=== PATIENT | female | born 1995 | race Caucasian/White ===

== ENCOUNTER → 2017-09-17 11:38 | Outpatient (CLI) | payer OTHER, SELFPAY ==
[2017-09-17 16:23] LABS: hCG Titer Quant., Serum < 1 mIU/mL (<9 non-preg)
[2017-09-17 17:06] LABS: Follicle Stimulating Hormone 3.5 mIU/mL; Free T3 3.4 pg/mL (2.18-3.98); Luteinizing Hormone 2.5 mIU/mL; T4 Free Direct 1.11 ng/dL (0.76-1.46); Thyroid Stim Hormone (TSH) 1.12 uIU/mL (0.358-3.74)
[2017-09-21 06:20] LABS: HPV Reflexed? NOT INDICATED
== END ==
PROVIDERS: Visit Provider Obstetrics & Gynecology
DX: Z12.4 Encounter for screening for malignant neoplasm of cervix (principal); N92.6 Irregular menstruation, unspecified
CPT/HCPCS: 36415; 83001; 83002; 84439; 84443; 84481; 84702; 88175; G0145

== ENCOUNTER → 2018-12-02 13:56 | Outpatient (CLI) | payer OTHER, SELFPAY ==
[2018-12-02 17:30] LABS: Chlamydia Trachomatis by PCR Negative (Negative); Neisserai gonorrhoeae by PCR Negative (Negative); Probe Check PASS; Sample Adequacy Control PASS; Specimen Processing Control PASS
[2018-12-04 16:04] LABS: HPV Reflexed? NOT INDICATED
== END ==
PROVIDERS: Visit Provider Obstetrics & Gynecology
DX: Z12.4 Encounter for screening for malignant neoplasm of cervix (principal); Z11.3 Encounter for screening for infections with a predominantly sexual mode of transmission
CPT/HCPCS: 87491; 87591; 88175; G0145

== ENCOUNTER → 2022-12-17 | Outpatient (CLI) | payer OTHER, SELFPAY ==
[2022-12-17 17:35] LABS: Hemoglobin 15.5 g/dL (12.0-15.0); Mean Corp Hgb Conc 33.7 g/dL (32-36); Mean Corpuscular Hgb 29.6 pg (27.0-32.0); Platelet Count 280 K/mm3 (150-450); RBC Distribution Width SD 41.7 fl (35.1-43.9); Red Blood Count 5.23 M/mm3 (4.2-5.4); White Blood Count 14.1 K/mm3 (4.4-11.0)
[2022-12-17 18:14] LABS: CRP < 2.90 mg/L (0.0-3.0); T4 Total, Thyroxin 7.9 ug/dL (4.8-13.9); Thyroid Stim Hormone (TSH) 0.65 uIU/mL (0.358-3.74)
[2022-12-19 16:09] LABS: Endomysial Antibody IgA Positive (Negative); Immunoglobulin A 88 mg/dL (87-352); t-Transglutaminase IgA 9 U/mL (0-3)
== END | disposition home or self-care (01) ==
LOC: MTLAB 15:58
PROVIDERS: Referring Provider Internal Medicine Gastroenterology; Visit Provider Internal Medicine Gastroenterology
DX: R19.7 Diarrhea, unspecified (principal)
CPT/HCPCS: 36415; 82784; 83516; 84436; 84443; 85027; 86140; 86255

== ENCOUNTER 2024-08-10 08:18 | Emergency (ER) | payer OTHER, SELFPAY ==
[2024-08-10 08:21] VITALS: BP 122/92; PULSE 94; RESP 18; TEMP 36.9; O2SAT 100; BMI 25.0
--- NOTE | 2024-08-10 08:36 | US_ITS ---
PROCEDURE: TRANSVAGINAL W/PREG US REASON FOR EXAM: Bleeding during . COMPARISON: None. FINDINGS: Comments: Transvaginal imaging was performed Number of Gestational Sacs: 1 Gestational Sac Shape: Normal it measures 2.2 cm. 7 weeks and 1 day. Number of Fetuses: 1 Heart Rate: 123 (average) Survey of Visible Anatomic Structures: Grossly unremarkable for gestational age. [place]-rump measurement is 4 mm corresponding to 6 weeks and 2 days. Yolk Sac: Present and unremarkable. Placenta: Presently not well-visualized Amniotic Fluid Volume: Subjectively normal for gestational age. Uterine Abnormalities: Maternal uterus is unremarkable. Uterus measures 8.7 cm 6 cm 5.3 cm. Ovaries / Adnexa: Both maternal ovaries are visualized and unremarkable. There is a 1.9 cm x 1.5 cm x 1.5 cm dominant follicle in the right ovary. ESTIMATED GESTATIONAL AGE: By Ultrasound: 6 weeks and 5 days By LMP: 6 weeks and 1 day ESTIMATED DATE OF DELIVERY: By Ultrasound: March 31, 2025 By LMP: April 04, 2025 US/Transvaginal w/Preg US IMPRESSION: UNREMARKABLE FIRST TRIMESTER ULTRASOUND. Reading Location: [place] [address]
--- NOTE | 2024-08-10 08:37 | ED.VIS.FEGU ---
HPI HPI - Female History of Present Illness Chief Complaint: Vag Bld, Preg Detail of Chief Complaint: and bleeding Informant: patient Narrative Narrative: Patient presents to the emergency department with complaint of vaginal bleeding that started last evening. Initially had some spotting last night. Patient think she is about 6 and half weeks as her last menstrual period was June 28. She has had some mild abdominal cramping. She denies urinary symptoms. This is her first and she is G1, P0. She has not had any care yet. This morning she had blood on the toilet paper when she wiped again. Denies passing clots. PFSH PFSH Allergy/AdvReac Type Severity Reaction Status Date / Time gluten AdvReac Intermediate Other Verified 08/10/24 08:21 Social History Smoking Status: Never smoker ROS ROS ED Review of Systems ROS Unobtainable: other Constitutional Constitutional ED: Reports lethargy; Denies chills, fever(s), sweats or weight loss Eyes Eyes: Denies blurry vision, change in vision or diplopia ENT ENT ED: Denies rhinorrhea or sore throat Cardiovascular Cardiovascular: Denies chest pain, orthopnea or racing heartbeat Respiratory/Chest Respiratory/Chest: Denies cough, dyspnea, dyspnea on exertion, orthopnea or sputum Gastrointestinal Gastrointestinal: Denies abdominal pain, diarrhea, nausea or vomiting Genitourinary Genitourinary ED: Reports other Details: Vaginal bleeding ; Denies dysuria, hematuria or urinary frequency Musculoskeletal Musculoskeletal: Denies arthralgias, back pain, myalgias or neck pain Integumentary Denies abscess, Abrasions or rash Neurologic Neurologic: Denies headache(s) or weakness Psychiatric Psychiatric: Denies anxiety, depression or suicidal thoughts Endocrine Endocrinology: Denies polydipsia, polyphagia or polyuria Hematologic/Lymphatic Hematologic/Lymphatic: Denies easy bleeding, easy bruising or lymphadenopathy Allergic/Immunologic Allergic/Immunologic ED: Denies mouth swelling, tongue swelling or urticaria EXAM Physical Exam Const Vital Signs: 08/10/24 08:21 08/10/24 10:19 Temperature 98.4 F Temperature Source Oral Pulse Rate 94 82 Respiratory Rate 18 14 Blood Pressure 122/92 H Blood Pressure Mean 102 Pulse Ox 100 99 Oxygen Delivery Method Room Air Positive well nourished and well developed General Appearance ED: well developed and NAD HEENT Reports TM's clear and moist mucous membranes normocephalic and atraumatic; Negative for trauma or tenderness Tympanic Membrane ED: Yes TM's clear Eyes PERRL and EOMs intact bilaterally General Eye ED: Negative for pale conjunctiva or scleral icterus Neck no lymphadenopathy, supple and no JVD General: Negative for tenderness Chest Wall inspection of chest normal and palpation of chest normal Chest: Negative for tenderness Resp normal respiratory effort and clear to auscultation bilaterally Effort and Inspection: Negative for respiratory distress or pain with movement Auscultation: Negative for rhonchi, wheezes or diminished lung sounds Cardio regular rate, regular rhythm, S1 normal heart sound, S2 normal heart sound and no murmurs Peripheral Pulses: pulses 2+ throughout GI normal to inspection, nondistended, normoactive bowel sounds, soft to palpation, non-tender, non-distended and no masses Back/Spine no CVA tenderness and no thoracic nor lumbar tenderness Extremity normal to inspection General Extremety ED: Negative for edema General Extremity: Negative for edema Neuro oriented x3, CN's II-XII intact bilaterally, no sensory deficits noted and gait normal Sensorium / Orientation: awake, alert, oriented to person, oriented to place and oriented to time Motor Exam: strength 5/5 throughout and strength abnormal Psych mental status grossly normal Skin no rashes or lesions noted and no wounds MDM MDM MDM Narrative Medical decision making narrative: Patient presents with first trimester bleeding. Clinically looks well. CBC with differential obtained was unremarkable. Quantitative hCG was 40,900. Pelvic ultrasound obtained showed single live intrauterine measuring 7 weeks 1 day with heart rate of 123. Blood type was a positive. Urinalysis obtained did show +2 bacteria and 5-10 WBCs and 100 leukocyte esterase. She is asymptomatic as far as UTI. I did send off a culture but I do not think she needs treatment at this time. Will discuss case with TRANSMITTER ENGINEER IN CHARGE on-call for Dr. Arriaza to arrange follow-up. Patient advised on pelvic rest. Lab Data Attestation: I reviewed the patient's lab results. Labs: Laboratory Results - last 24 hr 08/10/24 08/10/24 09:27 10:10 WBC 12.9 H RBC 5.14 Hgb 15.5 H Hct 43.3 MCV 84.2 MCH 30.2 MCHC 35.8 RDW Std Deviation 37.6 RDW Coeff of Georgie 12.3 Plt Count 208 MPV 11.3 Immature Gran % (Auto) 0.300 Neut % (Auto) 78.9 H Lymph % (Auto) 14.6 L [place] % (Auto) 5.1 Eos % (Auto) 0.7 Baso % (Auto) 0.4 Absolute Neuts (auto) 10.2 H Absolute Lymphs (auto) 1.89 Nucleated RBC % 0 HCG, Quant 45891 H Urine Color Yellow Urine Clarity Clear Urine pH 6.5 Ur Specific [place] 1.010 Urine Protein 15 H Urine Glucose (UA) Normal Urine Ketones 50 H Urine Occult Blood 250 H Urine Nitrite Negative Urine Bilirubin Negative Urine Urobilinogen Normal Ur Leukocyte Esterase 100 H Urine RBC 0-5 SEEN Urine WBC 5-10 SEEN Ur Squamous Epith Cells 5-10 SEEN Ur Renal Epithelial Cell 0-5 SEEN Urine Bacteria 2+ Urine Mucus 0 SEEN Blood Type A POSITIVE Radiography Diagnostic Testing: Clinical Impression(s) from Imaging Studies Obstetrics Ultrasound 08/10/24 08:36 IMPRESSION: UNREMARKABLE FIRST TRIMESTER ULTRASOUND. Reading Location: [place] [address] Discharge Plan Triage Chief Complaint: Vag Bld, Preg ED Provider: Cee Purcell Dx/Rx/DC Orders Clinical Impression: Threatened in first trimester Instructions: Miscarriage Threatened Primary Care Provider: Care Physician,Laney Primary Referrals: Angella Arriaza MD [Med Staff - Active Staff] - Keep [place] appointment NOT,DEFINED [Non-Staff] - Print Language: [place] Islander Disposition Disposition: Home, Self Care
[2024-08-10 09:49] LABS: Absolute Lymphocyte Count 1.89 X10^3/uL (0.83-4.51); Absolute Neutrophil Count 10.2 X10^3/uL (2.0-7.7); Basophil# 0.05 X10^3/uL; Basophil% 0.4 % (0-1); Eosinophil# 0.09 X10^3/uL; Eosinophils% 0.7 % (0-5); Hematocrit 43.3 % (37-47); Hemoglobin 15.5 g/dL (12.0-15.0); Lymphocyte # 1.89 X10^3/ul (0.83-4.51); Lymphocyte % 14.6 % (19-41); Mean Corp Hgb Conc 35.8 g/dL (32-36); Mean Corpuscular Hgb 30.2 pg (27.0-32.0); Mean Corpuscular Volume 84.2 fL (81-99); Mean Platelet Vol. 11.3 fl (6.2-12.0); Monocyte# 0.66 X10^3/uL; Monocyte% 5.1 % (0-10); NRBC Flagged by Analyzer 0 % (0-5); Neutrophil # 10.19 X10^3/uL (2.7-7.7); Neutrophil % 78.9 % (47-70); Platelet Count 208 K/mm3 (150-450); RBC Distribution Width CV 12.3 % (11.6-14.6); RBC Distribution Width SD 37.6 fl (35.1-43.9); Red Blood Count 5.14 M/mm3 (4.2-5.4); White Blood Count 12.9 K/mm3 (4.4-11.0)
[2024-08-10 10:19] VITALS: PULSE 82; RESP 14; O2SAT 99
[2024-08-10 10:30] LABS: Mucous, Urine 0 SEEN /hpf (<or=2+)
[2024-08-10 10:40] LABS: Color, Urine Yellow (Yellow); Glucose, Dipstick Normal (Normal); Ketone-Dipstick 50 mg/dl (Negative); Leukocyte Esterase-Dipstick 100 /ul (Negative); Nitrite-Dipstick Negative (Negative); Occult Blood-Urine 250 /ul (Negative); Protein-Dipstick 15 mg/dl (Negative); Urine Bilirubin Dipstick Negative (Negative); Urine Clarity Clear (Clear); Urine Urobilinogen Normal (Normal); Urine pH 6.5 (5.0 - 8.0)
[2024-08-10 10:50] LABS: Red Blood Cells-Urine 0-5 SEEN /hpf (0-5); White Blood Cells 5-10 SEEN /hpf (0-5)
[2024-08-10 10:51] LABS: Bacteria 2+ /hpf (None Seen); Renal Epithelial Cells 0-5 SEEN /hpf (0-5); Squamous Epithelial Cells - UA 5-10 SEEN /hpf (5-10)
[2024-08-10 10:53] LABS: hCG Titer Quant., Serum 40949 mIU/mL (1-3)
[2024-08-10 12:24] VITALS: BP 130/68; PULSE 71; RESP 14; TEMP 36.6; O2SAT 100
== END 2024-08-10 12:25 | disposition home or self-care (01) ==
PROVIDERS: Emergency Provider Emergency Medicine; Visit Provider Emergency Medicine
DX: O20.0 Threatened abortion (principal); Z3A.01 Less than 8 weeks gestation of pregnancy
CPT/HCPCS: 76817; 81001; 84702; 85025; 86900; 86901; 87086; 87088; 99282; A4216

== ENCOUNTER 2024-08-11 09:13 | Emergency (ER) | payer OTHER, SELFPAY ==
[2024-08-11 09:14] VITALS: BP 115/76; PULSE 120; RESP 18; TEMP 37.2; O2SAT 98; BMI 25.1
--- NOTE | 2024-08-11 09:36 | EDS_ITS ---
HPI HPI - GI History of Present Illness Chief Complaint: Nausea/Vomiting Informant: patient Narrative Narrative: Patient is a 28-year-old female with history of stomach issues and approximately 7 weeks presenting with nausea vomiting continued vaginal bleeding. Patient was seen in our ER yesterday for vaginal bleeding. She was found to be A positive, Had a hemoglobin of 15.5 and a quant of 40,949. She had an ultrasound which showed gestation consistent with 6 weeks and 5 days and a heart rate of 123. She states she woke around 230 this morning and started having vomiting. She has had multiple episodes of vomiting cannot keep any fluids down. She has been having some nausea but is not been throwing up until this morning. She states he can keep anything down. 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 She is having some mild upper abdominal pain associate with vomiting. No fevers reported. Did have slightly more bleeding when she got up to throw up initially with passage of very small clots but states there is no blood on her underwear. Has not had any recent intercourse. Denies any dysuria or hematuria. Denies any black or blood in her vomit or her stool. Denies any diarrhea. Has tried half a Unisom and B6 vitamin at home with no significant relief. PFSH PFSH Home Medications ?Medication ?Instructions ?Recorded ?Last Taken ?Type ondansetron 4 mg disintegrating 4 mg PO Q8H PRN PRN Na usea #15 tabs 08/11/24 Unknown Rx tablet Allergy/AdvReac Type Severity Reaction Status Date / Time gluten AdvReac Intermediate Other Verified 08/10/24 08:21 Social History Smoking Status: Never smoker ROS ROS ED Constitutional Constitutional ED: Reports chills; Denies fever(s) ENT ENT ED: Reports other Details: congestion Cardiovascular Cardiovascular: Denies chest pain Respiratory/Chest Respiratory/Chest: Denies cough or dyspnea Gastrointestinal Gastrointestinal: Reports abdominal pain, nausea and vomiting; Denies constipation, diarrhea or melena Genitourinary Genitourinary ED: Reports LMP (females 10-50) Details: Comment: (June 28, 2024) and other Details: vaginal bleeding ; Denies dysuria or hematuria Integumentary Denies rash Neurologic Neurologic: Reports weakness Psychiatric Psychiatric: Reports anxiety Hematologic/Lymphatic Hematologic/Lymphatic: Denies easy bleeding or easy bruising EXAM Physical Exam Const Vital Signs: 08/11/24 09:14 08/11/24 12:25 08/11/24 14:00 Temperature 98.9 F Temperature Source Oral Pulse Rate 120 H 94 Respiratory Rate 18 18 Blood Pressure 115/76 112/69 106/71 Blood Pressure Mean 89 83 83 Pulse Ox 98 99 97 Oxygen Delivery Method Room Air Room Air 08/11/24 14:47 Temperature Temperature Source Pulse Rate 93 Respiratory Rate 18 Blood Pressure 101/63 Blood Pressure Mean 75 Pulse Ox 98 Oxygen Delivery Method Positive well nourished and well developed General Appearance ED: well developed and NAD; Negative for pallor HEENT Reports moist mucous membranes normocephalic and atraumatic Eyes PERRL Neck supple Resp normal respiratory effort and clear to auscultation bilaterally Cardio regular rhythm and no murmurs Rate: tachycardic GI Inspection: Negative for abdominal distention Auscultation: normoactive bowel sounds Palpation: soft and tender epigastric; Negative for guarding or rigid Back/Spine no CVA tenderness Extremity full ROM General Extremety ED: Negative for edema General Extremity: Negative for edema Neuro moves all extremities Sensorium / Orientation: alert, oriented to person, oriented to place and oriented to time Motor Exam: Negative for general weakness Psych thought process normal Mood & Affect: tearful Skin General Skin Exam: Negative for jaundice or pallor Rashes: no rashes MDM MDM MDM Narrative Medical decision making narrative: Patient evaluated for continued vaginal bleeding in early which she had evaluated yesterday as well as new nausea and vomiting. Differential includes related vomiting, dehydration, ANDRADE, pancreatitis, influenza, threatened miscarriage as well as incomplete miscarriage. Will give IV fluids and Zofran. Did discuss risk and benefits of Zofran and early and we decided that that this time was best for her mother as well as her baby and benefits outweigh the risk. In addition perform bedside ultrasound. Given that she had confirmed intrauterine gestation is not having lower pelvic pain I do not think she requires repeat formal ultrasound. Bedside ultrasound performed by myself shows single intrauterine gestation. I believe I see cardiac activity at approximately 130 bpm per M-mode. Patient reevaluated IV fluids and Zofran. States she temporarily felt better but then her symptoms worsened and she is having more pain in her upper abdomen. She now has diffuse upper abdominal pain but more localized to the right upper quadrant. She does have a leukocytosis of 17.2 concern for infectious versus reactive process. Hemoglobin is increased consistent with some dehydration hemoconcentration. hCG is uptrending. Electrolytes otherwise largely normal except for sodium of 134. Urinalysis most consistent with dehydration with 150 ketones and no significant leukorrhea. Patient will begin a second liter fluid, further Zofran Pepcid and will obtain right upper quadrant ultrasound. COVID flu RSV negative. Right upper quadrant ultrasound unremarkable. No signs of acute cholecystitis. Patient reevaluated and has further improvement of symptoms and swelling much better. Is tolerating ice chips. Will be discharged home with instructions follow-up with her GAG WRITER. Is given return precautions. Will be given a prescription for Zofran. Counseled that we can still not rule out threatened miscarriage/ with her continued bleeding. Given return precautions including severe pain, bleeding more than a pad an hour for 2 hours in a row or feeling lightheaded/dizzy. Discussed eating small frequent meals and pushing fluids at home. Lab Data Attestation: I reviewed the patient's lab results. Labs: Laboratory Results - last 24 hr 08/11/24 08/11/24 09:35 11:14 WBC 17.2 H RBC 5.48 H Hgb 16.4 H Hct 46.2 MCV 84.3 MCH 29.9 MCHC 35.5 RDW Std Deviation 37.2 RDW Coeff of Georgie 12.3 Plt Count 216 MPV 11.1 Immature Gran % (Auto) 0.300 Neut % (Auto) 93.5 H Lymph % (Auto) 2.4 L [place] % (Auto) 3.4 Eos % (Auto) 0.2 Baso % (Auto) 0.2 Absolute Neuts (auto) 16.1 H Absolute Lymphs (auto) 0.42 L Nucleated RBC % 0 Sodium 134 L Potassium 3.9 Chloride 104 Carbon Dioxide 21.0 Anion Gap 9 BUN 12 Creatinine 0.74 Estim Creat Clear Calc 111.05 Est GFR (MDRD) Af Amer 120 Est GFR (MDRD) Non-Af 99 BUN/Creatinine Ratio 16.2 Glucose 133 H Calcium 9.0 Total Bilirubin 0.80 AST 12 L ALT 29 Alkaline Phosphatase 72 Total Protein 7.7 Albumin 3.8 Globulin 3.9 Albumin/Globulin Ratio 1.0 Lipase 31 HCG, Quant 77210 H Urine Color Yellow Urine Clarity Sl. Cloudy Urine pH 6.5 Ur Specific [place] 1.015 Urine Protein 30 H Urine Glucose (UA) Normal Urine Ketones 150 A* Urine Occult Blood 150 H Urine Nitrite Negative Urine Bilirubin Negative Urine Urobilinogen Normal Ur Leukocyte Esterase 25 H Urine RBC 0-5 SEEN Urine WBC 0-5 SEEN Ur Squamous Epith Cells 0-5 SEEN Urine Bacteria 1+ Urine Mucus 0 SEEN Radiography Diagnostic Testing: Clinical Impression(s) from Imaging Studies Gallbladder Ultrasound 08/11/24 12:16 IMPRESSION: NORMAL RIGHT UPPER QUADRANT ULTRASOUND. Right renal pelvic cyst. Reading Location: [place] [address] Discharge Plan Triage Chief Complaint: Nausea/Vomiting ED Provider: Fatoumata Diaz Dx/Rx/DC Orders Clinical Impression: Threatened in first trimester, Nausea & vomiting Instructions: Miscarriage Threatened , ED Vomiting (Adult) Prescriptions: New ondansetron 4 mg tablet,disintegrating 4 mg PO Q8H PRN PRN (Reason: Nausea) Qty: 15 0RF Primary Care Provider: Care Physician,No Primary Referrals: Angella Arriaza MD [Med Staff - Active Staff] - Care Physician,No Primary [Primary Care Provider] - Print Language: [place]ian Disposition Disposition: Home, Self Care Discharge Date/Time: 08/11/24 14:48
[2024-08-11 09:45] LABS: Absolute Lymphocyte Count 0.42 X10^3/uL (0.83-4.51); Absolute Neutrophil Count 16.1 X10^3/uL (2.0-7.7); Basophil# 0.04 X10^3/uL; Basophil% 0.2 % (0-1); Eosinophil# 0.03 X10^3/uL; Eosinophils% 0.2 % (0-5); Hematocrit 46.2 % (37-47); Hemoglobin 16.4 g/dL (12.0-15.0); Lymphocyte # 0.42 X10^3/ul (0.83-4.51); Lymphocyte % 2.4 % (19-41); Mean Corp Hgb Conc 35.5 g/dL (32-36); Mean Corpuscular Hgb 29.9 pg (27.0-32.0); Mean Corpuscular Volume 84.3 fL (81-99); Mean Platelet Vol. 11.1 fl (6.2-12.0); Monocyte# 0.58 X10^3/uL; Monocyte% 3.4 % (0-10); NRBC Flagged by Analyzer 0 % (0-5); Neutrophil # 16.11 X10^3/uL (2.7-7.7); Neutrophil % 93.5 % (47-70); POSITIVE DIFFERENTIAL YES; Platelet Count 216 K/mm3 (150-450); RBC Distribution Width CV 12.3 % (11.6-14.6); RBC Distribution Width SD 37.2 fl (35.1-43.9); Red Blood Count 5.48 M/mm3 (4.2-5.4); White Blood Count 17.2 K/mm3 (4.4-11.0)
[2024-08-11] MEDS: Ondansetron 4 MG/2 ML Vial IV ×2 (09:47→12:22)
[2024-08-11] MEDS: 0.9% Normal Saline (1000mL) 1,000 ML 1000 ML IV (09:47)
[2024-08-11 10:00] LABS: AST(SGOT) 12 U/L (15-37); Alanine Aminotransfer ALT/SGPT 29 U/L (13-56); Albumin, Serum 3.8 g/dL (3.2-5.0); Alkaline Phosphatase 72 U/L (45-117); Anion Gap 9 (5-15); BUN 12 mg/dL (7-18); BUN/Creat Ratio 16.2 RATIO (10-20); Chloride 104 mmol/L (98-107); Creatinine, Serum 0.74 mg/dL (0.55-1.02); EST Glomerular Filtration Rate 99 mL/min (>60); Est Glom Filt Rate - Afr Amer 120 mL/min (>60); Estimated Creatinine Clearance 111.05 ml/min; Globulin 3.9 g/dL (2.2-4.2); Glucose 133 mg/dL (74-106); Lipase 31 U/L (13-75); Potassium 3.9 mmol/L (3.5-5.1); Protein, Total 7.7 g/dL (6.4-8.2); Sodium Level 134 mmol/L (136-145)
[2024-08-11 10:25] LABS: hCG Titer Quant., Serum 42259 mIU/mL (1-3)
[2024-08-11 11:22] LABS: Mucous, Urine 0 SEEN /hpf (<or=2+)
[2024-08-11 11:30] LABS: Color, Urine Yellow (Yellow); Glucose, Dipstick Normal (Normal); Leukocyte Esterase-Dipstick 25 /ul (Negative); Nitrite-Dipstick Negative (Negative); Occult Blood-Urine 150 /ul (Negative); Protein-Dipstick 30 mg/dl (Negative); Specific Gravity, Urine 1.015 (1.002-1.030); Urine Bilirubin Dipstick Negative (Negative); Urine Clarity Sl. Cloudy (Clear); Urine Urobilinogen Normal (Normal); Urine pH 6.5 (5.0 - 8.0)
[2024-08-11 11:33] LABS: Ketone-Dipstick 150 mg/dl (Negative)
[2024-08-11 11:35] LABS: Bacteria 1+ /hpf (None Seen); Squamous Epithelial Cells - UA 0-5 SEEN /hpf (5-10)
[2024-08-11 11:36] LABS: Red Blood Cells-Urine 0-5 SEEN /hpf (0-5); White Blood Cells 0-5 SEEN /hpf (0-5)
--- NOTE | 2024-08-11 12:16 | US_ITS ---
PROCEDURE: Right upper quadrant ultrasound. REASON FOR EXAM: Vomiting and upper quadrant pain. COMPARISON: None FINDINGS: Liver: Grossly normal size and echotexture. It measures 14.8 cm. Gallbladder: No stones, sludge, wall thickening or tenderness. Gallbladder wall measures 2 mm. Common bile duct: Normal measuring 3 mm. Pancreas: Visualized portions are sonographically unremarkable. Visualized portions of the right kidney are unremarkable. The kidney measures 12 cm x 4.6 cm x 4.1 cm. The cortex measures 1.5 cm. There is evidence of a 2.3 cm x 2.3 cm x 2.3 cm right renal pelvic cyst. No right upper quadrant ascites. US/Gallbladder IMPRESSION: NORMAL RIGHT UPPER QUADRANT ULTRASOUND. Right renal pelvic cyst. Reading Location: [place] [address]
[2024-08-11] MEDS: 0.9% Normal Saline (1000mL) 1,000 ML 999 ML IV (12:21)
[2024-08-11 12:25] VITALS: BP 112/69; PULSE 94; RESP 18; O2SAT 99
[2024-08-11] MEDS: Famotidine 200 MG/20 ML MDV 20 MG in 0.9% Normal Saline (Pres. free 8 ML 300 MG IV (12:46)
[2024-08-11 14:00] VITALS: BP 106/71; O2SAT 97
--- NOTE | 2024-08-11 14:37 | CM.ED ---
Social Work Reason for visit: No PCP Patient verified that she does not currently have a PCP. [facility] provider list given to patient. No further needs identified at this time. Tasia Carlson, FLOORING MACHINE FEEDER, CHILDREN'S COUNSELOR
[2024-08-11 14:47] VITALS: BP 101/63; PULSE 93; RESP 18; O2SAT 98
== END 2024-08-11 14:48 | disposition home or self-care (01) ==
PROVIDERS: Emergency Provider Emergency Medicine; Visit Provider Emergency Medicine
DX: O20.0 Threatened abortion (principal); Z3A.00 Weeks of gestation of pregnancy not specified
CPT/HCPCS: 76705; 80053; 81001; 83690; 84702; 85025; 87631; 96361; 96374; 96376; 99283; A4216; J2405

== ENCOUNTER → 2024-08-25 | Outpatient (CLI) | payer OTHER, SELFPAY ==
[2024-08-25 17:05] LABS: Absolute Lymphocyte Count 2.51 X10^3/uL (0.83-4.51); Absolute Neutrophil Count 10.9 X10^3/uL (2.0-7.7); Basophil# 0.03 X10^3/uL; Basophil% 0.2 % (0-1); Eosinophil# 0.11 X10^3/uL; Eosinophils% 0.8 % (0-5); Hematocrit 41.8 % (37-47); Hemoglobin 14.4 g/dL (12.0-15.0); Lymphocyte # 2.51 X10^3/ul (0.83-4.51); Lymphocyte % 17.5 % (19-41); Mean Corp Hgb Conc 34.4 g/dL (32-36); Mean Corpuscular Hgb 29.2 pg (27.0-32.0); Mean Corpuscular Volume 84.8 fL (81-99); Monocyte# 0.76 X10^3/uL; Monocyte% 5.3 % (0-10); NRBC Flagged by Analyzer 0 % (0-5); Neutrophil # 10.87 X10^3/uL (2.7-7.7); Neutrophil % 75.6 % (47-70); Platelet Count 339 K/mm3 (150-450); RBC Distribution Width CV 12.4 % (11.6-14.6); RBC Distribution Width SD 37.3 fl (35.1-43.9); Red Blood Count 4.93 M/mm3 (4.2-5.4); White Blood Count 14.4 K/mm3 (4.4-11.0)
[2024-08-25 18:06] LABS: HIV - WCH Non-Reactive (Nonreactive); Hepatitis B Surface Antigen Non-Reactive (Nonreactive); Hepatitis C Antibody Non-Reactive (Nonreactive); Rubella IgG Reactive (Nonreactive); Syphilis Antibodies Non-reactive
[2024-08-28 07:07] LABS: Chlamydia By Nucleic Acid AMP Negative (Negative); Gonococcus By Nucleic Acid AMP Negative (Negative)
[2024-08-30 11:19] LABS: HPV Reflexed? NOT INDICATED
== END | disposition home or self-care (01) ==
LOC: BWCLAB 16:27
PROVIDERS: Referring Provider Advanced Practice Midwife; Visit Provider Advanced Practice Midwife
DX: O09.90 Supervision of high risk pregnancy, unspecified, unspecified trimester (principal); Z3A.00 Weeks of gestation of pregnancy not specified
CPT/HCPCS: 36415; 85025; 86703; 86762; 86780; 86803; 86850; 86900; 86901; 87086; 87340; 87491; 87591; 88175; G0145

== ENCOUNTER → 2024-10-22 | Outpatient (CLI) | payer OTHER, SELFPAY | END | disposition home or self-care (01) | LOC: LABSPEC 15:12 | PROVIDERS: Referring Provider Advanced Practice Midwife; Visit Provider Advanced Practice Midwife | DX: O99.891 Other specified diseases and conditions complicating pregnancy (principal); R39.15 Urgency of urination; Z3A.00 Weeks of gestation of pregnancy not specified | CPT/HCPCS: 87086 ==

== ENCOUNTER → 2025-01-10 | Outpatient (CLI) | payer OTHER, SELFPAY ==
[2025-01-10 17:07] LABS: Hematocrit 37.0 % (37-47); Hemoglobin 12.8 g/dL (12.0-15.0); Immature Granulocytes Count 0.090 X10^3/uL (0.0-0.0); Mean Corp Hgb Conc 34.6 g/dL (32-36); Mean Corpuscular Volume 87.1 fL (81-99); Mean Platelet Vol. 11.3 fl (6.2-12.0); NRBC Flagged by Analyzer 0 % (0-5); Platelet Count 210 K/mm3 (150-450); RBC Distribution Width CV 13.6 % (11.6-14.6); RBC Distribution Width SD 42.4 fl (35.1-43.9); Red Blood Count 4.25 M/mm3 (4.2-5.4); White Blood Count 14.7 K/mm3 (4.4-11.0)
[2025-01-10 18:10] LABS: Glucose Challenge Gest 1H 50g 98 mg/dL (70-140); HIV Nonreactive (Nonreactive); Syphilis Antibodies Nonreactive (Nonreactive)
== END | disposition home or self-care (01) ==
PROVIDERS: Advanced Practice Midwife; Visit Provider Obstetrics & Gynecology
DX: O09.90 Supervision of high risk pregnancy, unspecified, unspecified trimester (principal); Z13.1 Encounter for screening for diabetes mellitus; Z3A.00 Weeks of gestation of pregnancy not specified
CPT/HCPCS: 36415; 82950; 85025; 86703; 86780

== ENCOUNTER 2025-02-20 10:35 | Outpatient (CLI) | payer OTHER, SELFPAY ==
--- OUTSIDE RECORDS SUMMARY | 2025-02-20 10:53 | XMS RPT_ITS | CCD ---
Author Organization [facility] Care Team Providers Care Office Runner Name Role Phone Fernandez Tavarez Attending Unavailable Pamela Moreno Primary Care Unavailable Fernandez Tavarez Admitting Unavailable NO, PHYSICIAN Primary Care Unavailable ELAINE SHEEHAN Attending Unavailable No, Physician Primary Care Provider Unavailking e Osmel Jin Unavailable Unavailable Unavailable StentOsmel danielle PA-C Primary Care Provider STENTOSMEL Danielle Primary Care Unavailable ALFRED ANDERSON Attending Unavailable OSMEL JIN Primary Care Unavailable ALFRED ANDERSON Attending Unavailable NO PRIMARY CARE, Primary Care Unavailable OSMEL WATERMAN Attending Unavailable ANGELLA VILLARREAL Referring Unavailabl e Dr. Cee Purcell DO Attending Provider Dr. Cee Purcell DO Emergency Provider Care Physician, No Primary Primary Care Provider Unavailable Dr. Fatoumata Diaz DO Attending Provider Dr. Fatoumata Diaz DO Emergency Provider [phone] Tracy Carey RN Attending Provider Unavailabl e Care Physician, No Primary Referring Provider Un available Nicole Crews CNM Attending Provider Nicole Crews CNM Referring Provider Dr. Angella Villarreal MD Attending Provider [phone] Care Physician, No Primary Primary Care Provider Unavailable Care Physician, No Primary Primary Care Provider Unavailable Care Physician, No Primary Referring Provider Un available Nicole Crews CNM Attending Provider [phone] Nicole Crews CNM Referring Provider [phone] Carie Drummond Attending Provider [phone] Care Physician, No Primary Primary Care Provider Unavailable Care Physician, No Primary Referring Provider Un available Arsalan PEDERSEN, Dr. Perales Attending Provider [phone] Care Physician, No Primary Primary Care Unava ilTracy Miller Attending Unavailable Fatoumata Diaz Attending Unavailable Care Physician, No Primary Primary Care Unava ilable Care Physician, No Primary Referring Unava ilNicole Kiser Attending Unavailable Care Physician, No Primary Primary Care Unava ilable Care Physician, No Primary Primary Care Unava ilable Care Physician, No Primary Referring Unava ilable Nicole Crews Attending Unavailable Care Physician, No Primary Primary Care Unava ilable Care Physician, No Primary Referring Unava ilable Angella Villarreal Attending Unavailable Care Physician, No Primary Primary Care Unava ilable Care Physician, No Primary Referring Unava ilNicole Kiser Attending Unavailable Care Physician, No Primary Primary Care Unava ilable Care Physician, No Primary Referring Unava ilNicole Kiser Attending Unavailable Care Physician, No Primary Primary Care Unava ilable Care Physician, No Primary Referring Brinava Nicole Allison Attending Unavailable Care Physician, No Primary Primary Care Unava ilable Care Physician, No Primary Referring Unava ilable Carie Burns Attending Unavailable Care Physician, No Primary Primary Care Unava ilable Care Physician, No Primary Referring Unava ilNicole Kiser Attending Unavailable Care Physician, No Primary Referring Unava ilable Kerry Sosa [facility], No Primary Primary Care Unava ilable Care Physician, No Primary Referring Unava ilable Angella Villarreal Attending Unavailable Care Physician, No Primary Primary Care Unava ilable Care Physician, No Primary Primary Care Unava ilable Tracy Carey Attending Unavailable Care Physician, No Primary Primary Care Unava ilable Tracy Carey Attending Unavailable Care Physician, No Primary Primary Care Unava ilNicole Kiser Referring Unavailable Nicole Crews Attending Unavailable Care Physician, No Primary Primary Care Unava ilAngella Yeager Attending Unavailable Care Physician, No Primary Primary Care Unava ilNicole Kiser Attending Unavailable Nicole Crews Referring Unavailable Care Physician, No Primary Primary Care Unava ilable Cee Purcell Attending Unavailable Allergies Allergy Classification Reported Allergen(s) Allergy Type Date of Onset Reaction(s) Facility (8 sources) Wheat gluten extract; Translations: [GLUTEN] Drug Allergy 08-20-2023 Diarrhea [facility] (1 source) Gluten Drug allergy (disorder) 02-11-2025 [facility] Repository Medications Current Medications Medication Drug Class(es) Dates Sig (Normalized) Sig (Original) [id number] 200 actuat albuterol 0.09 mg/actuat metered dose inhaler (1 source) beta2-Adrenergic Agonist Start: 4 End: 5 take 2 puff(s) by inhalation every six hours for wheezing albuterol 90 mcg/actuation inhaler Indications: Acute bronchitis, unspecified organism Inhale 2 puffs every 6 hours if needed for wheezing. 18 g 05/26/2024 05/26/2025 Active azithromycin 250 mg oral tablet (1 source) Macrolide Antimicrobial Start: End: azithromycin (Zithromax Z-Tucker) 250 mg tablet Indications: COVID Take 2 tablets (500 mg) on Day 1, followed by 1 tablet (250 mg) once daily on Days 2 through 5. 6 tablet 05/26/2024 05/31/2024 Active docosahexaenoic acid 200 mg oral capsule (6 sources) Start: 5 Docosahexaenoic Acid ( Dha) 200 mg capsule Active mg PO August 20, 2024 1:00am fluticasone propionate 0.05 mg/actuat metered dose nasal spray (1 source) Corticosteroid Start: 4 End: 5 take 1 spray(s) nasal route once daily fluticasone (Flonase) 50 mcg/actuation nasal spray Indications: Acute upper respiratory infection Administer 1 spray into each nostril once daily. Shake gently. Before first use, prime pump. After use, clean tip and replace cap. 16 g 08/20/2023 08/19/2024 Active methylPREDNISolone (1 source) Corticosteroid Start: 4 methylPREDNISolone (Medrol Dospak) 4 mg tablets Indications: Acute bronchitis, unspecified organism Take as directed on package. 21 tablet 05/26/2024 Active ondansetron 4 mg disintegrating oral tablet (12 sources) Serotonin-3 Receptor Antagonist Start: 5 End: 5 take 1 tablet by mouth every eight hours as needed for nausea Ondansetron 4 mg tablet,disintegrating Active 4 mg PO EVERY 8 HOURS NEEDED as needed for Nausea 30 August 25, 2024 5:02pm Completed/Discontinued Medications Medication Drug Class(es) Dates Sig (Normalized) Sig (Original) No Reported Medications (1 source) No Reported Medi cations Quantity: 0 Refills: 0 Ordered: 12-Feb-2022 DO Active Problems Active Problems Problem Classification Problem Date Documented Da te Episodic/Chronic Acute bronchitis (4 sources) Acute bronchitis; Translations: [Acute bronchitis, unspecified] Onset: 05-26-2024 05-26-2024 Episodic Hemorrhage during ; abruptio placenta; placenta previa (6 sources) Threatened miscarriage in first trimester; Translations: [Threatened ] 08-18-2024 Episodic Immunizations and screening for infectious disease (1 source) Encounter for immunization; Translations: [Encounter for immunization] Onset: 01-10-2025 Episodic Mycoses (1 source) Dermatophytosis; Translations: [Dermatophytosis of the body] Episodic Other complications of (20 sources) High risk ; Translations: [Supervision of high risk , unspecified, unspecified trimester] 08-28-2024 Episodic Comment on above: PRR, , GLENN 04/05, : Maximilian Other complications of (1 source) Supervision of high risk , unspecified, third trimester; Translations: [Supervision of high risk , unspecified, third trimester] Onset: 02-11-2025 Episodic Other complications of (1 source) Supervision of high risk , unspecified, unspecified trimester; Translations: [Supervision of high risk , unspecified, unspecified trimester] Onset: 01-13-2025 Episodic Other female genital disorders (1 source) Abnormal uterine and vaginal bleeding, unspecified; Translations: [Abnormal uterine and vaginal bleeding, unspecified] Onset: 08-24-2024 Chronic Other gastrointestinal disorders (20 sources) Celiac disease; Translations: [Celiac disease] 08-20-2024 Chronic Other gastrointestinal disorders (1 source) Celiac disease; Translations: [Celiac disease] Onset: 02-11-2025 Chronic Other and delivery including normal (20 sources) ; Translations: [Encounter for supervision of normal , unspecified, unspecified trimester] 11-18-2024 Episodic Comment on above: Discussed genetic/ca rrier testing - declined. Other skin disorders (1 source) Skin lesion; Translations: [Unspecified disorder of skin and subcutaneous tissue] Episodic Residual codes; unclassified (1 source) Other general symptoms and signs; Translations: [Suspected Covid-19 Virus Infection] Episodic Residual codes; unclassified (1 source) 32 weeks gestation of ; Translations: [32 weeks gestation of ] Onset: 02-11-2025 Episodic Unclassified (1 source) Other specified diseases and conditions complicating ; Translations: [Other specified diseases and conditions complicating ] Onset: 10-27-2024 Viral infection (1 source) Disease caused by 2019-nCoV; Translations: [COVID-19] 05-26-2024 Episodic Viral infection (2 sources) COVID-19; Translations: [COVID-19] Onset: 05-26-2024 Past or Other Problems Problem Classification Problem Date Documented Da te Episodic/Chronic Nausea and vomiting (7 sources) Nausea and vomiting; Translations: [Nausea with vomiting, unspecified] Onset: 08-24-2024 08-19-2024 Episodic Other upper respiratory infections (2 sources) Acute upper respiratory infection, unspecified; Translations: [Acute upper respiratory infection, unspecified] Onset: 08-20-2023 Episodic Residual codes; unclassified (1 source) 16 weeks gestation of ; Translations: [16 weeks gestation of ] Onset: 10-22-2024 Episodic Residual codes; unclassified (1 source) 12 weeks gestation of ; Translations: [12 weeks gestation of ] Onset: 09-22-2024 Episodic Residual codes; unclassified (1 source) 8 weeks gestation of ; Translations: [8 weeks gestation of ] Onset: 08-25-2024 Episodic Results Test Name Value Interpretation Reference Range Facility Monorail Charger Operator Office Visit Reporton 02-11-2025 Monorail Charger Operator Office Visit Report [facility] [address], [address] [place] [address] OFFICE VISIT Date of Service: 02/11/25 MR#: [id number] Acct: [id number] Name: GERTRUDE EMERY Rep #: [id number] : 1995 Provider: NATALYA Felix ams Age/Sex: 29/F Location: [facility] [place] Status: Signed Intake Vital Signs 01/28/25 11:28 02/11/25 10:01 Height 5 ft 7 in 5 ft 7 in Weight: 179 lb 2 oz BMI 28.0 BP 137/82 H Intake Visit Reasons: 32 wk ob *reschedule Chief Complaint: 32wk OB Bean Dumper Required: No Is patient in pain?: No Allergies gluten Adverse Reaction (Intermediate, Verified 02/11/25 09:59) Other Medications ???Medication ???Instructions ???Recorded ???Confirmed ???Type docosahexaenoic acid 200 mg mg PO 08/20/24 02/11/25 History capsule ( DHA) ondansetron 4 mg disintegrating 4 mg PO Q8H PRN PRN Nausea #30 tab s 08/25/24 02/11/25 Rx tablet Last Menstrual Period: 06/28/24 : No PFSH PFSH Surgical History History of appendectomy Family History Aunt Thyroid disorder Grandmother Thyroid disorder Grandfather Kidney disease on dialysis Social History adopted: No household members: spouse 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al status: employed 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al exposures/hazards: No pets and animals: Yes pets and animals: dog(s) history of recent travel: Yes ( - September 2024) out of state: No out of country: Yes sexually active: Yes Smoking Status: Never smoker second hand exposure: No alcohol intake: never substance use type: other details: Lima gummies - Beginning of July diet: gluten free well-balanced diet: daily or most days caffeine: Yes eating out: 1-3 times/week during the past year weight has: remained stable what type of physical activity do you participate in: walking and weight training frequency: 3-4 times per week duration: 15-30 minutes/day lc/latter-day: Taoism seatbelt use: always do you feel safe at home: Yes additional social history: : 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 OB Visit GLENN Calculator Estimated Delivery Date Method Current WG Current Estimate 04/04/25 LMP (Certain) 32w 4d Other Estimates 04/01/25 Ultrasound #1 33w 0d Expected Delivery Route/Plan Labor Preferences- CB/BF classes: encouraged labor support person: Maximilian labor intervention preferences: [] pain management options preferred: epidural if requested cut cord/dad catch: no : yes PP control planned: discussed discussed possible routes of delivery and associated risks: [] special requests: [] Specific Issue/Plans Covid status: [] Flu vaccine: [] Tdap vaccine: given Rhogam:NA LARC form signed: yes Problem list reviewed and updated with the most current plan of care details and appropriate orders placed. Relevant counseling for the gestational age provided. Continue routine care and follow up unless otherwise noted in visit notes/problem list details Initial Weight: 162 lb Date -???-???-???-???-???-???- ???-???-???-???-???-???- EGA Weight BP Urine Prot -???-???-???-???-???-???- ???-???-???-???-???-???- Glucose FHR FuHt Pres Dilation -???-???-???-???-???-???- ???-???-???-???-???-???- Effaced St Visit Note 08/25/24 -???-???-???-???-???-???- ???-???-???-???-???-???- 8w 2d 162 lb 8 oz (+8 oz) 119/80 -???-???-???-???-???-???- ???-???-???-???-???-???- 180 -???-???-???-???-???-???- ???-???-???-???-???-???- KW- CRL cons with dates. Declines NIPT. 09/22/24 -???-???-???-???-???-???- ???-???-???-???-???-???- 12w 2d 161 lb 8 oz (-8 oz) 122/80 Negative -???-???-???-???-???-???- ???-???-???-???-???-???- Negative 170 -???-???-???-???-???-???- ???-???-???-???-???-???- SM- no vb cr amping 10/22/24 -???-???-???-???-???-???- ???-???-???-???-???-???- 16w 4d 160 lb (-2 lb) 118/78 Negative -???-???-???-???-???-???- ???-???-???-???-???-???- Negative 150 -???-???-???-???-???-???- ???-???-???-???-???-???- KW- having s ome lower abd pressure and frequency with urination. +fm. US scheduled. declines AFP. KW- having some lower abd pressure and frequency with urination. will obtain clean catch. +fm. US scheduled. declines AFP. 11/18/24 -???-???-???-???-???-???- ???-???-???-???-???-? (more content not included)... Normal [facility] - Chemistry and C hemistry - challengeOrdered By: Nicole Crews on 01-28-2025 Glucose Ql (U) Negative [facility] - UrinalysisOrder ed By: Nicole Crews on 01-28-2025 Protein Ql (U) Negative [facility] Monorail Charger Operator Office Visit Reporton 01-28-2025 Monorail Charger Operator Office Visit Report [facility] [address], [address] [place] [address] OFFICE VISIT Date of Service: 01/28/25 MR#: [id number] Acct: [id number] Name: GERTRUDE EMERY Rep #: [id number] : 1995 Provider: NATALYA Felix ams Age/Sex: 29/F Location: [facility] [place] Status: Signed Intake Vital Signs 11/18/24 08:30 01/10/25 15:23 01/28/25 11:24 01/28/25 11:28 Height 5 ft 7 in 5 ft 7 in 5 ft 7 in 5 ft 7 in Weight: 177 lb 177 lb 2 oz BMI 27.7 27.7 BP 123/76 H 121/82 H Intake Visit Reasons: 30 wk ob Chief Complaint: 30 Week OB Bean Dumper Required: No Is patient in pain?: No Allergies gluten Adverse Reaction (Intermediate, Verified 01/28/25 11:23) Other Medications ???Medication ???Instructions ???Recorded ???Confirmed ???Type docosahexaenoic acid 200 mg mg PO 08/20/24 01/28/25 History capsule ( DHA) ondansetron 4 mg disintegrating 4 mg PO Q8H PRN PRN Nausea #30 tab s 08/25/24 01/28/25 Rx tablet Last Menstrual Period: 06/28/24 Zika: Zika virus screening: Negative : No PFSH PFSH Surgical History History of appendectomy Family History Aunt Thyroid disorder Grandmother Thyroid disorder Grandfather Kidney disease on dialysis Social History adopted: No household members: spouse 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al status: employed 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al exposures/hazards: No pets and animals: Yes pets and animals: dog(s) history of recent travel: Yes ( - September 2024) out of state: No out of country: Yes sexually active: Yes Smoking Status: Never smoker second hand exposure: No alcohol intake: never substance use type: other details: Lima gummies - Beginning of July diet: gluten free well-balanced diet: daily or most days caffeine: Yes eating out: 1-3 times/week during the past year weight has: remained stable what type of physical activity do you participate in: walking and weight training frequency: 3-4 times per week duration: 15-30 minutes/day lc/latter-day: Taoism seatbelt use: always do you feel safe at home: Yes 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 OB Visit GLENN Calculator Estimated Delivery Date Method Current WG Current Estimate 04/04/25 LMP (Certain) 30w 4d Other Estimates 04/01/25 Ultrasound #1 31w 0d Expected Delivery Route/Plan Labor Preferences- CB/BF classes: encouraged labor support person: Maximilian labor intervention preferences: [] pain management options preferred: epidural if requested cut cord/dad catch: no : yes PP control planned: discussed discussed possible routes of delivery and associated risks: [] special requests: [] Specific Issue/Plans Covid status: [] Flu vaccine: [] Tdap vaccine: given Rhogam:NA LARC form signed: yes Problem list reviewed and updated with the most current plan of care details and appropriate orders placed. Relevant counseling for the gestational age provided. Continue routine care and follow up unless otherwise noted in visit notes/problem list details Initial Weight: 162 lb Date -???-???-???-???-???-???- ???-???-???-???-???-???- EGA Weight BP Urine Prot -???-???-???-???-???-???- ???-???-???-???-???-???- Glucose FHR FuHt Pres Dilation -???-???-???-???-???-???- ???-???-???-???-???-???- Effaced St Visit Note 08/25/24 -???-???-???-???-???-???- ???-???-???-???-???-???- 8w 2d 162 lb 8 oz (+8 oz) 119/80 -???-???-???-???-???-???- ???-???-???-???-???-???- 180 -???-???-???-???-???-???- ???-???-???-???-???-???- KW- CRL cons with dates. Declines NIPT. 09/22/24 -???-???-???-???-???-???- ???-???-???-???-???-???- 12w 2d 161 lb 8 oz (-8 oz) 122/80 Negative -???-???-???-???-???-???- ???-???-???-???-???-???- Negative 170 -???-???-???-???-???-???- ???-???-???-???-???-???- SM- no vb cr amping 10/22/24 -???-???-???-???-???-???- ???-???-???-???-???-???- 16w 4d 160 lb (-2 lb) 118/78 Negative -???-???-???-???-???-???- ???-???-???-???-???-???- Negative 150 -???-???-???-???-???-???- ???-???-???-???-???-???- KW- having s ome lower abd pressure and frequency with urination. +fm. US scheduled. declines AFP. KW- having some lower abd pressure and frequency with urination. will obtai (more content not included)... Normal [facility] Absolute lymphocyte countOrd ered By: Nicole Crews on 01-10-2025 Lymphocytes Auto (Unsp spec) [#/Vol] 2.16 10*3/uL 0.83-4.51 [facility] Absolute neutrophil countOrd ered By: Nicole Crews on 01-10-2025 Neutrophils (Bld) [#/Vol] 11.4 10*3/uL High 2.0-7.7 [facility] Automated lymphocyte count a s percentage of total leukocytesOrdered By: Nicole Crews on 01-10-2025 Lymphocytes/100 WBC Auto (Unsp spec) 14.7 % Low 19-41 [facility] Basophil percentageOrdered B y: Nicole Crews on 01-10-2025 Basophils/100 WBC (Bld) 0.2 % 0-1 [facility] CBC W/Diff, Automatedon 07-0 Absolute Lymph 2.16 X10 3/uL Normal 0.83-4.51 [facility] Comment on above: Performed By: #### L 509.8002, L3890.6006, L100.0100, L501.0250 #### [facility] [address] [place], [address] Absolute Neut 11.4 X10 3/uL High 2.0-7.7 [facility] Comment on above: Performed By: #### L 509.8002, L3890.6006, L100.0100, L501.0250 #### [facility] [address] [place], [address] Basophils/100 WBC (Bld) 0.2 % Normal 0-1 [facility] Comment on above: Performed By: #### L 509.8002, L3890.6006, L100.0100, L501.0250 #### [facility] [address] [place], [address] Eosinophils/100 WBC (Bld) 1.4 % Normal 0-5 [facility] Comment on above: Performed By: #### L 509.8002, L3890.6006, L100.0100, L501.0250 #### [facility] [address] [place], [address] Erythrocyte distribution width (RBC) [Ratio] 13.6 % Normal 11.6-14.6 [facility] Comment on above: Performed By: #### L 509.8002, L3890.6006, L100.0100, L501.0250 #### [facility] [address] [place], [address] Hematocrit (Bld) [Volume fraction] 37.0 % Normal 37-47 [facility] Comment on above: Performed By: #### L 509.8002, L3890.6006, L100.0100, L501.0250 #### [facility] [address] [place], [address] Hemoglobin (Bld) [Mass/Vol] 12.8 g/dL Normal 12.0-15.0 [facility] Comment on above: Performed By: #### L 509.8002, L3890.6006, L100.0100, L501.0250 #### [facility] [address] [place], [address] IG% 0.600 Normal 0.0-0.9 [facility] Comment on above: Result Comment: IG% - Immature Granulocytes (promyelocytes, myelocytes and metamyelocytes) > 1% indicates that a LEFT SHIFT is Present. Performed By: #### L 509.8002, L3890.6006, L100.0100, L501.0250 #### [facility] [address] [place], [address] Lymphocytes/100 WBC (Bld) 14.7 % Low 19-41 [facility] Comment on above: Performed By: #### L 509.8002, L3890.6006, L100.0100, L501.0250 #### [facility] [address] [place], [address] MCH (RBC) [Entitic mass] 30.1 pg Normal 27.0-32.0 [facility] Comment on above: Performed By: #### L 509.8002, L3890.6006, L100.0100, L501.0250 #### [facility] [address] [place], [address] MCHC (RBC) [Mass/Vol] 34.6 g/dL Normal 32-36 [facility] Comment on above: Performed By: #### L 509.8002, L3890.6006, L100.0100, L501.0250 #### [facility] [address] [place], [address] MCV (RBC) [Entitic vol] 87.1 fL Normal 81-99 [facility] Comment on above: Performed By: #### L 509.8002, L3890.6006, L100.0100, L501.0250 #### [facility] [address] [place], [address] Monocytes/100 WBC (Bld) 5.1 % Normal 0-10 [facility] Comment on above: Performed By: #### L 509.8002, L3890.6006, L100.0100, L501.0250 #### [facility] [address] [place], [address] Neutrophils/100 WBC (Bld) 78.0 % High 47-70 [facility] Comment on above: Performed By: #### L 509.8002, L3890.6006, L100.0100, L501.0250 #### [facility] [address] [place], [address] Nucleated RBC (Bld) [#/Vol] 0 10*3/uL Normal 0-5 [facility] Comment on above: Performed By: #### L 509.8002, L3890.6006, L100.0100, L501.0250 #### [facility] [address] [place], [address] Platelet mean volume (Bld) [Entitic vol] 11.3 fL Normal 6.2-12.0 [facility] Comment on above: Performed By: #### L 509.8002, L3890.6006, L100.0100, L501.0250 #### [facility] [address] [place], [address] Platelets (Bld) [#/Vol] 210 10*3/uL Normal 150-450 [facility] Comment on above: Performed By: #### L 509.8002, L3890.6006, L100.0100, L501.0250 #### [facility] [address] [place], [address] RBC (Bld) [#/Vol] 4.25 10*6/uL Normal 4.2-5.4 [facility] Comment on above: Performed By: #### L 509.8002, L3890.6006, L100.0100, L501.0250 #### [facility] [address] [place], [address] RDW SD 42.4 fl Normal 35.1-43.9 [facility] Comment on above: Performed By: #### L 509.8002, L3890.6006, L100.0100, L501.0250 #### [facility] [address] [place], [address] WBC (Bld) [#/Vol] 14.7 10*3/uL High 4.4-11.0 [facility] Comment on above: Performed By: #### L 509.8002, L3890.6006, L100.0100, L501.0250 #### [facility] [address] [place], [address] Eosinophil percentageOrdered By: Nicole Crews on 01-10-2025 Eosinophils/100 WBC (Bld) 1.4 % 0-5 [facility] Erythrocyte distribution wid th ratioOrdered By: Nicole Crews on 01-10-2025 Erythrocyte distribution width (RBC) [Ratio] 13.6 % 11.6-14.6 [facility] Erythrocyte distribution wid th standard deviationOrdered By: Nicole Crews on 01-10-2025 Erythrocyte distribution width (RBC) [Ratio] 42.4 fl 35.1-43.9 [facility] Glucose Challenge Gest 1H 50 ragini 01-10-2025 GLU GEST 50g 1H 98 mg/dL Normal 70-140 [facility] Comment on above: Performed By: #### L 509.8002, L3890.6006, L100.0100, L501.0250 #### [facility] [address] [place], [address] Glucose measurement at 2 derrick rs post-dose gestational glucose tolerance testOrdered By: Nicole Crews on 01-10-2025 Glucose [Mass/Vol] 98 mg/dL 70-140 [facility] HIVon 01-10-2025 HIV Non-Reactive Normal Nonreactive [facility] Comment on above: Result Comment: Non- Reactive Reactive Repeatedly reactive samples must be confirmed according to CDC recommended confirmatory algorithms. The subresults for either HIVAG or AHIV can be used as an aid in the selection of the confirmation algorithm for reactive samples. Send out specimens with Reactive results to [facility] for confirmation. Order the HIV antibody detection and differentiation: lc#[id number] Performed By: #### L 509.8002, L3890.6006, L100.0100, L501.0250 ####[facility] [address] [place], [place], [id number] Hematocrit Auto (Bld) [Volum e fraction]Ordered By: Nicole Crews on 01-10-2025 Hematocrit (Bld) [Volume fraction] 37.0 % 37-47 [facility] Hemoglobin measurementOrdere d By: Nicole Crews on 01-10-2025 Hemoglobin (Bld) [Mass/Vol] 12.8 g/dL 12.0-15.0 [facility] Immature granulocytes/100 WB C Auto (Bld)Ordered By: Nicole Crews on 01-10-2025 Immature granulocytes/100 WBC (Bld) 0.600 % 0.0-0.9 [facility] Comment on above: IG% - Immature Granu locytes (promyelocytes, myelocytes and metamyelocytes) > 1% indicates that a LEFT SHIFT is Present. Laboratory - Chemistry and C hemistry - challengeOrdered By: Carie Burns on 01-10-2025 Glucose Ql (U) Negative [facility] - UrinalysisOrder ed By: Carie Burns on 01-10-2025 Protein Ql (U) Negative [facility] MCV (mean corpuscular volume ) determinationOrdered By: Nicole Crews on 01-10-2025 MCV (RBC) [Entitic vol] 87.1 fL 81-99 [facility] Mean corpuscular hemoglobin (MCH) determinationOrdered By: Nicole Crews on 01-10-2025 MCH (RBC) [Entitic mass] 30.1 pg 27.0-32.0 [facility] Mean corpuscular hemoglobin concentration (MCHC) determinationOrdered By: Nicole Crews on 01-10-2025 MCHC (RBC) [Mass/Vol] 34.6 g/dL 32-36 [facility] Mean platelet volume determi nationOrdered By: Nicole Crews on 01-10-2025 Platelet mean volume (Bld) [Entitic vol] 11.3 fL 6.2-12.0 [facility] Monocyte percentageOrdered B y: Nicole Crews on 01-10-2025 Monocytes/100 WBC (Bld) 5.1 % 0-10 [facility] Neutrophil percentageOrdered By: Nicole Crews on 01-10-2025 Neutrophils/100 WBC (Bld) 78.0 % High 47-70 [facility] No Panel InformationOrdered By: Nicole Crews on 01-10-2025 HIV (1&2) Antibody Non-Reactive Nonreactive [facility] Comment on above: Non-ReactiveReactive Repeatedly reactive samples must be confirmed according to CDC recommended confirmatory algorithms. The subresults for either HIVAG or AHIV can be used as an aid in the selection of the confirmation algorithm for reactive samples.Send out specimens with Reactive results to [facility] for confirmation.Order the HIV antibody detection and differentiation: #[id number] Nucleated red blood cell per centageOrdered By: Nicole Crews on 01-10-2025 Nucleated RBC/100 WBC (Bld) [Ratio] 0 % 0-5 [facility] Monorail Charger Operator Office Visit Reporton 01-10-2025 Monorail Charger Operator Office Visit Report [facility]'[address], [address] [place] [address] OFFICE VISIT Date of Service: 01/10/25 MR#: [id number] Acct: [id number] Name: GERTRUDE EMERY Rep #: [id number] : 1995 Provider: KENDALL marcano Age/Sex: 29/F Location: [facility] [place] Status: Signed Intake Vital Signs 11/18/24 08:30 12/14/24 15:32 01/10/25 15:23 Height 5 ft 7 in 5 ft 7 in 5 ft 7 in Weight: 168 lb 6 oz 174 lb 2 oz 177 lb BMI 26.4 27.2 27.7 BP 128/84 H 119/73 123/76 H Intake Visit Reasons: 28 wk ob/glucose Chief Complaint: 28 Week OB/Glucose Bean Dumper Required: No Is patient in pain?: No Allergies gluten Adverse Reaction (Intermediate, Verified 01/10/25 15:23) Other Medications ???Medication ???Instructions ???Recorded ???Confirmed ???Type docosahexaenoic acid 200 mg mg PO 08/20/24 01/10/25 History capsule ( DHA) ondansetron 4 mg disintegrating 4 mg PO Q8H PRN PRN Nausea #30 tab s 08/25/24 01/10/25 Rx tablet Last Menstrual Period: 06/28/24 Zika: Zika virus screening: Negative : No 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al exposures/hazards: No pets and animals: Yes pets and animals: dog(s) history of recent travel: Yes ( - September 2024) out of state: No out of country: Yes sexually active: Yes Smoking Status: Never smoker second hand exposure: No alcohol intake: never substance use type: other details: Lima gummies - Beginning of July diet: gluten free well-balanced diet: daily or most days caffeine: Yes eating out: 1-3 times/week during the past year weight has: remained stable what type of physical activity do you participate in: walking and weight training frequency: 3-4 times per week duration: 15-30 minutes/day lc/latter-day: Taoism seatbelt use: always do you feel safe at home: Yes additional social history: : 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 OB Visit GLENN Calculator Estimated Delivery Date Method Current WG Current Estimate 04/04/25 LMP (Certain) 28w 0d Other Estimates 04/01/25 Ultrasound #1 28w 3d Expected Delivery Route/Plan Labor Preferences- CB/BF classes: encouraged labor support person: Maximilian labor intervention preferences: [] pain management options preferred: epidural if requested cut cord/dad catch: no : yes PP control planned: discussed discussed possible routes of delivery and associated risks: [] special requests: [] Specific Issue/Plans Covid status: [] Flu vaccine: [] Tdap vaccine: given Rhogam:NA LARC form signed: yes Problem list reviewed and updated with the most current plan of care details and appropriate orders placed. Relevant counseling for the gestational age provided. Continue routine care and follow up unless otherwise noted in visit notes/problem list details Initial Weight: 162 lb Date -???-???-???-???-???-???- ???-???-???-???-???-???- EGA Weight BP Urine Prot -???-???-???-???-???-???- ???-???-???-???-???-???- Glucose FHR FuHt Pres Dilation -???-???-???-???-???-???- ???-???-???-???-???-???- Effaced St Visit Note 08/25/24 -???-???-???-???-???-???- ???-???-???-???-???-???- 8w 2d 162 lb 8 oz (+8 oz) 119/80 -???-???-???-???-???-???- ???-???-???-???-???-???- 180 -???-???-???-???-???-???- ???-???-???-???-???-???- KW- CRL cons with dates. Declines NIPT. 09/22/24 -???-???-???-???-???-???- ???-???-???-???-???-???- 12w 2d 161 lb 8 oz (-8 oz) 122/80 Negative -???-???-???-???-???-???- ???-???-???-???-???-???- Negative 170 -???-???-???-???-???-???- ???-???-???-???-???-???- SM- no vb cr amping 10/22/24 -???-???-???-???-???-???- ???-???-???-???-???-???- 16w 4d 160 lb (-2 lb) 118/78 Negative -???-???-???-???-???-???- ???-???-???-???-???-???- Negative 150 -???-???-???-???-???-???- ???-???-???-???-???-???- KW- having s ome lower abd pressure and frequency with urination. +fm. US scheduled. declines AFP. KW- having some lower abd pressure and frequency with (more content not included)... Normal [facility] Platelet countOrdered By: Connor Crews on 01-10-2025 Platelets (d) [#/Vol] 210 10*3/uL 150-450 [facility] RBC Auto (d) [#/Vol]Ordere d By: Nicole Crews on 01-10-2025 RBC (Bld) [#/Vol] 4.25 10*6/uL 4.2-5.4 [facility] Syphilis Antibodieson 2024 Syphilis Abs Non-Reactive Normal Nonreactive [facility] Comment on above: Performed By: #### L 509.8002, L3890.6006, L100.0100, L501.0250 #### [facility] [address] [place], [address] White blood cell (WBC) count Ordered By: Nicole Crews on 01-10-2025 WBC (Bld) [#/Vol] 14.7 10*3/uL High 4.4-11.0 [facility] Laboratory - Chemistry and C hemistry - challengeOrdered By: Nicole Crews on 12-14-2024 Glucose Ql (U) Negative [facility] - UrinalysisOrder ed By: Nicole Crews on 12-14-2024 Protein Ql (U) Negative [facility] Monorail Charger Operator Office Visit Reporton 12-14-2024 Monorail Charger Operator Office Visit Report [facility]'[address], [address] [place] [address] OFFICE VISIT Date of Service: 12/14/24 MR#: [id number] Acct: [id number] Name: GERTRUDE EMERY Rep #: [id number] : 1995 Provider: NATALYA Felix ams Age/Sex: 29/F Location: [facility] [place] Status: Signed Intake Vital Signs 11/18/24 08:30 12/14/24 15:32 Height 5 ft 7 in 5 ft 7 in Weight: 174 lb 2 oz BMI 27.2 BP 119/73 Intake Visit Reasons: 24 wk ob Bean Dumper Required: No Is patient in pain?: No Feel stressed/tense/nervous/an xious/difficulty sleeping: not at all Allergies gluten Adverse Reaction (Intermediate, Verified 12/14/24 15:33) Other Medications ???Medication ???Instructions ???Recorded ???Confirmed ???Type docosahexaenoic acid 200 mg mg PO 08/20/24 12/14/24 History capsule ( DHA) ondansetron 4 mg disintegrating 4 mg PO Q8H PRN PRN Nausea #30 tab s 08/25/24 12/14/24 Rx tablet Last Menstrual Period: 06/28/24 Zika: Zika virus screening: Negative : No PFSH PFSH Surgical History History of appendectomy Family History Aunt Thyroid disorder Grandmother Thyroid disorder Grandfather Kidney disease on dialysis Social History adopted: No household members: spouse 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al status: employed 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al exposures/hazards: No pets and animals: Yes pets and animals: dog(s) history of recent travel: Yes ( - September 2024) out of state: No out of country: Yes sexually active: Yes Smoking Status: Never smoker second hand exposure: No alcohol intake: never substance use type: other details: Lima gummies - Beginning of July diet: gluten free well-balanced diet: daily or most days caffeine: Yes eating out: 1-3 times/week during the past year weight has: remained stable what type of physical activity do you participate in: walking and weight training frequency: 3-4 times per week duration: 15-30 minutes/day lc/latter-day: Taoism seatbelt use: always do you feel safe at home: Yes additional social history: : 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 OB Visit GLENN Calculator Estimated Delivery Date Method Current WG Current Estimate 04/04/25 LMP (Certain) 24w 1d Other Estimates 04/01/25 Ultrasound #1 24w 4d Expected Delivery Route/Plan Labor Preferences- CB/BF classes: [] labor support person: [] labor intervention preferences: [] pain management options preferred: [] cut cord/dad catch: [] : [] PP control planned: [] discussed possible routes of delivery and associated risks: [] special requests: [] Specific Issue/Plans Covid status: [] Flu vaccine: [] Tdap vaccine: [] Rhogam: [] LARC form signed: [] Problem list reviewed and updated with the most current plan of care details and appropriate orders placed. Relevant counseling for the gestational age provided. Continue routine care and follow up unless otherwise noted in visit notes/problem list details Initial Weight: 162 lb Date -???-???-???-???-???-???- ???-???-???-???-???-???- EGA Weight BP Urine Prot -???-???-???-???-???-???- ???-???-???-???-???-???- Glucose FHR FuHt Pres Dilation -???-???-???-???-???-???- ???-???-???-???-???-???- Effaced St Visit Note 08/25/24 -???-???-???-???-???-???- ???-???-???-???-???-???- 8w 2d 162 lb 8 oz (+8 oz) 119/80 -???-???-???-???-???-???- ???-???-???-???-???-???- 180 -???-???-???-???-???-???- ???-???-???-???-???-???- KW- CRL cons with dates. Declines NIPT. 09/22/24 -???-???-???-???-???-???- ???-???-???-???-???-???- 12w 2d 161 lb 8 oz (-8 oz) 122/80 Negative -???-???-???-???-???-???- ???-???-???-???-???-???- Negative 170 -???-???-???-???-???-???- ???-???-???-???-???-???- SM- no vb cr amping 10/22/24 -???-???-???-???-???-???- ???-???-???-???-???-???- 16w 4d 160 lb (-2 lb) 118/78 Negative -???-???-???-???-???-???- ???-???-???-???-???-???- Negative 150 -???-???-???-???-???-???- ???-???-???-???-???-???- KW- having s ome lower abd pressure and frequency with urination. +fm. US scheduled. declines AFP. KW- having some lower abd pressure and frequency with urination. will obtain clean catch. +fm. US scheduled. declines AFP. 11/18/24 -???-???-???-???-???- (more content not included)... Normal [facility] - Chemistry and C hemistry - challengeOrdered By: Nicole Crews on 11-18-2024 Glucose Ql (U) Negative [facility] - UrinalysisOrder ed By: Nicole Crews on 11-18-2024 Protein Ql (U) Negative [facility] Monorail Charger Operator Office Visit Reporton 11-18-2024 Monorail Charger Operator Office Visit Report [facility] [address], [address] [place] [address] OFFICE VISIT Date of Service: 11/18/24 MR#: [id number] Acct: [id number] Name: GERTRUDE EMERY Rep #: [id number] : 1995 Provider: NATALYA Felix ams Age/Sex: 28/F Location: [facility] [place] Status: Signed Intake Vital Signs 09/22/24 15:06 10/22/24 10:19 11/18/24 08:30 Height 5 ft 7 in 5 ft 7 in 5 ft 7 in Weight: 168 lb 6 oz BMI 26.4 BP 128/84 H Intake Visit Reasons: 20 wk ob Chief Complaint: 20wk ob Bean Dumper Required: No Is patient in pain?: No Allergies gluten Adverse Reaction (Intermediate, Verified 11/18/24 08:28) Other Medications ???Medication ???Instructions ???Recorded ???Confirmed ???Type docosahexaenoic acid 200 mg mg PO 08/20/24 11/18/24 History capsule ( DHA) ondansetron 4 mg disintegrating 4 mg PO Q8H PRN PRN Nausea #30 tab s 08/25/24 11/18/24 Rx tablet Last Menstrual Period: 06/28/24 : No PFSH PFSH Surgical History History of appendectomy Family History Aunt Thyroid disorder Grandmother Thyroid disorder Grandfather Kidney disease on dialysis Social History adopted: No household members: spouse 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al status: employed 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al exposures/hazards: No pets and animals: Yes pets and animals: dog(s) history of recent travel: Yes ([place] - September 2024) out of state: No out of country: Yes sexually active: Yes Smoking Status: Never smoker second hand exposure: No alcohol intake: never substance use type: other details: Lima gummies - Beginning of July diet: gluten free well-balanced diet: daily or most days caffeine: Yes eating out: 1-3 times/week during the past year weight has: remained stable what type of physical activity do you participate in: walking and weight training frequency: 3-4 times per week duration: 15-30 minutes/day lc/latter-day: Taoism seatbelt use: always do you feel safe at home: Yes additional social history: : 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 OB Visit GLENN Calculator Estimated Delivery Date Method Current WG Current Estimate 04/04/25 LMP (Certain) 20w 3d Other Estimates 04/01/25 Ultrasound #1 20w 6d Expected Delivery Route/Plan Labor Preferences- CB/BF classes: [] labor support person: [] labor intervention preferences: [] pain management options preferred: [] cut cord/dad catch: [] : [] PP control planned: [] discussed possible routes of delivery and associated risks: [] special requests: [] Specific Issue/Plans Covid status: [] Flu vaccine: [] Tdap vaccine: [] Rhogam: [] LARC form signed: [] Problem list reviewed and updated with the most current plan of care details and appropriate orders placed. Relevant counseling for the gestational age provided. Continue routine care and follow up unless otherwise noted in visit notes/problem list details Initial Weight: 162 lb Date -???-???-???-???-???-???- ???-???-???-???-???-???- EGA Weight BP Urine Prot -???-???-???-???-???-???- ???-???-???-???-???-???- Glucose FHR FuHt Pres Dilation -???-???-???-???-???-???- ???-???-???-???-???-???- Effaced St Visit Note 08/25/24 -???-???-???-???-???-???- ???-???-???-???-???-???- 8w 2d 162 lb 8 oz (+8 oz) 119/80 -???-???-???-???-???-???- ???-???-???-???-???-???- 180 -???-???-???-???-???-???- ???-???-???-???-???-???- KW- CRL cons with dates. Declines NIPT. 09/22/24 -???-???-???-???-???-???- ???-???-???-???-???-???- 12w 2d 161 lb 8 oz (-8 oz) 122/80 Negative -???-???-???-???-???-???- ???-???-???-???-???-???- Negative 170 -???-???-???-???-???-???- ???-???-???-???-???-???- SM- no vb cr amping 10/22/24 -???-???-???-???-???-???- ???-???-???-???-???-???- 16w 4d 160 lb (-2 lb) 118/78 Negative -???-???-???-???-???-???- ???-???-???-???-???-???- Negative 150 -???-???-???-???-???-???- ???-???-???-???-???-???- KW- having s ome lower abd pressure and frequency with urination. +fm. US scheduled. declines AFP. KW- having some lower abd pressure and frequency with urination. will obtain clean catch. +fm. US scheduled. declines AFP. 11/18/24 -???-???-???-???-???-???- ???-???-???-???-???-???- 20w 3d 168 lb 6 oz (+6 lb 6 o (more content not included)... Normal [facility] Urine Cultureon 10-23-2024 URC Culture exhibits no growth. Normal [facility] Comment on above: Performed By: #### M 100.2200 ####[facility] [address] [place], [address] Laboratory - Chemistry and C hemistry - challengeOrdered By: Nicole Crews on 10-22-2024 Glucose Ql (U) Negative [facility] - UrinalysisOrder ed By: Nicole Crews on 10-22-2024 Protein Ql (U) Negative [facility] Monorail Charger Operator Office Visit Reporton 10-22-2024 Monorail Charger Operator Office Visit Report [facility] [address], [address] [place] [address] OFFICE VISIT Date of Service: 10/22/24 MR#: [id number] Acct: [id number] Name: GERTRUDE EMERY Rep #: [id number] : 1995 Provider: NATALYA Felix ams Age/Sex: 28/F Location: [facility] [place] Status: Signed Intake Vital Signs 08/25/24 15:45 09/22/24 15:06 10/22/24 10:19 Height 5 ft 7 in 5 ft 7 in 5 ft 7 in Weight: 160 lb BMI 25.0 BP 118/78 Blood Pressure Location Rt brachial Position Sitting Pulse 105 H Pulse Source Monitor Intake Visit Reasons: 16 wk ob Bean Dumper Required: No Accompanied by: Is patient in pain?: No Feel stressed/tense/nervous/an xious/difficulty sleeping: to some extent (Difficulty staying asleep) Allergies gluten Adverse Reaction (Intermediate, Verified 10/22/24 10:28) Other Medications ???Medication ???Instructions ???Recorded ???Confirmed ???Type docosahexaenoic acid 200 mg mg PO 08/20/24 10/22/24 History capsule ( DHA) ondansetron 4 mg disintegrating 4 mg PO Q8H PRN PRN Nausea #30 tab s 08/25/24 10/22/24 Rx tablet Last Menstrual Period: 06/28/24 Zika: Zika virus screening: Negative : No Nurse's Note: Pressure across lower abdomen after eating. Urinary urgency. Occasional brief dizziness upon standing and seeing stars. 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al exposures/hazards: No pets and animals: Yes pets and animals: dog(s) history of recent travel: Yes ( - September 2024) out of state: No out of country: Yes sexually active: Yes Smoking Status: Never smoker second hand exposure: No alcohol intake: never substance use type: other details: Lima gummies - Beginning of July diet: gluten free well-balanced diet: daily or most days caffeine: Yes eating out: 1-3 times/week during the past year weight has: remained stable what type of physical activity do you participate in: walking and weight training frequency: 3-4 times per week duration: 15-30 minutes/day lc/latter-day: Taoism seatbelt use: always do you feel safe at home: Yes additional social history: : 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 OB Visit GLENN Calculator Estimated Delivery Date Method Current WG Current Estimate 04/04/25 LMP (Certain) 16w 4d Other Estimates 04/01/25 Ultrasound #1 17w 0d Expected Delivery Route/Plan Labor Preferences- CB/BF classes: [] labor support person: [] labor intervention preferences: [] pain management options preferred: [] cut cord/dad catch: [] : [] PP control planned: [] discussed possible routes of delivery and associated risks: [] special requests: [] Specific Issue/Plans Covid status: [] Flu vaccine: [] Tdap vaccine: [] Rhogam: [] LARC form signed: [] Problem list reviewed and updated with the most current plan of care details and appropriate orders placed. Relevant counseling for the gestational age provided. Continue routine care and follow up unless otherwise noted in visit notes/problem list details Initial Weight: 162 lb Date -???-???-???-???-???-???- ???-???-???-???-???-???- EGA Weight BP Urine Prot -???-???-???-???-???-???- ???-???-???-???-???-???- Glucose FHR FuHt Pres Dilation -???-???-???-???-???-???- ???-???-???-???-???-???- Effaced St Visit Note 08/25/24 -???-???-???-???-???-???- ???-???-???-???-???-???- 8w 2d 162 lb 8 oz (+8 oz) 119/80 -???-???-???-???-???-???- ???-???-???-???-???-???- 180 -???-???-???-???-???-???- ???-???-???-???-???-???- KW- CRL cons with dates. Declines NIPT. 09/22/24 -???-???-???-???-???-???- ???-???-???-???-???-???- 12w 2d 161 lb 8 oz (-8 oz) 122/80 Negative -???-???-???-???-???-???- ???-???-???-???-???-???- Negative 170 -???-???-???-???-???-???- ???-???-???-???-???-???- SM- no vb cr amping 10/22/24 -???-???-???-???-???-???- ???-???-???-???-???-???- 16w 4d 160 lb (-2 lb) 118/78 Negative -???-???-???-???-???-???- ???-???-???-???-???-???- Ne (more content not included)... Normal [facility] Urine cultureOrdered By: Chin Crews on 10-22-2024 Bacteria identified Cx Nom (U) Culture exhibits no growth. [facility] Laboratory - Chemistry and C hemistry - challengeOrdered By: Angella Villarreal on 09-22-2024 Glucose Ql (U) Negative [facility] Laboratory - UrinalysisOrder ed By: Angella Villarreal on 09-22-2024 Protein Ql (U) Negative [facility] Monorail Charger Operator Office Visit Reporton 09-22-2024 Monorail Charger Operator Office Visit Report [facility]'[address], [address] [place] [address] OFFICE VISIT Date of Service: 09/22/24 MR#: [id number] Acct: [id number] Name: GERTRUDE EMERY Rep #: [id number] : 1995 Provider: Dr. Angella mosuqera MD Age/Sex: 28/F Location: [facility] [place] Status: Signed Intake Vital Signs 08/11/24 09:14 08/20/24 10:52 08/25/24 15:45 09/22/24 15:06 Height 5 ft 7 in 5 ft 7 in 5 ft 7 in 5 ft 7 in Weight: 161 lb 8 oz BMI 25.2 BP 122/80 H Intake Visit Reasons: 12wk OB Bean Dumper Required: No Is patient in pain?: No Feel stressed/tense/nervous/an xious/difficulty sleeping: not at all Allergies gluten Adverse Reaction (Intermediate, Verified 09/22/24 15:11) Other Medications ???Medication ???Instructions ???Recorded ???Confirmed ???Type docosahexaenoic acid 200 mg mg PO 08/20/24 09/22/24 History capsule ( DHA) ondansetron 4 mg disintegrating 4 mg PO Q8H PRN PRN Nausea #30 tab s 08/25/24 09/22/24 Rx tablet Last Menstrual Period: 06/28/24 Zika: Zika virus screening: Negative : No Have you fallen in the past year?: No PFSH PFSH Surgical History History of appendectomy Family History Aunt Thyroid disorder Grandmother Thyroid disorder Grandfather Kidney disease on dialysis Social History adopted: No household members: spouse 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al status: employed 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al exposures/hazards: No pets and animals: Yes pets and animals: dog(s) history of recent travel: Yes ([place] - September 2024) out of state: No out of country: Yes sexually active: Yes Smoking Status: Never smoker second hand exposure: No alcohol intake: never substance use type: other details: Lima gummies - Beginning of July diet: gluten free well-balanced diet: daily or most days caffeine: Yes eating out: 1-3 times/week during the past year weight has: remained stable what type of physical activity do you participate in: walking and weight training frequency: 3-4 times per week duration: 15-30 minutes/day lc/latter-day: Taoism seatbelt use: always do you feel safe at home: Yes additional social history: : 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 OB Visit GLENN Calculator Estimated Delivery Date Method Current WG Current Estimate 04/04/25 LMP (Certain) 12w 2d Other Estimates 04/01/25 Ultrasound #1 12w 5d Expected Delivery Route/Plan Labor Preferences- CB/BF classes: [] labor support person: [] labor intervention preferences: [] pain management options preferred: [] cut cord/dad catch: [] : [] PP control planned: [] discussed possible routes of delivery and associated risks: [] special requests: [] Specific Issue/Plans Covid status: [] Flu vaccine: [] Tdap vaccine: [] Rhogam: [] LARC form signed: [] Problem list reviewed and updated with the most current plan of care details and appropriate orders placed. Relevant counseling for the gestational age provided. Continue routine care and follow up unless otherwise noted in visit notes/problem list details Initial Weight: 162 lb Date -???-???-???-???-???-???- ???-???-???-???-???-???- EGA Weight BP Urine Prot -???-???-???-???-???-???- ???-???-???-???-???-???- Glucose FHR FuHt Pres Dilation -???-???-???-???-???-???- ???-???-???-???-???-???- Effaced St Visit Note 08/25/24 -???-???-???-???-???-???- ???-???-???-???-???-???- 8w 2d 162 lb 8 oz (+8 oz) 119/80 -???-???-???-???-???-???- ???-???-???-???-???-???- 180 -???-???-???-???-???-???- ???-???-???-???-???-???- KW- CRL cons with dates. Declines NIPT. 09/22/24 -???-???-???-???-???-???- ???-???-???-???-???-???- 12w 2d 161 lb 8 oz (-8 oz) 122/80 -???-???-???-???-???-???- ???-???-???-???-???-???- 170 -???-???-???-???-???-???- ???-???-???-???-???-???- SM- no vb cr amping ACOG First Trimester First Trimester: Discussed Second Trimester Second Trimester: Signs and Symptoms of Labor, Selecting a care provider, Reproductive Life Planning Contreception, Care Planning, Depression/Anxiety and Intimate Partner Violence; Discussed Tobacco Cessation Third Trimester Third Trimester: Pain Management Plans, Labor support (more content not included)... Normal [facility] PAP I-G w/rfx hrHPV-Aptimaon 08-30-2024 ADEQ Comment Normal . [facility] Comment on above: Order Comment: Brenda vela Comment: [id number] Specimen Comment: No. of containers..01 ThinPrep Vial Result Comment: Sati sfactory for evaluation. Endocervical and/or squamous metaplastic cells (endocervical component) are present. Performed By: #### M 100.2200, L7400.0353, L7000.1800 #### [facility] [address] [place], [place], [id number] COMM . Normal . [facility] Comment on above: Order Comment: Brenda vela Comment: [id number] Specimen Comment: No. of containers..01 ThinPrep Vial Performed By: #### M 100.2200, L7400.0353, L7000.1800 #### [facility] [address] [place], [place], [id number] COMMENT Comment Normal . [facility] Comment on above: Order Comment: Speci men Comment: [id number] Specimen Comment: No. of containers..01 ThinPrep Vial Result Comment: This liquid based ThinPrep(R) pap test was screened with the use of an image guided system. Performed By: #### M 100.2200, L7400.0353, L7000.1800 #### [facility] [address] [place], [address] DIAG Comment Normal . [facility] Comment on above: Order Comment: Speci men Comment: [id number] Specimen Comment: No. of containers..01 ThinPrep Vial Result Comment: NEGA TIVE FOR INTRAEPITHELIAL LESION OR MALIGNANCY. Performed By: #### M 100.2200, L7400.0353, L7000.1800 #### [facility] [address] [place], [address] HPV RFLX Comment Normal . [facility] Comment on above: Order Comment: Speci men Comment: [id number] Specimen Comment: No. of containers..01 ThinPrep Vial Result Comment: The HPV DNA reflex criteria were not met with this specimen result therefore, no HPV testing was performed. Performed at: [address] [id number] Sand Bobber: Mari Zimmerman MD, Phone: [phone] Performed By: #### M 100.2200, L7400.0353, L7000.1800 #### [facility] [address] [place], [address] PAPSMR Comment Normal . [facility] Comment on above: Order Comment: Speci men Comment: [id number] Specimen Comment: No. of containers..01 ThinPrep Vial Result Comment: The Pap smear is a screening test designed to aid in the detection of premalignant and malignant conditions of the uterine cervix. It is not a diagnostic procedure and should not be used as the sole means of detecting cervical cancer. Both false-positive and false-negative reports do occur. Performed By: #### M 100.2200, L7400.0353, L7000.1800 #### [facility] [address] [place], [address] PERFORM Comment Normal . [facility] Comment on above: Order Comment: Speci men Comment: [id number] Specimen Comment: No. of containers..01 ThinPrep Vial Result Comment: Romain Conklin, Driver Utility Worker (ASCP) Performed By: #### M 100.2200, L7400.0353, L7000.1800 #### [facility] [address] [place], [address] Chlamydia/GC KEVIN aptimaon CHLAMY,NUC ACID Negative Normal Negative [facility] Comment on above: Performed By: #### M 100.2200, L7400.0353, L7000.1800 #### [facility] [address] [place], [address] GC BY NUC ACID Negative Normal Negative [facility] Comment on above: Result Comment: Perf ormed at: =G - [facility] [address] [id number] Sand Bobber: Mari Zimmerman MD, Phone: [phone] Performed By: #### M 100.2200, L7400.0353, L7000.1800 #### [facility] [address] [place], [address] Urine Cultureon 08-26-2024 URC Culture exhibits no growth. Normal [facility] Comment on above: Performed By: #### M 100.2200, L7400.0353, L7000.1800 #### [facility] [address] [place], [address] Absolute lymphocyte countOrd ered By: Nicole Crews on 08-25-2024 Lymphocytes Auto (Unsp spec) [#/Vol] 2.51 10*3/uL 0.83-4.51 [facility] Absolute neutrophil countOrd ered By: Nicole Crews on 08-25-2024 Neutrophils (Bld) [#/Vol] 10.9 10*3/uL High 2.0-7.7 [facility] Automated lymphocyte count a s percentage of total leukocytesOrdered By: Nicole Crews on 08-25-2024 Lymphocytes/100 WBC Auto (Unsp spec) 17.5 % Low 19-41 [facility] Basophil percentageOrdered B y: Nicole Crews on 08-25-2024 Basophils/100 WBC (Bld) 0.2 % 0-1 [facility] CBC W/Diff, Automatedon 08-07 Absolute Lymph 2.51 X10 3/uL Normal 0.83-4.51 [facility] Comment on above: Performed By: #### L 3890.6100, L509.4005, L509.8000, L3890.6005, L3890.6300, BTS, L100.0100 ####[facility] [address] [place], [address] Absolute Neut 10.9 X10 3/uL High 2.0-7.7 [facility] Comment on above: Performed By: #### L 3890.6100, L509.4005, L509.8000, L3890.6005, L3890.6300, BTS, L100.0100 ####[facility] [address] [place], [address] Basophils/100 WBC (Bld) 0.2 % Normal 0-1 [facility] Comment on above: Performed By: #### L 3890.6100, L509.4005, L509.8000, L3890.6005, L3890.6300, BTS, L100.0100 ####[facility] [address] [place], [address] Eosinophils/100 WBC (Bld) 0.8 % Normal 0-5 [facility] Comment on above: Performed By: #### L 3890.6100, L509.4005, L509.8000, L3890.6005, L3890.6300, BTS, L100.0100 ####[facility] [address] [place], [address] Erythrocyte distribution width (RBC) [Ratio] 12.4 % Normal 11.6-14.6 [facility] Comment on above: Performed By: #### L 3890.6100, L509.4005, L509.8000, L3890.6005, L3890.6300, BTS, L100.0100 ####[facility] [address] [place], [address] Hematocrit (Bld) [Volume fraction] 41.8 % Normal 37-47 [facility] Comment on above: Performed By: #### L 3890.6100, L509.4005, L509.8000, L3890.6005, L3890.6300, BTS, L100.0100 ####[facility] [address] [place], [address] Hemoglobin (Bld) [Mass/Vol] 14.4 g/dL Normal 12.0-15.0 [facility] Comment on above: Performed By: #### L 3890.6100, L509.4005, L509.8000, L3890.6005, L3890.6300, BTS, L100.0100 ####[facility] [address] [place], [address] IG% 0.600 Normal 0.0-0.9 [facility] Comment on above: Result Comment: IG% - Immature Granulocytes (promyelocytes, myelocytes and metamyelocytes) > 1% indicates that a LEFT SHIFT is Present. Performed By: #### L 3890.6100, L509.4005, L509.8000, L3890.6005, L3890.6300, BTS, L100.0100 ####[facility] [address] [place], [address] Lymphocytes/100 WBC (Bld) 17.5 % Low 19-41 [facility] Comment on above: Performed By: #### L 3890.6100, L509.4005, L509.8000, L3890.6005, L3890.6300, BTS, L100.0100 ####[facility] [address] [place], [address] MCH (RBC) [Entitic mass] 29.2 pg Normal 27.0-32.0 [facility] Comment on above: Performed By: #### L 3890.6100, L509.4005, L509.8000, L3890.6005, L3890.6300, BTS, L100.0100 ####[facility] [address] [place], [address] MCHC (RBC) [Mass/Vol] 34.4 g/dL Normal 32-36 [facility] Comment on above: Performed By: #### L 3890.6100, L509.4005, L509.8000, L3890.6005, L3890.6300, BTS, L100.0100 ####[facility] [address] [place], [address] MCV (RBC) [Entitic vol] 84.8 fL Normal 81-99 [facility] Comment on above: Performed By: #### L 3890.6100, L509.4005, L509.8000, L3890.6005, L3890.6300, BTS, L100.0100 ####[facility] [address] [place], [address] Monocytes/100 WBC (Bld) 5.3 % Normal 0-10 [facility] Comment on above: Performed By: #### L 3890.6100, L509.4005, L509.8000, L3890.6005, L3890.6300, BTS, L100.0100 ####[facility] [address] [place], [address] Neutrophils/100 WBC (Bld) 75.6 % High 47-70 [facility] Comment on above: Performed By: #### L 3890.6100, L509.4005, L509.8000, L3890.6005, L3890.6300, BTS, L100.0100 ####[facility] [address] [place], [address] Nucleated RBC (Bld) [#/Vol] 0 10*3/uL Normal 0-5 [facility] Comment on above: Performed By: #### L 3890.6100, L509.4005, L509.8000, L3890.6005, L3890.6300, BTS, L100.0100 ####[facility] [address] [place], [address] Platelet mean volume (Bld) [Entitic vol] 11.0 fL Normal 6.2-12.0 [facility] Comment on above: Performed By: #### L 3890.6100, L509.4005, L509.8000, L3890.6005, L3890.6300, BTS, L100.0100 ####[facility] [address] [place], [address] Platelets (Bld) [#/Vol] 339 10*3/uL Normal 150-450 [facility] Comment on above: Performed By: #### L 3890.6100, L509.4005, L509.8000, L3890.6005, L3890.6300, BTS, L100.0100 ####[facility] [address] [place], [address] RBC (Bld) [#/Vol] 4.93 10*6/uL Normal 4.2-5.4 [facility] Comment on above: Performed By: #### L 3890.6100, L509.4005, L509.8000, L3890.6005, L3890.6300, BTS, L100.0100 ####[facility] [address] [place], [address] RDW SD 37.3 fl Normal 35.1-43.9 [facility] Comment on above: Performed By: #### L 3890.6100, L509.4005, L509.8000, L3890.6005, L3890.6300, BTS, L100.0100 ####[facility] [address] [place], [address] WBC (Bld) [#/Vol] 14.4 10*3/uL High 4.4-11.0 [facility] Comment on above: Performed By: #### L 3890.6100, L509.4005, L509.8000, L3890.6005, L3890.6300, BTS, L100.0100 ####[facility] [address] [place], [address] Cervical or vagninal specime n microscopic examination by cytology stain (reported asOrdered By: Nicole Crews on 08-25-2024 Cytology report Cyto stain Doc (Cvx/Vag) Comment . [facility] Comment on above: The Pap smear is a s creening test designed to aid in thedetection of premalignant and malignant conditions of theuterine cervix. It is not a diagnostic procedure andshould not be used as the sole means of detecting cervicalcancer. Both false-positive and false-negative reports dooccur. Chlamydia trachomatis rRNA d etection by probe and target amplification methodOrdered By: Nicole Crews on 08-25-2024 C. trachomatis rRNA KEVIN+probe Ql (Unsp spec) Negative Negative [facility] Eosinophil percentageOrdered By: Nicole Crews on 08-25-2024 Eosinophils/100 WBC (Bld) 0.8 % 0-5 [facility] Erythrocyte distribution wid th ratioOrdered By: Nicole Crews on 08-25-2024 Erythrocyte distribution width (RBC) [Ratio] 12.4 % 11.6-14.6 [facility] Erythrocyte distribution wid th standard deviationOrdered By: Nicole Crews on 08-25-2024 Erythrocyte distribution width (RBC) [Ratio] 37.3 fl 35.1-43.9 [facility] HIV - WCHon 08-25-2024 HIV Non-Reactive Normal Nonreactive [facility] Comment on above: Order Comment: Reaso n for Exam: Performed By: #### L 3890.6100, L509.4005, L509.8000, L3890.6005, L3890.6300, BTS, L100.0100 ####[facility] [address] [place], [address] HIV 1 and HIV-2 antibody ass ay with HIV-1 p24 antigen detectionOrdered By: Nicole Crews on 08-25-2024 HIV 1+2 Ab+HIV1 p24 Ag IA Ql Non-Reactive Nonreactive [facility] Hematocrit Auto (Bld) [Volum e fraction]Ordered By: Nicole Crews on 08-25-2024 Hematocrit (Bld) [Volume fraction] 41.8 % 37-47 [facility] Hemoglobin measurementOrdere d By: Nicole Crews on 08-25-2024 Hemoglobin (Bld) [Mass/Vol] 14.4 g/dL 12.0-15.0 [facility] Hepatitis B Surface Antigeno n 08-25-2024 HEP B Surf Ag Non-Reactive [facility] Comment on above: Order Comment: Reaso n for Exam: Performed By: #### L 3890.6100, L509.4005, L509.8000, L3890.6005, L3890.6300, BTS, L100.0100 ####[facility] [address] [place], [address] Hepatitis C Antibodyon 08-25 Hepatitis C AB Non-Reactive [facility] Comment on above: Order Comment: Reaso n for Exam: Result Comment: Non Reactive: < 0.8 Equivocal: >/= 0.8 to < 1.0 Reactive: >/= 1.0 The CDC requires that a reactive/equivocal HCV antibody result be sent out for confirmation. HCV Quant by PCR testing. Performed By: #### L 3890.6100, L509.4005, L509.8000, L3890.6005, L3890.6300, BTS, L100.0100 ####[facility] [address] [place], [address] Immature granulocytes/100 WB C Auto (Bld)Ordered By: Nicole Crews on 08-25-2024 Immature granulocytes/100 WBC (Bld) 0.600 % 0.0-0.9 [facility] Comment on above: IG% - Immature Granu locytes (promyelocytes, myelocytes and metamyelocytes) > 1% indicates that a LEFT SHIFT is Present. L509.8000on 08-25-2024 Syphilis Abs Non-Reactive Normal [facility] Comment on above: Order Comment: Reaso n for Exam: Performed By: #### L 3890.6100, L509.4005, L509.8000, L3890.6005, L3890.6300, BTS, L100.0100 ####[facility] [address] [place], [address] Laboratory - CytologyOrdered By: Nicole Crews on 08-25-2024 Transit Planning Manager Cyto stain Nom (Cvx/Vag) [ID] Comment . [facility] Comment on above: James Conklin, Cyt otechnologist (ASCP) Laboratory - Miscellaneous t estsOrdered By: Nicole Crews on 08-25-2024 Service comment (Unsp spec) [Interp] . . [facility] MCV (mean corpuscular volume ) determinationOrdered By: Nicole Crews on 08-25-2024 MCV (RBC) [Entitic vol] 84.8 fL 81-99 [facility] Mean corpuscular hemoglobin (MCH) determinationOrdered By: Nicole Crews on 08-25-2024 MCH (RBC) [Entitic mass] 29.2 pg 27.0-32.0 [facility] Mean corpuscular hemoglobin concentration (MCHC) determinationOrdered By: Nicole Crews on 08-25-2024 MCHC (RBC) [Mass/Vol] 34.4 g/dL 32-36 [facility] Mean platelet volume determi nationOrdered By: Nicole Crews on 08-25-2024 Platelet mean volume (Bld) [Entitic vol] 11.0 fL 6.2-12.0 [facility] Monocyte percentageOrdered B y: Nicole Cerws on 08-25-2024 Monocytes/100 WBC (Bld) 5.3 % 0-10 [facility] Neisseria gonorrhoeae nuclei c acid detection by amplified probe techniqueOrdered By: Nicole rCews on 08-25-2024 N. gonorrhoeae DNA KEVIN+probe Ql (Unsp spec) Negative Negative [facility] Comment on above: Performed at: =[address] [id number] Director: Mari Zimmerman MD, Phone: [phone] Neutrophil percentageOrdered By: Nicole Crews on 08-25-2024 Neutrophils/100 WBC (Bld) 75.6 % High 47-70 [facility] No Panel InformationOrdered By: Nicole Crews on 08-25-2024 Pap Smear Specimen Adequacy Comment . [facility] Comment on above: Satisfactory for angelita luation. Endocervical and/or squamous metaplasticcells (endocervical component) are present. Nucleated red blood cell per centageOrdered By: Nicole Crews on 08-25-2024 Nucleated RBC/100 WBC (Bld) [Ratio] 0 % 0-5 [facility] Monorail Charger Operator Office Visit Reporton 08-25-2024 Monorail Charger Operator Office Visit Report [facility] [address], [address] [place] [address] OFFICE VISIT Date of Service: 08/25/24 MR#: [id number] Acct: [id number] Name: GERTRUDE EMERY Rep #: [id number] : 1995 Provider: NATALYA Felix ams Age/Sex: 28/F Location: [facility] [place] Status: Signed Intake Vital Signs 08/20/24 10:52 08/25/24 15:45 Height 5 ft 7 in 5 ft 7 in Weight: 162 lb 8 oz BMI 25.4 BP 119/80 Intake Visit Reasons: NOB LMP 06/28 Chief Complaint: New OB Is patient in pain?: No Allergies gluten Adverse Reaction (Intermediate, Verified 08/25/24 15:49) Other Medications ???Medication ???Instructions ???Recorded ???Confirmed ???Type docosahexaenoic acid 200 mg mg PO 08/20/24 08/25/24 History capsule ( DHA) ondansetron 4 mg disintegrating 4 mg PO Q8H PRN PRN Nausea #30 tab s 08/25/24 08/25/24 Rx tablet Last Menstrual Period: 06/28/24 : Yes PFSH PFSH Surgical History History of appendectomy Family History Aunt Thyroid disorder Grandmother Thyroid disorder Grandfather Kidney disease on dialysis Social History adopted: No household members: spouse 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al status: employed 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al exposures/hazards: No pets and animals: Yes pets and animals: dog(s) history of recent travel: Yes ([place] - September 2024) out of state: No out of country: Yes sexually active: Yes Smoking Status: Never smoker second hand exposure: No alcohol intake: never substance use type: other details: Lima gummies - Beginning july diet: gluten free well-balanced diet: daily or most days caffeine: Yes eating out: 1-3 times/week during the past year weight has: remained stable what type of physical activity do you participate in: walking and weight training frequency: 3-4 times per week duration: 15-30 minutes/day lc/latter-day: Taoism seatbelt use: always do you feel safe at home: Yes additional social history: : 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 OB Visit GLENN Calculator Estimated Delivery Date Method Current WG Current Estimate 04/04/25 LMP (Certain) 8w 2d Other Estimates 04/01/25 Ultrasound #1 8w 5d Estimated Due Date: 04/04/25 Expected Delivery Route/Plan Labor Preferences- CB/BF classes: [] labor support person: [] labor intervention preferences: [] pain management options preferred: [] cut cord/dad catch: [] : [] PP control planned: [] discussed possible routes of delivery and associated risks: [] special requests: [] Specific Issue/Plans Covid status: [] Flu vaccine: [] Tdap vaccine: [] Rhogam: [] LARC form signed: [] Problem list reviewed and updated with the most current plan of care details and appropriate orders placed. Relevant counseling for the gestational age provided. Continue routine care and follow up unless otherwise noted in visit notes/problem list details Initial Weight: 162 lb Date -???-???-???-???-???-???- ???-???-???-???-???-???- EGA Weight BP Urine Prot -???-???-???-???-???-???- ???-???-???-???-???-???- Glucose FHR FuHt Pres Dilation -???-???-???-???-???-???- ???-???-???-???-???-???- Effaced St Visit Note 08/25/24 -???-???-???-???-???-???- ???-???-???-???-???-???- 8w 2d 162 lb 8 oz (+8 oz) 119/80 -???-???-???-???-???-???- ???-???-???-???-???-???- 180 -???-???-???-???-???-???- ???-???-???-???-???-???- KW- CRL cons with dates. Declines NIPT. Menstrual History Last Menstrual Period: 12/23/24 Reported LMP: definite Normal amount/duration: Yes Frequency in days: 28 On hormonal BC at conception: No hCG+: 07/21/24 Antepartum Record Genetic Screening: Congenital Heart Defect: Other, Neural Tube Defect: Other, Hemoglobinopathy Or Carrier: Other, Cystic Fibrosis: Other, Chromosome Abnormality: Other, Pawel-Sachs: Other, Hemophilia: Other, Intellectual Disability/Autism: Other, Recurrent Loss/Stillbirth: Other, Other Structural Defect: Other, Other Genetic Disease: Patient (Pt sister with scoliosis ) and Maternal Metabolic Disorder: Other Infection History: Live with someone with TB or Exposed to TB: No, Patient or Partner has history of Genital Herpes: No, Rash or Viral illness since last mentru (more content not included)... Normal [facility] Platelet countOrdered By: Connor Crews on 08-25-2024 Platelets (Bld) [#/Vol] 339 10*3/uL 150-450 [facility] RBC Auto (Bld) [#/Vol]Ordere d By: Nicole Crews on 08-25-2024 RBC (Bld) [#/Vol] 4.93 10*6/uL 4.2-5.4 [facility] Rubella IgGon 08-25-2024 Rubella IgG Reactive Normal Nonreactive [facility] Comment on above: Order Comment: Reaso n for Exam: Result Comment: Anti body Results Interpretation of Immune Status Non Reactive Presumed Non-Immune Equivocal Equivocal Reactive Presumed Immune Performed By: #### L 3890.6100, L509.4005, L509.8000, L3890.6005, L3890.6300, BTS, L100.0100 ####[facility] [address] [place], [address] Serum Treponema species anti body detectionOrdered By: Nicole Crews on 08-25-2024 Treponema sp Ab Ql (S) Non-Reactive [facility] Type AND Screenon 08-25-2024 ABO and Rh group Nom (Bld) Blood group A Rh(D) positive Normal [facility] Comment on above: Order Comment: PN Performed By: #### L 3890.6100, L509.4005, L509.8000, L3890.6005, L3890.6300, BTS, L100.0100 ####[facility] [address] [place], [address] Urine cultureOrdered By: Chin Crews on 08-25-2024 Bacteria identified Cx Nom (U) Culture exhibits no growth. [facility] White blood cell (WBC) count Ordered By: Nicole Crews on 08-25-2024 WBC (Bld) [#/Vol] 14.4 10*3/uL High 4.4-11.0 [facility] Urine Cultureon 08-12-2024 URC Below infection leve l. Mixed Gram Positive Organisms Ashley Count <1000 MIXC Mixed contaminants. Submit a new specimen if indicated. Normal [facility] Comment on above: Performed By: #### M 100.2200 #### [facility] [address] [place], [address] Absolute lymphocyte countOrd ered By: Fatoumata Diaz on 08-11-2024 Lymphocytes Auto (Unsp spec) [#/Vol] 0.42 10*3/uL Low 0.83-4.51 [facility] Absolute neutrophil countOrd ered By: Fatoumata Diaz on 08-11-2024 Neutrophils (Bld) [#/Vol] 16.1 10*3/uL High 2.0-7.7 [facility] Albumin to globulin ratioOrd ered By: Fatoumata Diaz on 08-11-2024 Albumin/Globulin [Mass ratio] 1.0 {ratio} Normal 0.9-2.4 [facility] Comment on above: Performed By: #### L 501.2450, L100.0100, L700.8000, L500.4050 ####[facility] [address] [place], [address] Automated lymphocyte count a s percentage of total leukocytesOrdered By: Fatoumata Diaz on 08-11-2024 Lymphocytes/100 WBC Auto (Unsp spec) 2.4 % Low 19-41 [facility] Basophil percentageOrdered B y: Fatoumata Diaz on 08-11-2024 Basophils/100 WBC (Bld) 0.2 % 0-1 [facility] Bilirubin Test strip Ql (U)O rdered By: Fatoumata Diaz on 08-11-2024 Bilirubin Ql (U) Negative Negative [facility] Bilirubin, totalOrdered By: Fatoumata Diaz on 08-11-2024 Bilirubin [Mass/Vol] 0.80 mg/dL Normal 0.20-1.00 [facility] Comment on above: For patients on eltr ombopag therapy, use of [place] TBIL is not recommended. Result Comment: For patients on eltrombopag therapy, use of [place] TBIL is not recommended. Performed By: #### L 501.2450, L100.0100, L700.8000, L500.4050 ####[facility] [address] [place], [address] Blood urea nitrogen (BUN)/cr eatinine ratioOrdered By: Fatoumata Diaz on 08-11-2024 Urea nitrogen/Creatinine [Mass ratio] 16.2 mg/mg 10-20 [facility] CBC W/Diff, Automatedon Absolute Lymph 0.42 X10 3/uL Low 0.83-4.51 [facility] Comment on above: Performed By: #### L 501.2450, L100.0100, L700.8000, L500.4050 ####[facility] [address] [place], [address] Absolute Neut 16.1 X10 3/uL High 2.0-7.7 [facility] Comment on above: Performed By: #### L 501.2450, L100.0100, L700.8000, L500.4050 ####[facility] [address] [place], [address] Basophils/100 WBC (Bld) 0.2 % Normal 0-1 [facility] Comment on above: Performed By: #### L 501.2450, L100.0100, L700.8000, L500.4050 ####[facility] [address] [place], [address] Eosinophils/100 WBC (Bld) 0.2 % Normal 0-5 [facility] Comment on above: Performed By: #### L 501.2450, L100.0100, L700.8000, L500.4050 ####[facility] [address] [place], [address] Erythrocyte distribution width (RBC) [Ratio] 12.3 % Normal 11.6-14.6 [facility] Comment on above: Performed By: #### L 501.2450, L100.0100, L700.8000, L500.4050 ####[facility] [address] [place], [address] Hematocrit (Bld) [Volume fraction] 46.2 % Normal 37-47 [facility] Comment on above: Performed By: #### L 501.2450, L100.0100, L700.8000, L500.4050 ####[facility] [address] [place], [address] Hemoglobin (Bld) [Mass/Vol] 16.4 g/dL High 12.0-15.0 [facility] Comment on above: Performed By: #### L 501.2450, L100.0100, L700.8000, L500.4050 ####[facility] [address] [place], [address] IG% 0.300 Normal 0.0-0.9 [facility] Comment on above: Result Comment: IG% - Immature Granulocytes (promyelocytes, myelocytes and metamyelocytes) > 1% indicates that a LEFT SHIFT is Present. Performed By: #### L 501.2450, L100.0100, L700.8000, L500.4050 ####[facility] [address] [place], [address] Lymphocytes/100 WBC (Bld) 2.4 % Low 19-41 [facility] Comment on above: Performed By: #### L 501.2450, L100.0100, L700.8000, L500.4050 ####[facility] [address] [place], [address] MCH (RBC) [Entitic mass] 29.9 pg Normal 27.0-32.0 [facility] Comment on above: Performed By: #### L 501.2450, L100.0100, L700.8000, L500.4050 ####[facility] [address] [place], [address] MCHC (RBC) [Mass/Vol] 35.5 g/dL Normal 32-36 [facility] Comment on above: Performed By: #### L 501.2450, L100.0100, L700.8000, L500.4050 ####[facility] [address] [place], [address] MCV (RBC) [Entitic vol] 84.3 fL Normal 81-99 [facility] Comment on above: Performed By: #### L 501.2450, L100.0100, L700.8000, L500.4050 ####[facility] [address] [place], [address] Monocytes/100 WBC (Bld) 3.4 % Normal 0-10 [facility] Comment on above: Performed By: #### L 501.2450, L100.0100, L700.8000, L500.4050 ####[facility] [address] [place], [address] Neutrophils/100 WBC (Bld) 93.5 % High 47-70 [facility] Comment on above: Performed By: #### L 501.2450, L100.0100, L700.8000, L500.4050 ####[facility] [address] [place], [address] Nucleated RBC (Bld) [#/Vol] 0 10*3/uL Normal 0-5 [facility] Comment on above: Performed By: #### L 501.2450, L100.0100, L700.8000, L500.4050 ####[facility] [address] [place], [address] Platelet mean volume (Bld) [Entitic vol] 11.1 fL Normal 6.2-12.0 [facility] Comment on above: Performed By: #### L 501.2450, L100.0100, L700.8000, L500.4050 ####[facility] [address] [place], [address] Platelets (Bld) [#/Vol] 216 10*3/uL Normal 150-450 [facility] Comment on above: Performed By: #### L 501.2450, L100.0100, L700.8000, L500.4050 ####[facility] [address] [place], [address] RBC (Bld) [#/Vol] 5.48 10*6/uL High 4.2-5.4 [facility] Comment on above: Performed By: #### L 501.2450, L100.0100, L700.8000, L500.4050 ####[facility] [address] [place], [address] RDW SD 37.2 fl Normal 35.1-43.9 [facility] Comment on above: Performed By: #### L 501.2450, L100.0100, L700.8000, L500.4050 ####[facility] [address] [place], [address] WBC (Bld) [#/Vol] 17.2 10*3/uL High 4.4-11.0 [facility] Comment on above: Performed By: #### L 501.2450, L100.0100, L700.8000, L500.4050 ####[facility] [address] [place], [address] Carbon dioxide measurementOr dered By: Fatoumata Diaz on 08-11-2024 CO2 [Moles/Vol] 21.0 mmol/L Normal 21.0-32.0 [facility] Comment on above: Performed By: #### L 501.2450, L100.0100, L700.8000, L500.4050 ####[facility] [address] [place], [address] Chloride measurementOrdered By: Fatoumata Diaz on 08-11-2024 Chloride [Moles/Vol] 104 mmol/L Normal 98-107 [facility] Comment on above: Performed By: #### L 501.2450, L100.0100, L700.8000, L500.4050 ####[facility] [address] [place], [address] Comprehensive Metabolic Prof ncon 08-11-2024 ALK P 72 U/L Normal 45-117 [facility] Comment on above: Performed By: #### L 501.2450, L100.0100, L700.8000, L500.4050 ####[facility] [address] [place], [address] BUN/CRE 16.2 RATIO Normal 10-20 [facility] Comment on above: Performed By: #### L 501.2450, L100.0100, L700.8000, L500.4050 ####[facility] [address] [place], [address] CA,Total 9.0 mg/dL Normal 8.5-10.1 [facility] Comment on above: Performed By: #### L 501.2450, L100.0100, L700.8000, L500.4050 ####[facility] [address], [address] ECRCL 111.05 ml/min Normal [facility] Comment on above: Performed By: #### L 501.2450, L100.0100, L700.8000, L500.4050 ####[facility] [address] [place], [address] EST GFR - AA 120 mL/min Normal >60 [facility] Comment on above: Result Comment: Afri can Finnish GFR Calc Performed By: #### L 501.2450, L100.0100, L700.8000, L500.4050 ####[facility] [address] [place], [address] GAP 9 Normal 5-15 [facility] Comment on above: Performed By: #### L 501.2450, L100.0100, L700.8000, L500.4050 ####[facility] [address] [place], [address] T PROT 7.7 g/dL Normal 6.4-8.2 [facility] Comment on above: Performed By: #### L 501.2450, L100.0100, L700.8000, L500.4050 ####[facility] [address] [place], [address] Comprehensive Metabolic Prof ilOrdered By: Fatoumata Diaz on 08-11-2024 AST [Catalytic activity/Vol] 12 U/L Low 15-37 [facility] Comment on above: Performed By: #### L 501.2450, L100.0100, L700.8000, L500.4050 ####[facility] [address], [address] Emergency Department Summary on 08-11-2024 Emergency Department Summary [facility] Medical Records Department [address] [place] [address] Emergency Department Summary 08/11/24 MR#: [id number] Acct: [id number] Name: GERTRUDE EMERY Rep #: [id number] : 1995 28 From: Fatoumata Diaz DO PCP: Care Physician,No Primary Status:DEP ER Location: ED HPI HPI - GI History of Present Illness Chief Complaint: Nausea/Vomiting Informant: patient Narrative Narrative: Patient is a 28-year-old female with history of stomach issues and approximately 7 weeks presenting with nausea vomiting continued vaginal bleeding. Patient was seen in our ER yesterday for vaginal bleeding. She was found to be A positive, Had a hemoglobin of 15.5 and a quant of 40,949. She had an ultrasound which showed gestation consistent with 6 weeks and 5 days and a heart rate of 123. She states she woke around 230 this morning and started having vomiting. She has had multiple episodes of vomiting cannot keep any fluids down. She has been having some nausea but is not been throwing up until this morning. She states he can keep anything down. 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 She is having some mild upper abdominal pain associate with vomiting. No fevers reported. Did have slightly more bleeding when she got up to throw up initially with passage of very small clots but states there is no blood on her underwear. Has not had any recent intercourse. Denies any dysuria or hematuria. Denies any black or blood in her vomit or her stool. Denies any diarrhea. Has tried half a Unisom and B6 vitamin at home with no significant relief. PFSH [facility] Home Medications ???Medication ???Instructions ???Recorded ???Last Taken ???Type ondansetron 4 mg disintegrating 4 mg PO Q8H PRN PRN Nausea #15 tab s 08/11/24 Unknown Rx tablet Allergy/AdvReac Type Severity Reaction Status Date / Time gluten AdvReac Intermediate Other Verified 08/10/24 08:21 Social History Smoking Status: Never smoker ROS ROS ED Constitutional Constitutional ED: Reports chills; Denies fever(s) ENT ENT ED: Reports other Details: congestion Cardiovascular Cardiovascular: Denies chest pain Respiratory/Chest Respiratory/Chest: Denies cough or dyspnea Gastrointestinal Gastrointestinal: Reports abdominal pain, nausea and vomiting; Denies constipation, diarrhea or melena Genitourinary Genitourinary ED: Reports LMP (females 10-50) Details: Comment: (June 28, 2024) and other Details: vaginal bleeding ; Denies dysuria or hematuria Integumentary Denies rash Neurologic Neurologic: Reports weakness Psychiatric Psychiatric: Reports anxiety Hematologic/Lymphatic Hematologic/Lymphatic: Denies easy bleeding or easy bruising EXAM Physical Exam Const Vital Signs: 08/11/24 09:14 08/11/24 12:25 08/11/24 14:00 Temperature 98.9 F Temperature Source Oral Pulse Rate 120 H 94 Respiratory Rate 18 18 Blood Pressure 115/76 112/69 106/71 Blood Pressure Mean 89 83 83 Pulse Ox 98 99 97 Oxygen Delivery Method Room Air Room Air 08/11/24 14:47 Temperature Temperature Source Pulse Rate 93 Respiratory Rate 18 Blood Pressure 101/63 Blood Pressure Mean 75 Pulse Ox 98 Oxygen Delivery Method Positive well nourished and well developed General Appearance ED: well developed and NAD; Negative for pallor HEENT Reports moist mucous membranes normocephalic and atraumatic Eyes PERRL Neck supple Resp normal respiratory effort and clear to auscultation bilaterally Cardio regular rhythm and no murmurs Rate: tachycardic GI Inspection: Negative for abdominal distention Auscultation: normoactive bowel sounds Palpation: soft and tender epigastric; Negative for guarding or rigid Back/Spine no CVA tenderness Extremity full ROM General Extremety ED: Negative for edema General Extremity: Negative for edema Neuro moves all extremities Sensorium / Orientation: alert, oriented to person, oriented to place and oriented to time Motor Exam: Negative for general weakness Psych thought process normal Mood Affect: tearful Skin General Skin Exam: Negative for jaundice or pallor Rashes: no rashes MDM MDM MDM Narrative Medical decision making narrative: Patient evaluated for continued vaginal bleeding in early which she had evaluated yesterday as well as new nausea and vomiting. Differential includes related vomiting, dehydration, ANDRADE, pancreatitis, influenza, threatened miscarriage as well as incomplete miscarriage. Will give IV fluids and Zofran. Did discuss risk and benefits of Zofran and early and we decided that that this time was best for her mother as well as her (more content not included)... Normal [facility] Eosinophil percentageOrdered By: Fatoumata Diaz on 08-11-2024 Eosinophils/100 WBC (Bld) 0.2 % 0-5 [facility] Erythrocyte distribution wid th ratioOrdered By: Fatoumata Diaz on 08-11-2024 Erythrocyte distribution width (RBC) [Ratio] 12.3 % 11.6-14.6 [facility] Erythrocyte distribution wid th standard deviationOrdered By: Fatoumata Diaz on 08-11-2024 Erythrocyte distribution width (RBC) [Ratio] 37.2 fl 35.1-43.9 [facility] Gallbladderon 08-11-2024 Gallbladder [facility] Imaging Services [address] [address] Gallbladder MR#: [id number] Acct: [id number] Name: GERTRUDE EMERY Rep #: [id number] : 1995 F 28 From: Rios parker MD PCP: Care Physician,No Primary Status: DEP ER Study: Gallbladder Date of Exam: 08/11/24 Exam# [id number] Ordering Dr: Fatoumata Diaz DO PROCEDURE: Right upper quadrant ultrasound. REASON FOR EXAM: Vomiting and upper quadrant pain. COMPARISON: None FINDINGS: Liver: Grossly normal size and echotexture. It measures 14.8 cm. Gallbladder: No stones, sludge, wall thickening or tenderness. Gallbladder wall measures 2 mm. Common bile duct: Normal measuring 3 mm. Pancreas: Visualized portions are sonographically unremarkable. Visualized portions of the right kidney are unremarkable. The kidney measures 12 cm x 4.6 cm x 4.1 cm. The cortex measures 1.5 cm. There is evidence of a 2.3 cm x 2.3 cm x 2.3 cm right renal pelvic cyst. No right upper quadrant ascites. US/Gallbladder IMPRESSION: NORMAL RIGHT UPPER QUADRANT ULTRASOUND. Right renal pelvic cyst. Reading Location: [place] [address] CC: Dr. Fatoumata Diaz DO; No Primary Care Physician Air Box Tester: Signed Normal [facility] Glomerular filtration rate ( GFR) estimationOrdered By: Fatoumata Diaz on 08-11-2024 GFR/1.73 sq M.predicted among non-blacks MDRD (S/P/Bld) [Vol rate/Area] 99 mL/min/{1.73_m2} Normal >60 [facility] Comment on above: Non- GFR Calc Result Comment: Non- GFR Calc Performed By: #### L 501.2450, L100.0100, L700.8000, L500.4050 ####[facility] [address] [place], [place], [address] Glucose measurementOrdered B y: Fatoumata Diaz on 08-11-2024 Glucose [Mass/Vol] 133 mg/dL High 74-106 [facility] Comment on above: Fasting Glucose resu lt greater than or equal to 126 mg/dL suggests DIABETES MELLITUS per A.D.A. criteria. Result Comment: Fast ing Glucose result greater than or equal to 126 mg/dL suggests DIABETES MELLITUS per A.D.A. criteria. Performed By: #### L 501.2450, L100.0100, L700.8000, L500.4050 ####[facility] [address] [place], [place], [address] Hematocrit Auto (Bld) [Volum e fraction]Ordered By: Fatoumata Diaz on 08-11-2024 Hematocrit (Bld) [Volume fraction] 46.2 % 37-47 [facility] Hemoglobin measurementOrdere d By: Fatoumata Diaz on 08-11-2024 Hemoglobin (Bld) [Mass/Vol] 16.4 g/dL High 12.0-15.0 [facility] Immature granulocytes/100 WB C Auto (Bld)Ordered By: Fatoumata Diaz on 08-11-2024 Immature granulocytes/100 WBC (Bld) 0.300 % 0.0-0.9 [facility] Comment on above: IG% - Immature Granu locytes (promyelocytes, myelocytes and metamyelocytes) > 1% indicates that a LEFT SHIFT is Present. Influenza virus A and B and SARS-CoV-2 (COVID-19) and Respiratory syncytial virus RNAOrdered By: Fatoumata Diaz on 08-11-2024 SARS-CoV-2 (COVID-19) RNA KEVIN+probe Ql (Unsp spec) [facility] Ketones Test strip Ql (U)Ord ered By: Fatoumata Diaz on 08-11-2024 Ketones Ql (U) 150 mg/dl Abnormal Negative [facility] Comment on above: CRITICAL VALUE *HCRI TICAL VALUE CALLED TO SHEILA THOMPSON (ER)08/11/24 1133 Eddy Deleon.RESULTS READ BACK BY SAME. Lipase measurementOrdered By : Fatoumata Diaz on 08-11-2024 Lipase [Catalytic activity/Vol] 31 U/L Normal 13-75 [facility] Comment on above: Please note:LIPASE r evised reference range effective 22. New Lipase methodology. Expected to produce lower values than the previous assay method. NEW Reference Range: 13 - 75 U/L Result Comment: Plechristine delgado note: LIPASE revised reference range effective 22. New Lipase methodology. Expected to produce lower values than the previous assay method. NEW Reference Range: 13 - 75 U/L Performed By: #### L 501.2450, L100.0100, L700.8000, L500.4050 ####[facility] [address] [place], [address] M100.678on 08-11-2024 M100.678 Pending SARS-CoV-2 (COVID 19) Negative INFLUENZA A Negative INFLUENZA B Negative RSV PCR Negative Normal [facility] Comment on above: Performed By: #### L 400.0001, M100.678 ####[facility] [address] [place], [address] MCV (mean corpuscular volume ) determinationOrdered By: Fatoumata Diaz on 08-11-2024 MCV (RBC) [Entitic vol] 84.3 fL 81-99 [facility] Mean corpuscular hemoglobin (MCH) determinationOrdered By: Fatoumata Diaz on 08-11-2024 MCH (RBC) [Entitic mass] 29.9 pg 27.0-32.0 [facility] Mean corpuscular hemoglobin concentration (MCHC) determinationOrdered By: Fatoumata Diaz on 08-11-2024 MCHC (RBC) [Mass/Vol] 35.5 g/dL 32-36 [facility] Mean platelet volume determi nationOrdered By: Fatoumata Diaz on 08-11-2024 Platelet mean volume (Bld) [Entitic vol] 11.1 fL 6.2-12.0 [facility] Microscopic analysis of urin e for red blood cells (RBC)Ordered By: Fatoumata Diaz on 08-11-2024 Microscopic analysis of urine for red blood cells (RBC) 0-5 SEEN /hpf 0-5 [facility] Monocyte percentageOrdered B y: Fatoumata Diaz on 08-11-2024 Monocytes/100 WBC (Bld) 3.4 % 0-10 [facility] Mucus LM Ql (Urine sed)Order ed By: Fatoumata Diaz on 08-11-2024 Mucus Ql (Urine sed) 0 SEEN /hpf [facility] Neutrophil percentageOrdered By: Fatoumata Diaz on 08-11-2024 Neutrophils/100 WBC (Bld) 93.5 % High 47-70 [facility] Nitrite Test strip Ql (U)Ord ered By: Fatoumata Diaz on 08-11-2024 Nitrite Ql (U) Negative Negative [facility] Nucleated red blood cell per centageOrdered By: Fatoumata Diaz on 08-11-2024 Nucleated RBC/100 WBC (Bld) [Ratio] 0 % 0-5 [facility] Platelet countOrdered By: Kolby Diaz on 08-11-2024 Platelets (Bld) [#/Vol] 216 10*3/uL 150-450 [facility] Potassium measurementOrdered By: Fatoumata Diaz on 08-11-2024 Potassium [Moles/Vol] 3.9 mmol/L Normal 3.5-5.1 [facility] Comment on above: Performed By: #### L 501.2450, L100.0100, L700.8000, L500.4050 ####[facility] [id number] [place], [place], [id number] Protein Test strip Ql (U)Ord ered By: Fatoumata Diaz on 08-11-2024 Protein Ql (U) 30 mg/dl High Negative [facility] RBC Auto (Bld) [#/Vol]Ordere d By: Fatoumata Diaz on 08-11-2024 RBC (Bld) [#/Vol] 5.48 10*6/uL High 4.2-5.4 [facility] Serum anion gap measurementO rdered By: Fatoumata Diaz on 08-11-2024 Anion gap [Moles/Vol] 9 mmol/L 5-15 [facility] Serum globulin measurementOr dered By: Fatoumata Diaz on 08-11-2024 Globulin (S) [Mass/Vol] 3.9 g/dL Normal 2.2-4.2 [facility] Comment on above: Performed By: #### L 501.2450, L100.0100, L700.8000, L500.4050 ####[facility] [address] [place], [address] Serum human chorionic gonado tropin detection for pregnancyOrdered By: Fatoumata iDaz on 08-11-2024 HCG ( test) [place]l [address] mIU/mL High <4 [facility] Comment on above: hCG levels with Gest ational AgeGestational Age hCG mIU/mL (IU/L)0.2 - 1 week 5 - 501-2 weeks 50 - 5002-3 weeks 100 - 60102-8 weeks 500 - 637541-0 weeks 1000 - 475844-8 weeks 70392 - 100,0006-8 weeks 99535 - 200,0002-3 months 41976 - 100,000 Serum or plasma alanine lynn otransferase (ALT) measurementOrdered By: Fatoumata Diaz on 08-11-2024 ALT [Catalytic activity/Vol] 29 U/L Normal 13-56 [facility] Comment on above: Performed By: #### L 501.2450, L100.0100, L700.8000, L500.4050 ####[facility] [address] [place], [address] Serum or plasma albumin clive urement (mass/volume)Ordered By: Fatoumata Diaz on 08-11-2024 Albumin [Mass/Vol] 3.8 g/dL Normal 3.2-5.0 [facility] Comment on above: Performed By: #### L 501.2450, L100.0100, L700.8000, L500.4050 ####[facility] [address] [place], [place], [id number] Serum or plasma alkaline yenni sphatase measurementOrdered By: Fatoumata Diaz on 08-11-2024 ALP [Catalytic activity/Vol] 72 U/L 45-117 [facility] Serum or plasma calcium clive urement (mass/volume)Ordered By: Fatoumata Diaz on 08-11-2024 Calcium [Mass/Vol] 9.0 mg/dL 8.5-10.1 [facility] Serum or plasma creatinine m easurement (mass/volume)Ordered By: Fatoumata Diaz on 08-11-2024 Creatinine [Mass/Vol] 0.74 mg/dL Normal 0.55-1.02 [facility] Comment on above: The validity of the calculated GFR & GFRAA in patients over 70 years has not been determined. Clinical correlation is essential. Result Comment: The validity of the calculated GFR GFRAA in patients over 70 years has not been determined. Clinical correlation is essential. Performed By: #### L 501.2450, L100.0100, L700.8000, L500.4050 ####[facility] [address] [place], [address] Serum or plasma urea nitroge n measurement (mass/volume)Ordered By: Fatoumata Diaz on 08-11-2024 Urea nitrogen [Mass/Vol] 12 mg/dL Normal 7-18 [facility] Comment on above: Performed By: #### L 501.2450, L100.0100, L700.8000, L500.4050 ####[facility] [address] [place], [address] Sodium levelOrdered By: Soniya Diaz on 08-11-2024 Sodium [Moles/Vol] 134 mmol/L Low 136-145 [facility] Comment on above: Performed By: #### L 501.2450, L100.0100, L700.8000, L500.4050 ####[facility] [address] [place], [address] Squamous epithelial cells de tection in urine sediment by light microscopyOrdered By: Fatoumata Diaz on 08-11-2024 Epithelial cells.squamous LM Ql (Urine sed) 0-5 SEEN /hpf 5-10 [facility] Total proteinOrdered By: Alexandrea Diaz on 08-11-2024 Protein [Mass/Vol] 7.7 g/dL 6.4-8.2 [facility] Urinalysis, Completeon 08-11 RBC 0-5 SEEN Normal 0-5 [facility] Comment on above: Order Comment: CLEAN CATCH Performed By: #### L 400.0001, M1.8 ####[facility] [address] [place], [address] WBC 0-5 SEEN Normal 0-5 [facility] Comment on above: Order Comment: CLEAN CATCH Performed By: #### L 400.0001, M1.678 ####[facility] [address] [place], [address] BACTERIA 1+ /hpf Normal None Seen [facility] Comment on above: Order Comment: CLEAN CATCH Performed By: #### L 400.0001, M1.678 ####[facility] [address] [place], [address] EPI,SQUAMOUS 0-5 SEEN Normal 5-10 [facility] Comment on above: Order Comment: CLEAN CATCH Performed By: #### L 400.0001, M1.678 ####[facility] [address] [place], [address] Mucus Ql (Urine sed) 0 SEEN Normal [facility] Comment on above: Order Comment: CLEAN CATCH Performed By: #### L 400.0001, M1.678 ####[facility] [address] [place], [address] Urine clarityOrdered By: Alexandrea Diaz on 08-11-2024 Clarity (U) Sl. Cloudy Clear [facility] Urine color determinationOrd ered By: Fatoumata Diaz on 08-11-2024 Color (U) Yellow Yellow [facility] Urine glucose detectionOrder ed By: Fatoumata Diaz on 08-11-2024 Glucose Ql (U) Normal mg/dl Normal [facility] Urine leukocyte esterase det ection by dipstickOrdered By: Fatoumata Diaz on 08-11-2024 Leukocyte esterase Test strip Ql (U) 25 /ul High Negative [facility] Urine pHOrdered By: Fatoumata mathews on 08-11-2024 pH (U) 6.5 [pH] 5.0 - 8.0 [facility] Urine sediment bacteria coun t by microscopy (number/high power field)Ordered By: Fatoumata Diaz on 08-11-2024 Bacteria LM.HPF (Urine sed) [#/Area] 1 /[HPF] None Seen [facility] Urine specific gravity measu rementOrdered By: Fatoumata Diaz on 08-11-2024 Specific gravity (U) [Rel density] 1.015 1.002-1.030 [facility] Urine urobilinogen measureme ntOrdered By: Fatoumata Diaz on 08-11-2024 Urobilinogen Ql (U) Normal mg/dl Normal [facility] White blood cell (WBC) count Ordered By: Fatoumata Diaz on 08-11-2024 WBC (Bld) [#/Vol] 17.2 10*3/uL High 4.4-11.0 [facility] White blood cell countOrdere d By: Fatoumata Diaz on 08-11-2024 White blood cell count 0-5 SEEN /hpf 0-5 [facility] hCG Titer Quant., Serumon HCG QUANT. 66734 mIU/mL High 1-3 [facility] Comment on above: Result Comment: hCG levels with Gestational Age Gestational Age hCG mIU/mL (IU/L) 0.2 - 1 week 5 - 50 1-2 weeks 50 - 500 2-3 weeks 100 - 5000 3-4 weeks 500 - 51540 4-5 weeks 1000 - 34501 5-6 weeks 94487 - 100,000 6-8 weeks 45054 - 200,000 2-3 months 61357 - 100,000 Performed By: #### L 501.2450, L100.0100, L700.8000, L500.4050 ####[facility] [address] [place], [place], [address] Absolute lymphocyte countOrd ered By: Cee Purcell on 08-10-2024 Lymphocytes Auto (Unsp spec) [#/Vol] 1.89 10*3/uL 0.83-4.51 [facility] Absolute neutrophil countOrd ered By: Cee Purcell on 08-10-2024 Neutrophils (Bld) [#/Vol] 10.2 10*3/uL High 2.0-7.7 [facility] Automated lymphocyte count a s percentage of total leukocytesOrdered By: Cee Purcell on 08-10-2024 Lymphocytes/100 WBC Auto (Unsp spec) 14.6 % Low 19-41 [facility] [id number] 08-10-2024 ABO and Rh group Nom (Bld) Blood group A Rh(D) positive Normal [facility] Comment on above: Performed By: #### L 700.8000, L100.0100, B882-1 ####[facility] [address] [place], [place], [address] Basophil percentageOrdered B y: Cee Purcell on 08-10-2024 Basophils/100 WBC (Bld) 0.4 % 0-1 [facility] Bilirubin Test strip Ql (U)O rdered By: Cee Purcell on 08-10-2024 Bilirubin Ql (U) Negative Negative [facility] CBC W/Diff, Automatedon Absolute Lymph 1.89 X10 3/uL Normal 0.83-4.51 [facility] Comment on above: Performed By: #### L 700.8000, L100.0100, B882-1 ####[facility] [address] [place], [address] Absolute Neut 10.2 X10 3/uL High 2.0-7.7 [facility] Comment on above: Performed By: #### L 700.8000, L100.0100, B882-1 ####[facility] [address] [place], [address] Basophils/100 WBC (Bld) 0.4 % Normal 0-1 [facility] Comment on above: Performed By: #### L 700.8000, L100.0100, B882-1 ####[facility] [address] [place], [address] Eosinophils/100 WBC (Bld) 0.7 % Normal 0-5 [facility] Comment on above: Performed By: #### L 700.8000, L100.0100, B882-1 ####[facility] [address] [place], [address] Erythrocyte distribution width (RBC) [Ratio] 12.3 % Normal 11.6-14.6 [facility] Comment on above: Performed By: #### L 700.8000, L100.0100, B882-1 ####[facility] [address] [place], [address] Hematocrit (Bld) [Volume fraction] 43.3 % Normal 37-47 [facility] Comment on above: Performed By: #### L 700.8000, L100.0100, B882-1 ####[facility] [address] [place], [address] Hemoglobin (Bld) [Mass/Vol] 15.5 g/dL High 12.0-15.0 [facility] Comment on above: Performed By: #### L 700.8000, L100.0100, B882-1 ####[facility] [address] [place], [address] IG% 0.300 Normal 0.0-0.9 [facility] Comment on above: Result Comment: IG% - Immature Granulocytes (promyelocytes, myelocytes and metamyelocytes) > 1% indicates that a LEFT SHIFT is Present. Performed By: #### L 700.8000, L100.0100, B882-1 ####[facility] [address] [place], [address] Lymphocytes/100 WBC (Bld) 14.6 % Low 19-41 [facility] Comment on above: Performed By: #### L 700.8000, L100.0100, B882-1 ####[facility] [address] [place], [address] MCH (RBC) [Entitic mass] 30.2 pg Normal 27.0-32.0 [facility] Comment on above: Performed By: #### L 700.8000, L100.0100, B882-1 ####[facility] [address] [place], [address] MCHC (RBC) [Mass/Vol] 35.8 g/dL Normal 32-36 [facility] Comment on above: Performed By: #### L 700.8000, L100.0100, B882-1 ####[facility] [address] [place], [address] MCV (RBC) [Entitic vol] 84.2 fL Normal 81-99 [facility] Comment on above: Performed By: #### L 700.8000, L100.0100, B882-1 ####[facility] [address] [place], [address] Monocytes/100 WBC (Bld) 5.1 % Normal 0-10 [facility] Comment on above: Performed By: #### L 700.8000, L100.0100, B882-1 ####[facility] [address] [place], [address] Neutrophils/100 WBC (Bld) 78.9 % High 47-70 [facility] Comment on above: Performed By: #### L 700.8000, L100.0100, B882-1 ####[facility] [address] [place], [address] Nucleated RBC (Bld) [#/Vol] 0 10*3/uL Normal 0-5 [facility] Comment on above: Performed By: #### L 700.8000, L100.0100, B882-1 ####[facility] [address] [place], [address] Platelet mean volume (Bld) [Entitic vol] 11.3 fL Normal 6.2-12.0 [facility] Comment on above: Performed By: #### L 700.8000, L100.0100, B882-1 ####[facility] [address] [place], [address] Platelets (Bld) [#/Vol] 208 10*3/uL Normal 150-450 [facility] Comment on above: Performed By: #### L 700.8000, L100.0100, B882-1 ####[facility] [address] [place], [address] RBC (Bld) [#/Vol] 5.14 10*6/uL Normal 4.2-5.4 [facility] Comment on above: Performed By: #### L 700.8000, L100.0100, B882-1 ####[facility] [address] [place], [address] RDW SD 37.6 fl Normal 35.1-43.9 [facility] Comment on above: Performed By: #### L 700.8000, L100.0100, B882-1 ####[facility] [address] [place], [address] WBC (Bld) [#/Vol] 12.9 10*3/uL High 4.4-11.0 [facility] Comment on above: Performed By: #### L 700.8000, L100.0100, B882-1 ####[facility] [address] [place], [address] Emergency Department Summary on 08-10-2024 Emergency Department Summary [facility] Medical Records Department [address] [place] [address] Emergency Department Summary 08/10/24 MR#: [id number] Acct: [id number] Name: GERTRUDE EMERY Rep #: [id number] : 1995 28 From: Cee Purcell DO PCP: Care Physician,No Primary Status:DEP ER Location: ED HPI HPI - Female History of Present Illness Chief Complaint: Vag Bld, Preg Detail of Chief Complaint: and bleeding Informant: patient Narrative Narrative: Patient presents to the emergency department with complaint of vaginal bleeding that started last evening. Initially had some spotting last night. Patient think she is about 6 and half weeks as her last menstrual period was June 28. She has had some mild abdominal cramping. She denies urinary symptoms. This is her first and she is G1, P0. She has not had any care yet. This morning she had blood on the toilet paper when she wiped again. Denies passing clots. PFSH PFSH Allergy/AdvReac Type Severity Reaction Status Date / Time gluten AdvReac Intermediate Other Verified 08/10/24 08:21 Social History Smoking Status: Never smoker ROS ROS ED Review of Systems ROS Unobtainable: other Constitutional Constitutional ED: Reports lethargy; Denies chills, fever(s), sweats or weight loss Eyes Eyes: Denies blurry vision, change in vision or diplopia ENT ENT ED: Denies rhinorrhea or sore throat Cardiovascular Cardiovascular: Denies chest pain, orthopnea or racing heartbeat Respiratory/Chest Respiratory/Chest: Denies cough, dyspnea, dyspnea on exertion, orthopnea or sputum Gastrointestinal Gastrointestinal: Denies abdominal pain, diarrhea, nausea or vomiting Genitourinary Genitourinary ED: Reports other Details: Vaginal bleeding ; Denies dysuria, hematuria or urinary frequency Musculoskeletal Musculoskeletal: Denies arthralgias, back pain, myalgias or neck pain Integumentary Denies abscess, Abrasions or rash Neurologic Neurologic: Denies headache(s) or weakness Psychiatric Psychiatric: Denies anxiety, depression or suicidal thoughts Endocrine Endocrinology: Denies polydipsia, polyphagia or polyuria Hematologic/Lymphatic Hematologic/Lymphatic: Denies easy bleeding, easy bruising or lymphadenopathy Allergic/Immunologic Allergic/Immunologic ED: Denies mouth swelling, tongue swelling or urticaria EXAM Physical Exam Const Vital Signs: 08/10/24 08:21 08/10/24 10:19 Temperature 98.4 F Temperature Source Oral Pulse Rate 94 82 Respiratory Rate 18 14 Blood Pressure 122/92 H Blood Pressure Mean 102 Pulse Ox 100 99 Oxygen Delivery Method Room Air Positive well nourished and well developed General Appearance ED: well developed and NAD HEENT Reports TM's clear and moist mucous membranes normocephalic and atraumatic; Negative for trauma or tenderness Tympanic Membrane ED: Yes TM's clear Eyes PERRL and EOMs intact bilaterally General Eye ED: Negative for pale conjunctiva or scleral icterus Neck no lymphadenopathy, supple and no JVD General: Negative for tenderness Chest Wall inspection of chest normal and palpation of chest normal Chest: Negative for tenderness Resp normal respiratory effort and clear to auscultation bilaterally Effort and Inspection: Negative for respiratory distress or pain with movement Auscultation: Negative for rhonchi, wheezes or diminished lung sounds Cardio regular rate, regular rhythm, S1 normal heart sound, S2 normal heart sound and no murmurs Peripheral Pulses: pulses 2+ throughout GI normal to inspection, nondistended, normoactive bowel sounds, soft to palpation, non-tender, non- distended and no masses Back/Spine no CVA tenderness and no thoracic nor lumbar tenderness Extremity normal to inspection General Extremety ED: Negative for edema General Extremity: Negative for edema Neuro oriented x3, CN's II-XII intact bilaterally, no sensory deficits noted and gait normal Sensorium / Orientation: awake, alert, oriented to person, oriented to place and oriented to time Motor Exam: strength 5/5 throughout and strength abnormal Psych mental status grossly normal Skin no rashes or lesions noted and no wounds MDM MDM MDM Narrative Medical decision making narrative: Patient presents with first trimester bleeding. Clinically looks well. CBC with differential obtained was unremarkable. Quantitative hCG was 40,900. Pelvic ultrasound obtained showed single live intrauterine measuring 7 weeks 1 day with heart rate of 123. Blood type was a positive. Urinalysis obtained did show +2 bacteria and 5-10 WBCs and 100 leukocyte esterase. She is asymptomatic as far as UTI. I did send off a culture but I do not think she needs treatment at this time. Will discuss case with [employer] DISPATCHER on-call for Dr. Quezada (more content not included)... Normal [facility] Eosinophil percentageOrdered By: Cee Purcell on 08-10-2024 Eosinophils/100 WBC (Bld) 0.7 % 0-5 [facility] Erythrocyte distribution wid th ratioOrdered By: [facility] 08-10-2024 Erythrocyte distribution width (RBC) [Ratio] 12.3 % 11.6-14.6 [facility] Erythrocyte distribution wid th standard deviationOrdered By: Cee Purcell on 08-10-2024 Erythrocyte distribution width (RBC) [Ratio] 37.6 fl 35.1-43.9 [facility] Hematocrit Auto (Bld) [Volum e fraction]Ordered By: [facility] on 08-10-2024 Hematocrit (Bld) [Volume fraction] 43.3 % 37-47 [facility] Hemoglobin measurementOrdere d By: Cee Purcell on 08-10-2024 Hemoglobin (Bld) [Mass/Vol] 15.5 g/dL High 12.0-15.0 [facility] Immature granulocytes/100 WB C Auto (Bld)Ordered By: Cee Purcell on 08-10-2024 Immature granulocytes/100 WBC (Bld) 0.300 % 0.0-0.9 [facility] Comment on above: IG% - Immature Granu locytes (promyelocytes, myelocytes and metamyelocytes) > 1% indicates that a LEFT SHIFT is Present. Ketones Test strip Ql (U)Ord ered By: Cee Purcell on 08-10-2024 Ketones Ql (U) 50 mg/dl High Negative [facility] MCV (mean corpuscular volume ) determinationOrdered By: Cee Purcell on 08-10-2024 MCV (RBC) [Entitic vol] 84.2 fL 81-99 [facility] Mean corpuscular hemoglobin (MCH) determinationOrdered By: Cee Purcell on 08-10-2024 MCH (RBC) [Entitic mass] 30.2 pg 27.0-32.0 [facility] Mean corpuscular hemoglobin concentration (MCHC) determinationOrdered By: Cee Purcell on 08-10-2024 MCHC (RBC) [Mass/Vol] 35.8 g/dL 32-36 [facility] Mean platelet volume determi nationOrdered By: Cee Purcell on 08-10-2024 Platelet mean volume (Bld) [Entitic vol] 11.3 fL 6.2-12.0 [facility] Microscopic analysis of urin e for red blood cells (RBC)Ordered By: Cee Purcell on 08-10-2024 Microscopic analysis of urine for red blood cells (RBC) 0-5 SEEN /hpf 0-5 [facility] Monocyte percentageOrdered B y: Cee Purcell on 08-10-2024 Monocytes/100 WBC (Bld) 5.1 % 0-10 [facility] Mucus LM Ql (Urine sed)Order ed By: Cee Purcell on 08-10-2024 Mucus Ql (Urine sed) 0 SEEN /hpf [facility] Neutrophil percentageOrdered By: Cee Purcell on 08-10-2024 Neutrophils/100 WBC (Bld) 78.9 % High 47-70 [facility] Nitrite Test strip Ql (U)Ord ered By: Cee Purcell on 08-10-2024 Nitrite Ql (U) Negative Negative [facility] Nucleated red blood cell per centageOrdered By: Cee Purcell on 08-10-2024 Nucleated RBC/100 WBC (Bld) [Ratio] 0 % 0-5 [facility] Platelet countOrdered By: Joanne Purcell on 08-10-2024 Platelets (Bld) [#/Vol] 208 10*3/uL 150-450 [facility] Protein Test strip Ql (U)Ord ered By: Cee Purcell on 08-10-2024 Protein Ql (U) 15 mg/dl High Negative [facility] RBC Auto (Bld) [#/Vol]Ordere d By: Cee Purcell on 08-10-2024 RBC (Bld) [#/Vol] 5.14 10*6/uL 4.2-5.4 [facility] Serum human chorionic gonado tropin detection for pregnancyOrdered By: Cee Purcell on 08-10-2024 HCG ( test) Ql [address] mIU/mL High <4 [facility] Comment on above: hCG levels with Gest ational AgeGestational Age hCG mIU/mL (IU/L)0.2 - 1 week 5 - 501-2 weeks 50 - 5002-3 weeks 100 - 88849-1 weeks 500 - 499109-5 weeks 1000 - 834758-2 weeks 07842 - 100,0006-8 weeks 21555 - 200,0002-3 months 03997 - 100,000 Squamous epithelial cells de tection in urine sediment by light microscopyOrdered By: Cee Purcell on 08-10-2024 Epithelial cells.squamous LM Ql (Urine sed) 5-10 SEEN /hpf 5-10 [facility] Transvaginal w/Preg USon Transvaginal w/Preg US [facility] Services [address] [place] [address] Transvaginal w/Preg US MR#: [id number] Acct: [id number] Name: GERTRUDE EMERY Rep #: [id number] : 1995 F 28 From: Rios parker MD PCP: Care Physician,No Primary Status: [facility] ER Study: Transvaginal w/Preg US Date of Exam: 08/10/24 Exam# [id number] Ordering Dr: Cee Purcell DO PROCEDURE: TRANSVAGINAL W/PREG US REASON FOR EXAM: Bleeding during . COMPARISON: None. FINDINGS: Comments: Transvaginal imaging was performed Number of Gestational Sacs: 1 Gestational Sac Shape: Normal it measures 2.2 cm. 7 weeks and 1 day. Number of Fetuses: 1 Heart Rate: 123 (average) Survey of Visible Anatomic Structures: Grossly unremarkable for gestational age. [place]-rump measurement is 4 mm corresponding to 6 weeks and 2 days. Yolk Sac: Present and unremarkable. Placenta: Presently not well-visualized Amniotic Fluid Volume: Subjectively normal for gestational age. Uterine Abnormalities: Maternal uterus is unremarkable. Uterus measures 8.7 cm 6 cm 5.3 cm. Ovaries / Adnexa: Both maternal ovaries are visualized and unremarkable. There is a 1.9 cm x 1.5 cm x 1.5 cm dominant follicle in the right ovary. ESTIMATED GESTATIONAL AGE: By Ultrasound: 6 weeks and 5 days By LMP: 6 weeks and 1 day ESTIMATED DATE OF DELIVERY: By Ultrasound: March 31, 2025 By LMP: April 04, 2025 US/Transvaginal w/Preg US IMPRESSION: UNREMARKABLE FIRST TRIMESTER ULTRASOUND. Reading Location: [place] [address] CC: Dr. Cee Purcell, DO; No Primary Care Physician Air Box Tester: Signed Normal [facility] Urinalysis, Completeon 08-10 BACTERIA 2+ /hpf Normal None Seen [facility] Comment on above: Order Comment: CLEAN CATCH Performed By: #### M 100.2200, L7400.0353, L7000.1800 #### [facility] [address] [place], [address] EPI,RENAL 0-5 SEEN Normal 0-5 [facility] Comment on above: Order Comment: CLEAN CATCH Performed By: #### M 100.2200, L7400.0353, L7000.1800 #### [facility] [address] [place], [address] EPI,SQUAMOUS 5-10 SEEN Normal 5-10 [facility] Comment on above: Order Comment: CLEAN CATCH Performed By: #### M 100.2200, L7400.0353, L7000.1800 #### [facility] [address] [place], [address] RBC 0-5 SEEN Normal 0-5 [facility] Comment on above: Order Comment: CLEAN CATCH Performed By: #### M 100.2200, L7400.0353, L7000.1800 #### [facility] [address] [place], [address] WBC 5-10 SEEN Normal 0-5 [facility] Comment on above: Order Comment: CLEAN CATCH Performed By: #### M 100.2200, L7400.0353, L7000.1800 #### [facility] [address] [place], [address] Mucus Ql (Urine sed) 0 SEEN Normal [facility] - [place] Comment on above: Order Comment: CLEAN CATCH Performed By: #### M 100.2200, L7400.0353, L7000.1800 #### [facility] [address] [place], [address] Urine clarityOrdered By: Soco Purcell on 08-10-2024 Clarity (U) Clear Clear [facility] Urine color determinationOrd ered By: Cee Purcell on 08-10-2024 Color (U) Yellow Yellow [facility] Urine cultureOrdered By: Soco Purcell on 08-10-2024 Bacteria identified Cx Nom (U) Positive Abnormal [facility] Urine glucose detectionOrder ed By: Cee Purcell on 08-10-2024 Glucose Ql (U) Normal mg/dl Normal [facility] Urine leukocyte esterase det ection by dipstickOrdered By: Cee Purcell on 08-10-2024 Leukocyte esterase Test strip Ql (U) 100 /ul High Negative [facility] Urine pHOrdered By: Cee Un gur on 08-10-2024 pH (U) 6.5 [pH] 5.0 - 8.0 [facility] Urine sediment bacteria coun t by microscopy (number/high power field)Ordered By: Cee Purcell on 08-10-2024 Bacteria LM.HPF (Urine sed) [#/Area] 2 /[HPF] None Seen [facility] Urine sediment renal epithel ial cell count by microscopy (number/high power field)Ordered By: Cee Purcell on 08-10-2024 Epithelial cells.renal LM.HPF (Urine sed) [#/Area] 0 /[HPF] 0-5 [facility] Urine specific gravity measu rementOrdered By: Cee Purcell on 08-10-2024 Specific gravity (U) [Rel density] 1.010 1.002-1.030 [facility] Urine urobilinogen measureme ntOrdered By: Cee Purcell on 08-10-2024 Urobilinogen Ql (U) Normal mg/dl Normal [facility] White blood cell (WBC) count Ordered By: Cee Purcell on 08-10-2024 WBC (Bld) [#/Vol] 12.9 10*3/uL High 4.4-11.0 [facility] White blood cell countOrdere d By: Cee Purcell on 08-10-2024 White blood cell count 5-10 SEEN /hpf 0-5 [facility] hCG Titer Quant., Serumon HCG QUANT. 86543 mIU/mL High 1-3 [facility] Comment on above: Result Comment: hCG levels with Gestational Age Gestational Age hCG mIU/mL (IU/L) 0.2 - 1 week 5 - 50 1-2 weeks 50 - 500 2-3 weeks 100 - 5000 3-4 weeks 500 - 40247 4-5 weeks 1000 - 10918 5-6 weeks 68662 - 100,000 6-8 weeks 12475 - 200,000 2-3 months 68707 - 100,000 Performed By: #### L 700.8000, L100.0100, B882-1 ####[facility] [id number] [place] [place], [address] POCT SARS-COV-2/FLU/RSV PCR SYMPTOMATIC manually resultedon 05-26-2024 FLUAV RNA KEVIN+probe Ql (Resp) Not detected Not Detected [facility] Work Phone: FLUBV RNA KEVIN+probe Ql (Resp) Not detected Not Detected [facility] Work Phone: Interpretation and review of laboratory results Abnormal [facility] Work Phone: RSV RNA KEVIN+probe Ql (Resp) Not detected Not Detected [facility] Work Phone: SARS-CoV-2 (COVID-19) RNA KEVIN+probe Ql (Resp) Detected Abnormal Not Detected [facility] Work Phone: [facility] Work Phone: Basophil percentageOrdered B y: Dr. Angulo on 12-17-2022 WBC (Bld) [#/Vol] 14.1 10*3/uL 4.4-11.0 [facility] Blood erythrocytes count (nu mber/volume)Ordered By: Dr. Angulo on 12-17-2022 RBC (Bld) [#/Vol] 5.23 10*6/uL 4.2-5.4 [facility] Blood hemoglobin measurement (mass/volume)Ordered By: Dr. Angulo on 12-17-2022 Hemoglobin (Bld) [Mass/Vol] 15.5 g/dL 12.0-15.0 [facility] Blood platelet mean volumeOr dered By: Dr. Angulo on 12-17-2022 Platelet mean volume (Bld) [Entitic vol] 11.0 fL 6.2-12.0 [facility] Determination of erythrocyte mean corpuscular volume (MCV)Ordered By: Dr. Angulo on 12-17-2022 MCV (RBC) [Entitic vol] 88.0 fL 81-99 [facility] Hematocrit Auto (Bld) [Volum e fraction]Ordered By: Dr. Angulo on 12-17-2022 Hematocrit (Bld) [Volume fraction] 46.0 % 37-47 [facility] - Chemistry and C hemistry - challengeOrdered By: Dr. Angulo on 12-17-2022 T4 [Mass/Vol] 7.9 ug/dL 4.8-13.9 [facility] - Hematology and Cell countsOrdered By: Dr. Angulo on 12-17-2022 Erythrocyte distribution width (RBC) [Entitic vol] 41.7 fL 35.1-43.9 [facility] Erythrocyte distribution width (RBC) [Ratio] 13.0 % 11.6-14.6 [facility] MCH (RBC) [Entitic mass] 29.6 pg 27.0-32.0 [facility] MCHC Auto (RBC) [Mass/Vol]Or dered By: Dr. Angulo on 12-17-2022 MCHC (RBC) [Mass/Vol] 33.7 g/dL 32-36 [facility] No Panel InformationOrdered By: Dr. Angulo on 12-17-2022 Endomysial IgA Antibody Positive Negative [facility] Thyroid Stimulating Hormone (TSH) 0.65 uIU/mL 0.358-3.74 [facility] Platelets bldOrdered By: Dr. Angulo on 12-17-2022 Platelets (Bld) [#/Vol] 280 10*3/uL 150-450 [facility] Serum IgA measurement (units /volume)Ordered By: Dr. Angulo on 12-17-2022 IgA Qn (S) 88 mg/dL 87-352 [facility] Comment on above: Performed at: [employer] [facility] Valentin Uzhun [address] Director: Lico Lennon PhD, Phone: [phone] Serum or plasma C reactive p rotein measurement (mass/volume)Ordered By: Dr. Angulo on 12-17-2022 CRP [Mass/Vol] mg/L 0.0-3.0 [facility] Comment on above: C-Reactive Protein ( CRP) provides useful information for thediagnosis, therapy and monitoring of inflammatory processesand associated diseases. For the evaluation of Relative Riskfor Cardiovascular Disease, a High Sensitivity CRP (HSCRP)should be ordered. Serum tissue transglutaminas e IgA antibody assay (units/volume)Ordered By: Dr. Angulo on 12-17-2022 tTG IgA Qn (S) 9 U/mL 0-3 [facility] Comment on above: Negative 0 - 3 Weak Positive 4 - 10 Positive >10 Tissue Transglutaminase (tTG) has been identified as the endomysial antigen. Studies have demonstr- ated that endomysial IgA antibodies have over 99% specificity for gluten sensitive enteropathy. [facility] Screeningon 2021 [facility] 20/20 [facility] Work Phone: Office Visit (Family Medicizabela avina)on 02-12-2022 Follow-up visit Diagnoses/Problems Encounter for preventive health examination (V70.0) (Z00.00) Orders Health Maintenance [facility] Screening; Status:Complete - Retrospective Authorization; Done: 12Feb2022 03:57PM Provider Impressions Form signed. She was given copies of her immunizations which are up to date. 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 Chief Complaint CPX with form. History of Present Illness 26 YOF presents for school physical. 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 Review of Systems Review of Systems: Constitutional: no fever, no unintentional weight change Eye: no recent visual problem Respiratory: no shortness of breath Cardiac: no chest pain GI: no reflux, no nausea, no vomiting, no diarrhea, no constipation, no heartburn, no abdominal pain Neurological: no headache Active Problems Skin lesion of back (709.9) (L98.9) Tinea of the body (110.5) (B35.4) Surgical History History of Appendectomy laparoscopic History of [place] tooth extraction Family History Family history of gastroesophageal reflux disease (V18.59) (Z83.79) Family history of hypothyroidism (V18.19) (Z83.49) Family history of malignant neoplasm of kidney (V16.51) (Z80.51) Family history of malignant neoplasm of prostate (V16.42) (Z80.42) Family history of kidney disease (V18.69) (Z84.1) Family history of hypothyroidism (V18.19) (Z83.49) Family history of malignant neoplasm of colon (V16.0) (Z80.0) Social History Never a smoker No advance directives (V49.89) (Z78.9) No recent foreign travel Allergies No Known Drug Allergies Recorded By: Karla Montaño; 10/02/2020 2:39:30 PM Current Meds Medication NameInstructionReason No Reported Medications Vitals Vital Signs Recorded: [id number] 03:55PM Heart Rate72 Jrtbckfc628 Cvdadvenp52 Height5 ft 7.5 in Llncol297 lb 15.73 oz BMI Ryoggfsrxr24.62 kg/m2 BSA Calculated1.88 Tobacco Useb) No PHQ-2 #1. Over the last 2 weeks have you felt down, depressed or hopeless? (If yes, answer PHQ-9 below)No PHQ-2 #2. Over the last 2 weeks have you felt little interest or pleasure in doing things? (If yes, answer PHQ-9 below)No Falls Screening (Age 18+)a) No falls within the last year Physical Exam General: Alert and oriented. No acute distress Eye: Normal conjunctiva HENT: Normocephalic, oral mucosa is moist, no pharyngeal erythema, neck supple, no LAD, no thyromegaly Respiratory: Lungs clear to auscultation, respirations not labored Cardiovascular: Normal rate, regular rhythm, no murmur, no gallop, no edema Gastrointestinal: Soft, nontender, normal bowel sounds, nondistended Genitourinary: No costovertebral angle tenderness Integumentary: Warm, dry, pink Psychiatric: Cooperative, good affect, eye contact, judgment, insight, voice Results/Data [facility] [id number] 03:57PMOsmel Jin Test NameResultFlagReference Right Eye Xqkkiboosef53/20 Left Eye Wgvijzeifgm71/20 'Scores and Scales' Signatures Electronically signed by : Osmel Jin PA-C; Feb 12 2022 4:07PM EST (Author) Normal [facility] Tobacco Screening.on Adult depression screening assessment No [facility] Work Phone: Fall risk assessment a) No falls within the last year [facility] Work Phone: Tobacco use status CPHS b) No [facility] Work Phone: COVID-19, MOLECULARon 2019 INTERNAL CONTROL (ABBOT ID) Pass Normal [facility] SARS-COV-2 (ALBERT ID) Detected Abnormal Not Detected [facility] COVID-19, Molecularon 2019 Internal Control Pass [facility] Interpretation and review of laboratory results Abnormal [facility] SARS-CoV-2 Detected Abnormal Not Detected [facility] Vital Signs Date Time Vital Sign Value Performing Clinician Facility 02-11-2025 10:01-0400 Body height 170.18 cm No Primary Care Physician [facility] 02-11-2025 10:01-0400 Body mass index (BMI) [Ratio] 28 kg/m2 No Primary Care Physician [facility] 02-11-2025 10:01-0400 Body weight 81.24 kg No Primary Care Physician [facility] 02-11-2025 10:01-0400 Diastolic blood pressure 82 mm[Hg] No Primary Care Physician [facility] 02-11-2025 10:01-0400 Systolic blood pressure 137 mm[Hg] No Primary Care Physician [facility] 01-28-2025 11:28-0400 Body height 170.18 cm No Primary Care Physician [facility] 01-28-2025 11:24-0400 Body mass index (BMI) [Ratio] 27.7 kg/m2 No Primary Care Physician [facility] 01-28-2025 11:24-0400 Body weight 80.34 kg No Primary Care Physician [facility] 01-28-2025 11:24-0400 Diastolic blood pressure 82 mm[Hg] No Primary Care Physician [facility] 01-28-2025 11:24-0400 Systolic blood pressure 121 mm[Hg] No Primary Care Physician [facility] 01-10-2025 15:23-0400 Body height 170.18 cm No Primary Care Physician [facility] 01-10-2025 15:23-0400 Body mass index (BMI) [Ratio] 27.7 kg/m2 No Primary Care Physician [facility] 01-10-2025 15:23-0400 Body weight 80.28 kg No Primary Care Physician [facility] 01-10-2025 15:23-0400 Diastolic blood pressure 76 mm[Hg] No Primary Care Physician [facility] 01-10-2025 15:23-0400 Systolic blood pressure 123 mm[Hg] No Primary Care Physician [facility] 12-14-2024 15:32-0400 Body height 170.18 cm No Primary Care Physician [facility] 12-14-2024 15:32-0400 Body mass index (BMI) [Ratio] 27.2 kg/m2 No Primary Care Physician [facility] 12-14-2024 15:32-0400 Body weight 78.98 kg No Primary Care Physician [facility] 12-14-2024 15:32-0400 Diastolic blood pressure 73 mm[Hg] No Primary Care Physician [facility] 12-14-2024 15:32-0400 Systolic blood pressure 119 mm[Hg] No Primary Care Physician [facility] 11-18-2024 08:30-0400 Body height 170.[address] Cee Purcell DO Work Phone: [facility] 11-18-2024 08:30-0400 Body mass index (BMI) [Ratio] 26.4 kg/m2 Dr. Cee Purcell DO Work Phone: 7(860)678-73[address] [place] [address] 11-18-2024 08:30-0400 Body weight 76.[address] Cee Purcell DO Work Phone: 1(479)305-062611 [place] [address] 11-18-2024 08:30-0400 Diastolic blood pressure 84 mm[Hg] Dr. Cee Purcell DO Work Phone: 9(407)648-253311 [place] [address] 11-18-2024 08:30-0400 Systolic blood pressure 128 mm[Hg] Dr. Cee Purcell DO Work Phone: 1(708)424-880411 [place] [address] 10-22-2024 10:19-0400 Body mass index (BMI) [Ratio] 25 kg/m2 Dr. Cee Purcell DO Work Phone: 4(654)960-639657 [place] [address] 10-22-2024 10:19-0400 Body weight 72.[address] Cee Purcell DO Work Phone: 6(409)584-750057 [place] [address] 10-22-2024 10:19-0400 Diastolic blood pressure 78 mm[Hg] Dr. Cee Purcell DO Work Phone: 8(564)781-752099 [address] 10-22-2024 10:19-0400 Heart rate 105 /min Dr. Cee Purcell DO Work Phone: 1(653)849-554711 [place] [address] 10-22-2024 10:19-0400 Systolic blood pressure 118 mm[Hg] Dr. Cee Purcell DO Work Phone: 7(938)835-798811 [place] [address] 09-22-2024 15:06-0400 Body mass index (BMI) [Ratio] 25.2 kg/m2 Dr. Cee Purcell DO Work Phone: 4(951)449-193011 [place] [address] 09-22-2024 15:06-0400 Body weight 73.[address] Cee Purcell DO Work Phone: 3(081)532-016811 [place] [address] 09-22-2024 15:06-0400 Diastolic blood pressure 80 mm[Hg] Dr. Cee Purcell DO Work Phone: 8(488)499-420411 [place] [address] 09-22-2024 15:06-0400 Systolic blood pressure 122 mm[Hg] Dr. Cee Purcell DO Work Phone: [facility] 08-25-2024 15:45-0500 Body mass index (BMI) [Ratio] 25.4 kg/m2 Dr. Cee Purcell DO Work Phone: 6(531)212-708211 [place] [address] 08-25-2024 15:45-0500 Body weight 73.[address] Cee Purcell DO Work Phone: 3(160)861-449399 [address] 08-25-2024 15:45-0500 Diastolic blood pressure 80 mm[Hg] Dr. Cee Purcell DO Work Phone: 8(121)238-312357 [place] [address] 08-25-2024 15:45-0500 Systolic blood pressure 119 mm[Hg] Dr. Cee Purcell DO Work Phone: 4(935)906-335757 [place] [address] 08-11-2024 14:47-0500 Diastolic blood pressure 63 mm[Hg] Dr. Cee Purcell DO Work Phone: 2(388)531-529657 [place] [address] 08-11-2024 14:47-0500 Heart rate 93 /min Dr. Cee Purcell DO Work Phone: 6(532)334-244957 [place] [address] 08-11-2024 14:47-0500 Respiratory rate 18 /min Dr. Cee Purcell DO Work Phone: 8(118)124-116511 [place] [address] 08-11-2024 14:47-0500 SaO2% (BldA) [Mass fraction] 98 % Dr. Cee Purcell DO Work Phone: 4(559)543-190911 [place] [address] 08-11-2024 14:47-0500 Systolic blood pressure 101 mm[Hg] Dr. Cee Purcell DO Work Phone: 5(359)694-183557 [place] [address] 08-11-2024 09:14-0500 Body mass index (BMI) [Ratio] 25.1 kg/m2 Dr. Cee Purcell DO Work Phone: 0(762)204-813811 [place] [address] 08-11-2024 09:14-0500 Body temperature 98.9 [degF] Dr. Cee Purcell DO Work Phone: 7(640)724-295011 [place] [address] 08-11-2024 09:14-0500 Body weight 72.[address] Cee Purcell DO Work Phone: [facility] 08-10-2024 12:24-0500 Body temperature 97.9 [degF] Dr. Cee Purcell DO Work Phone: [facility] 08-10-2024 12:24-0500 Diastolic blood pressure 68 mm[Hg] Dr. Cee Purcell DO Work Phone: [facility] 08-10-2024 12:24-0500 Heart rate 71 /min Dr. Cee Purcell DO Work Phone: 8(429)638-945111 [place] [address] 08-10-2024 12:24-0500 Respiratory rate 14 /min Dr. Cee Purcell DO Work Phone: [facility] 08-10-2024 12:24-0500 SaO2% (BldA) [Mass fraction] 100 % Dr. Cee Pucrell DO Work Phone: [facility] 08-10-2024 12:24-0500 Systolic blood pressure 130 mm[Hg] Dr. Cee Purcell DO Work Phone: [facility] 08-10-2024 08:21-0500 Body mass index (BMI) [Ratio] 25 kg/m2 Dr. Cee Purcell DO Work Phone: [facility] 08-10-2024 08:21-0500 Body weight 72.[address] Cee Purcell DO Work Phone: [facility] 05-26-2024 10:53-0500 Body height 170.2 cm Alfred Anderson APRN-BRIDGE TEACHER Work Phone: [facility] 05-26-2024 10:53-0500 Body mass index (BMI) [Ratio] 25.84 kg/m2 Alfred Anderson APRN-BRIDGE TEACHER Work Phone: [facility] 05-26-2024 10:53-0500 Body temperature 98.01 [degF] Alfred Kamenik CERTIFIED TRAVEL COUNSELOR-BRIDGE TEACHER Work Phone: [facility] 05-26-2024 10:53-0500 Body weight 74.84 kg Alfred Anderson CERTIFIED TRAVEL COUNSELOR-BRIDGE TEACHER Work Phone: [facility] 05-26-2024 10:53-0500 Diastolic blood pressure 89 mm[Hg] Alfred Anderson CERTIFIED TRAVEL COUNSELOR-BRIDGE TEACHER Work Phone: [facility] 05-26-2024 10:53-0500 Heart rate 63 /min Alfred Anderson CERTIFIED TRAVEL COUNSELOR-BRIDGE TEACHER Work Phone: [facility] 05-26-2024 10:53-0500 Respiratory rate 20 /min Alfred Anderson CERTIFIED TRAVEL COUNSELOR-BRIDGE TEACHER Work Phone: [facility] 05-26-2024 10:53-0500 SaO2% (BldA) [Mass fraction] 97 % Alfred Anderson CERTIFIED TRAVEL COUNSELOR-BRIDGE TEACHER Work Phone: [facility] 05-26-2024 10:53-0500 Systolic blood pressure 128 mm[Hg] Alfred Anderson CERTIFIED TRAVEL COUNSELOR-BRIDGE TEACHER Work Phone: [facility] 02-12-2022 15:55-0400 Body height 171.45 cm Osmel Stentz Work Phone: [facility] Work Phone: 02-12-2022 15:55-0400 Body mass index (BMI) [Ratio] 25.62 kg/m2 Osmel Stentz Work Phone: [facility] Work Phone: 02-12-2022 15:55-0400 Body surface area Derived from formula 1.88 m2 Osmel Stentz Work Phone: [facility] Work Phone: 02-12-2022 15:55-0400 Body weight 75.29 kg Osmel Stentz Work Phone: [facility] Work Phone: 08-09-2022 15:55-0400 Diastolic blood pressure 70 mm[Hg] Osmel Stentz Work Phone: [facility] Work Phone: 02-12-2022 15:55-0400 Heart rate 72 /min Osmel Stentz Work Phone: [facility] Work Phone: 02-12-2022 15:55-0400 Systolic blood pressure 116 mm[Hg] Osmel Stentz Work Phone: [facility] Work Phone: 05-21-2020 19:20-0500 Body Temperature 97.39 [degF] [facility] 05-21-2020 19:20-0500 Body weight 77.56 kg [facility] 05-21-2020 19:20-0500 BP Diastolic 78 mm[Hg] [facility] 05-21-2020 19:20-0500 BP Systolic 128 mm[Hg] [facility] 05-21-2020 19:20-0500 Pulse (Heart Rate) 70 /min [facility] 05-21-2020 19:20-0500 Pulse Oximetry 97 % [facility] 05-21-2020 19:20-0500 Respiratory Rate 16 /min [facility] Encounters Encounter Date Encounter Type Care Provider Facility Start: 02-24-2025 ambulatory No Primary Car e Physician Facility:[facility] Start: 02-11-2025 End: 02-11-2025 Patient encounter procedure Nicole BLACK -[facility] Work Phone: Start: 02-11-2025 End: 02-11-2025 ambulatory No Primary Care Physician -[facility] Start: 02-08-2025 ambulatory No Primary Car e Physician Facility:[facility] Start: 01-28-2025 End: 01-28-2025 Patient encounter procedure Nicole BLACK -[facility] Work Phone: Start: 01-28-2025 End: 01-28-2025 ambulatory No Primary Care Physician -[facility] Start: 01-10-2025 End: 01-10-2025 Patient encounter procedure Carie ARGUETA -[facility] Work Phone: Start: 01-10-2025 End: 01-10-2025 ambulatory No Primary Care Physician -[facility] Start: 01-10-2025 End: 01-10-2025 ambulatory No Primary Care Physician Facility:[facility] Start: 12-14-2024 End: 12-14-2024 Patient encounter procedure Nicole Crews CNM -[facility] Work Phone: Start: 12-14-2024 End: 12-14-2024 ambulatory No Primary Care Physician [facility] Work Phone: Start: 11-18-2024 End: 11-18-2024 Patient encounter procedure Nicole Crews CNM -[facility] Work Phone: Start: 11-18-2024 End: 11-18-[address] Cee Purcell DO Work Phone: [facility] Work Phone: Start: 11-11-2024 End: 11-11-2024 ambulatory MD NO PRIMARY CARE [facility] Start: 10-22-2024 End: 10-22-2024 Patient encounter procedure Nicole BLACK -[facility] Work Phone: Start: 10-22-2024 End: 10-22-2024 Patient encounter procedure Nicole Crews CNM -[facility] Work Phone: Start: 10-22-2024 End: 10-22-2024 ambulatory No Primary Care Physician Facility:[facility] Start: 10-22-2024 End: 10-22-2024 ambulatory No Primary Care Physician Facility:[facility] Start: 09-22-2024 End: 09-22-[address] Angella Villarreal MD -[facility] Work Phone: Start: 09-22-2024 End: 09-22-2024 ambulatory No Primary Care Physician Facility:[facility] Start: 08-25-2024 End: 08-25-2024 Patient encounter procedure Nicole Crews CNM -[facility] Work Phone: Start: 08-25-2024 End: 08-25-2024 ambulatory No Primary Care Physician Facility:[facility] Start: 08-24-2024 Non-patient / Non-visit Tracy carpenter RN -[facility] Work Phone: Start: 08-24-2024 End: 08-25-2024 ambulatory No Primary Care Physician Facility:[facility] Start: 08-20-2024 Non-patient / Non-visit Tracy carpenter RN -[facility] Work Phone: Start: 08-20-2024 ambulatory No Primary Car e Physician Facility:[facility] Start: 08-11-2024 End: 08-11-2024 Emergency department patient visit Dr. Fatoumata Diaz DO -Emergency Department Work Phone: Start: 08-10-2024 End: 08-10-2024 Emergency department patient visit Dr. Cee Purcell DO -Emergency Department Work Phone: Start: 05-26-2024 End: 05-26-2024 Patient encounter procedure Alfred Anderson APRN-BRIDGE TEACHER Work Phone: [facility] Comment on above: COVID (Primary Dx); Acute bronchitis, unspecified organism Start: 05-26-2024 End: 05-26-2024 ambulatory [facility] Start: 08-20-2023 End: 08-20-2023 ambulatory [facility] Start: 12-17-2022 End: 12-17-2022 ambulatory [facility] Work Phone: Start: 12-17-2022 End: 12-17-2022 Patient encounter procedure [facility] [place] Start: 02-12-2022 Periodic preventive med est patient 18-39 yrs [facility] Work Phone: [facility] Work Phone: Start: 05-21-2020 End: 05-21-2020 Patient encounter procedure PHYSICIAN NO [facility] Start: 05-21-2020 End: 05-21-2020 Office outpatient new 20 minutes Elaine Sheehan Work Phone: [facility] Magno Mckee Comment on above: Suspected Covid-19 V irus Infection (Primary Dx) Start: 07-23-2018 End: 07-24-2018 Patient encounter procedure Fernandez Tavarez Facility:[facility] Procedures Date Procedure Procedure Detail Performing Clinician Start: 01-10-2025 Serologic test for syphilis No Primary Care Physician Start: 10-22-[address] Cee Purcell DO Work Phone: Start: 08-25-2024 Liquid based cervica l cytology screening Dr. Cee Purcell DO Work Phone: Comment on above: NEGATIVE FOR INTRAEP ITHELIAL LESION OR MALIGNANCY. This liquid based Th inPrep(R) pap test was screened withthe use of an image guided system. The HPV DNA reflex c riteria were not met with this specimenresult therefore, no HPV testing was performed.Performed at: [address] [id number] Director: Mari Zimmerman MD, Phone: [phone] Start: 08-25-2024 Hepatitis B surface antigen measurement Dr. Cee Purcell DO Work Phone: Start: 08-25-2024 Hepatitis C antibody measurement Dr. Cee Purcell DO Work Phone: Comment on above: Non Reactive: < 0.8 Equivocal: >/= 0.8 to < 1.0 Reactive: >/= 1.0The CDC requires that a reactive/equivocal HCV antibody result be sent out for confirmation. HCV Quant by PCR testing. Start: 08-25-[address] Cee Purcell DO Work Phone: Comment on above: Antibody Results Int erpretation of Immune Status Non Reactive Presumed Non-Immune Equivocal Equivocal Reactive Presumed Immune Start: 08-25-[address] Cee Purcell DO Work Phone: Start: 08-11-2024 SARS-CoV-2, Influenz a & RSV (PCR) Dr. Cee Purcell DO Work Phone: Start: 08-11-2024 US scan of gallbladder Dr. Cee Purcell DO Work Phone: Start: 08-11-2024 Urnls dip stick/tabl et reagent auto microscopy Dr. Cee Purcell DO Work Phone: Start: 08-11-[address] Cee Purcell DO Work Phone: Start: 08-11-2024 Measurement of renal function Dr. Cee Purcell DO Work Phone: Comment on above: GFR Calc Start: 08-10-[address] Cee Purcell DO Work Phone: Start: 08-10-2024 Urnls dip stick/tabl et reagent auto microscopy Dr. Cee Purcell DO Work Phone: Start: 08-10-2024 Transvaginal obstetr ic ultrasonography Dr. Cee Purcell DO Work Phone: Start: 05-26-2024 POCT SARS-COV-2/FLU/ RSV PCR SYMPTOMATIC Alfred Anderson CERTIFIED TRAVEL COUNSELOR-BRIDGE TEACHER Work Phone: Start: 05-21-2020 COVID-19, MOLECULAR Elaine Sheehan Work Phone: Extraction of wisdom tooth Osmelizabela Jin Work Phone: History of appendectomy History of appendectomy Dr. Cee Purcell DO Work Phone: Laparoscopic appendectomy Keiko Jin Work Phone: Plan of Treatment Date Care Activity Detail Author Start: 2046 Zoster Vaccines (1 of 2) Zoste r Vaccines (1 of 2) [facility] Start: 01-10-2025 CBC W Auto Different ial panel - Blood [facility] Start: 01-10-2025 Measurement of gluco se 2 hours after glucose challenge for glucose tolerance test [facility] Start: 01-10-2025 Serologic test for syphilis [facility] Start: 01-10-2025 [facility] Start: 08-11-2024 End: 08-11-2024 [facility] Start: 08-10-2024 [facility] Start: 03-07-2024 COVID-19 Vaccine ( season) COVID-19 Vaccine ( season) [facility] Start: 03-07-2024 Influenza vaccination Influenza Vacc ine (#1) [facility] Start: 05-22-2020 Influenza vaccinatio n given Sequential Influenza Vaccine (#1) [facility] Comment on above: Postponed from 03/07 (Patient Ill Today) Start: 03-07-2020 DTaP/Tdap/Td Vaccine s (7 - Td or Tdap) DTaP/Tdap/Td Vaccines (7 - Td or Tdap) [facility] Start: 2017 Screening for malign ant neoplasm of cervix [facility] Start: 2014 Hepatitis C antibody , confirmatory test Hepatitis C Screening [facility] Start: 2014 Hepatitis C screening Hepatitis C [facility] Start: 11-25-2011 HIV screening HIV Screening [facility] Start: 2009 Varicella vaccination Varicell a Vaccines (1 of 2 - 13+ 2-dose series) [facility] Start: 11-25-2007 Vaccination for leora n papillomavirus HPV Vaccines (1 - 2-dose series) [facility] Start: 11-25-1999 History and physical examination, annual for health maintenance Wellness Visit [facility] Start: 1996 HIV screening HIV Screening [facility] Start: 1996 Lipid panel Lipid Panel [facility] Start: 1996 Screening for Chlamy eden trachomatis Chlamydia Screening [facility] Start: 1996 Screening for malign ant neoplasm of cervix Pap Smear [facility] Start: 1996 Tetanus vaccination Tetanus: Every 1 0yrs [facility] Start: 1996 Yearly Adult Physical Yearly Adult P hycal [facility] CBC W Auto Different ial panel - Blood [facility] Covid-19/Influenza O rder Algorithm Covid-19/Influenza Order Algorithm Microbiology Routine Suspected Covid-19 Virus Infection Ordered: 05/21/2020 [facility] Comment on above: Ordered: 05/21/2020 Erythrocyte mean corpuscular volume determination [facility] Hematocrit [Volume Fraction] of Blood [facility] Hemoglobin [Mass/vol ume] in Blood [facility] Leukocytes [#/volume ] in Blood [facility] Mean corpuscular hemoglobin concentration determination [facility] Mean corpuscular hemoglobin determination [facility] Measurement of gluco se 2 hours after glucose challenge for glucose tolerance test [facility] Neutrophil count [facility] Neutrophil percent differential count [facility] Patient Education [facility] Work Phone: Patient referral [facility] Work Phone: Platelets [#/volume] in Blood [facility] Red blood cell count [facility] Red cell distributio n width determination [facility] Serologic test for syphilis [facility] Immunizations Immunization Date Immunization Notes Care Provider Sylvia gagnon 01-10-2025 tetanus toxoid, redu félix diphtheria toxoid, and acellular pertussis vaccine, adsorbed No Primary Care Physician [facility] 09-01-2020 Pfizer-BioNTech COVI D-19 Vacc 30 MCG/0.3ML Intramuscular Suspension Osmel Stentz Work Phone: [facility] Work Phone: Comment on above: Series: 08-12-2020 Pfizer-BioNTech COVI D-19 Vacc 30 MCG/0.3ML Intramuscular Suspension Osmel Stentz Work Phone: [facility] Work Phone: Comment on above: Series: 03-07-2010 meningococcal polysaccharide (groups A, C, Y and W-135) diphtheria toxoid conjugate vaccine (MCV4P) Osmel Stentz Work Phone: [facility] Work Phone: 03-07-2010 tetanus toxoid, redu félix diphtheria toxoid, and acellular pertussis vaccine, adsorbed Osmel Stentz Work Phone: [facility] Work Phone: 09-28-2001 diphtheria, tetanus toxoids and acellular pertussis vaccine, unspecified formulation Osmel Stentz Work Phone: [facility] Work Phone: 09-28-2001 measles, mumps and rubella virus vaccine Osmel Stentz Work Phone: [facility] Work Phone: 09-28-2001 trivalent poliovirus vaccine, live, oral Osmel Stentz Work Phone: [facility] Work Phone: 11-29-1997 diphtheria, tetanus toxoids and acellular pertussis vaccine, unspecified formulation Osmel Stentz Work Phone: [facility] Work Phone: 11-29-1997 haemophilus influenz ae type b vaccine, conjugate unspecified formulation Osmel Stentz Work Phone: [facility] Work Phone: 11-29-1997 measles, mumps and rubella virus vaccine Osmel Stentz Work Phone: [facility] Work Phone: 05-31-1997 diphtheria, tetanus toxoids and acellular pertussis vaccine, unspecified formulation Osmel Stentz Work Phone: [facility] Work Phone: 05-31-1997 haemophilus influenz ae type b vaccine, conjugate unspecified formulation Osmel Stentz Work Phone: [facility] Work Phone: 05-31-1997 hepatitis B vaccine, pediatric or pediatric/adolescent dosage Osmel Stentz Work Phone: [facility] Work Phone: 05-31-1997 trivalent poliovirus vaccine, live, oral Osmel Stentz Work Phone: [facility] Work Phone: 04-07-1997 diphtheria, tetanus toxoids and acellular pertussis vaccine, unspecified formulation Osmel Stentz Work Phone: [facility] Work Phone: 04-07-1997 haemophilus influenz ae type b vaccine, conjugate unspecified formulation Osmel Stentz Work Phone: [facility] Work Phone: 04-07-1997 trivalent poliovirus vaccine, live, oral Osmel Stentz Work Phone: [facility] Work Phone: 02-24-1997 haemophilus influenz ae type b vaccine, conjugate unspecified formulation Osmel Stentz Work Phone: [facility] Work Phone: 02-24-1997 hepatitis B vaccine, pediatric or pediatric/adolescent dosage Osmel Stentz Work Phone: [facility] Work Phone: 01-25-1997 diphtheria, tetanus toxoids and acellular pertussis vaccine, unspecified formulation Osmel Stentz Work Phone: [facility] Work Phone: 01-25-1997 poliovirus vaccine, inactivated Osmel Stentz Work Phone: [facility] Work Phone: 1996 hepatitis B vaccine, pediatric or pediatric/adolescent dosage Osmel Stentz Work Phone: [facility] Work Phone: Payers Date Payer Category Payer Self-pay [id number] 2022 [facility] Care (Private) [facility] [id number] 2020 Unknown [id number] 2020 Unknown MMO [employer] PPO [id number] 2020-Present [id number] 2018 Private Health Insurance 1996 Unknown [id number] [id number]. 717 1996 Unknown [id number] 2.16.840.1.117434.3.579.2. 903 1996 Unknown [id number] 2.840.1.911185.3.579.2. 1243 1996 Unknown [id number] 2.840.1.714688.3.579.2. 1243 1996 Unknown [id number] 2.16.840.1.396715.3.579.2. 479 Unknown [facility] Private Health Insurance [id number] Unknown [id number] 2.16840.1.778813.3.579.2. 462 Unknown [id number] 2.16840.1.488767.3.579.2. 462 Unknown [id number] 2.16.840.1.098331.3.579.2. 462 Unknown [id number] 2.16.840.1.995890.3.579.2. 462 Unknown [id number] 2.16.840.1.071802.3.579.2. 462 Unknown [id number] 2.16840.1.577671.3.579.2. 462 Unknown [id number] 2.16840.1.122228.3.579.2. 462 Unknown [id number] 2.16.840.1.328586.3.579.2. 462 Unknown [id number] 2.16.840.1.316645.3.579.2. 462 Unknown [id number] 2.16.840.1.533151.3.579.2. 462 Unknown [id number] 2.16.840.1.804520.3.579.2. 462 Unknown [id number] 2.16.840.1.792021.3.579.2. 462 Unknown [id number] 2.16.840.1.816022.3.579.2. 462 Unknown [id number] 2.16.840.1.775222.3.579.2. 462 Unknown [id number] 2.16.840.1.750098.3.579.2. 462 Unknown [id number] 2.16.840.1.886868.3.579.2. 462 Unknown [id number] 2.16.840.1.689178.3.579.2. 462 Unknown [id number] 2.16.840.1.842140.3.579.2. 462 Social History Date Type Detail Facility Start: 05-21-2020 End: 08-20-2024 Tobacco smoking status [facility] Never smoker [facility] Start: 05-21-2020 Tobacco use and exposure Never used [facility] Start: 1996 Sex Assigned At Not on file O [facility] Exposure to SARS-CoV-2 (event) Yes [facility] Never a smoker Never a smoker [facility] Work Phone: Start: 1995 Sex Assigned At Female [facility] Start: 08-20-2023 Tobacco smoking status MOIS Tobacco smoking consumption unknown [facility] Work Phone: Gender identity Not on file [facility] Start: 05-16-2024 End: 05-26-2024 Exposure to SARS-CoV-2 (event) Not sure [facility] Clinical Notes 05-26-2024 to 02-11-2025 Note Date & Type Note Facility 02-11-2025 Progress note [facility] 11-18-2024 Progress note [facility] 10-22-2024 Evaluation note Diagnosis Onset Date Resolution Celiac disease acute October 10:18am acute October 22 10:18am Supervision of high-risk acute October 22, 2024 10:18am Celiac disease acute November 18, 2024 8:26am acute November 18, 2024 8:26am Supervision of high-risk acute November 18 8:26am Celiac disease acute December 14, 2024 3:30pm acute December 14 3:30pm Supervision of high-risk acute December 14, 025 3:30pm Celiac disease acute January 10, 2025 3:14pm acute January 10, 2025 3:14pm Supervision of high-risk acute January 10 3:14pm Celiac disease acute January 28, 2025 11:20am acute January 28 11:20am Supervision of high-risk acute January 28, 025 11:20am [facility] Work Phone: 1(432) 528-739004-18-2025 Evaluation note* Diagnosis Onset Date Resolution Status Admit Date Celiac disease acute October 10:18am acute October 22 10:18am Supervision of high-risk acute October 22, 2024 10:18am Celiac disease acute November 18, 2024 8:26am acute November 18, 2024 8:26am Supervision of high-risk acute November 18, 2024 8 :26am Celiac disease acute December 14, 2024 3:30pm acute December 14 3:30pm Supervision of high-risk acute December 14, 2024 3:30pm Celiac disease acute January 10, 2025 3:14pm acute January 10, 2025 3:14pm Supervision of high-risk acute January 10, 2025 3 :14pm Celiac disease acute January 28, 2025 11:20am acute January 28 11:20am Supervision of high-risk acute January 28, 2025 11:20am Celiac disease acute February 9:58am acute February 11 9:58am Supervision of high-risk acute February 11, 2025 9:58am [facility] Work Phone: 1(215) 635-319303-19-2025 Evaluation note* Diagnosis Onset Date Resolution Status Admit Date Celiac disease acute September 3:01pm acute September 22 3:01pm Supervision of high-risk acute September 22, 2024 3:01pm Celiac disease acute October 10:18am acute October 22 10:18am Supervision of high-risk acute October 22, 2024 10:18am Celiac disease acute November 18, 2024 8:26am acute November 18, 2024 8:26am Supervision of high-risk acute November 18, 2024 8 :26am Celiac disease acute December 14, 2024 3:30pm acute December 14 3:30pm Supervision of high-risk acute December 14, 2024 3:30pm Celiac disease acute January 10, 2025 3:14pm acute January 10, 2025 3:14pm Supervision of high-risk acute January 10, 2025 3 :14pm [facility] [employer] [facility] Work Phone: 1(899) 915-199002-19-2025 Evaluation note* Diagnosis Onset Date Resolution Status Admit Date Celiac disease acute August 072024 3:32pm acute August 25, 2024 3:32pm Supervision of high-risk acute August 25, 3:32pm Celiac disease acute September 3:01pm acute September 22 3:01pm Supervision of high-risk acute September 22, 2024 3:01pm Celiac disease acute October 10:18am acute October 22 10:18am Supervision of high-risk acute October 22, 2024 10:18am Celiac disease acute November 18, 2024 8:26am acute November 18, 2024 8:26am Supervision of high-risk acute November 18, 2024 8 :26am [facility] [employer] [facility] Work Phone: 1(390) 619-472902-19-2025 Evaluation note* Diagnosis Onset Date Resolution Status Admit Date Celiac disease acute August 072024 3:32pm acute August 25, 2024 3:32pm Supervision of high-risk acute August 25 3:32pm Celiac disease acute September 3:01pm acute September 22 3:01pm Supervision of high-risk acute September 22, 2024 3:01pm Celiac disease acute October 10:18am acute October 22 10:18am Supervision of high-risk acute October 22, 2024 10:18am Celiac disease acute November 18, 2024 8:26am acute November 18, 2024 8:26am Supervision of high-risk acute November 18, 2024 8 :26am Celiac disease acute December 14, 2024 3:30pm acute December 14 3:30pm Supervision of high-risk acute December 14, 2024 3:30pm [facility] Work Phone: 1(483) 163-653811-20-2024 History of Present illness Narrative* VITALIY Jay - 05/26/2024 10:50 AM EST 28 y.o. female presents for evaluation of URI. Symptoms including cough, congestion, body aches, malaise, and headache have been present for 3-4 days and refractory to OTC meds. No fever, chills, nausea, vomiting, abdominal pain, CP, or SOB. No exacerbating factors. 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 Vitals: 05/26/24 1053 BP: 128/89 Pulse: 63 Resp: 20 Temp: 36.7 C (98 F) SpO2: 97% Allergies Allergen Reactions Gluten Diarrhea Medication Documentation Review Audit Reviewed by Ewa Carr MA (Hat Checker) on 05/26/24 at 1052 Medication Order Taking? Sig Documenting Provider Last Dose Status fluticasone (Flonase) 50 mcg/actuation nasal spray [id number] Administer 1 spray into each nostril once daily. Shake gently. Before first use, prime pump. After use, clean tip and replace cap. 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 Constitutional: Appearance: She is ill-appearing (mildly). HENT: Head: Normocephalic and atraumatic. Right Ear: Tympanic membrane and ear canal normal. Left Ear: Tympanic membrane and ear canal normal. Nose: Congestion present. Mouth/Throat: Mouth: Mucous membranes are moist. Pharynx: Posterior oropharyngeal erythema (mild) present. Comments: No tonsillar edema Eyes: Extraocular Movements: Extraocular movements intact. Conjunctiva/sclera: Conjunctivae normal. Pupils: Pupils are equal, round, and reactive to light. Cardiovascular: Rate and Rhythm: Normal rate. Pulmonary: Effort: Pulmonary effort is normal. Breath sounds: Normal breath sounds. Lymphadenopathy: Cervical: Cervical adenopathy present. Skin: General: Skin is warm and dry. Neurological: General: No focal deficit present. Mental Status: She is alert and oriented to person, place, and time. Psychiatric: Mood and Affect: Mood normal. Behavior: Behavior normal. Recent Results (from the past hour) POCT SARS-COV-2/FLU/RSV PCR SYMPTOMATIC manually resulted Collection Time: 05/26/24 11:51 AM Result Value Ref Range POC Coronavirus 2019, PCR Detected (A) Not Detected POC Flu A Result Not Detected Not Detected POC Flu B Result Not Detected Not Detected POC RSV PCR Not Detected Not Detected Assessment/Plan/MDM Gertrude was seen today for uri. Diagnoses and all orders for this visit: COVID (Primary) - azithromycin (Zithromax Z-Tucker) 250 mg tablet; Take 2 tablets (500 mg) on Day 1, followed by 1 tablet (250 mg) once daily on Days 2 through 5. Acute bronchitis, unspecified organism - methylPREDNISolone (Medrol Dospak) 4 mg tablets; Take as directed on package. - albuterol 90 mcg/actuation inhaler; Inhale 2 puffs every 6 hours if needed for wheezing. - POCT SARS-COV-2/FLU/RSV PCR SYMPTOMATIC manually resulted Encouraged pt to use otc cold remedies PRN, push PO fluids and rest. Patient's clinical presentation is otherwise unremarkable at this time. Patient is discharged with instructions to follow-up with primary care or seek emergency medical attention for worsening symptoms or any new concerns. I did personally review Gertrude's past medical history, surgical history, social history, as well as family history (when relevant). In this case, I also oversaw the her drug management by reviewing hermedication list, allergy list, as well as the medications that I prescribed during the UC course and/or recommended as an out-patient (including possible OTC medications such as acetaminophen, NSAIDs , etc). After reviewing the items above, I did look at previous medical documentation, such as recent hospitalizations, office visits, and/or recent consultations with PCP/specialist. SDOH: Another factor that I considered in Gertrude's care was her Social Determinants of Health (SDOH).During this UC encounter, she did not have social determinants of health. Those SDOH influencing Gertrude's care are: none Alfred Anderson CNP [facility] [phone] [facility]: Evaluation noteNo assessment information available [facility] Work Phone: Evaluation note* Diagnosis COVID- Primary Acute bronchitis, unspecified organism documented in this encounter [facility] Work Phone: History of Present illness Narrative* 26 YOF presents for school physical. 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 -[facility] Work Phone: progress note Author Nicole Crews [facility] Note Date/Time November 18, 2024 8:47a m [facility] [address] [place] [address], [address] [place] [address] OFFICE VISIT Date of Service: 11/18/24 MR#: [id number] Acct: [id number] Name: GERTRUDE EMERY Rep #: [id number] : 1995 Provider: NATALYA Crews Age/Sex: 28/F Location: [facility] Status: Signed Intake Vital Signs 09/22/24 15:06 10/22/24 10:19 11/18/24 08:30 Height 5 ft 7 in 5 ft 7 in 5 ft 7 in Weight: 168 lb 6 oz BMI 26.4 BP 128/84 H Intake Visit Reasons: 20 wk ob Chief Complaint: 20wk ob Bean Dumper Required: No Is patient in pain?: No Allergies gluten Adverse Reaction (Intermediate, Verified 11/18/24 08:28) Other Medications ?Medication ?Instructions ?Recorded ?Confirmed ?Type docosahexaenoic acid 200 mg mg PO 08/20/24 11/18/24 Hi story capsule ( DHA) ondansetron 4 mg disintegrating 4 mg PO Q8H PRN PRN Na usea #30 tabs 08/25/24 11/18/24 Rx tablet Last Menstrual Period: 06/28/24 : No PFSH PFSH Surgical History History of appendectomy Family History Aunt Thyroid disorder Grandmother Thyroid disorder Grandfather Kidney disease on dialysis Social History adopted: No household members: spouse 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al status: employed 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al exposures/hazards: No pets and animals: Yes pets and animals: dog(s) history of recent travel: Yes ([place] - September 2024) out of state: No out of country: Yes sexually active: Yes Smoking Status: Never smoker second hand exposure: No alcohol intake: never substance use type: other details: [place] gummies - Beginning of July diet: gluten free well-balanced diet: daily or most days caffeine: Yes eating out: 1-3 times/week during the past year weight has: remained stable what type of physical activity do you participate in: walking and weight training frequency: 3-4 times per week duration: 15-30 minutes/day lc/latter-day: Taoism seatbelt use: always do you feel safe at home: Yes additional social history: : 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 OB Visit [facility] Calculator Estimated Delivery Date Method Current WG Current Estimate 04/04/25 LMP (Certain) 20w 3d Other Estimates 04/01/25 Ultrasound #1 20w 6d Expected Delivery Route/Plan Labor Preferences- CB/BF classes: [] labor support person: [] labor intervention preferences: [] pain management options preferred: [] cut cord/dad catch: [] : [] PP control planned: [] discussed possible routes of delivery and associated risks: [] special requests: [] Specific Issue/Plans Covid status: [] Flu vaccine: [] Tdap vaccine: [] Rhogam: [] LARC form signed: [] Problem list reviewed and updated with the most current plan of care details and appropriate orders placed. Relevant counseling for the gestational age provided. Continue routine care and follow up unless otherwise noted in visit notes/problem list details Initial Weight: 162 lb Date -?-?-?-?-?-?-?-?-?-?-?-?- EGA Weight BP Urine Prot -?-?-?-?-?-?-?-?-?-?-?-?- Glucose FHR FuHt Pres Dilation -?-?-?-?-?-?-?-?-?-?-?-?- Effaced St Visit Note 08/25/24 -?-?-?-?-?-?-?-?-?-?-?-?- 8w 2d 162 lb 8 oz (+8 oz) 119/80 -?-?-?-?-?-?-?-?-?-?-?-?- 180 -?-?-?-?-?-?-?-?-?-?-?-?- KW- CRL cons wit h dates. Declines NIPT. 09/22/24 -?-?-?-?-?-?-?-?-?-?-?-?- 12w 2d 161 lb 8 oz (-8 oz) 122/80 Negative -?-?-?-?-?-?-?-?-?-?-?-?- Negative 170 -?-?-?-?-?-?-?-?-?-?-?-?- SM- no vb crampi ng 10/22/24 -?-?-?-?-?-?-?-?-?-?-?-?- 16w 4d 160 lb (-2 lb) 118/78 Negative -?-?-?-?-?-?-?-?-?-?-?-?- Negative 150 -?-?-?-?-?-?-?-?-?-?-?-?- KW- having some lower abd pressure and frequency with urination. +fm. US scheduled. declines AFP. KW- having some lower abd pr essure and frequency with urination. will obtain clean catch. +fm. US scheduled. declines AFP. 11/18/24 -?-?-?-?-?-?-?-?-?-?-?-?- 20w 3d 168 lb 6 oz (+6 lb 6 oz) 128/84 Negative -?-?-?-?-?-?-?-?-?-?-?-?- Negative 160 20 -?-?-?-?-?-?-?-?-?-?-?-?- KW- no vb/lof/ct x. good fm. US normal. BFC discussed. ACOG First Trimester First Trimester: Discussed Second Trimester Second Trimester: Signs and Symptoms of Labor, Selecting a care provider, Reproductive Life Planning & Contreception, Care Planning, Depression/Anxiety and Intimate Partner Violence; Discussed Tobacco Cessation Third Trimester Third Trimester: Pain Management Plans, Labor support person(s), Immediate Larc, Signs and Symptoms of Preeclampsia, Infant Feeding No , [place] Education and Family Medical Leave or Disability Forms ROS Const Reports system reviewed and no additional complaints, except as documented Eyes Reports system reviewed and no additional complaints, except as documented ENT Reports system reviewed and no additional complaints, except as documented Card Reports system reviewed and no additional complaints, except as documented Resp Reports system reviewed and no additional complaints, except as documented GI Reports system reviewed and no additional complaints, except as documented, Denies nausea and Denies vomiting Reports system reviewed and no additional complaints, except as documented Musc Reports system reviewed and no additional complaints, except as documented Skin/Breast Reports system reviewed and no additional complaints, except as documented Neuro Yes system reviewed and no additional complaints, except as documented Psych Reports system reviewed and no additional complaints, except as documented Endo Reports system reviewed and no additional complaints, except as documented Scott/Lymph Reports system reviewed and no additional complaints, except as documented Aller/Immun Reports system reviewed and no additional complaints, except as documented Exam Const General: cooperative, healthy appearing and no acute distress Orientation: alert, awake and oriented x3 Neck Neck: normal visual inspection and full ROM Resp Effort & Inspection: normal respiratory effort, able to speak in complete sentences and symmetric chest movement GI Inspection: normal to inspection Palpation: soft and other Other: gravid Skin General: no rashes or lesions noted Neuro General: patient alert, patient awake and patient oriented x3 Cognition: normal cognition Speech: speech normal Gait: normal gait Motor: muscle tone normal throughout Extrem General: normal to inspection and full ROM Psych Appearance: grossly normal Mental Status: mental status grossly normal Mood: congruent mood Affect: normal affect Speech and Movement: speech and movement normal Attitude: cooperative Thought Process: normal Thought Content: normal Judgment: judgment good Results POC Urinalysis 2 Dip (Clinic) Office Urine Glucose Negative Last Edit by Clarissa Youngblood on 11/18/24 08:36 Office Urine Protein Negative Last Edit by Clarissa Youngblood on 11/18/24 08:36 Coding Level of Care Code OB Routine Diagnoses Supervision of high-risk O09.90 20 weeks gestation of Z3A.20 Weeks of gestation: 20 weeks Celiac disease K90.0 Assessment and Plan Assessment and Plan (1) Supervision of high-risk : Status: Acute Comment: PRR, , GLENN 04/05/25, : Maximilian (2) : Status: Acute Qualifiers: Weeks of gestation: 20 weeks Qualified Code(s): Z3A.20 - 20 weeks gestation of Comment: Discussed genetic/carrier testing - declined. (3) Celiac disease: Status: Acute Orders: Orders POC Urinalysis 2 Dip (Clinic) Today Plan Details Additional Comments: ACOG trimester education reviewed and updated. see problem list details for updated plan management information and see below for orders placed at this visit. GA appropriate handout given. 11/18/24 9629 <Electronically signed by Nicole souza CNM> Date _ Nicole Crews CNM Cosigner Signature: Date (if applicable) CC: ~ [facility] Work Phone: Progress note Author Nicole Crews [facility] Note Date/Time February 11, 2025 10: 25am [facility] [address] [place] [address], [address] [place] [address] OFFICE VISIT Date of Service: 02/11/25 MR#: [id number] Acct: [id number] Name: GERTRUDE EMERY Rep #: [id number] : 1995 Provider: NATAYLA Crews Age/Sex: 29/F Location: [facility] Status: Signed Intake Vital Signs 01/28/25 11:28 02/11/25 10:01 Height 5 ft 7 in 5 ft 7 in Weight: 179 lb 2 oz BMI 28.0 BP 137/82 H Intake Visit Reasons: 32 wk ob *reschedule Chief Complaint: 32wk OB Bean Dumper Required: No Is patient in pain?: No Allergies gluten Adverse Reaction (Intermediate, Verified 02/11/25 09:59) Other Medications ?Medication ?Instructions ?Recorded ?Confirmed ?Type docosahexaenoic acid 200 mg mg PO 08/20/24 02/11/25 Hi story capsule ( DHA) ondansetron 4 mg disintegrating 4 mg PO Q8H PRN PRN Na usea #30 tabs 08/25/24 02/11/25 Rx tablet Last Menstrual Period: 06/28/24 : No PFSH PFSH Surgical History History of appendectomy Family History Aunt Thyroid disorder Grandmother Thyroid disorder Grandfather Kidney disease on dialysis Social History adopted: No household members: spouse 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al status: employed 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al exposures/hazards: No pets and animals: Yes pets and animals: dog(s) history of recent travel: Yes ([place] - September 2024) out of state: No out of country: Yes sexually active: Yes Smoking Status: Never smoker second hand exposure: No alcohol intake: never substance use type: other details: [place] gummies - Beginning july diet: gluten free well-balanced diet: daily or most days caffeine: Yes eating out: 1-3 times/week during the past year weight has: remained stable what type of physical activity do you participate in: walking and weight training frequency: 3-4 times per week duration: 15-30 minutes/day lc/latter-day: Taoism seatbelt use: always do you feel safe at home: Yes additional social history: : Maximilian - [employer] History 1 Elective abortions Hx Para 0 Spontaneous abortions Hx # Term Pregnancies Ectopic pregnancies Hx # Pregnancies Multiple births # of living children HPI 32 wk ob *reschedule Details: GERTRUDE EMERY is a 29 year old who presents for routine OB visit. OB Visit GLENN Calculator Estimated Delivery Date Method Current WG Current Estimate 04/04/25 LMP (Certain) 32w 4d Other Estimates 04/01/25 Ultrasound #1 33w 0d Expected Delivery Route/Plan Labor Preferences- CB/BF classes: encouraged labor support person: Maximilian labor intervention preferences: [] pain management options preferred: epidural if requested cut cord/dad catch: no : yes PP control planned: discussed discussed possible routes of delivery and associated risks: [] special requests: [] Specific Issue/Plans Covid status: [] Flu vaccine: [] Tdap vaccine: given Rhogam:NA LARC form signed: yes Problem list reviewed and updated with the most current plan of care details andappropriate orders placed. Relevant counseling for the gestational age provided. Continue routine care and follow up unless otherwise noted in visit notes/problem list details Initial Weight: 162 lb Date -?-?-?-?-?-?-?-?-?-?-?-?- EGA Weight BP Urine Prot -?-?-?-?-?-?-?-?-?-?-?-?- Glucose FHR FuHt Pres Dilation -?--?-?-?-?-?-?-?-?-?-?-?- Effaced St Visit Note 08/25/24 -?-?-?-?-?-?-?-?-?-?-?-?- 8w 2d 162 lb 8 oz (+8 oz) 119/80 -?-?-?-?-?-?-?-?-?-?-?-?- 180 -?-?-?-?-?-?-?-?-?-?-?-?- KW- CRL cons wit h dates. Declines NIPT. 09/22/24 -?-?-?-?-?-?-?-?-?-?-?-?- 12w 2d 161 lb 8 oz (-8 oz) 122/80 Negative -?-?-?-?-?-?-?-?-?-?-?-?- Negative 170 -?-?-?-?-?-?-?-?-?-?-?-?- SM- no vb crampi ng 10/22/24 -?-?-?-?-?-?-?-?-?-?-?-?- 16w 4d 160 lb (-2 lb) 118/78 Negative -?-?-?-?-?-?-?-?-?--?-?-?- Negative 150 -?-?-?-?-?-?-?-?-?-?-?-?- KW- having some lower abd pressure and frequency with urination. +fm. US scheduled. declines AFP. KW- having some lower abd pr essure and frequency with urination. will obtain clean catch. +fm. US scheduled. declines AFP. 11/18/24 -?-?-?-?-?-?-?-?-?-?-?-?- 20w 3d 168 lb 6 oz (+6 lb 6 oz) 128/84 Negative -?-?-?-?-?-?-?-?-?-?-?-?- Negative 160 20 -?-?-?-?-?-?-?-?-?-?-?-?- KW- no vb/lof/ct x. good fm. US normal. BFC discussed. 12/14/24 -?-?-?-?-?-?-?-?-?-?-?-?- 24w 1d 174 lb 2 oz (+12 lb 2 oz) 119/73 Negative -?-?-?-?-?-?-?-?-?-?-?-?- Negative 150 25 -?-?-?-?-?-?-?-?-?-?-?-?- KW- no vb/lof/ct x. good fm. glucose information given. will start iron for vague sx of anemia. 01/10/25 -?-?-?--?-?-?-?-?-?-?-?-?- 28w 0d 177 lb (+15 lb) 123/76 Negative -?-?-?-?-?-?-?-?-?-?-?-?- Negative 169 29 -?-?-?-?-?-?-?-?-?-?-?-?- MH-No VB, LOF. G ood FM. 28 wk labs pending. Tdap, larc. 01/28/25 -?-?-?-?-?-?-?-?-?-?-?-?- 30w 4d 177 lb 2 oz (+15 lb 2 oz) 121/82 Negative -?-?-?-?-?-?-?-?-?-?-?-?- Negative 160 31 -?-?-?-?-?-?-?-?-?-?-?-?- KW- no vb/lof/ct x. good fm. pepcid for heart burn 02/11/25 -?-?--?-?-?-?-?-?-?-?-?-?- 32w 4d 179 lb 2 oz (+17 lb 2 oz) 137/82 Negative -?-?-?-?-?-?-?-?-?-?-?-?- Negative 150 33 -?-?-?-?-?-?-?-?-?-?-?--?- KW- vb/lof/ctx. good fm. pepcid is working well. ACOG First Trimester First Trimester: Discussed Second Trimester Second Trimester: Signs and Symptoms of Labor, Selecting a care provider, Reproductive Life Planning & Contreception, Care Planning, Depression/Anxiety and Intimate Partner Violence; Discussed Tobacco Cessation Third Trimester Third Trimester: Pain Management Plans, Labor support person(s), Immediate Larc, Circumcision preference, Movement Monitoring, Signs and Symptoms of Preeclampsia, Infant Feeding No , [place] Education andFamily Medical Leave or Disability Forms ROS Const Reports system reviewed and no additional complaints, except as documented Eyes Reports system reviewed and no additional complaints, except as documented ENT Reports system reviewed and no additional complaints, except as documented Card Reports system reviewed and no additional complaints, except as documented Resp Reports system reviewed and no additional complaints, except as documented GI Reports system reviewed and no additional complaints, except as documented, Denies nausea and Denies vomiting Reports system reviewed and no additional complaints, except as documented Musc Reports system reviewed and no additional complaints, except as documented Skin/Breast Reports system reviewed and no additional complaints, except as documented Neuro Yes system reviewed and no additional complaints, except as documented Psych Reports system reviewed and no additional complaints, except as documented Endo Reports system reviewed and no additional complaints, except as documented Scott/Lymph Reports system reviewed and no additional complaints, except as documented Aller/Immun Reports system reviewed and no additional complaints, except as documented Exam Const General: cooperative, healthy appearing and no acute distress Orientation: alert, awake and oriented x3 Neck Neck: normal visual inspection and full ROM Resp Effort & Inspection: normal respiratory effort, able to speak in complete sentences and symmetric chest movement GI Inspection: normal to inspection Palpation: soft and other Other: gravid Skin General: no rashes or lesions noted Neuro General: patient alert, patient awake and patient oriented x3 Cognition: normal cognition Speech: speech normal Gait: normal gait Motor: muscle tone normal throughout Extrem General: normal to inspection and full ROM Psych Appearance: grossly normal Mental Status: mental status grossly normal Mood: congruent mood Affect: normal affect Speech and Movement: speech and movement normal Attitude: cooperative Thought Process: normal Thought Content: normal Judgment: judgment good Results POC Urinalysis 2 Dip (Clinic) Office Urine Glucose Negative Last Edit by Clarissa Youngblood on 02/11/25 10:06 Office Urine Protein Negative Last Edit by Clarissa Youngblood on 02/11/25 10:06 Coding Level of Care Code OB Routine Diagnoses Supervision of high risk in third trimester O09.93 Trimester: third trimester 32 weeks gestation of Z3A.32 Weeks of gestation: 32 weeks Celiac disease K90.0 Assessment and Plan Assessment and Plan (1) Supervision of high-risk : Status: Acute Qualifiers: Trimester: third trimester Qualified Code(s): O09.93 - Supervision of high risk , unspecified, third trimester Comment: PRR, , GLENN 04/05/25, : Maximilian (2) : Status: Acute Qualifiers: Weeks of gestation: 32 weeks Qualified Code(s): Z3A.32 - 32 weeks gestation of Comment: Discussed genetic/carrier testing - declined. (3) Celiac disease: Status: Acute Orders: Orders POC Urinalysis 2 Dip (Clinic) Today Plan Details Additional Comments: ACOG trimester education reviewed and updated. see problem list details for updated plan management information and see below for orders placed at this visit. GA appropriate handout given. 02/11/25 1025 <Electronically signed by Nicole souza CNM> Date _ Nicole Crews CNM Cosigner Signature: Date (if applicable) CC: ~ [facility] Work Phone: Reason for referral (narrative)No reason for referral information availableWest [facility] Work Phone: Summary Purpose Family History No Family History Records FoundUnknown Family Member Name Dates Details Family history of gastroesop hageal reflux disease: Mother(V18.59, Z83.79) Status:Active Family history of malignant neoplasm of colon: Aunt(V16.0, Z80.0) Status:Active Family history of hypothyroi dism: Aunt, Grandmother(V18.19, Z83.49) Status:Active Family history of malignant neoplasm of kidney: Grandfather(V16.51, Z80.51) Status:Active Family history of malignant neoplasm of prostate: Grandfather(V16.42, Z80.42) Status:Active Family history of kidney dis ease: Maternal Grandfather(V18.69, Z84.1) Status:Active Relationship Condition Age at Onset Recorded Date/T moustapha aunt Disorder of thyroid Unknown grandmother Disorder of thyroid Unknown grandfather Kidney disorder Unknown Advance Directives No Advanced Directives Records FoundDocuments on File Type Date Recorded 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 No August 10, 2024 10:19am Living Will No August 11 1:14pm Do you have a Healthcare Power of Lapidarist? No August 11, 2024 1:14pm Instructions * Patient Instructions* Elaine Sheehan, JONATHON - 05/21/2020 7:40 PM [facility] COVID-19 Post-swabbing Instructions We will do our best to update you as soon as we receive your test results, but if we had to send your test to be run at the lab, you may see the results on [employer] or receive a call from [facility] before we are able to contact you. You should receive a call from our COVID-19 results provider as soon as possible. If you test POSITIVE for COVID-19: Isolate until: - it has been 10 days since you developed symptoms AND - you have been without a fever (100.4 F) for at least 24 hours without the use of fever reducing medication AND - your symptoms are improving Isolation is when you test positive for COVID-19 and is meant to keep the infected person away fromall others, even in their own home. If you live with others, stay in a specific sick room or area and away from other people or animals, including pets. Use a separate bathroom, if available. Seek emergency medical care immediately if you develop worsening warning signs including: - trouble breathing - persistent pain or pressure in the chest - new confusion - inability to wake or stay awake - bluish lips or face It is not recommended by the CDC to have another COVID-19 test done in order to discontinue isolation or return to work/school. We can provide return to work and school documentation as needed. If you test NEGATIVE for COVID-19: If you are under a 14 day quarantine because of significant exposure defined as close contact with someone that has a laboratory confirmed infection from COVID- 19 or that person was diagnosed by a medical professional, then a negative COVID-19 test does not clear you from the 14 day quarantine. Youwere likely not clinically infectious at the time of the test. This does not mean that you will notget sick and develop symptoms. It is possible that you were in the early phase of the infection at the time of your test and you could be positive later. For these reasons: 1) If the test was due to having symptoms WITH significant exposure, you should remain in quarantine: - for the full 14 days AND - you have been without a fever (100.4 F) for at least 24 hours without the use of fever reducing medication AND - your symptoms are improving If you are unable to separate yourself completely from the COVID-19 positive person (i.e. parent caring for a child), CDC guidelines recommend you quarantine for 24 days (10 days from symptom onset of the COVID positive person PLUS 14 additional days). 2) If the test was due to symptoms WITHOUT significant exposure, you may return to work/school if: - you have been without a fever (100.4 F) for at least 24 hours without the use of fever reducing medication AND - your symptoms are improving When Do I Self-Quarantine? You should quarantine if you have had a significant exposure which is defined as having been in close contact (as defined below) with someone that has a laboratory confirmed infection from COVID-19 or that person was diagnosed by a medical professional. This includes contact within 48 hours prior to when the COVID-19 positive person developed symptoms. - Quarantine is used to keep someone who might have been exposed to COVID-19 away from others. - Quarantine helps prevent spread of disease that can occur before a person knows they are sick or if they are infected with the virus without feeling symptoms. - People in quarantine should stay home, separate themselves from others, monitor their health, andfollow directions from their state or local health department. What counts as close contact? - You were within 6 feet of someone who has COVID-19 for at least 15 minutes - You provided care at home to someone who is sick with COVID-19 - You had direct physical contact with the person (touched, hugged, or kissed them) - You shared eating or drinking utensils - They sneezed, coughed, or somehow got respiratory droplets on you When and How Will I Get Results? Tests performed in the clinic will be available within 15-20 minutes from initiation of test. If your test was sent out to the lab for testing, it could take anywhere from 1-5 days after your specimen is collected. The provider/practice who placed the order for your test will notify you of your results. - If you have an active [employer] account, and your COVID-19 test is negative (not detected), then you will be notified through your [employer] account. You should call the urgent care if you have any further questions. - If your COVID-19 test is positive (detected), you will receive a phone call to discuss your results and answer any questions you might have at that time. Please make sure [facility] has your updated phone number so we can contact you. [facility] will notify the [facility] of any positive results to comply with state regulations. What Happens After I Get Tested if I Develop Worsening COVID-19 Symptoms? All patients should self-quarantine at home until they receive their test results. While self-quarantining, contact your PCP or return to the urgent care if you develop any of the following: - A fever of 103 degrees F (39.4 C) or higher - A fever that lasts more than 3 days without medication - A fever that returns after being gone for more than 24 hours - Chest pain or difficulty breathing - A worsening of current symptoms For work concerns, please contact your employer's HR department. How Do I Self-Quarantine? - Stay home until 14 days after last exposure and maintain social distance (at least 6 feet) from others at all times - Avoid contact with people at higher risk for severe illness from COVID-19 - Self-monitor for symptoms: - Check temperature twice a day - Watch for fever (100.4F or higher), cough, shortness of breath, or other CDC recognized symptoms of COVID-19 If I test positive, what about those with which I have had close contact (household members, partners, close friends, etc)? Anyone with close contact (as defined above) within 48 hours prior to when the COVID-19 positive person developed symptoms should self-quarantine for 14 days as above. What Do I Do If I am Sick? Stay Home: If you are sick, stay home from work, school, public places, and social gatherings Social Distance: maintain 6 feet of distance from other people. Monitor Your Symptoms: If you develop fever, shortness of breath, confusion, or any respiratory symptoms, please notify your doctor immediately Cover Your Cough: Cough and sneeze into your shirt sleeve or inner elbow. Do not cough into your hands or into the air. If available, cough into a tissue and throw it into a trash can. Wash Your Hands: Wash hands often with soap and warm water and/or alcohol based hand bookmaker's clerk, scrubbing your hands for at least 20 seconds. Wash your hands after sneezing or coughing, after going to the bathroom, and before eating or drinking. Wear a Mask: Wear a face mask when around others. Always wear a face mask (if able) if you have to leave your home Don't Touch: avoid touching your eyes, nose, and mouth Don't Share: avoid sharing items with others as they can spread infection Call First: If you do need to seek urgent medical care, call the facility first to let them know you are on your way Other COVID Questions? CDC - https://www.cdc.gov/coronavirus/2019-ncov/index.html - https://www.cdc.gov/coronavirus/2019-ncov/zo-pzh-ybr-sick/quarantine.html [place] Department of Health - Website: https://coronavirus.[place].gov/wps/portal/gov/covid-19/home - Hotline: 771-8-XSI-OD (981-457-8676) [facility]: https://blog.Fuelzee.Red Mapache/series/pysjj-25-evfhdatqgqu-toolkit/ documented in this encounter History of Present Illness * Elaien Sheehan CNP - 05/21/2020 7:37 PM EST Patient Name: [facility] Location: [address] [place] [address] Date Of : Date Of Visit: 1995 05/21/2020 MRN# Provider: [id number] Elaine Sheehan CNP Chief Complaint Patient presents with URI Patient's parents tested (+) COVID last . PM developed sore throat, runny nose, cough, and headaches. Had shortness of breath this AM - denies h/o asthma. Reduced smell/taste, chills,fatigue. Assessment & Plan 1. Suspected Covid-19 Virus Infection Covid-19/Influenza Order Algorithm No follow-ups on file. Medical Decision Making Pt here for COVID testing. VSS, afebrile, no respiratory distress. COVID swab collected in full PPE. POC COVID test was positive. Reviewed supportive care recommendations, ED precautions, and quarantine instructions with pt. Referral sent to Care Management team for follow up to connect with primary care. Pt understood and agreed with this plan. Additional Clinical Comments Discussed over the counter medications for symptomatic management and side effects of medications. Recommended taking all medications with food and to stop medications if they develop any signs of anallergic reaction. Educated patient and/or guardian about signs and symptoms that would warrant further immediate evaluation. Recommended that they should return to urgent care, make an appointment with their family physician, or go to the emergency room if symptoms persist or get acutely worse. Recommended follow upwithin the next week with their PCP or to get established with a PCP soon in order to follow up appropriately. Influenza Immunization Postponed. [facility] COVID-19 Mask Status: Does the patient have classic COVID-19 symptoms? Yes, the patient has COVID-19 symptoms, the patient WAS wearing a mask during the visit, I (the provider) WAS wearing full PPE (N95 mask, gown, gloves, and face shield) during the visit. and Automobile Visit was utilized for this patient visit. Patient read general consent to treat, and was then asked if he/she had any questions, which were all answered satisfactorily, and patient consented verbally. Subjective 24 y.o. female presents with URI (Patient's parents tested (+) COVID last . PM developed sore throat, runny nose, cough, and headaches. Had shortness of breath this AM - denies h/o asthma. Reduced smell/taste, chills, fatigue.) Pt is here for COVID testing. 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 She c/o sore, rhinorrhea, cough, sore throat, headache, diarrhea, decreased sense of taste and smell, slight SOB and CP,and slight body aches. Review Of Systems Review of Systems Constitutional: Positive for chills and fatigue. Negative for diaphoresis and fever. HENT: Positive for postnasal drip, rhinorrhea and sore throat. Negative for congestion, ear pain, sinus pressure, sinus pain, sneezing and trouble swallowing. Respiratory: Positive for cough and shortness of breath (slight). Negative for chest tightness and wheezing. Cardiovascular: Positive for chest pain (slight). Gastrointestinal: Positive for diarrhea. Negative for abdominal pain, nausea and vomiting. Musculoskeletal: Positive for myalgias. Neurological: Positive for headaches. Negative for dizziness, syncope, weakness and light-headedness. Medical History Past Medical History: Diagnosis Date Patient denies allergies Past Surgical History: Procedure Laterality Date APPENDECTOMY WISDOM TOOTH EXTRACTION There is no problem list on file for this patient. Social History Social History Tobacco Use Smoking status: Never Smoker Smokeless tobacco: Never Used Substance Use Topics Alcohol use: Not on file Drug use: Not on file Family History Family History Family history unknown: Yes Objective Physical Exam BP 128/78 Pulse 70 Temp 97.4 F (36.3 C) Resp 16 Wt 77.6 kg (171 lb) SpO2 97% Vision/Hearing Exam:No exam data present Physical Exam Vitals signs reviewed. Constitutional: General: She is awake. She is not in acute distress. Appearance: Normal appearance. She is well-developed and well-groomed. She is not ill-appearing, toxic-appearing or diaphoretic. HENT: Head: Normocephalic and atraumatic. Nose: Nose normal. Mouth/Throat: Lips: Egan. Mouth: Mucous membranes are moist. Pharynx: Oropharynx is clear. Neck: Musculoskeletal: Normal range of motion and neck supple. No neck rigidity. Cardiovascular: Rate and Rhythm: Normal rate and regular rhythm. Pulmonary: Effort: Pulmonary effort is normal. No respiratory distress. Breath sounds: Normal breath sounds. Skin: General: Skin is warm and dry. Neurological: Mental Status: She is alert and oriented to person, place, and time. Gait: Gait is intact. Psychiatric: Behavior: Behavior is cooperative. Procedure Notes Procedures Results Recent Results (from the past 168 hour(s)) COVID-19, Molecular Collection Time: 05/21/20 7:49 PM Specimen: Nasopharyngeal; Swab Result Value Ref Range SARS-CoV-2 Detected (A) Not Detected Internal Control Pass No orders to display Orders Placed This Visit Orders Placed This Encounter Procedures Covid-19/Influenza Order Algorithm COVID-19, Molecular Medication List At End Of Visit No current outpatient medications on file. No current facility-administered medications for this visit. Patient Instructions [facility] COVID-19 Post-swabbing Instructions We will do our best to update you as soon as we receive your test results, but if we had to send your test to be run at the lab, you may see the results on [employer] or receive a call from [facility] before we are able to contact you. You should receive a call from our COVID-19 results provider as soon as possible. If you test POSITIVE for COVID-19: Isolate until: - it has been 10 days since you developed symptoms AND - you have been without a fever (100.4 F) for at least 24 hours without the use of fever reducing medication AND - your symptoms are improving Isolation is when you test positive for COVID-19 and is meant to keep the infected person away fromall others, even in their own home. If you live with others, stay in a specific sick room or area and away from other people or animals, including pets. Use a separate bathroom, if available. Seek emergency medical care immediately if you develop worsening warning signs including: - trouble breathing - persistent pain or pressure in the chest - new confusion - inability to wake or stay awake - bluish lips or face It is not recommended by the CDC to have another COVID-19 test done in order to discontinue isolation or return to work/school. We can provide return to work and school documentation as needed. If you test NEGATIVE for COVID-19: If you are under a 14 day quarantine because of significant exposure defined as close contact with someone that has a laboratory confirmed infection from COVID- 19 or that person was diagnosed by a medical professional, then a negative COVID-19 test does not clear you from the 14 day quarantine. Youwere likely not clinically infectious at the time of the test. This does not mean that you will notget sick and develop symptoms. It is possible that you were in the early phase of the infection at the time of your test and you could be positive later. For these reasons: 1) If the test was due to having symptoms WITH significant exposure, you should remain in quarantine: - for the full 14 days AND - you have been without a fever (100.4 F) for at least 24 hours without the use of fever reducing medication AND - your symptoms are improving If you are unable to separate yourself completely from the COVID-19 positive person (i.e. parent caring for a child), CDC guidelines recommend you quarantine for 24 days (10 days from symptom onset of the COVID positive person PLUS 14 additional days). 2) If the test was due to symptoms WITHOUT significant exposure, you may return to work/school if: - you have been without a fever (100.4 F) for at least 24 hours without the use of fever reducing medication AND - your symptoms are improving When Do I Self-Quarantine? You should quarantine if you have had a significant exposure which is defined as having been in close contact (as defined below) with someone that has a laboratory confirmed infection from COVID-19 or that person was diagnosed by a medical professional. This includes contact within 48 hours prior to when the COVID-19 positive person developed symptoms. - Quarantine is used to keep someone who might have been exposed to COVID-19 away from others. - Quarantine helps prevent spread of disease that can occur before a person knows they are sick or if they are infected with the virus without feeling symptoms. - People in quarantine should stay home, separate themselves from others, monitor their health, andfollow directions from their state or local health department. What counts as close contact? - You were within 6 feet of someone who has COVID-19 for at least 15 minutes - You provided care at home to someone who is sick with COVID-19 - You had direct physical contact with the person (touched, hugged, or kissed them) - You shared eating or drinking utensils - They sneezed, coughed, or somehow got respiratory droplets on you When and How Will I Get Results? Tests performed in the clinic will be available within 15-20 minutes from initiation of test. If your test was sent out to the lab for testing, it could take anywhere from 1-5 days after your specimen is collected. The provider/practice who placed the order for your test will notify you of your results. - If you have an active [employer] account, and your COVID-19 test is negative (not detected), then you will be notified through your [employer] account. You should call the urgent care if you have any further questions. - If your COVID-19 test is positive (detected), you will receive a phone call to discuss your results and answer any questions you might have at that time. Please make sure [facility] has your updated phone number so we can contact you. [facility] will notify the [facility] of any positive results to comply with state regulations. What Happens After I Get Tested if I Develop Worsening COVID-19 Symptoms? All patients should self-quarantine at home until they receive their test results. While self-quarantining, contact your PCP or return to the urgent care if you develop any of the following: - A fever of 103 degrees F (39.4 C) or higher - A fever that lasts more than 3 days without medication - A fever that returns after being gone for more than 24 hours - Chest pain or difficulty breathing - A worsening of current symptoms For work concerns, please contact your employer's HR department. How Do I Self-Quarantine? - Stay home until 14 days after last exposure and maintain social distance (at least 6 feet) from others at all times - Avoid contact with people at higher risk for severe illness from COVID-19 - Self-monitor for symptoms: - Check temperature twice a day - Watch for fever (100.4F or higher), cough, shortness of breath, or other CDC recognized symptoms of COVID-19 If I test positive, what about those with which I have had close contact (household members, partners, close friends, etc)? Anyone with close contact (as defined above) within 48 hours prior to when the COVID-19 positive person developed symptoms should self-quarantine for 14 days as above. What Do I Do If I am Sick? Stay Home: If you are sick, stay home from work, school, public places, and social gatherings Social Distance: maintain 6 feet of distance from other people. Monitor Your Symptoms: If you develop fever, shortness of breath, confusion, or any respiratory symptoms, please notify your doctor immediately Cover Your Cough: Cough and sneeze into your shirt sleeve or inner elbow. Do not cough into your hands or into the air. If available, cough into a tissue and throw it into a trash can. Wash Your Hands: Wash hands often with soap and warm water and/or alcohol based hand bookmaker's clerk, scrubbing your hands for at least 20 seconds. Wash your hands after sneezing or coughing, after going to the bathroom, and before eating or drinking. Wear a Mask: Wear a face mask when around others. Always wear a face mask (if able) if you have to leave your home Don't Touch: avoid touching your eyes, nose, and mouth Don't Share: avoid sharing items with others as they can spread infection Call First: If you do need to seek urgent medical care, call the facility first to let them know you are on your way Other COVID Questions? CDC - https://www.cdc.gov/coronavirus/2019-ncov/index.html - https://www.cdc.gov/coronavirus/2019-ncov/xs-hso-qwk-sick/quarantine.html [place] Department of Health - Website: https://coronavirus.[place].gov/wps/portal/gov/covid-19/home - Hotline: 266-3-RFW-ODH (961-286-7359) [facility]: [email or web address] documented in this encounter Assessments Diagnosis Suspected Covid-19 Virus Infection- Primary Chief Complaint CPX with form. Chief Complaint and Reason for Visit Chief Complaint SEE ORDER Chief Complaint Admit Date VAG BLEEDING August 10, 2024 8 :18am vomiting August 11, 2024 9 :13am Amb Documentation August 20, 2024 10:24am Amb Documentation August 24, 2024 8:44am Amb Documentation August 24, 2024 8:47am NOB LMP 06/28August 25, 2024 3:32pm 12wk OB September 22, 2024 3:0 1pm 16 wk ob October 22, 2024 10: 18am 20 wk ob November 18, 2024 8:26a m Reason for Visit Admit Date Celiac disease August 25, 2024 3:32pm August 25, 2024 3:32pm Supervision of high-risk Febru [email or web address] 3:32pm Celiac disease September 22, 2024 3:0 1pm September 22, 2024 3:0 1pm Supervision of high-risk September 22, 2024 3:01pm Celiac disease October 22, 2024 10: 18am October 22, 2024 10: 18am Supervision of high-risk October 22, 2024 10:18am Celiac disease November 18, 2024 8:26a m November 18, 2024 8:26a m Supervision of high-risk November [id number] 8:26am Chief Complaint Admit Date Amb Documentation August 20, 2024 10:24am Amb Documentation August 24, 2024 8:44am Amb Documentation August 24, 2024 8:47am NOB LMP 06/28August 25, 2024 3:32pm 12wk OB September 22, 2024 3:0 1pm 16 wk ob October 22, 2024 10: 18am 20 wk ob November 18, 2024 8:26a m 24 wk ob December 14, 2024 3:30 pm Reason for Visit Admit Date Celiac disease August 25, 2024 3:32pm August 25, 2024 3:32pm Supervision of high-risk u 2024 3:32pm Celiac disease September 22, 2024 3:0 1pm September 22, 2024 3:0 1pm Supervision of high-risk September 22, 2024 3:01pm Celiac disease October 22, 2024 10: 18am October 22, 2024 10: 18am Supervision of high-risk October 22, 2024 10:18am Celiac disease November 18, 2024 8:26a m November 18, 2024 8:26a m Supervision of high-risk November [id number] 8:26am Celiac disease December 14, 2024 3:30 pm December 14, 2024 3:30 pm Supervision of high-risk December 14, 2024 3:30pm Chief Complaint Admit Date 12wk OB September 22, 2024 3:0 1pm 16 wk ob October 22, 2024 10: 18am 20 wk ob November 18, 2024 8:26a m 24 wk ob December 14, 2024 3:30 pm 28 wk ob/glucose January 10, 2025 3:14p m Reason for Visit Admit Date Celiac disease September 22, 2024 3:0 1pm September 22, 2024 3:0 1pm Supervision of high-risk September 22, 2024 3:01pm Celiac disease October 22, 2024 10: 18am October 22, 2024 10: 18am Supervision of high-risk October 22, 2024 10:18am Celiac disease November 18, 2024 8:26a m November 18, 2024 8:26a m Supervision of high-risk November 042024 8:26am Celiac disease December 14, 2024 3:30 pm December 14, 2024 3:30 pm Supervision of high-risk December 14, 2024 3:30pm Celiac disease January 10, 2025 3:14p m January 10, 2025 3:14p m Supervision of high-risk January 10, 2025 3:14pm Chief Complaint Admit Date 16 wk ob October 22, 2024 10: 18am 20 wk ob November 18, 2024 8:26a m 24 wk ob December 14, 2024 3:30 pm 28 wk ob/glucose January 10, 2025 3:14p m 30 wk ob January 28, 2025 11:2 0am Reason for Visit Admit Date Celiac disease October 22, 2024 10: 18am October 22, 2024 10: 18am Supervision of high-risk October 22, 2024 10:18am Celiac disease November 18, 2024 8:26a m November 18, 2024 8:26a m Supervision of high-risk November [id number] 8:26am Celiac disease December 14, 2024 3:30 pm December 14, 2024 3:30 pm Supervision of high-risk December 14, 2024 3:30pm Celiac disease January 10, 2025 3:14p m January 10, 2025 3:14p m Supervision of high-risk January 10, 2025 3:14pm Celiac disease January 28, 2025 11:2 0am January 28, 2025 11:2 0am Supervision of high-risk January 28, 2025 11:20am Chief Complaint Admit Date 16 wk ob October 22, 2024 10: 18am 20 wk ob November 18, 2024 8:26a m 24 wk ob December 14, 2024 3:30 pm 28 wk ob/glucose January 10, 2025 3:14p m 30 wk ob January 28, 2025 11:2 0am 32 wk ob *reschedule February 11, 2025 9: 58am Reason for Visit Admit Date Celiac disease October 22, 2024 10: 18am October 22, 2024 10: 18am Supervision of high-risk October 22, 2024 10:18am Celiac disease November 18, 2024 8:26a m November 18, 2024 8:26a m Supervision of high-risk November 042024 8:26am Celiac disease December 14, 2024 3:30 pm December 14, 2024 3:30 pm Supervision of high-risk December 14, 2024 3:30pm Celiac disease January 10, 2025 3:14p m January 10, 2025 3:14p m Supervision of high-risk January 10, 2025 3:14pm Celiac disease January 28, 2025 11:2 0am January 28, 2025 11:2 0am Supervision of high-risk January 28, 2025 11:20am Celiac disease February 11, 2025 9:5 8am February 11, 2025 9:5 8am Supervision of high-risk Augus t 2024 9:58am Additional Source Comments INFORMATION SOURCE (unrecogn ized section and content) DATE CREATED AUTHOR 07/31/2018 [facility] DATE CREATED AUTHOR AUTHOR'S ORGANIZ ATION 05/21/2020 [facility] DATE CREATED AUTHOR AUTHOR'S ORGANIZ ATION 02/13/2022 [facility] DATE CREATED AUTHOR AUTHOR'S ORGANIZ ATION 05/29/2024 [facility] DATE CREATED AUTHOR AUTHOR'S ORGANIZ ATION 11/13/2024 [facility] DATE CREATED AUTHOR AUTHOR'S ORGANIZ ATION 02/18/2025 [facility] Reason for Visit (unrecogniz ed section and content) Reason Comments URI Patient's parents te sted (+) COVID last weekend. PM developed sore throat, runny nose, cough, and headaches. Had shortness of breath this AM - denies h/o asthma. Reduced smell/taste, chills, fatigue. Reason Comments URI Cough, sinus drainag e, headache X 3 days , chest tightness and sob Care Teams (unrecognized sec tion and content) Team Status: Active Member Role Status Dates No Primary Care Physician Primary Care Provider Active Team Status: Active Member Role Status Dates No Primary Care Physician Primary Care Provider Active Start: August 20, 2024 Tracy Carey RN Attending Provider Active St art: August 20, 2024 Team Status: Active Member Role Status Dates No Primary Care Physician Primary Care Provider Active Start: August 24, 2024 Tracy Carey RN Attending Provider Active St art: August 24, 2024 Team Status: Inactive Member Role Status Dates No Primary Care Physician Primary Care Provider Active Start: August 25, 2024 End: August 25, 2024 No Primary Care Physician Referring Provider Active Start: August 25, 2024 End: August 25, 2024 Nicole Crews CNM Attending Provider Active S tart: August 25, 2024 End: August 25, 2024 Team Status: Inactive Member Role Status Dates No Primary Care Physician Primary Care Provider Active Start: August 25, 2024 End: August 25, 2024 Nicole Crews CNM Attending Provider Active S tart: August 25, 2024 End: August 25, 2024 iNcole Crews CNM Referring Provider Active S tart: August 25, 2024 End: August 25, 2024 Team Status: Inactive Member Role Status Dates No Primary Care Physician Primary Care Provider Active Start: September 22, 2024 End: September 22, 2024 No Primary Care Physician Referring Provider Active Start: September 22, 2024 End: September 22, 2024 Dr. Angella Villarreal MD Attending Provider Active Start: September 22, 2024 End: September 22, 2024 Team Status: Inactive Member Role Status Dates No Primary Care Physician Primary Care Provider Active Start: October 22, 2024 End: October 22, 2024 No Primary Care Physician Referring Provider Active Start: October 22, 2024 End: October 22, 2024 Nicole Crews CNM Attending Provider Active S tart: October 22, 2024 End: October 22, 2024 Team Status: Inactive Member Role Status Dates No Primary Care Physician Primary Care Provider Active Start: October 22, 2024 End: October 22, 2024 Nicole Crews CNM Attending Provider Active S tart: October 22, 2024 End: October 22, 2024 Nicole Crews CNM Referring Provider Active S tart: October 22, 2024 End: October 22, 2024 Team Status: Inactive Member Role Status Dates No Primary Care Physician Primary Care Provider Active Start: November 18, 2024 End: November 18, 2024 No Primary Care Physician Referring Provider Active Start: November 18, 2024 End: November 18, 2024 Nicole Crews CNM Attending Provider Active S tart: November 18, 2024 End: November 18, 2024 Team Status: Inactive Member Role Status Dates No Primary Care Physician Primary Care Provider Active Start: December 14, 2024 End: December 14, 2024 No Primary Care Physician Referring Provider Active Start: December 14, 2024 End: December 14, 2024 Nicole Crews CNM Attending Provider Active S tart: December 14, 2024 End: December 14, 2024 Team Status: Inactive Member Role Status Dates No Primary Care Physician Primary Care Provider Active Dr. 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 Cee Purcell DO Attending Provider Active S tart: August 10, 2024 End: August 10, 2024 Dr. Cee Purcell DO Emergency Provider Active S tart: August 10, 2024 End: August 10, 2024 No Primary Care Physician Primary Care Provider Active Start: August 10, 2024 End: August 10, 2024 Team Status: Inactive Member Role Status Dates No Primary Care Physician Primary Care Provider Active Start: August 11, 2024 End: August 11, 2024 Dr. Fatoumata Diaz DO Attending Provider Active Start: August 11, 2024 End: August 11, 2024 Dr. Fatoumata Diaz DO Emergency Provider Active Start: August 11, 2024 End: August 11, 2024 Team Status: Active Member Role/Relationship Status Dates No Primary Care Physician Primary Care Provider Active Team Status: Inactive Member Role/Relationship Status Dates No Primary Care Physician Primary Care Provider Active Start: September 22, 2024 End: September 22, 2024 No Primary Care Physician Referring Provider Active Start: September 22, 2024 End: September 22, 2024 Dr. Angella Villarreal MD Attending Provider Active Start: September 22, 2024 End: September 22, 2024 Team Status: Inactive Member Role/Relationship Status Dates No Primary Care Physician Primary Care Provider Active Start: October 22, 2024 End: October 22, 2024 No Primary Care Physician Referring Provider Active Start: October 22, 2024 End: October 22, 2024 Nicole Crews CNM Attending Provider Active S tart: October 22, 2024 End: October 22, 2024 Team Status: Inactive Member Role/Relationship Status Dates No Primary Care Physician Primary Care Provider Active Start: October 22, 2024 End: October 22, 2024 Nicole Crews CNM Attending Provider Active S tart: October 22, 2024 End: October 22, 2024 Nicole Crews CNM Referring Provider Active S tart: October 22, 2024 End: October 22, 2024 Team Status: Inactive Member Role/Relationship Status Dates No Primary Care Physician Primary Care Provider Active Start: November 18, 2024 End: November 18, 2024 No Primary Care Physician Referring Provider Active Start: November 18, 2024 End: November 18, 2024 Nicole Crews CNM Attending Provider Active S tart: November 18, 2024 End: November 18, 2024 Team Status: Inactive Member Role/Relationship Status Dates No Primary Care Physician Primary Care Provider Active Start: December 14, 2024 End: December 14, 2024 No Primary Care Physician Referring Provider Active Start: December 14, 2024 End: December 14, 2024 Nicole Crews CNM Attending Provider Active S tart: December 14, 2024 End: December 14, 2024 Team Status: Inactive Member Role/Relationship Status Dates No Primary Care Physician Primary Care Provider Active Start: January 10, 2025 End: January 10, 2025 No Primary Care Physician Referring Provider Active Start: January 10, 2025 End: January 10, 2025 Carie Burns NP, CLINICAL RESEARCH ANALYST-C Attending Provider Active Start: January 10, 2025 End: January 10, 2025 Team Status: Active Member Role/Relationship Status Dates No Primary Care Physician Primary Care Provider Active Start: January 10, 2025 Dr. Angella Villarreal MD Attending Provider Active Start: January 10, 2025 Team Status: Inactive Member Role/Relationship Status Dates No Primary Care Physician Primary Care Provider Active Start: January 10, 2025 End: January 10, 2025 Dr. Angella Villarreal MD Attending Provider Active Start: January 10, 2025 End: January 10, 2025 Team Status: Inactive Member Role/Relationship Status Dates No Primary Care Physician Primary Care Provider Active Start: October 22, 2024 End: October 22, 2024 No Primary Care Physician Referring Provider Active Start: October 22, 2024 End: October 22, 2024 Nicole Crews CNM Attending Provider Active S tart: October 22, 2024 End: October 22, 2024 Team Status: Inactive Member Role/Relationship Status Dates No Primary Care Physician Primary Care Provider Active Start: October 22, 2024 End: October 22, 2024 Nicole Crews CNM Attending Provider Active S tart: October 22, 2024 End: October 22, 2024 Nicole Crews CNM Referring Provider Active S tart: October 22, 2024 End: October 22, 2024 Team Status: Inactive Member Role/Relationship Status Dates No Primary Care Physician Primary Care Provider Active Start: November 18, 2024 End: November 18, 2024 No Primary Care Physician Referring Provider Active Start: November 18, 2024 End: November 18, 2024 Nicole Crews CNM Attending Provider Active S tart: November 18, 2024 End: November 18, 2024 Team Status: Inactive Member Role/Relationship Status Dates No Primary Care Physician Primary Care Provider Active Start: December 14, 2024 End: December 14, 2024 No Primary Care Physician Referring Provider Active Start: December 14, 2024 End: December 14, 2024 Nicole Crews CNM Attending Provider Active S tart: December 14, 2024 End: December 14, 2024 Team Status: Inactive Member Role/Relationship Status Dates No Primary Care Physician Primary Care Provider Active Start: January 10, 2025 End: January 10, 2025 No Primary Care Physician Referring Provider Active Start: January 10, 2025 End: January 10, 2025 Carie Burns NP, CLINICAL RESEARCH ANALYST-C Attending Provider Active Start: January 10, 2025 End: January 10, 2025 Team Status: Inactive Member Role/Relationship Status Dates No Primary Care Physician Primary Care Provider Active Start: January 10, 2025 End: January 10, 2025 Dr. Angella Villarreal MD Attending Provider Active Start: January 10, 2025 End: January 10, 2025 Team Status: Inactive Member Role/Relationship Status Dates No Primary Care Physician Primary Care Provider Active Start: January 28, 2025 End: January 28, 2025 No Primary Care Physician Referring Provider Active Start: January 28, 2025 End: January 28, 2025 Nicole Crews CNM Attending Provider Active S tart: January 28, 2025 End: January 28, 2025 Team Status: Inactive Member Role/Relationship Status Dates No Primary Care Physician Primary Care Provider Active Start: February 11, 2025 End: February 11, 2025 No Primary Care Physician Referring Provider Active Start: February 11, 2025 End: February 11, 2025 Nicole Crews CNM Attending Provider Active S tart: February 11, 2025 End: February 11, 2025 Goals (unrecognized section and content) Goals may be documented in a n alternate sectionGoals may be documented in an alternate sectionGoals may be documented in an alternate sectionGoals may be documented in an alternate sectionGoals may be documented in an alternate sectionGoals may be documented in an alternate sectionGoals may be documented in an alternate section FOR RECORDS PERTAINING TO PATIENTS WHO ARE OR HAVE BEEN ENROLLED IN A CHEMICAL DEPENDENCY/SUBSTANCEABUSE PROGRAM, SOME INFORMATION MAY BE OMITTED. This clinical summary was aggregated from multiple sources. Caution should be exercised in using it in the provision of clinical care. This summary normalizes information from multiple sources, and as a consequence, information in this document may materially change the coding, format and clinical context of patient data. In addition, data may be omitted in some cases. CLINICAL DECISIONS SHOULD BE BASED ON THE PRIMARY CLINICAL RECORDS. [facility] [employer] [facility]. provides no warranty or guarantee of the accuracy or completeness of information in this document.
[2025-02-20 10:54] VITALS: BP 120/75; PULSE 84; RESP 16; TEMP 36.4; O2SAT 95; O2SAT 96
[2025-02-20 11:19] VITALS: BMI 27.8
[2025-02-20 11:47] VITALS: RESP 16; TEMP 36.9
[2025-02-20 11:51] VITALS: PULSE 73; O2SAT 96
[2025-02-20 12:02] LABS: Mucous, Urine 0 SEEN /hpf (<or=2+); Red Blood Cells-Urine 0 SEEN /hpf (0-5)
[2025-02-20 12:04] LABS: Color, Urine Yellow (Yellow); Glucose, Dipstick Normal (Normal); Ketone-Dipstick Negative (Negative); Leukocyte Esterase-Dipstick 25 /ul (Negative); Nitrite-Dipstick Negative (Negative); Occult Blood-Urine Negative /ul (Negative); Protein-Dipstick 15 mg/dl (Negative); Specific Gravity, Urine 1.010 (1.002-1.030); Urine Bilirubin Dipstick Negative (Negative)
[2025-02-20 12:14] LABS: Squamous Epithelial Cells - UA 0-5 SEEN /hpf (5-10)
[2025-02-20] MEDS: FOSFOMYCIN TROMETHAMINE 3 GM PACKET PO (13:28)
--- NOTE | 2025-02-24 10:48 | OB.TRI.PN_ITS ---
Progress Notes Date of Service: 02/20/25 Progress Note: Patient presents for triage evaluation secondary to contractions FHT: 140 Moderate variability reactive no decelerations category I tracing [place]: irregular Contractions Assessment and plan: 33 weeks threatened labor no cervical change Reactive NST, reassuring maternal and status patient discharged to home to follow-up as scheduled. See problem list details for additional plan information. Laboratory Studies: Laboratory Tests 02/20/25 Range/Units 11:40 Urine Color Yellow (Yellow) Urine Clarity Sl. Cloudy (Clear) Urine pH 7.0 (5.0 - 8.0) Ur Specific [place] 1.010 (1.002-1.030) Urine Protein 15 H (Negative) mg/dl Urine Glucose (UA) Normal (Normal) mg/dl Urine Ketones Negative (Negative) mg/dl Urine Occult Blood Negative (Negative) /ul Urine Nitrite Negative (Negative) Urine Bilirubin Negative (Negative) mg/dL Urine Urobilinogen Normal (Normal) mg/dl Ur Leukocyte Esterase 25 H (Negative) /ul Urine RBC 0 SEEN (0-5) /hpf Urine WBC 0-5 SEEN (0-5) /hpf Ur Squamous Epith Cells 0-5 SEEN (5-10) /hpf Urine Bacteria 0 SEEN (None Seen) /hpf Urine Mucus 0 SEEN (<or=2+) /hpf Charges/Coding Procedures Urinary/Genital [id number]: [id number] non-stress test Interp
== END 2025-02-20 13:35 | disposition home or self-care (01) ==
LOC: WPOUT 10:49 → WP 10:50
PROVIDERS: Visit Provider Obstetrics & Gynecology
DX: O47.03 False labor before 37 completed weeks of gestation, third trimester (principal); Z3A.33 33 weeks gestation of pregnancy
CPT/HCPCS: 59025; 59050; 81001; 87086; 87088; 99221; G0378

== ENCOUNTER → 2025-03-09 | Outpatient (CLI) | payer OTHER, SELFPAY | END | disposition home or self-care (01) | PROVIDERS: Referring Provider Obstetrics & Gynecology; Visit Provider Obstetrics & Gynecology | DX: O09.93 Supervision of high risk pregnancy, unspecified, third trimester (principal); Z3A.00 Weeks of gestation of pregnancy not specified | CPT/HCPCS: 87081 ==

== ENCOUNTER → 2025-03-25 | Outpatient (CLI) | payer OTHER, SELFPAY | END | disposition home or self-care (01) | LOC: LABSPEC 12:02 | PROVIDERS: Referring Provider Advanced Practice Midwife; Visit Provider Advanced Practice Midwife | DX: N94.89 Other specified conditions associated with female genital organs and menstrual cycle (principal) | CPT/HCPCS: 87086 ==

== ENCOUNTER 2025-03-27 17:36 | Inpatient (IN) | payer OTHER, SELFPAY ==
[2025-03-27 16:36] VITALS: BMI 29.2
--- OUTSIDE RECORDS SUMMARY | 2025-03-27 17:05 | XMS RPT_ITS | CCD ---
Author Organization [facility] Care Team Providers Care Box Stapler Name Role Phone Fernandez Tavarez Attending Unavailable Pamela Moreno Primary Care Unavailable Fernandez Tavarez Admitting Unavailable NO, PHYSICIAN Primary Care Unavailable ELAINE DEXTER Attending Unavailable No, Physician Primary Care Provider Unavailabl e Osmel Jin Unavailable Unavailable Unavailable StentOsmel danielle PA-C Primary Care Provider STENTNIKI DanielleIN Primary Care Unavailable ALFRED ANDERSON Attending Unavailable OSMEL JIN Primary Care Unavailable ALFRED ANDERSON Attending Unavailable ABDIFATAH PRIMARY CAREMD Primary Care Unavailable OSMEL WATERMAN Attending Unavailable ANGELLA VILLARREAL Referring Unavailabl e Dr. Cee Purcell DO Attending Provider [phone] Dr. Cee Purcell DO Emergency Provider [phone] Care Physician, No Primary Primary Care Provider Unavailable Dr. Fatoumata Diaz DO Attending Provider Dr. Fatoumata Diaz DO Emergency Provider [phone] Tracy Carey RN Attending Provider Unavailabl e Care Physician, No Primary Referring Provider Un available Nicole Crews CNM Attending Provider Nicole Crews CNM Referring Provider Dr. Angella Villarreal MD Attending Provider [phone] Care Physician, No Primary Primary Care Provider Unavailable Care Physician, No Primary Primary Care Provider Unavailable Care Physician, No Primary Referring Provider Un available Nicole Crews CNM Attending Provider Nicole Crews CNM Referring Provider [phone] Carie Drummond Attending Provider [phone] Care Physician, No Primary Primary Care Provider Unavailable Care Physician, No Primary Referring Provider Un available Arsalna PEDERSEN, Dr. Perales Attending Provider [phone] Care Physician, No Primary Primary Care Provider Unavailable Care Physician, No Primary Referring Provider Un available Nicole Crews CNM Attending Provider [phone] Arsalan PEDERSEN, Dr. Perales Other Provider [phone] Sujata Vora DO, Dr. Payne Attending Provider Sujata Vora DO, Dr. Payne Referring Provider Care Physician, No Primary Primary Care Unava ilable Nicole Crews Attending Unavailable Care Physician, No Primary Referring Unava ilable Care Physician, No Primary Primary Care Unava ilable Kerry Sosa Attending Unavailabl e Care Physician, No Primary Referring Unava ilable Care Physician, No Primary Primary Care Unava ilable Tracy Carey Attending Unavailable CherryTracy Attending Unavailable Care Physician, No Primary Primary Care Unava ilable Care Physician, No Primary Primary Care Unava ilable Nicole Crews Referring Unavailable Nicole Crews Attending Unavailable Angella Villarreal Attending Unavailable Care Physician, No Primary Primary Care Unava ilable Care Physician, No Primary Primary Care Unava ilable Nicole Crews Referring Unavailable Nicole Crews Attending Unavailable Care Physician, No Primary Primary Care Unava ilable Kerry Sosa Referring Unavailabl e Kerry Sosa Attending Unavailabl e Care Physician, No Primary Primary Care Unava ilable Angella Villarreal Consulting Unavailable Angella Villarreal Attending Unavailable Vande VelKerry weber Attending Unavailabl e Care Physician, No Primary Primary Care Unava ilable Care Physician, No Primary Referring Unava ilable Care Physician, No Primary Primary Care Unava ilable Kerry Sosa Attending Unavailabl e Care Physician, No Primary Referring Unava ilable Tracy Carey Attending Unavailable Care Physician, No Primary Primary Care Unava ilable Care Physician, No Primary Referring Unava ilable Angella Villarreal Attending Unavailable Care Physician, No Primary Primary Care Unava ilable Care Physician, No Primary Referring Unava ilable Care Physician, No Primary Primary Care Unava ilable Nicole Crews Attending Unavailable Care Physician, No Primary Primary Care Unava ilable Care Physician, No Primary Referring Nicole Moya Attending Unavailable Care Physician, No Primary Primary Care Unava ilable Care Physician, No Primary Referring Unava ilable Angella Villarreal Attending Unavailable Care Physician, No Primary Referring Unava ilable Grant DOUGLAS, Carie Attending Unavailable Care Physician, No Primary Primary Care Unava ilable Care Physician, No Primary Referring Unava ilable Care Physician, No Primary Primary Care Unava Nicole Allison Attending Unavailable Care Physician, No Primary Primary Care Unava ilable Cee Purcell Attending Unavailable Care Physician, No Primary Primary Care Unava ilable Fatoumata Diaz Attending Unavailable Care Physician, No Primary Primary Care Unava ilable Nicole Crews Referring Unavailable Nicole Crews Attending Unavailable Angella Villarreal Attending Unavailable Care Physician, No Primary Primary Care Unava ilable Care Physician, No Primary Referring Unava ilable Care Physician, No Primary Primary Care Unava ilNicole Kiser Attending Unavailable Care Physician, No Primary Referring Unava ilable Care Physician, No Primary Primary Care Unava ilable Nicole Crews Attending Unavailable Care Physician, No Primary Referring Unava ilable Care Physician, No Primary Primary Care Unava ilNicole Kiser Attending Unavailable Care Physician, No Primary Primary Care Unava ilable Care Physician, No Primary Referring Unava ilable Angella Villarreal Attending Unavailable Allergies Allergy Classification Reported Allergen(s) Allergy Type Date of Onset Reaction(s) Facility (12 sources) Wheat gluten extract; Translations: [GLUTEN] Drug Allergy 08-20-2023 Diarrhea [facility] (1 source) Gluten Drug allergy (disorder) 03-25-2025 [facility] Repository Medications Current Medications Medication Drug Class(es) Dates Sig (Normalized) Sig (Original) [id number] 200 actuat albuterol 0.09 mg/actuat metered dose inhaler (1 source) beta2-Adrenergic Agonist Start: 4 End: 5 take 2 puff(s) by inhalation every six hours for wheezing albuterol 90 mcg/actuation inhaler Indications: Acute bronchitis, unspecified organism Inhale 2 puffs every 6 hours if needed for wheezing. 18 g 05/26/2024 05/26/2025 Active azithromycin 250 mg oral tablet (1 source) Macrolide Antimicrobial Start: 4 End: 4 azithromycin (Zithromax Z-Tucker) 250 mg tablet Indications: COVID Take 2 tablets (500 mg) on Day 1, followed by 1 tablet (250 mg) once daily on Days 2 through 5. 6 tablet 05/26/2024 05/31/2024 Active docosahexaenoic acid 200 mg oral capsule (10 sources) Start: 5 take 1 mg by mouth once daily Docosahexaenoic Acid ( Dha) 200 mg capsule Active 1 mg PO DAILY August 20, 2024 1:00am fluticasone propionate 0.05 [...] Active ondansetron 4 mg disintegrating oral tablet (20 sources) Serotonin-3 Receptor Antagonist Start: 5 End: 5 take 1 tablet by mouth every eight hours as needed for nausea Ondansetron 4 mg tablet,disintegrating Active 4 mg PO EVERY 8 HOURS NEEDED as needed for Nausea 30 4 August 25, 2024 5:02pm Completed/Discontinued Medications Medication Drug Class(es) Dates Sig (Normalized) Sig (Original) No Reported Medications (1 source) No Reported Medi cations Quantity: 0 Refills: 0 Ordered: 12-Feb-2022 DO Active Problems Active Problems Problem Classification Problem Date Documented Da te Episodic/Chronic Acute bronchitis (4 sources) Acute bronchitis; Translations: [Acute bronchitis, unspecified] Onset: 05-26-2024 05-26-2024 Episodic Early or threatened labor (1 source) False labor before 37 completed weeks of gestation, third trimester; Translations: [False labor before 37 completed weeks of gestation, third trimester] Onset: 03-04-2025 Episodic Hemorrhage during ; abruptio placenta; placenta previa (10 sources) Threatened miscarriage in first trimester; Translations: [...] : Maximilian Other complications of (1 source) Unspecified infection of urinary tract in , unspecified trimester; Translations: [Unspecified infection of urinary tract in , unspecified trimester] Onset: 03-25-2025 Episodic Other complications of (1 source) Supervision of high risk , unspecified, third trimester; Translations: [Supervision of high risk , unspecified, third trimester] Onset: 03-25-2025 Episodic Other complications of (1 source) Supervision of high risk , unspecified, unspecified trimester; Translations: [Supervision of high risk , unspecified, unspecified trimester] Onset: 01-13-2025 Episodic Other female genital disorders (1 source) Abnormal uterine and vaginal bleeding, unspecified; Translations: [Abnormal uterine and vaginal bleeding, unspecified] Onset: 08-24-2024 Chronic Other female genital disorders (1 source) Other specified conditions associated with female genital organs and menstrual cycle; Translations: [Other specified conditions associated with female genital organs and menstrual cycle] Onset: 03-25-2025 Episodic Other gastrointestinal disorders (20 sources) Celiac disease; Translations: [Celiac disease] 08-20-2024 Chronic Other gastrointestinal disorders (1 source) Celiac disease; Translations: [Celiac disease] Onset: 03-25-2025 Chronic Other and delivery including normal (20 sources) ; Translations: [Encounter for supervision of normal , unspecified, unspecified trimester] 11-18-2024 Episodic Comment on above: Discussed genetic/ca rrier testing - declined. Neg GBS. Discussed g enetic/carrier testing - declined. Other skin disorders (1 source) Skin lesion; Translations: [Unspecified disorder of skin and subcutaneous tissue] Episodic Residual codes; unclassified (1 source) Other general symptoms and signs; Translations: [Suspected Covid-19 Virus Infection] Episodic Residual codes; unclassified (1 source) 38 weeks gestation of ; Translations: [38 weeks gestation of ] Onset: 03-25-2025 Episodic Residual codes; unclassified (1 source) 37 weeks gestation of ; Translations: [37 weeks gestation of ] Onset: 03-18-2025 Episodic Residual codes; unclassified (1 source) 36 weeks gestation of ; Translations: [36 weeks gestation of ] Onset: 03-09-2025 Episodic Residual codes; unclassified (1 source) 34 weeks gestation of ; Translations: [34 weeks gestation of ] Onset: 02-24-2025 Episodic Residual codes; unclassified (1 source) 32 [...] Documented Da te Episodic/Chronic Nausea and vomiting (11 sources) Nausea and vomiting; Translations: [Nausea with [...] Test Name Value Interpretation Reference Range Facility Pediatric Nephrologist Office Visit Reporton 03-25-2025 Pediatric Nephrologist Office Visit Report [facility] [address] [place] [address], [address] [place] [address] OFFICE VISIT Date of Service: 03/25/25 MR#: [id number] Acct: [id number] Name: GERTRUDE EMERY Rep #: [id number] : 1995 Provider: NATALYA Felix ams Age/Sex: 29/F [place] [facility] [facility] [place]: Signed Intake Vital Signs 02/11/25 10:01 03/18/25 15:18 03/25/25 11:39 03/25/25 11:40 Height 5 ft 7 in 5 ft 7 in 5 ft 7 in 5 ft 7 in Weight: 187 lb 2 oz BMI 29.2 BP 125/82 H Intake Visit Reasons: 38 WK OB [employer] Required: No Is patient in pain?: No Allergies gluten Adverse Reaction (Intermediate, Verified 03/25/25 11:40) Other Medications ???Medication ???Instructions ???Recorded ???Confirmed ???Type docosahexaenoic acid 200 mg 1 mg PO DAILY 08/20/24 03/25/25 Hi story capsule ( DHA) ondansetron 4 mg disintegrating 4 mg PO Q8H PRN PRN Nausea #30 tab s 08/25/24 03/25/25 Rx tablet amoxicillin 875 mg tablet 875 mg PO BID 7 days #14 tabs 03/0703/25/25 Rx Last Menstrual Period: 06/28/24 Zika: Zika virus screening: Negative : No Have you fallen in the past year?: No PFSH PFSH Surgical History History of appendectomy Family History Aunt Thyroid disorder Grandmother Thyroid disorder Grandfather Kidney disease on dialysis Social History adopted: No household members: spouse 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al status: employed 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al exposures/hazards: No pets and animals: Yes pets and animals: dog(s) history of recent travel: Yes ([place] - September 2024) out of state: No out of country: Yes sexually active: Yes Smoking Status: Never smoker second hand exposure: No alcohol intake: never substance use type: other details: Palmetto gummies - Beginning of July diet: gluten free well-balanced diet: daily or most days caffeine: Yes eating out: 1-3 times/week during the past year weight has: remained stable what type of physical activity do you participate in: walking and weight training frequency: 3-4 times per week duration: 15-30 minutes/day lc/baptism: Zoroastrianism seatbelt use: always do you feel safe at home: Yes additional social history: : 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 OB Visit GLENN Calculator Estimated Delivery Date Method Current WG Current Estimate 04/04/25 LMP (Certain) 38w 4d Other Estimates 04/01/25 Ultrasound #1 39w 0d Expected Delivery Route/Plan Labor Preferences- CB/BF classes: encouraged labor support person: Maximilian labor intervention preferences: [] pain management options preferred: epidural if requested cut cord/dad catch: no : yes PP control planned: discussed discussed possible routes of delivery and associated risks: [] special requests: [] Specific Issue/Plans Covid status: [] Flu vaccine: [] Tdap vaccine: given Rhogam:NA LARC form signed: yes movement and labor precautions reviewed. Problem list reviewed and updated with the [...] ome lower abd pressure and frequency with (more content not included)... Normal [facility] Pediatric Nephrologist Office Visit Reporton 03-18-2025 Pediatric Nephrologist Office Visit Report [facility] [address], [address] [place] [address] OFFICE VISIT Date of Service: 03/18/25 MR#: [id number] Acct: [id number] Name: GERTRUDE EMERY Rep #: [id number] : 1995 Provider: Dr. Angella mosquera MD Age/Sex: 29/F [place] [facility] [facility] [place]: Signed Intake Vital Signs 02/11/25 10:01 03/09/25 16:09 03/18/25 15:18 Height 5 ft 7 in 5 ft 7 in 5 ft 7 in Weight: 188 lb 9 oz BMI 29.5 BP 130/77 H Intake Visit Reasons: 37wk ob *move 04/01 appt [employer] Art [employer] Required: No Is patient in pain?: No Feel stressed/tense/nervous/an xious/difficulty sleeping: not at all Allergies gluten Adverse Reaction (Intermediate, Verified 03/18/25 15:17) Other Medications ???Medication ???Instructions ???Recorded ???Confirmed ???Type docosahexaenoic acid 200 mg 1 mg PO DAILY 08/20/24 03/18/25 Hi story capsule ( DHA) ondansetron 4 mg disintegrating 4 mg PO Q8H PRN PRN Nausea #30 tab s 08/25/24 03/18/25 Rx tablet Last Menstrual Period: 06/28/24 Zika: [...] intake: never substance use type: other details: Palmetto gummies - Beginning of July diet: gluten free well-balanced diet: daily or most days caffeine: Yes eating out: 1-3 times/week during the past year weight has: remained stable what type of physical activity do you participate in: walking and weight training frequency: 3-4 times per week duration: 15-30 minutes/day lc/baptism: Zoroastrianism seatbelt use: always do you feel safe at home: Yes additional social history: : 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 OB Visit GLENN Calculator Estimated Delivery Date Method Current WG Current Estimate 04/04/25 LMP (Certain) 37w 4d Other Estimates 04/01/25 Ultrasound #1 38w 0d Expected Delivery Route/Plan Labor Preferences- CB/BF classes: encouraged labor support person: Maximilian labor intervention preferences: [] pain management options preferred: epidural if requested cut cord/dad catch: no : yes PP control planned: discussed discussed possible routes of delivery and associated risks: [] special requests: [] Specific Issue/Plans Covid status: [] Flu vaccine: [] Tdap vaccine: given Rhogam:NA LARC form signed: yes movement and labor precautions reviewed. Problem list reviewed and updated with the [...] and frequency with urination. +fm. US scheduled. declin (more content not included)... Normal [facility] Rule out Beta Strep (Grp. B) on 03-11-2025 RAJWINDER Group B Beta Streptococcus is not isolated. Normal [facility] Comment on above: Performed By: #### M [id number] #### [facility] Laboratory [facility] [place], [address] Laboratory - Chemistry and C hemistry - challengeOrdered By: Kerry Vora on 03-09-2025 Glucose Ql (U) Negative [facility] Laboratory - UrinalysisOrder ed By: Kerry Vora on 03-09-2025 Protein Ql (U) Negative [facility] Pediatric Nephrologist Office Visit Reporton 03-09-2025 Pediatric Nephrologist Office Visit Report [facility] [address], [address] [place] [address] OFFICE VISIT Date of Service: 03/09/25 MR#: [id number] Acct: [id number] Name: GERTRUDE EMERY Rep #: [id number] : 1995 Provider: Dr. Kerry Arias, Age/Sex: 29/F [place] [facility] [facility] [place]: Signed Intake Vital Signs 01/10/25 15:23 01/28/25 11:28 02/24/25 15:57 03/09/25 16:07 03/09/25 16:09 Height 5 ft 7 in 5 ft 7 in 5 ft 7 in 5 ft 7 in 5 ft 7 in Weight: 185 lb 5 oz BMI 29.0 BP 121/75 H Intake Visit Reasons: 36wk 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 Required: No Is patient in pain?: No Allergies gluten Adverse Reaction (Intermediate, Verified 03/09/25 16:06) Other Medications ???Medication ???Instructions ???Recorded ???Confirmed ???Type docosahexaenoic acid 200 mg 1 mg PO DAILY 08/20/24 03/09/25 Hi story capsule ( DHA) ondansetron 4 mg disintegrating 4 mg PO Q8H PRN PRN Nausea #30 tab s 08/25/24 03/09/25 Rx tablet Last Menstrual Period: 06/28/24 Zika: Zika virus screening: Negative : No PFSH PFSH Surgical History History of appendectomy Family History Aunt Thyroid disorder Grandmother Thyroid disorder Grandfather Kidney disease on dialysis Social History adopted: No household members: spouse 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al status: employed 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al exposures/hazards: No pets and animals: Yes pets and animals: dog(s) history of recent travel: Yes ([place] - September 2024) out of state: No out of country: Yes sexually active: Yes Smoking Status: Never smoker second hand exposure: No alcohol intake: never substance use type: other details: Palmetto gummies - Beginning of July diet: gluten free well-balanced diet: daily or most days caffeine: Yes eating out: 1-3 times/week during the past year weight has: remained stable what type of physical activity do you participate in: walking and weight training frequency: 3-4 times per week duration: 15-30 minutes/day lc/baptism: Zoroastrianism seatbelt use: always do you feel safe at home: Yes additional social history: : 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 OB Visit GLENN Calculator Estimated Delivery Date Method Current WG Current Estimate 04/04/25 LMP (Certain) 36w 2d Other Estimates 04/01/25 Ultrasound #1 36w 5d Expected Delivery Route/Plan Labor Preferences- CB/BF classes: encouraged labor support person: Maximilian labor intervention preferences: [] pain management options preferred: epidural if requested cut cord/dad catch: no : yes PP control planned: discussed discussed possible routes of delivery and associated risks: [] special requests: [] Specific Issue/Plans Covid status: [] Flu vaccine: [] Tdap vaccine: given Rhogam:NA LARC form signed: yes movement and labor precautions reviewed. Problem list reviewed and updated with the [...] declines AFP. KW- having some lower abd pres (more content not included)... Normal [facility] Screening beta-hemolytic Str eptococcus cultureOrdered By: Kerry Vora on 03-09-2025 Beta-hemolytic Streptococcus culture Group B Beta Streptococcus is not isolated. [facility] Laboratory - Chemistry and C hemistry - challengeOrdered By: Angella Villarreal on 02-24-2025 Glucose Ql (U) Negative [facility] Laboratory - UrinalysisOrder ed By: Angella Villarreal on 02-24-2025 Protein Ql (U) Negative [facility] OB Triage Progress Noteon OB Triage Progress Note [facility] Medical Records Department [address] [place] [address] OB Triage Progress Note 02/24/25 1048 MR#: [id number] Acct: [id number] Name: GERTRUDE EMERY Rep #: [id number] : 1995 29 From: Angella Villarreal MD PCP: Care Physician,No Primary Status:DEP CLI Y DOS: Location: [facility] Progress Notes Date of Service: 02/20/25 Progress Note: Patient presents for triage evaluation secondary to contractions FHT: 140 Moderate variability reactive no decelerations category I tracing [place]: irregular Contractions Assessment and plan: 33 weeks threatened labor no cervical change Reactive NST, reassuring maternal and status patient discharged to home to follow-up as scheduled. See problem list details for additional plan information. Laboratory Studies: Laboratory Tests 02/20/25 Range/Units 11:40 Urine Color Yellow (Yellow) Urine Clarity Sl. Cloudy (Clear) Urine pH 7.0 (5.0 - 8.0) Ur Specific [place]ridge 1.010 (1.002-1.030) Urine Protein 15 H (Negative) mg/dl Urine Glucose (UA) Normal (Normal) mg/dl Urine Ketones Negative (Negative) mg/dl Urine Occult Blood Negative (Negative) /ul Urine Nitrite Negative (Negative) Urine Bilirubin Negative (Negative) mg/dL Urine Urobilinogen Normal (Normal) mg/dl Ur Leukocyte Esterase 25 H (Negative) /ul Urine RBC 0 SEEN (0-5) /hpf Urine WBC 0-5 SEEN (0-5) /hpf Ur Squamous Epith Cells 0-5 SEEN (5-10) /hpf Urine Bacteria 0 SEEN (None Seen) /hpf Urine Mucus 0 SEEN ( Charges/Coding Procedures Urinary/Genital 52xxx-59xxx: [id number] non-stress test Interp 02/24/25 1049 Date Angella Villarreal MD Cosigner Signature (if applicable): Date CC: Dr. Angella Villarreal MD; No Primary Care Physician Signed Normal [facility] Pediatric Nephrologist Office Visit Reporton 02-24-2025 Pediatric Nephrologist Office Visit Report [facility]'s [address], [address] [place] [address] OFFICE VISIT Date of Service: 02/24/25 MR#: [id number] Acct: [id number] Name: GERTRUDE EMERY Rep #: [id number] : 1995 Provider: Dr. Angella mosquera MD Age/Sex: 29/F [place] [facility] [facility] [place]: Signed Intake Vital Signs 01/10/25 15:23 02/20/25 11:19 02/24/25 15:57 Height 5 ft 7 in 5 ft 7 in 5 ft 7 in Weight: 186 lb BMI 29.1 BP 119/84 H Intake Visit Reasons: 34wk 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 Required: No Is patient in pain?: No Allergies gluten Adverse Reaction (Intermediate, Verified 02/24/25 15:59) Other Medications ???Medication ???Instructions ???Recorded ???Confirmed ???Type docosahexaenoic acid 200 mg 1 mg PO DAILY 08/20/24 02/24/25 Hi story capsule ( DHA) ondansetron 4 mg disintegrating 4 mg PO Q8H PRN PRN Nausea #30 tab s 08/25/24 02/24/25 Rx tablet Last Menstrual Period: 06/28/24 Zika: [...] intake: never substance use type: other details: Palmetto gummies - Beginning of July diet: gluten free well-balanced diet: daily or most days caffeine: Yes eating out: 1-3 times/week during the past year weight has: remained stable what type of physical activity do you participate in: walking and weight training frequency: 3-4 times per week duration: 15-30 minutes/day lc/baptism: Zoroastrianism seatbelt use: always do you feel safe at home: Yes additional social history: : 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 OB Visit GLENN Calculator Estimated Delivery Date Method Current WG Current Estimate 04/04/25 LMP (Certain) 34w 3d Other Estimates 04/01/25 Ultrasound #1 34w 6d Expected Delivery Route/Plan Labor Preferences- CB/BF classes: encouraged labor support person: Maximilian labor intervention preferences: [] pain management options preferred: epidural if requested cut cord/dad catch: no : yes PP control planned: discussed discussed possible routes of delivery and associated risks: [] special requests: [] Specific Issue/Plans Covid status: [] Flu vaccine: [] Tdap vaccine: given Rhogam:NA LARC form signed: yes movement and labor precautions reviewed. Problem list reviewed and updated with the [...] with urination. will obtain clean catch. +fm. (more content not included)... Normal [facility] Urine Cultureon 02-22-2025 URC Below infection leve l. Mixed Gram Positive Organisms [place] Count <1000 MIXC Mixed contaminants. Submit a new specimen if indicated. Normal [facility] Comment on above: Performed By: #### M 100.9512 #### [facility] [address] [place] [address]. [place], [address] Bilirubin Test strip Ql (U)O rdered By: Angella Villarreal on 02-20-2025 Bilirubin Ql (U) Negative Negative [facility] Ketones Test strip Ql (U)Ord ered By: Angella Villarreal on 02-20-2025 Ketones Ql (U) Negative Negative [facility] Microscopic analysis of urin e for red blood cells (RBC)Ordered By: Angella Villarreal on 02-20-2025 Microscopic analysis of urine for red blood cells (RBC) 0 SEEN /hpf 0-5 [facility] Mucus LM Ql (Urine sed)Order ed By: Angella Villarreal on 02-20-2025 Mucus Ql (Urine sed) 0 SEEN /hpf [facility] Nitrite Test strip Ql (U)Ord ered By: Angella Quezadasonia on 02-20-2025 Nitrite Ql (U) Negative Negative [facility] Protein Test strip Ql (U)Ord ered By: Angella Quezadasonia on 02-20-2025 Protein Ql (U) 15 mg/dl High Negative [facility] Squamous epithelial cells de tection in urine sediment by light microscopyOrdered By: Angella Villarreal on 02-20-2025 Epithelial cells.squamous LM Ql (Urine sed) 0-5 SEEN /hpf 5-10 [facility] Urinalysis, Completeon 02-20 EPI,SQUAMOUS 0-5 SEEN Normal -10 [facility] Comment on above: Order Comment: CLEAN CATCH Performed By: #### M 100.2200, L7400.0353, L7000.1800 #### [facility] [address] [place], [address] WBC 0-5 SEEN Normal 0-5 [facility] Comment on above: Order Comment: CLEAN CATCH Performed By: #### M 100.2200, L7400.0353, L7000.1800 #### [facility] [address] [place], [address] BACTERIA 0 SEEN Normal None Seen [facility] Comment on above: Order Comment: CLEAN CATCH Performed By: #### M 100.2200, L7400.0353, L7000.1800 #### [facility] [address] [place], [address] Mucus Ql (Urine sed) 0 SEEN Normal [facility] Comment on above: Order Comment: CLEAN CATCH Performed By: #### M 100.2200, L7400.0353, L7000.1800 #### [facility] [address] [place], [address] RBC 0 SEEN Normal 0-[address] [place] [address] Comment on above: Order Comment: CLEAN CATCH Performed By: #### M 100.2200, L7400.0353, L7000.1800 #### [facility] [address] [place], [address] Urine clarityOrdered By: Alfred Villarreal on 02-20-2025 Clarity (U) Sl. Cloudy Clear [facility] Urine color determinationOrd ered By: Angella Villarreal on 02-20-2025 Color (U) Yellow Yellow [facility] Urine cultureOrdered By: Alfred Villarreal on 02-20-2025 Bacteria identified Cx Nom (U) Positive Abnormal [facility] Urine glucose detectionOrder ed By: Angella Villarreal on 02-20-2025 Glucose Ql (U) Normal mg/dl Normal [facility] Urine leukocyte esterase det ection by dipstickOrdered By: Angella Villarreal on 02-20-2025 Leukocyte esterase Test strip Ql (U) 25 /ul High Negative [facility] Urine pHOrdered By: Angella aponte on 02-20-2025 pH (U) 7.0 [pH] 5.0 - 8.0 [facility] Urine sediment bacteria coun t by microscopy (number/high power field)Ordered By: Angella Villarreal on 02-20-2025 Bacteria LM.HPF (Urine sed) [#/Area] 0 /[HPF] None Seen [facility] Urine specific gravity measu rementOrdered By: Angella Villarreal on 02-20-2025 Specific gravity (U) [Rel density] 1.010 1.002-1.030 [facility] Urine urobilinogen measureme ntOrdered By: Angella Villarreal on 02-20-2025 Urobilinogen Ql (U) Normal mg/dl Normal [facility] White blood cell countOrdere d By: Angella Villarreal on 02-20-2025 White blood cell count 0-5 SEEN /hpf 0-5 [facility] Laboratory - Chemistry and C hemistry - challengeOrdered By: Nicole Crews on 02-11-2025 Glucose Ql (U) Negative [facility] - UrinalysisOrder ed By: Nicole Crews on 02-11-2025 Protein Ql (U) Negative [facility] Pediatric Nephrologist Office Visit Reporton 02-11-2025 Pediatric Nephrologist Office Visit Report [facility] [address], [address] [place] [address] OFFICE VISIT Date of Service: 02/11/25 MR#: [id number] Acct: [id number] Name: GERTRUDE EMERY Rep #: [id number] : 1995 Provider: NATALYA Felix ams Age/Sex: 29/F Location[place] [facility] [place] Status: Signed Intake Vital Signs 01/28/25 11:28 02/11/25 10:01 Height 5 ft 7 in 5 ft 7 in Weight: 179 lb 2 oz BMI 28.0 BP 137/82 H Intake Visit Reasons: 32 wk ob *reschedule Chief Complaint: 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 Is patient in pain?: No [...] spouse 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al status: employed 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al exposures/hazards: No pets and animals: Yes pets and animals: dog(s) history of recent travel: Yes ( - September 2024) out of state: No out of country: Yes sexually active: Yes Smoking Status: Never smoker second hand exposure: No alcohol intake: never substance use type: other details: Palmetto gummies - Beginning of July diet: gluten free well-balanced diet: daily or most days caffeine: Yes eating out: 1-3 times/week during the past year weight has: remained stable what type of physical activity do you participate in: walking and weight training frequency: 3-4 times per week duration: 15-30 minutes/day lc/baptism: Zoroastrianism seatbelt use: always do you feel safe at home: Yes additional social history: : 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 (more content not included)... Normal [facility] Laboratory - Chemistry and C hemistry - challengeOrdered By: Nicole Crews on 01-28-2025 Glucose Ql (U) Negative [facility] - UrinalysisOrder ed By: Nicole Crews on 01-28-2025 Protein Ql (U) Negative [facility] Pediatric Nephrologist Office Visit Reporton 01-28-2025 Pediatric Nephrologist Office Visit Report [facility] [address], [address] [place] [address] OFFICE VISIT Date of Service: 01/28/25 MR#: [id number] Acct: [id number] Name: GERTRUDE EMERY Rep #: [id number] : 1995 Provider: NATALYA Felix [facility] Age/Sex: 29/F [place] [facility] [facility] [place]: Signed Intake Vital Signs 11/18/24 08:30 01/10/25 15:23 01/28/25 11:24 01/28/25 11:28 Height 5 ft 7 in 5 ft 7 in 5 ft 7 in 5 ft 7 in Weight: 177 lb 177 lb 2 oz BMI 27.7 27.7 BP 123/76 H 121/82 H Intake Visit Reasons: 30 wk ob 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 Is patient in pain?: No Allergies gluten Adverse Reaction (Intermediate, Verified 01/28/25 11:23) Other Medications ???Medication ???Instructions ???Recorded ???Confirmed ???Type docosahexaenoic acid 200 mg mg PO 08/20/24 01/28/25 History capsule ( DHA) ondansetron 4 mg disintegrating 4 mg PO Q8H PRN PRN Nausea #30 tab s 08/25/24 01/28/25 Rx tablet Last Menstrual Period: 12/23/24 Zika: Zika virus screening: Negative : No [...] intake: never substance use type: other details: Palmetto gummies - Beginning of July diet: gluten free well-balanced diet: daily or most days caffeine: Yes eating out: 1-3 times/week during the past year weight has: remained stable what type of physical activity do you participate in: walking and weight training frequency: 3-4 times per week duration: 15-30 minutes/day lc/baptism: Zoroastrianism seatbelt use: always do you feel safe at home: Yes additional social history: : 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 Normal [facility] Absolute lymphocyte countOrd ered By: Nicole Crews on 01-10-2025 Lymphocytes Auto (Unsp spec) [#/Vol] 2.16 10*3/uL 0.83-4.51 [facility] Absolute neutrophil countOrd ered By: Nicole Crews on 01-10-2025 Neutrophils (Bld) [#/Vol] 11.4 10*3/uL High 2.0-7.7 [facility] Automated lymphocyte count a s percentage of total leukocytesOrdered By: Nicole Crews on 01-10-2025 Lymphocytes/100 WBC Auto (Unsp spec) 14.7 % Low 19-41 [facility] Basophil percentageOrdered B y: Nicole Crews on 01-10-2025 Basophils/100 WBC (Bld) 0.2 % 0-1 [facility] CBC W/Diff, Automatedon - Absolute Lymph 2.16 X10 3/uL Normal 0.83-4.51 [facility] Comment on above: Performed By: #### L 509.4165, L3890.6006, L100.0100, L501.0250 #### [facility] [address] [place], [address] Absolute Neut 11.4 X10 3/uL High 2.0-7.7 [facility] Comment on above: Performed By: #### L 509.8002, L3890.6006, L100.0100, L501.0250 #### [facility] [address] [place], [address] Basophils/100 WBC (Bld) 0.2 % Normal 0-1 [facility] Comment on above: Performed By: #### L 509.8002, L3890.6006, L100.0100, L501.0250 #### [facility] [address] [place], [address] Eosinophils/100 WBC (Bld) 1.4 % Normal 0-5 [facility] Comment on above: Performed By: #### L 509.8002, L3890.6006, L100.0100, L501.0250 #### [facility] [address] [place], [address] Erythrocyte distribution width (RBC) [Ratio] 13.6 % Normal 11.6-14.6 [facility] Comment on above: Performed By: #### L 509.8002, L3890.6006, L100.0100, L501.0250 #### [facility] [address] [place], [address] Hematocrit (Bld) [Volume fraction] 37.0 % Normal 37-47 [facility] Comment on above: Performed By: #### L 509.8002, L3890.6006, L100.0100, L501.0250 #### [facility] [address] [place], [address] Hemoglobin (Bld) [Mass/Vol] 12.8 g/dL Normal 12.0-15.0 [facility] Comment on above: Performed By: #### L 509.8002, L3890.6006, L100.0100, L501.0250 #### [facility] [address] [place], [address] IG% 0.600 Normal 0.0-0.9 [facility] Comment on above: Result Comment: IG% - Immature Granulocytes (promyelocytes, myelocytes and metamyelocytes) > 1% indicates that a LEFT SHIFT is Present. Performed By: #### L 509.8002, L3890.6006, L100.0100, L501.0250 #### [facility] [address] [place], [address] Lymphocytes/100 WBC (Bld) 14.7 % Low 19-41 [facility] Comment on above: Performed By: #### L 509.8002, L3890.6006, L100.0100, L501.0250 #### [facility] [address] [place], [address] MCH (RBC) [Entitic mass] 30.1 pg Normal 27.0-32.0 [facility] Comment on above: Performed By: #### L 509.8002, L3890.6006, L100.0100, L501.0250 #### [facility] [address] [place], [address] MCHC (RBC) [Mass/Vol] 34.6 g/dL Normal 32-36 [facility] Comment on above: Performed By: #### L 509.8002, L3890.6006, L100.0100, L501.0250 #### [facility] [address] [place], [address] MCV (RBC) [Entitic vol] 87.1 fL Normal 81-99 [facility] Comment on above: Performed By: #### L 509.8002, L3890.6006, L100.0100, L501.0250 #### [facility] [address] [place], [address] Monocytes/100 WBC (Bld) 5.1 % Normal 0-10 [facility] Comment on above: Performed By: #### L 509.8002, L3890.6006, L100.0100, L501.0250 #### [facility] [address] [place], [address] Neutrophils/100 WBC (Bld) 78.0 % High 47-70 [facility] Comment on above: Performed By: #### L 509.8002, L3890.6006, L100.0100, L501.0250 #### [facility] [address] [place], [address] Nucleated RBC (Bld) [#/Vol] 0 10*3/uL Normal 0-5 [facility] Comment on above: Performed By: #### L 509.8002, L3890.6006, L100.0100, L501.0250 #### [facility] [address] [place], [address] Platelet mean volume (Bld) [Entitic vol] 11.3 fL Normal 6.2-12.0 [facility] Comment on above: Performed By: #### L 509.8002, L3890.6006, L100.0100, L501.0250 #### [facility] [address] [place], [address] Platelets (Bld) [#/Vol] 210 10*3/uL Normal 150-450 [facility] Comment on above: Performed By: #### L 509.8002, L3890.6006, L100.0100, L501.0250 #### [facility] [address] [place], [address] RBC (Bld) [#/Vol] 4.25 10*6/uL Normal 4.2-5.4 [facility] Comment on above: Performed By: #### L 509.8002, L3890.6006, L100.0100, L501.0250 #### [facility] [address] [place], [address] RDW SD 42.4 fl Normal 35.1-43.9 [facility] Comment on above: Performed By: #### L 509.8002, L3890.6006, L100.0100, L501.0250 #### [facility] [address] [place], [address] WBC (Bld) [#/Vol] 14.7 10*3/uL High 4.4-11.0 [facility] Comment on above: Performed By: #### L 509.8002, L3890.6006, L100.0100, L501.0250 #### [facility] [address] [place], [address] Eosinophil percentageOrdered By: Nicole Crews on 01-10-2025 Eosinophils/100 WBC (Bld) 1.4 % 0-5 [facility] Erythrocyte distribution wid th ratioOrdered By: Nicole Crews on 01-10-2025 Erythrocyte distribution width (RBC) [Ratio] 13.6 % 11.6-14.6 [facility] Erythrocyte distribution wid th standard deviationOrdered By: Nicole Crews on 01-10-2025 Erythrocyte distribution width (RBC) [Ratio] 42.4 fl 35.1-43.9 [facility] Glucose Challenge Gest 1H 50 ragini 01-10-2025 GLU GEST 50g 1H 98 mg/dL Normal 70-140 [facility] Comment on above: Performed By: #### L 509.8002, L3890.6006, L100.0100, L501.0250 #### [facility] [address] [place], [address] Glucose measurement at 2 derrick rs post-dose gestational glucose tolerance testOrdered By: Nicole Crews on 01-10-2025 Glucose [Mass/Vol] 98 mg/dL 70-140 [facility] HIVon 01-10-2025 HIV Non-Reactive Normal Nonreactive [facility] Comment on above: Result Comment: Non- Reactive Reactive Repeatedly reactive samples must be confirmed according to CDC recommended confirmatory algorithms. The subresults for either HIVAG or AHIV can be used as an aid in the selection of the confirmation algorithm for reactive samples. Send out specimens with Reactive results to [facility] for confirmation. Order the HIV antibody detection and differentiation: lc#[id number] Performed By: #### L 509.8002, L3890.6006, L100.0100, L501.0250 #### [facility] [address] [place], [address] Hematocrit Auto (Bld) [Volum e fraction]Ordered By: Nicole Crews on 01-10-2025 Hematocrit (Bld) [Volume fraction] 37.0 % 37-47 [facility] Hemoglobin measurementOrdere d By: Nicole Crews on 01-10-2025 Hemoglobin (Bld) [Mass/Vol] 12.8 g/dL 12.0-15.0 [facility] Immature granulocytes/100 WB C Auto (Bld)Ordered By: Nicole Crews on 01-10-2025 Immature granulocytes/100 WBC (Bld) 0.600 % 0.0-0.9 [facility] Comment on above: IG% - Immature Granu locytes (promyelocytes, myelocytes and metamyelocytes) > 1% indicates that a LEFT SHIFT is Present. Laboratory - Chemistry and C hemistry - challengeOrdered By: Carie Burns on 01-10-2025 Glucose Ql (U) Negative [facility] Laboratory - UrinalysisOrder ed By: Carie Burns on 01-10-2025 Protein Ql (U) Negative [facility] MCV (mean corpuscular volume ) determinationOrdered By: Nicole Crews on 01-10-2025 MCV (RBC) [Entitic vol] 87.1 fL 81-99 [facility] Mean corpuscular hemoglobin (MCH) determinationOrdered By: Nicole Crews on 01-10-2025 MCH (RBC) [Entitic mass] 30.1 pg 27.0-32.0 [facility] Mean corpuscular hemoglobin concentration (MCHC) determinationOrdered By: Nicole Crews on 01-10-2025 MCHC (RBC) [Mass/Vol] 34.6 g/dL 32-36 [facility] Mean platelet volume determi nationOrdered By: Nicole Crews on 01-10-2025 Platelet mean volume (Bld) [Entitic vol] 11.3 fL 6.2-12.0 [facility] Monocyte percentageOrdered B y: Nicole Crews on 01-10-2025 Monocytes/100 WBC (Bld) 5.1 % 0-10 [facility] Neutrophil percentageOrdered By: Nicole Crews on 01-10-2025 Neutrophils/100 WBC (Bld) 78.0 % High 47-70 [facility] No Panel InformationOrdered By: Nicole Crews on 01-10-2025 HIV (1&2) Antibody Non-Reactive Nonreactive [facility] Comment on above: Non-ReactiveReactive Repeatedly reactive samples must be confirmed according to CDC recommended confirmatory algorithms. The subresults for either HIVAG or AHIV can be used as an aid in the selection of the confirmation algorithm for reactive samples.Send out specimens with Reactive results to [facility] for confirmation.Order the HIV antibody detection and differentiation: #[id number] Nucleated red blood cell per centageOrdered By: Nicole Crews on 01-10-2025 Nucleated RBC/100 WBC (Bld) [Ratio] 0 % 0-5 [facility] Pediatric Nephrologist Office Visit Reporton 01-10-2025 Pediatric Nephrologist Office Visit Report [facility] [address], [address] [place] [address] OFFICE VISIT Date of Service: 01/10/25 MR#: [id number] Acct: [id number] Name: GERTRUDE EMERY Rep #: [id number] : 1995 Provider: KENDALL marcano Age/Sex: 29/F Location[place] [facility] [place] Status: Signed Intake Vital Signs 11/18/24 08:30 12/14/24 15:32 01/10/25 15:23 Height 5 ft 7 in 5 ft 7 in 5 ft 7 in Weight: 168 lb 6 oz 174 lb 2 oz 177 lb BMI 26.4 27.2 27.7 BP 128/84 H 119/73 123/76 H Intake Visit Reasons: 28 wk ob/glucose Chief Complaint: 28 Week OB/Glucose [employer] Required: No Is patient in pain?: No [...] spouse 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al status: employed 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al exposures/hazards: No pets and animals: Yes pets and animals: dog(s) history of recent travel: Yes ([place] - September 2024) out of state: No out of country: Yes sexually active: Yes Smoking Status: Never smoker second hand exposure: No alcohol intake: never substance use type: other details: Palmetto gummies - Beginning of July diet: gluten free well-balanced diet: daily or most days caffeine: Yes eating out: 1-3 times/week during the past year weight has: remained stable what type of physical activity do you participate in: walking and weight training frequency: 3-4 times per week duration: 15-30 minutes/day lc/baptism: Zoroastrianism seatbelt use: always do you feel safe at home: Yes additional social history: : 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 Normal [facility] Platelet countOrdered By: Connor Crews on 01-10-2025 Platelets (d) [#/Vol] 210 10*3/uL 150-450 [facility] RBC Auto (d) [#/Vol]Ordere d By: Nicole Crews on 01-10-2025 RBC (Bld) [#/Vol] 4.25 10*6/uL 4.2-5.4 [facility] Syphilis Antibodieson 2024 Syphilis Abs Non-Reactive Normal Nonreactive [facility] Comment on above: Performed By: #### L 509.8002, L3890.6006, L100.0100, L501.0250 #### [facility] [address] [place], [address] White blood cell (WBC) count Ordered By: Nicole Crews on 01-10-2025 WBC (Bld) [#/Vol] 14.7 10*3/uL High 4.4-11.0 [facility] Laboratory - Chemistry and C hemistry - challengeOrdered By: Nicole Crews on 12-14-2024 Glucose Ql (U) Negative [facility] Laboratory - UrinalysisOrder ed By: Nicole Crews on 12-14-2024 Protein Ql (U) Negative [facility] Pediatric Nephrologist Office Visit Reporton 12-14-2024 Pediatric Nephrologist Office Visit Report [facility] [address], [address] [place] [address] OFFICE VISIT Date of Service: 12/14/24 MR#: [id number] Acct: [id number] Name: GERTRUDE EMERY Rep #: [id number] : 1995 Provider: NATALYA Felix ams Age/Sex: 29/F [place] [facility] [place] Status: Signed Intake Vital Signs 11/18/24 08:30 12/14/24 15:32 Height 5 ft 7 in 5 ft 7 in Weight: 174 lb 2 oz BMI 27.2 BP 119/73 Intake Visit Reasons: 24 wk 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 Required: No Is patient in pain?: No [...] spouse 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al status: employed 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al exposures/hazards: No pets and animals: Yes pets and animals: dog(s) history of recent travel: Yes ([place] - September 2024) out of state: No out of country: Yes sexually active: Yes Smoking Status: Never smoker second hand exposure: No alcohol intake: never substance use type: other details: Palmetto gummies - Beginning of July diet: gluten free well-balanced diet: daily or most days caffeine: Yes eating out: 1-3 times/week during the past year weight has: remained stable what type of physical activity do you participate in: walking and weight training frequency: 3-4 times per week duration: 15-30 minutes/day lc/baptism: Zoroastrianism seatbelt use: always do you feel safe at home: Yes additional social history: : 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 Normal [facility] Laboratory - Chemistry and C hemistry - challengeOrdered By: Nicole Crews on 11-18-2024 Glucose Ql (U) Negative [facility] Laboratory - UrinalysisOrder ed By: Nicole Crews on 11-18-2024 Protein Ql (U) Negative [facility] Pediatric Nephrologist Office Visit Reporton 11-18-2024 Pediatric Nephrologist Office Visit Report [facility]'s [address], [address] [place] [address] OFFICE VISIT Date of Service: 11/18/24 MR#: [id number] Acct: [id number] Name: GERTRUDE EMERY Rep #: [id number] : 1995 Provider: NATALYA Felix ams Age/Sex: 28/F [place] [facility] [place]: Signed Intake Vital Signs 09/22/24 15:06 10/22/24 10:19 11/18/24 08:30 Height 5 ft 7 in 5 ft 7 in 5 ft 7 in Weight: 168 lb 6 oz BMI 26.4 BP 128/84 H Intake Visit Reasons: 20 wk ob 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 Is patient in pain?: No [...] spouse 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al status: employed 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al exposures/hazards: No pets and animals: Yes pets and animals: dog(s) history of recent travel: Yes ( - September 2024) out of state: No out of country: Yes sexually active: Yes Smoking Status: Never smoker second hand exposure: No alcohol intake: never substance use type: other details: Palmetto gummies - Beginning of July diet: gluten free well-balanced diet: daily or most days caffeine: Yes eating out: 1-3 times/week during the past year weight has: remained stable what type of physical activity do you participate in: walking and weight training frequency: 3-4 times per week duration: 15-30 minutes/day lc/baptism: Zoroastrianism seatbelt use: always do you feel safe at home: Yes additional social history: : 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 Normal [facility] Urine Cultureon 10-23-2024 URC Culture exhibits no growth. Normal [facility] Comment on above: Performed By: #### M 100.2200, L7400.0353, L7000.1800 #### [facility] [address] [place], [address] Laboratory - Chemistry and C hemistry - challengeOrdered By: Nicole Crews on 10-22-2024 Glucose Ql (U) Negative [facility] Laboratory - UrinalysisOrder ed By: Nicole Crews on 10-22-2024 Protein Ql (U) Negative [facility] Pediatric Nephrologist Office Visit Reporton 10-22-2024 Pediatric Nephrologist Office Visit Report [facility]'[address], [address] [place] [address] OFFICE VISIT Date of Service: 10/22/24 MR#: [id number] Acct: [id number] Name: GERTRUDE EMERY Rep #: [id number] : 1995 Provider: NATALYA Felix ams Age/Sex: 28/F [place] [facility] [place]: Signed Intake Vital Signs 08/25/24 15:45 09/22/24 15:06 10/22/24 10:19 Height 5 ft 7 in 5 ft 7 in 5 ft 7 in Weight: 160 lb BMI 25.0 BP 118/78 Blood Pressure Location Rt brachial Position Sitting Pulse 105 H Pulse Source Monitor Intake Visit Reasons: 16 wk 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 Required: No Accompanied by: Is patient in [...] intake: never substance use type: other details: Palmetto gummies - Beginning of July diet: gluten free well-balanced diet: daily or most days caffeine: Yes eating out: 1-3 times/week during the past year weight has: remained stable what type of physical activity do you participate in: walking and weight training frequency: 3-4 times per week duration: 15-30 minutes/day lc/baptism: Zoroastrianism seatbelt use: always do you feel safe at home: Yes additional social history: : 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 Normal [facility] Urine cultureOrdered By: Chin Crews on 10-22-2024 Bacteria identified Cx Nom (U) Culture exhibits no growth. [facility] Laboratory - Chemistry and C hemistry - challengeOrdered By: Angella Villarreal on 09-22-2024 Glucose Ql (U) Negative [facility] Laboratory - UrinalysisOrder ed By: Angella Villarreal on 09-22-2024 Protein Ql (U) Negative [facility] Pediatric Nephrologist Office Visit Reporton 09-22-2024 Pediatric Nephrologist Office Visit Report [facility] [address] [place] [address], [address] [place] [address] OFFICE VISIT Date of Service: 09/22/24 MR#: [id number] Acct: [id number] Name: GERTRUDE EMERY Rep #: [id number] : 1995 Provider: Dr. 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al exposures/hazards: No pets and animals: Yes pets and animals: dog(s) history of recent travel: Yes ( - September 2024) out of state: No out of country: Yes sexually active: Yes Smoking Status: Never smoker second hand exposure: No alcohol intake: never substance use type: other details: Palmetto gummies - Beginning of July diet: gluten free well-balanced diet: daily or most days caffeine: Yes eating out: 1-3 times/week during the past year weight has: remained stable what type of physical activity do you participate in: walking and weight training frequency: 3-4 times per week duration: 15-30 minutes/day lc/baptism: Zoroastrianism seatbelt use: always do you feel safe at home: Yes additional social history: : 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 Normal [facility] PAP I-G w/rfx hrHPV-Aptimaon 08-30-2024 ADEQ Comment Normal . [facility] Comment on above: Order Comment: Brenda vela Comment: [id number] Specimen Comment: No. of containers..01 ThinPrep Vial Result Comment: Sati sfactory for evaluation. Endocervical and/or squamous metaplastic cells (endocervical component) are present. Performed By: #### M 100.2200, L7400.0353, L7000.1800 #### [facility] [address] [place], [place], [id number] COMM . Normal . [facility] Comment on above: Order Comment: Speci men Comment: [id number] Specimen Comment: No. of containers..01 ThinPrep Vial Performed By: #### M 100.2200, L7400.0353, L7000.1800 #### [facility] [address] [place], [address] COMMENT Comment Normal . [facility] Comment on above: Order Comment: Speci men Comment: [id number] Specimen Comment: No. of containers..01 ThinPrep Vial Result Comment: This liquid based ThinPrep(R) pap test was screened with the use of an image guided system. Performed By: #### M 100.2200, L7400.0353, L7000.1800 #### [facility] [address] [place], [place], [address] DIAG Comment Normal . [facility] Comment on above: Order Comment: Speci men Comment: [id number] Specimen Comment: No. of containers..01 ThinPrep Vial Result Comment: NEGA TIVE FOR INTRAEPITHELIAL LESION OR MALIGNANCY. Performed By: #### M 100.2200, L7400.0353, L7000.1800 #### [facility] [address] [place], [place], [address] HPV RFLX Comment Normal . [facility] Comment on above: Order Comment: Speci men Comment: [id number] Specimen Comment: No. of containers..01 ThinPrep Vial Result Comment: The HPV DNA reflex criteria were not met with this specimen result therefore, no HPV testing was performed. Performed at: - [address] [id number] Colorer Machine: Mari Zimmerman MD, Phone: [phone] Performed By: #### M 100.2200, L7400.0353, L7000.1800 #### [facility] [address] [place], [place], [address] PAPSMR Comment Normal . [facility] Comment on above: Order Comment: Speci men Comment: [id number] Specimen Comment: No. of containers..01 ThinPrep Vial [...] By: #### M 100.2200, L7400.0353, L7000.1800 #### [facility] [address] [place], [place], [address] PERFORM Comment Normal . [facility] Comment on above: Order Comment: Speci men Comment: [id number] Specimen Comment: No. of containers..01 ThinPrep Vial Result Comment: Romain Conklin, Cyber Ops Planner (ASCP) Performed By: #### M 100.2200, L7400.0353, L7000.1800 #### [facility] [address] [place], [address] Chlamydia/GC KEVIN aptimaon CHLAMY,NUC ACID Negative Normal Negative [facility] Comment on above: Performed By: #### M 100.2200, L7400.0353, L7000.1800 #### [facility] [address] [place], [address] GC BY NUC ACID Negative Normal Negative [facility] Comment on above: Result Comment: Perf ormed at: =G - [facility] [address] [id number] Colorer Machine: Mari Zimmerman MD, Phone: [phone] Performed By: #### M 100.2200, L7400.0353, L7000.1800 #### [facility] [address] [place], [address] Urine Cultureon 08-26-2024 URC Culture exhibits no growth. Normal [facility] Comment on above: Performed By: #### M 100.2200, L7400.0353, L7000.1800 #### [facility] [address] [place], [address] Absolute lymphocyte countOrd ered By: Nicole Crews on 08-25-2024 Lymphocytes Auto (Unsp spec) [#/Vol] 2.51 10*3/uL 0.83-4.51 [facility] Absolute neutrophil countOrd ered By: Nicole Crews on 08-25-2024 Neutrophils (Bld) [#/Vol] 10.9 10*3/uL High 2.0-7.7 [facility] Automated lymphocyte count a s percentage of total leukocytesOrdered By: Nicole Crews on 08-25-2024 Lymphocytes/100 WBC Auto (Unsp spec) 17.5 % Low - [facility] Basophil percentageOrdered B y: Nicole Crews on 08-25-2024 Basophils/100 WBC (Bld) 0.2 % 0-1 [facility] CBC W/Diff, Automatedon 08-07 Absolute Lymph 2.51 X10 3/uL Normal 0.83-4.51 [facility] Comment on above: Performed By: #### M 100.2200, L7400.0353, L7000.1800 #### [facility] [address] [place], [address] Absolute Neut 10.9 X10 3/uL High 2.0-7.7 [facility] Comment on above: Performed By: #### M 100.2200, L7400.0353, L7000.1800 #### [facility] [address] [place], [address] Basophils/100 WBC (Bld) 0.2 % Normal 0-1 [facility] Comment on above: Performed By: #### M 100.2200, L7400.0353, L7000.1800 #### [facility] [address] [place], [address] Eosinophils/100 WBC (Bld) 0.8 % Normal 0-5 [facility] Comment on above: Performed By: #### M 100.2200, L7400.0353, L7000.1800 #### [facility] [address] [place], [address] Erythrocyte distribution width (RBC) [Ratio] 12.4 % Normal 11.6-14.6 [facility] Comment on above: Performed By: #### M 100.2200, L7400.0353, L7000.1800 #### [facility] [address] [place], [address] Hematocrit (Bld) [Volume fraction] 41.8 % Normal 37-47 [facility] Comment on above: Performed By: #### M 100.2200, L7400.0353, L7000.1800 #### [facility] [address] [place], [address] Hemoglobin (Bld) [Mass/Vol] 14.4 g/dL Normal 12.0-15.0 [facility] Comment on above: Performed By: #### M 100.2200, L7400.0353, L7000.1800 #### [facility] [address] [place], [address] IG% 0.600 Normal 0.0-0.9 [facility] Comment on above: Result Comment: IG% - Immature Granulocytes (promyelocytes, myelocytes and metamyelocytes) > 1% indicates that a LEFT SHIFT is Present. Performed By: #### M 100.2200, L7400.0353, L7000.1800 #### [facility] [address] [place], [address] Lymphocytes/100 WBC (Bld) 17.5 % Low 19-41 [facility] Comment on above: Performed By: #### M 100.2200, L7400.0353, L7000.1800 #### [facility] [address] [place], [address] MCH (RBC) [Entitic mass] 29.2 pg Normal 27.0-32.0 [facility] Comment on above: Performed By: #### M 100.2200, L7400.0353, L7000.1800 #### [facility] [address] [place], [address] MCHC (RBC) [Mass/Vol] 34.4 g/dL Normal 32-36 [facility] Comment on above: Performed By: #### M 100.2200, L7400.0353, L7000.1800 #### [facility] [address] [place], [address] MCV (RBC) [Entitic vol] 84.8 fL Normal 81-99 [facility] Comment on above: Performed By: #### M 100.2200, L7400.0353, L7000.1800 #### [facility] [address] [place], [address] Monocytes/100 WBC (Bld) 5.3 % Normal 0-10 [facility] Comment on above: Performed By: #### M 100.2200, L7400.0353, L7000.1800 #### [facility] [address] [place], [address] Neutrophils/100 WBC (Bld) 75.6 % High 47-70 [facility] Comment on above: Performed By: #### M 100.2200, L7400.0353, L7000.1800 #### [facility] [address] [place], [address] Nucleated RBC (Bld) [#/Vol] 0 10*3/uL Normal 0-5 [facility] Comment on above: Performed By: #### M 100.2200, L7400.0353, L7000.1800 #### [facility] [address] [place], [address] Platelet mean volume (Bld) [Entitic vol] 11.0 fL Normal 6.2-12.0 [facility] Comment on above: Performed By: #### M 100.2200, L7400.0353, L7000.1800 #### [facility] [address] [place], [address] Platelets (Bld) [#/Vol] 339 10*3/uL Normal 150-450 [facility] Comment on above: Performed By: #### M 100.2200, L7400.0353, L7000.1800 #### [facility] [address] [place], [address] RBC (Bld) [#/Vol] 4.93 10*6/uL Normal 4.2-5.4 [facility] Comment on above: Performed By: #### M 100.2200, L7400.0353, L7000.1800 #### [facility] [address] [place], [address] RDW SD 37.3 fl Normal 35.1-43.9 [facility] Comment on above: Performed By: #### M 100.2200, L7400.0353, L7000.1800 #### [facility] [address] [place], [address] WBC (Bld) [#/Vol] 14.4 10*3/uL High 4.4-11.0 [facility] Comment on above: Performed By: #### M 100.2200, L7400.0353, L7000.1800 #### [facility] [address] [place], [address] Cervical or vagninal specime n microscopic examination by cytology stain (reported asOrdered By: Nicole Crews on 08-25-2024 Cytology report Cyto stain Doc (Cvx/Vag) Comment . [facility] Comment on above: The Pap smear [...] rRNA KEVIN+probe Ql (Unsp spec) Negative Negative [facility] Eosinophil percentageOrdered By: Nicole Crews on 08-25-2024 Eosinophils/100 WBC (Bld) 0.8 % 0-5 [facility] Erythrocyte distribution wid th ratioOrdered By: Nicole Crews on 08-25-2024 Erythrocyte distribution width (RBC) [Ratio] 12.4 % 11.6-14.6 [facility] Erythrocyte distribution wid th standard deviationOrdered By: Nicole Crews on 08-25-2024 Erythrocyte distribution width (RBC) [Ratio] 37.3 fl 35.1-43.9 [facility] HIV - WCHon 08-25-2024 HIV Non-Reactive Normal Nonreactive [facility] Comment on above: Order Comment: Speci men Comment: [id number] Specimen Comment: No. of containers..01 ThinPrep Vial Performed By: #### M 100.2200, L7400.0353, L7000.1800 #### [facility] [address] [place], [place], [address] HIV 1 and HIV-2 antibody ass ay with HIV-1 p24 antigen detectionOrdered By: Nicole Crews on 08-25-2024 HIV 1+2 Ab+HIV1 p24 Ag IA Ql Non-Reactive Nonreactive [facility] Hematocrit Auto (Bld) [Volum e fraction]Ordered By: Nicole Crews on 08-25-2024 Hematocrit (Bld) [Volume fraction] 41.8 % 37-47 [facility] Hemoglobin measurementOrdere d By: Nicole Crews on 08-25-2024 Hemoglobin (Bld) [Mass/Vol] 14.4 g/dL 12.0-15.0 [facility] Hepatitis B Surface Antigeno n 08-25-2024 HEP B Surf Ag Non-Reactive Normal Nonreactive [facility] Comment on above: Order Comment: Speci men Comment: [id number] Specimen Comment: No. of containers..01 ThinPrep Vial Performed By: #### M 100.2200, L7400.0353, L7000.1800 #### [facility] [address] [place], [place], [address] Hepatitis C Antibodyon 08-25 Hepatitis C AB Non-Reactive Normal Nonreactive [facility] Comment on above: Order Comment: Speci men Comment: [id number] Specimen Comment: No. of containers..01 ThinPrep Vial Result Comment: Non Reactive: < 0.8 Equivocal: >/= 0.8 to < 1.0 Reactive: >/= 1.0 The CDC requires that a reactive/equivocal HCV antibody result be sent out for confirmation. HCV Quant by PCR testing. Performed By: #### M 100.2200, L7400.0353, L7000.1800 #### [facility] [address] [place], [place], [address] Immature granulocytes/100 WB C Auto (Bld)Ordered By: Nicole Crews on 08-25-2024 Immature granulocytes/100 WBC (Bld) 0.600 % 0.0-0.9 [facility] Comment on above: IG% - Immature Granu locytes (promyelocytes, myelocytes and metamyelocytes) > 1% indicates that a LEFT SHIFT is Present. L509.8000on 08-25-2024 Syphilis Abs Non-Reactive Normal [facility] Comment on above: Order Comment: Spec men Comment: [id number] Specimen Comment: No. of containers..01 ThinPrep Vial Performed By: #### M 100.2200, L7400.0353, L7000.1800 #### [facility] [address] [place], [place], [address] Laboratory - CytologyOrdered By: Nicole Crews on 08-25-2024 Traffic Control Signaler Cyto stain Nom (Cvx/Vag) [ID] Comment . [facility] Comment on above: Juan Nogueira otechnologist (ASCP) Laboratory - Miscellaneous t estsOrdered By: Nicole Crews on 08-25-2024 Service comment (Unsp spec) [Interp] . . [facility] MCV (mean corpuscular volume ) determinationOrdered By: Nicole Crews on 08-25-2024 MCV (RBC) [Entitic vol] 84.8 fL 81-99 [facility] Mean corpuscular hemoglobin (MCH) determinationOrdered By: Nicole Crews on 08-25-2024 MCH (RBC) [Entitic mass] 29.2 pg 27.0-32.0 [facility] Mean corpuscular hemoglobin concentration (MCHC) determinationOrdered By: Nicole Crews on 08-25-2024 MCHC (RBC) [Mass/Vol] 34.4 g/dL 32-36 [facility] Mean platelet volume determi nationOrdered By: Nicole Crews on 08-25-2024 Platelet mean volume (Bld) [Entitic vol] 11.0 fL 6.2-12.0 [facility] Monocyte percentageOrdered B y: Nicole Crews on 08-25-2024 Monocytes/100 WBC (Bld) 5.3 % 0-10 [facility] Neisseria gonorrhoeae nuclei c acid detection by amplified probe techniqueOrdered By: Nicole Crews on 08-25-2024 N. gonorrhoeae DNA KEVIN+probe Ql (Unsp spec) Negative Negative [facility] Comment on above: Performed at: =[address] [id number] Director: Mari Zimmerman MD, Phone: [phone] Neutrophil percentageOrdered By: Nicole Crews on 08-25-2024 Neutrophils/100 WBC (Bld) 75.6 % High 47-70 [facility] No Panel InformationOrdered By: Nicole Crews on 08-25-2024 Pap Smear Specimen Adequacy Comment . [facility] Comment on above: Satisfactory for angelita luation. Endocervical and/or squamous metaplasticcells (endocervical component) are present. Nucleated red blood cell per centageOrdered By: Nicole Crews on 08-25-2024 Nucleated RBC/100 WBC (Bld) [Ratio] 0 % 0-5 [facility] Pediatric Nephrologist Office Visit Reporton 02-19-2025 Pediatric Nephrologist Office Visit Report [facility] [address], [address] [place] [address] OFFICE VISIT Date of Service: 08/25/24 MR#: [id number] Acct: [id number] Name: GERTRUDE EMERY Rep #: [id number] : 1995 Provider: NATALYA Felix ams Age/Sex: 28/F [place] [facility] [place]: Signed Intake Vital [...] spouse 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al status: employed 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al exposures/hazards: No pets and animals: Yes pets and animals: dog(s) history of recent travel: Yes ( - September 2024) out of state: No out of country: Yes sexually active: Yes Smoking Status: Never smoker second hand exposure: No alcohol intake: never substance use type: other details: Palmetto gummies - Beginning of July diet: gluten free well-balanced diet: daily or most days caffeine: Yes eating out: 1-3 times/week during the past year weight has: remained stable what type of physical activity do you participate in: walking and weight training frequency: 3-4 times per week duration: 15-30 minutes/day lc/baptism: Zoroastrianism seatbelt use: always do you feel safe at home: Yes additional social history: : 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 Menstrual History Last Menstrual Period: 06/28/24 Reported LMP: definite Normal amount/duration: Yes Frequency [...] last mentru (more content not included)... Normal [facility] Platelet countOrdered By: Connor Crews on 08-25-2024 Platelets (Bld) [#/Vol] 339 10*3/uL 150-450 [facility] RBC Auto (Bld) [#/Vol]Ordere d By: Nicole Crews on 08-25-2024 RBC (Bld) [#/Vol] 4.93 10*6/uL 4.2-5.4 [facility] Rubella IgGon 08-25-2024 Rubella IgG Reactive Normal Nonreactive [facility] Comment on above: Order Comment: Reaso n for Exam: Result Comment: Anti body Results Interpretation of Immune Status Non Reactive Presumed Non-Immune Equivocal Equivocal Reactive Presumed Immune Performed By: #### M 100.2200, L7400.0353, L7000.1800 #### [facility] [address] [place], [place], [id number] Serum Treponema species anti body detectionOrdered By: Nicole Crews on 08-25-2024 Treponema sp Ab Ql (S) Non-Reactive [facility] Type AND Screenon 08-25-2024 ABO and Rh group Nom (Bld) Blood group A Rh(D) positive Normal [facility] Comment on above: Order Comment: Speci men Comment: [id number] Specimen Comment: No. of containers..01 ThinPrep Vial Performed By: #### M 100.2200, L7400.0353, L7000.1800 #### [facility] [address] [place], [place], [id number] Urine cultureOrdered By: Chin Crews on 08-25-2024 Bacteria identified Cx Nom (U) Culture exhibits no growth. [facility] White blood cell (WBC) count Ordered By: Nicole Crews on 08-25-2024 WBC (Bld) [#/Vol] 14.4 10*3/uL High 4.4-11.0 [facility] Urine Cultureon 08-12-2024 URC Below infection leve l. Mixed Gram Positive Organisms [place] Count <1000 MIXC Mixed contaminants. Submit a new specimen if indicated. Normal [facility] Comment on above: Performed By: #### M 100.2200 #### [facility] [address] [place], [place], [id number] Absolute lymphocyte countOrd ered By: Fatoumata Diaz on 08-11-2024 Lymphocytes Auto (Unsp spec) [#/Vol] 0.42 10*3/uL Low 0.83-4.51 [facility] Absolute neutrophil countOrd ered By: Fatoumata Diaz on 08-11-2024 Neutrophils (Bld) [#/Vol] 16.1 10*3/uL High 2.0-7.7 [facility] Albumin to globulin ratioOrd ered By: Fatoumata Diaz on 02-05-2025 Albumin/Globulin [Mass ratio] 1.0 {ratio} Normal 0.9-2.4 [facility] Comment on above: Performed By: #### M 100.2200, L7400.0353, L7000.1800 #### [facility] [address] [place], [address] Automated lymphocyte count a s percentage of total leukocytesOrdered By: Fatoumata Diaz on 08-11-2024 Lymphocytes/100 WBC Auto (Unsp spec) 2.4 % Low 19-41 [facility] Basophil percentageOrdered B y: Fatoumata Diaz on 08-11-2024 Basophils/100 WBC (Bld) 0.2 % 0-1 [facility] Bilirubin Test strip Ql (U)O rdered By: Fatoumata Diaz on 08-11-2024 Bilirubin Ql (U) Negative Negative [facility] Bilirubin, totalOrdered By: Fatoumata Diaz on 08-11-2024 Bilirubin [Mass/Vol] 0.80 mg/dL Normal 0.20-1.00 [facility] Comment on above: For patients on eltr ombopag therapy, use of Dimension [place] TBIL is not recommended. Result Comment: For patients on eltrombopag therapy, use of Dimension [place] TBIL is not recommended. Performed By: #### M 100.2200, L7400.0353, L7000.1800 #### [facility] [address] [place], [address] Blood urea nitrogen (BUN)/cr eatinine ratioOrdered By: Fatoumata Diaz on 08-11-2024 Urea nitrogen/Creatinine [Mass ratio] 16.2 mg/mg 10-20 [facility] CBC W/Diff, Automatedon Absolute Lymph 0.42 X10 3/uL Low 0.83-4.51 [facility] Comment on above: Performed By: #### M 100.2200, L7400.0353, L7000.1800 #### [facility] [address] [place], [address] Absolute Neut 16.1 X10 3/uL High 2.0-7.7 [facility] Comment on above: Performed By: #### M 100.2200, L7400.0353, L7000.1800 #### [facility] [address] [place], [address] Basophils/100 WBC (Bld) 0.2 % Normal 0-1 [facility] Comment on above: Performed By: #### M 100.2200, L7400.0353, L7000.1800 #### [facility] [address] [place], [address] Eosinophils/100 WBC (Bld) 0.2 % Normal 0-5 [facility] Comment on above: Performed By: #### M 100.2200, L7400.0353, L7000.1800 #### [facility] [address] [place], [address] Erythrocyte distribution width (RBC) [Ratio] 12.3 % Normal 11.6-14.6 [facility] Comment on above: Performed By: #### M 100.2200, L7400.0353, L7000.1800 #### [facility] [address] [place], [address] Hematocrit (Bld) [Volume fraction] 46.2 % Normal 37-47 [facility] Comment on above: Performed By: #### M 100.2200, L7400.0353, L7000.1800 #### [facility] [address] [place], [address] Hemoglobin (Bld) [Mass/Vol] 16.4 g/dL High 12.0-15.0 [facility] Comment on above: Performed By: #### M 100.2200, L7400.0353, L7000.1800 #### [facility] [address] [place], [address] IG% 0.300 Normal 0.0-0.9 [facility] Comment on above: Result Comment: IG% - Immature Granulocytes (promyelocytes, myelocytes and metamyelocytes) > 1% indicates that a LEFT SHIFT is Present. Performed By: #### M 100.2200, L7400.0353, L7000.1800 #### [facility] [address] [place], [address] Lymphocytes/100 WBC (Bld) 2.4 % Low 19-41 [facility] Comment on above: Performed By: #### M 100.2200, L7400.0353, L7000.1800 #### [facility] [address] [place], [address] MCH (RBC) [Entitic mass] 29.9 pg Normal 27.0-32.0 [facility] Comment on above: Performed By: #### M 100.2200, L7400.0353, L7000.1800 #### [facility] [address] [place], [address] MCHC (RBC) [Mass/Vol] 35.5 g/dL Normal 32-36 [facility] Comment on above: Performed By: #### M 100.2200, L7400.0353, L7000.1800 #### [facility] [address] [place], [address] MCV (RBC) [Entitic vol] 84.3 fL Normal 81-99 [facility] Comment on above: Performed By: #### M 100.2200, L7400.0353, L7000.1800 #### [facility] [address] [place], [address] Monocytes/100 WBC (Bld) 3.4 % Normal 0-10 [facility] Comment on above: Performed By: #### M 100.2200, L7400.0353, L7000.1800 #### [facility] [address] [place], [address] Neutrophils/100 WBC (Bld) 93.5 % High 47-70 [facility] Comment on above: Performed By: #### M 100.2200, L7400.0353, L7000.1800 #### [facility] [address] [place], [address] Nucleated RBC (Bld) [#/Vol] 0 10*3/uL Normal 0-5 [facility] Comment on above: Performed By: #### M 100.2200, L7400.0353, L7000.1800 #### [facility] [address] [place], [address] Platelet mean volume (Bld) [Entitic vol] 11.1 fL Normal 6.2-12.0 [facility] Comment on above: Performed By: #### M 100.2200, L7400.0353, L7000.1800 #### [facility] [address] [place], [address] Platelets (Bld) [#/Vol] 216 10*3/uL Normal 150-450 [facility] Comment on above: Performed By: #### M 100.2200, L7400.0353, L7000.1800 #### [facility] [address] [place], [address] RBC (Bld) [#/Vol] 5.48 10*6/uL High 4.2-5.4 [facility] Comment on above: Performed By: #### M 100.2200, L7400.0353, L7000.1800 #### [facility] [address] [place], [address] RDW SD 37.2 fl Normal 35.1-43.9 [facility] Comment on above: Performed By: #### M 100.2200, L7400.0353, L7000.1800 #### [facility] [address] [place], [address] WBC (Bld) [#/Vol] 17.2 10*3/uL High 4.4-11.0 [facility] Comment on above: Performed By: #### M 100.2200, L7400.0353, L7000.1800 #### [facility] [address] [place], [address] Carbon dioxide measurementOr dered By: Fatoumata Diaz on 08-11-2024 CO2 [Moles/Vol] 21.0 mmol/L Normal 21.0-32.0 [facility] Comment on above: Performed By: #### M 100.2200, L7400.0353, L7000.1800 #### [facility] [address] [place], [address] Chloride measurementOrdered By: Fatoumata Diaz on 08-11-2024 Chloride [Moles/Vol] 104 mmol/L Normal 98-107 [facility] Comment on above: Performed By: #### M 100.2200, L7400.0353, L7000.1800 #### [facility] [address] [place], [address] Comprehensive Metabolic Prof ilon 08-11-2024 ALK P 72 U/L Normal 45-117 [facility] Comment on above: Performed By: #### M 100.2200, L7400.0353, L7000.1800 #### [facility] [address] [place], [address] BUN/CRE 16.2 RATIO Normal 10-20 [facility] Comment on above: Performed By: #### M 100.2200, L7400.0353, L7000.1800 #### [facility] [address] [place], [address] CA,Total 9.0 mg/dL Normal 8.5-10.1 [facility] Comment on above: Performed By: #### M 100.2200, L7400.0353, L7000.1800 #### [facility] [address] [place], [address] ECRCL 111.05 ml/min Normal [facility] Comment on above: Performed By: #### M 100.2200, L7400.0353, L7000.1800 #### [facility] [address] [place], [address] EST GFR - AA 120 mL/min Normal >60 [facility] Comment on above: Result Comment: Afri can Macanese GFR Calc Performed By: #### M 100.2200, L7400.0353, L7000.1800 #### [facility] [address] [place], [address] GAP 9 Normal 5-15 [facility] Comment on above: Performed By: #### M 100.2200, L7400.0353, L7000.1800 #### [facility] [address] [place], [address] T PROT 7.7 g/dL Normal 6.4-8.2 [facility] Comment on above: Performed By: #### M 100.2200, L7400.0353, L7000.1800 #### [facility] [address] [place], [address] Comprehensive Metabolic Prof ilOrdered By: Fatoumata Diaz on 08-11-2024 AST [Catalytic activity/Vol] 12 U/L Low 15-37 [facility] Comment on above: Performed By: #### M 100.2200, L7400.0353, L7000.1800 #### [facility] [address] [place], [address] Emergency Department Summary on 08-11-2024 Emergency Department Summary [facility] Medical Records Department [address] [place] [address] Emergency Department Summary 08/11/24 MR#: [id number] Acct: [id number] Name: GERTRUDE EMERY Rep #: [id number] : 1995 28 From: Fatoumata Diaz DO [...] at home with no significant relief. PFSH PFSH Home Medications ???Medication ???Instructions ???Recorded ???Last Taken [...] as her (more content not included)... Normal [facility] Eosinophil percentageOrdered By: Fatoumata Diaz on 08-11-2024 Eosinophils/100 WBC (Bld) 0.2 % 0-5 [facility] Erythrocyte distribution wid th ratioOrdered By: Fatoumata Diaz on 08-11-2024 Erythrocyte distribution width (RBC) [Ratio] 12.3 % 11.6-14.6 [facility] Erythrocyte distribution wid th standard deviationOrdered By: Fatoumata Diaz on 08-11-2024 Erythrocyte distribution width (RBC) [Ratio] 37.2 fl 35.1-43.9 [facility] Gallbladderon 08-11-2024 Gallbladder [facility] Imaging Services [address] [place], [place] [id number] Gallbladder MR#: [id number] Acct: [id number] Name: GERTRUDE EMERY Rep #: [id number] : 1995 F 28 From: Rios parker MD PCP: Care Physician,No Primary Status: DEP ER Study: Gallbladder Date of Exam: 08/11/24 Exam# [id number] Ordering Dr: Fatoumata Diaz DO PROCEDURE: Right [...] ULTRASOUND. Right renal pelvic cyst. Reading Location: [place] [address] CC: Dr. Fatoumata Diaz DO; No Primary Care Physician Senior Marketing Engineer: Signed Normal [facility] Glomerular filtration rate ( GFR) estimationOrdered By: Fatoumata Diaz on 08-11-2024 GFR/1.73 sq M.predicted among non-blacks MDRD (S/P/Bld) [Vol rate/Area] 99 mL/min/{1.73_m2} Normal >60 [facility] Comment on above: Non- GFR Calc Result Comment: Non- GFR Calc Performed By: #### M 100.2200, L7400.0353, L7000.1800 #### [facility] [address] [place], [address] Glucose measurementOrdered B y: Fatoumata Diaz on 08-11-2024 Glucose [Mass/Vol] 133 mg/dL High 74-106 [facility] Comment on above: Fasting Glucose resu lt greater than or equal to 126 mg/dL suggests DIABETES MELLITUS per A.D.A. criteria. Result Comment: Fast ing Glucose result greater than or equal to 126 mg/dL suggests DIABETES MELLITUS per A.D.A. criteria. Performed By: #### M 100.2200, L7400.0353, L7000.1800 #### [facility] [address] [place], [address] Hematocrit Auto (Bld) [Volum e fraction]Ordered By: Fatoumata Diaz on 08-11-2024 Hematocrit (Bld) [Volume fraction] 46.2 % 37-47 [facility] Hemoglobin measurementOrdere d By: Fatoumata Diaz on 08-11-2024 Hemoglobin (Bld) [Mass/Vol] 16.4 g/dL High 12.0-15.0 [facility] Immature granulocytes/100 WB C Auto (Bld)Ordered By: Fatoumata Diaz on 08-11-2024 Immature granulocytes/100 WBC (Bld) 0.300 % 0.0-0.9 [facility] Comment on above: IG% - Immature Granu locytes (promyelocytes, myelocytes and metamyelocytes) > 1% indicates that a LEFT SHIFT is Present. Influenza virus A and B and SARS-CoV-2 (COVID-19) and Respiratory syncytial virus RNAOrdered By: Fatoumata Diaz on 08-11-2024 SARS-CoV-2 (COVID-19) RNA KEVIN+probe Ql (Unsp spec) [facility] Ketones Test strip Ql (U)Ord ered By: Fatoumata Diaz on 08-11-2024 Ketones Ql (U) 150 mg/dl Abnormal Negative [facility] Comment on above: CRITICAL VALUE *HCRI TICAL VALUE CALLED TO SHEILA THOMPSON (ER)08/11/24 1133 Eddy Deleon.RESULTS READ BACK BY SAME. Lipase measurementOrdered By : Fatoumata Diaz on 08-11-2024 Lipase [Catalytic activity/Vol] 31 U/L Normal 13-75 [facility] Comment on above: Please note:LIPASE r evised reference range effective 22. New Lipase methodology. Expected to produce lower values than the previous assay method. NEW Reference Range: 13 - 75 U/L Result Comment: Yonatan delgado note: LIPASE revised reference range effective 22. New Lipase methodology. Expected to produce lower values than the previous assay method. NEW Reference Range: 13 - 75 U/L Performed By: #### M 100.2200, L7400.0353, L7000.1800 #### [facility] [address] [place], [address] M100.678on 08-11-2024 M100.678 Pending SARS-CoV-2 (COVID 19) Negative INFLUENZA A Negative INFLUENZA B Negative RSV PCR Negative Normal [facility] Comment on above: Performed By: #### M 100.2200, L7400.0353, L7000.1800 #### [facility] [address] [place], [address] MCV (mean corpuscular volume ) determinationOrdered By: Fatoumata Diaz on 08-11-2024 MCV (RBC) [Entitic vol] 84.3 fL 81-99 [facility] Mean corpuscular hemoglobin (MCH) determinationOrdered By: Fatoumata Diaz on 08-11-2024 MCH (RBC) [Entitic mass] 29.9 pg 27.0-32.0 [facility] Mean corpuscular hemoglobin concentration (MCHC) determinationOrdered By: Fatoumata Diaz on 08-11-2024 MCHC (RBC) [Mass/Vol] 35.5 g/dL 32-36 [facility] Mean platelet volume determi nationOrdered By: Fatoumata Diaz on 08-11-2024 Platelet mean volume (Bld) [Entitic vol] 11.1 fL 6.2-12.0 [facility] Microscopic analysis of urin e for red blood cells (RBC)Ordered By: Fatoumata Diaz on 08-11-2024 Microscopic analysis of urine for red blood cells (RBC) 0-5 SEEN /hpf 0-5 [facility] Monocyte percentageOrdered B y: Fatoumata Diaz on 08-11-2024 Monocytes/100 WBC (Bld) 3.4 % 0-10 [facility] Mucus LM Ql (Urine sed)Order ed By: Fatoumata Diaz on 08-11-2024 Mucus Ql (Urine sed) 0 SEEN /hpf [facility] Neutrophil percentageOrdered By: Fatoumata Diaz on 08-11-2024 Neutrophils/100 WBC (Bld) 93.5 % High 47-70 [facility] Nitrite Test strip Ql (U)Ord ered By: Fatoumata Diaz on 08-11-2024 Nitrite Ql (U) Negative Negative [facility] Nucleated red blood cell per centageOrdered By: Fatoumata Diaz on 08-11-2024 Nucleated RBC/100 WBC (Bld) [Ratio] 0 % 0-5 [facility] Platelet countOrdered By: Kolby Diaz on 08-11-2024 Platelets (Bld) [#/Vol] 216 10*3/uL 150-450 [facility] Potassium measurementOrdered By: Fatoumata Diaz on 08-11-2024 Potassium [Moles/Vol] 3.9 mmol/L Normal 3.5-5.1 [facility] Comment on above: Performed By: #### M 100.9700, L7400.0353, L7000.1800 #### [facility] [address] [place], [address] Protein Test strip Ql (U)Ord ered By: Fatoumata Diaz on 08-11-2024 Protein Ql (U) 30 mg/dl High Negative [facility] RBC Auto (Bld) [#/Vol]Ordere d By: Fatoumata Diaz on 08-11-2024 RBC (Bld) [#/Vol] 5.48 10*6/uL High 4.2-5.4 [facility] Serum anion gap measurementO rdered By: Fatoumata Diaz on 08-11-2024 Anion gap [Moles/Vol] 9 mmol/L 5-15 [facility] Serum globulin measurementOr dered By: Fatoumata Diaz on 08-11-2024 Globulin (S) [Mass/Vol] 3.9 g/dL Normal 2.2-4.2 [facility] Comment on above: Performed By: #### M 100.2200, L7400.0353, L7000.1800 #### [facility] [address] [place], [address] Serum human chorionic gonado tropin detection for pregnancyOrdered By: Fatoumata Diaz on 08-11-2024 HCG ( test) Ql [address] mIU/mL High <4 [facility] Comment on above: hCG levels with Gest ational AgeGestational Age hCG mIU/mL (IU/L)0.2 - 1 week 5 - 501-2 weeks 50 - 5002-3 weeks 100 - 64986-7 weeks 500 - 874765-6 weeks 1000 - 715749-7 weeks 19061 - 100,0006-8 weeks 99302 - 200,0002-3 months [address] - 100,000 Serum or plasma alanine lynn otransferase (ALT) measurementOrdered By: Fatoumata Diaz on 08-11-2024 ALT [Catalytic activity/Vol] 29 U/L Normal 13-56 [facility] Comment on above: Performed By: #### M 100.2200, L7400.0353, L7000.1800 #### [facility] [address] [place], [place], [address] Serum or plasma albumin clive urement (mass/volume)Ordered By: Fatoumata Diaz on 08-11-2024 Albumin [Mass/Vol] 3.8 g/dL Normal 3.2-5.0 [facility] Comment on above: Performed By: #### M 100.2200, L7400.0353, L7000.1800 #### [facility] [address] [place], [place], [address] Serum or plasma alkaline yenni sphatase measurementOrdered By: Fatoumata Diaz on 08-11-2024 ALP [Catalytic activity/Vol] 72 U/L 45-117 [facility] Serum or plasma calcium clive urement (mass/volume)Ordered By: Fatoumata Diaz on 08-11-2024 Calcium [Mass/Vol] 9.0 mg/dL 8.5-10.1 [facility] Serum or plasma creatinine m easurement (mass/volume)Ordered By: Fatoumata Diaz on 08-11-2024 Creatinine [Mass/Vol] 0.74 mg/dL Normal 0.55-1.02 [facility] Comment on above: The validity of the calculated GFR & GFRAA in patients over 70 years has not been determined. Clinical correlation is essential. Result Comment: The validity of the calculated GFR GFRAA in patients over 70 years has not been determined. Clinical correlation is essential. Performed By: #### M 100.2200, L7400.0353, L7000.1800 #### [facility] [address] [place], [place], [id number] ([address] Serum or plasma urea nitroge n measurement (mass/volume)Ordered By: Fatoumata Diaz on 08-11-2024 Urea nitrogen [Mass/Vol] 12 mg/dL Normal 7-18 [facility] Comment on above: Performed By: #### M 100.2200, L7400.0353, L7000.1800 #### [facility] [address] [place], [address] Sodium levelOrdered By: Soniya Diaz on 08-11-2024 Sodium [Moles/Vol] 134 mmol/L Low 136-145 [facility] Comment on above: Performed By: #### M 100.2200, L7400.0353, L7000.1800 #### [facility] [address] [place], [address] Squamous epithelial cells de tection in urine sediment by light microscopyOrdered By: Fatoumata Diaz on 08-11-2024 Epithelial cells.squamous LM Ql (Urine sed) 0-5 SEEN /hpf 5-10 [facility] Total proteinOrdered By: Alexandrea Diaz on 08-11-2024 Protein [Mass/Vol] 7.7 g/dL 6.4-8.2 [facility] Urinalysis, Completeon 08-11 RBC 0-5 SEEN Normal 0-5 [facility] Comment on above: Order Comment: Speci men Comment: [id number] Specimen Comment: No. of containers..01 ThinPrep Vial Performed By: #### M 100.2200, L7400.0353, L7000.1800 #### [facility] [address] [place], [address] WBC 0-5 SEEN Normal 0-5 [facility] Comment on above: Order Comment: Speci men Comment: [id number] Specimen Comment: No. of containers..01 ThinPrep Vial Performed By: #### M 100.2200, L7400.0353, L7000.1800 #### [facility] [address] [place], [address] BACTERIA 1+ /hpf Normal None Seen [facility] Comment on above: Order Comment: Speci men Comment: [id number] Specimen Comment: No. of containers..01 ThinPrep Vial Performed By: #### M 100.2200, L7400.0353, L7000.1800 #### [facility] [address] [place], [address] EPI,SQUAMOUS 0-5 SEEN Normal 5-10 [facility] Comment on above: Order Comment: Speci men Comment: [id number] Specimen Comment: No. of containers..01 ThinPrep Vial Performed By: #### M 100.2200, L7400.0353, L7000.1800 #### [facility] [address] [place], [address] Mucus Ql (Urine sed) 0 SEEN Normal [facility] Comment on above: Order Comment: Speci men Comment: [id number] Specimen Comment: No. of containers..01 ThinPrep Vial Performed By: #### M 100.2200, L7400.0353, L7000.1800 #### [facility] [address] [place], [address] Urine clarityOrdered By: Alexandrea Diaz on 08-11-2024 Clarity (U) Sl. Cloudy Clear [facility] Urine color determinationOrd ered By: Fatoumata Diaz on 08-11-2024 Color (U) Yellow Yellow [facility] Urine glucose detectionOrder ed By: Fatoumata Diaz on 08-11-2024 Glucose Ql (U) Normal mg/dl Normal [facility] Urine leukocyte esterase det ection by dipstickOrdered By: Fatoumata Diaz on 08-11-2024 Leukocyte esterase Test strip Ql (U) 25 /ul High Negative [facility] Urine pHOrdered By: Fatoumata mathews on 08-11-2024 pH (U) 6.5 [pH] 5.0 - 8.0 [facility] Urine sediment bacteria coun t by microscopy (number/high power field)Ordered By: Fatoumata Diaz on 08-11-2024 Bacteria LM.HPF (Urine sed) [#/Area] 1 /[HPF] None Seen [facility] Urine specific gravity measu rementOrdered By: Fatoumata Diaz on 08-11-2024 Specific gravity (U) [Rel density] 1.015 1.002-1.030 [facility] Urine urobilinogen measureme ntOrdered By: Fatoumata Diaz on 08-11-2024 Urobilinogen Ql (U) Normal mg/dl Normal [facility] White blood cell (WBC) count Ordered By: Fatoumata Diaz on 02-05-2025 WBC (Bld) [#/Vol] 17.2 10*3/uL High 4.4-11.0 [facility] White blood cell countOrdere d By: Fatoumata Danech[place] on 08-11-2024 White blood cell count 0-5 SEEN /hpf 0-5 [facility] hCG Titer Quant., Serumon HCG QUANT. 16032 mIU/mL High 1-3 [facility] Comment on above: Result Comment: hCG levels with Gestational Age Gestational Age hCG mIU/mL (IU/L) 0.2 - 1 week 5 - 50 1-2 weeks 50 - 500 2-3 weeks 100 - 5000 3-4 weeks 500 - 79380 4-5 weeks 1000 - 07387 5-6 weeks 34749 - 100,000 6-8 weeks 43486 - 200,000 2-3 months 33201 - 100,000 Performed By: #### M 100.2200, L7400.0353, L7000.1800 #### [facility] [address] [place], [place], [id number] Absolute lymphocyte countOrd ered By: Cee Purcell on 08-10-2024 Lymphocytes Auto (Unsp spec) [#/Vol] 1.89 10*3/uL 0.83-4.51 [facility] Absolute neutrophil countOrd ered By: Cee Purcell on 08-10-2024 Neutrophils (Bld) [#/Vol] 10.2 10*3/uL High 2.0-7.7 [facility] Automated lymphocyte count a s percentage of total leukocytesOrdered By: Cee Purcell on 08-10-2024 Lymphocytes/100 WBC Auto (Unsp spec) 14.6 % Low 19-41 [facility] [id number] 08-10-2024 ABO and Rh group Nom (Bld) Blood group A Rh(D) positive Normal [facility] Comment on above: Performed By: #### M 100.2200, L7400.0353, L7000.1800 #### [facility] [address] [place], [place], [id number] Basophil percentageOrdered B y: Cee Purcell on 08-10-2024 Basophils/100 WBC (Bld) 0.4 % 0-1 [facility] Bilirubin Test strip Ql (U)O rdered By: Cee Purcell on 08-10-2024 Bilirubin Ql (U) Negative Negative [facility] CBC W/Diff, Automatedon Absolute Lymph 1.89 X10 3/uL Normal 0.83-4.51 [facility] Comment on above: Performed By: #### M 100.2200, L7400.0353, L7000.1800 #### [facility] [address] [place], [address] Absolute Neut 10.2 X10 3/uL High 2.0-7.7 [facility] Comment on above: Performed By: #### M 100.2200, L7400.0353, L7000.1800 #### [facility] [address] [place], [address] Basophils/100 WBC (Bld) 0.4 % Normal 0-1 [facility] Comment on above: Performed By: #### M 100.2200, L7400.0353, L7000.1800 #### [facility] [address] [place], [address] Eosinophils/100 WBC (Bld) 0.7 % Normal 0-5 [facility] Comment on above: Performed By: #### M 100.2200, L7400.0353, L7000.1800 #### [facility] [address] [place], [address] Erythrocyte distribution width (RBC) [Ratio] 12.3 % Normal 11.6-14.6 [facility] Comment on above: Performed By: #### M 100.2200, L7400.0353, L7000.1800 #### [facility] [address] [place], [address] Hematocrit (Bld) [Volume fraction] 43.3 % Normal 37-47 [facility] Comment on above: Performed By: #### M 100.2200, L7400.0353, L7000.1800 #### [facility] [address] [place], [address] Hemoglobin (Bld) [Mass/Vol] 15.5 g/dL High 12.0-15.0 [facility] Comment on above: Performed By: #### M 100.2200, L7400.0353, L7000.1800 #### [facility] [address] [place], [address] IG% 0.300 Normal 0.0-0.9 [facility] Comment on above: Result Comment: IG% - Immature Granulocytes (promyelocytes, myelocytes and metamyelocytes) > 1% indicates that a LEFT SHIFT is Present. Performed By: #### M 100.2200, L7400.0353, L7000.1800 #### [facility] [address] [place], [address] Lymphocytes/100 WBC (Bld) 14.6 % Low 19-41 [facility] Comment on above: Performed By: #### M 100.2200, L7400.0353, L7000.1800 #### [facility] [address] [place], [address] MCH (RBC) [Entitic mass] 30.2 pg Normal 27.0-32.0 [facility] Comment on above: Performed By: #### M 100.2200, L7400.0353, L7000.1800 #### [facility] [address] [place], [address] MCHC (RBC) [Mass/Vol] 35.8 g/dL Normal 32-36 [facility] Comment on above: Performed By: #### M 100.2200, L7400.0353, L7000.1800 #### [facility] [address] [place], [address] MCV (RBC) [Entitic vol] 84.2 fL Normal 81-99 [facility] Comment on above: Performed By: #### M 100.2200, L7400.0353, L7000.1800 #### [facility] [address] [place], [address] Monocytes/100 WBC (Bld) 5.1 % Normal 0-10 [facility] Comment on above: Performed By: #### M 100.2200, L7400.0353, L7000.1800 #### [facility] [address] [place], [address] Neutrophils/100 WBC (Bld) 78.9 % High 47-70 [facility] Comment on above: Performed By: #### M 100.2200, L7400.0353, L7000.1800 #### [facility] [address] [place], [address] Nucleated RBC (Bld) [#/Vol] 0 10*3/uL Normal 0-5 [facility] Comment on above: Performed By: #### M 100.2200, L7400.0353, L7000.1800 #### [facility] [address] [place], [address] Platelet mean volume (Bld) [Entitic vol] 11.3 fL Normal 6.2-12.0 [facility] Comment on above: Performed By: #### M 100.2200, L7400.0353, L7000.1800 #### [facility] [address] [place], [address] Platelets (Bld) [#/Vol] 208 10*3/uL Normal 150-450 [facility] Comment on above: Performed By: #### M 100.2200, L7400.0353, L7000.1800 #### [facility] [address] [place], [address] RBC (Bld) [#/Vol] 5.14 10*6/uL Normal 4.2-5.4 [facility] Comment on above: Performed By: #### M 100.2200, L7400.0353, L7000.1800 #### [facility] [address] [place], [address] RDW SD 37.6 fl Normal 35.1-43.9 [facility] Comment on above: Performed By: #### M 100.2200, L7400.0353, L7000.1800 #### [facility] [address] [place], [address] WBC (Bld) [#/Vol] 12.9 10*3/uL High 4.4-11.0 [facility] Comment on above: Performed By: #### M 100.2200, L7400.0353, L7000.1800 #### [facility] [address] [place], [address] Emergency Department Summary on 08-10-2024 Emergency Department Summary [facility] Medical Records Department [address] [place] [address] Emergency Department Summary 08/10/24 MR#: [id number] Acct: [id number] Name: GERTRUDE EMERY Rep #: [id number] : 1995 28 From: Cee Purcell DO [...] at this time. Will discuss case with DIRECTOR DIGITAL on-call for Dr. Quezada (more content not included)... Normal [facility] Eosinophil percentageOrdered By: Cee Purcell on 08-10-2024 Eosinophils/100 WBC (Bld) 0.7 % 0-5 [facility] Erythrocyte distribution wid th ratioOrdered By: [facility] Pur[facility] on 08-10-2024 Erythrocyte distribution width (RBC) [Ratio] 12.3 % 11.6-14.6 [facility] Erythrocyte distribution wid th standard deviationOrdered By: Cee Purcell on 08-10-2024 Erythrocyte distribution width (RBC) [Ratio] 37.6 fl 35.1-43.9 [facility] Hematocrit Auto (Bld) [Volum e fraction]Ordered By: [facility] Pur[facility] on 08-10-2024 Hematocrit (Bld) [Volume fraction] 43.3 % 37-47 [facility] Hemoglobin measurementOrdere d By: Cee Purcell on 08-10-2024 Hemoglobin (Bld) [Mass/Vol] 15.5 g/dL High 12.0-15.0 [facility] Immature granulocytes/100 WB C Auto (Bld)Ordered By: Cee Purcell on 08-10-2024 Immature granulocytes/100 WBC (Bld) 0.300 % 0.0-0.9 [facility] Comment on above: IG% - Immature Granu locytes (promyelocytes, myelocytes and metamyelocytes) > 1% indicates that a LEFT SHIFT is Present. Ketones Test strip Ql (U)Ord ered By: Cee Purcell on 08-10-2024 Ketones Ql (U) 50 mg/dl High Negative [facility] MCV (mean corpuscular volume ) determinationOrdered By: Cee Purcell on 08-10-2024 MCV (RBC) [Entitic vol] 84.2 fL 81-99 [facility] Mean corpuscular hemoglobin (MCH) determinationOrdered By: Cee Purcell on 08-10-2024 MCH (RBC) [Entitic mass] 30.2 pg 27.0-32.0 [facility] Mean corpuscular hemoglobin concentration (MCHC) determinationOrdered By: Cee Purcell on 08-10-2024 MCHC (RBC) [Mass/Vol] 35.8 g/dL 32-36 [facility] Mean platelet volume determi nationOrdered By: Cee Purcell on 08-10-2024 Platelet mean volume (Bld) [Entitic vol] 11.3 fL 6.2-12.0 [facility] Microscopic analysis of urin e for red blood cells (RBC)Ordered By: Cee Purcell on 08-10-2024 Microscopic analysis of urine for red blood cells (RBC) 0-5 SEEN /hpf 0-5 [facility] Monocyte percentageOrdered B y: Cee Purcell on 08-10-2024 Monocytes/100 WBC (Bld) 5.1 % 0-10 [facility] Mucus LM Ql (Urine sed)Order ed By: Cee Purcell on 08-10-2024 Mucus Ql (Urine sed) 0 SEEN /hpf [facility] Neutrophil percentageOrdered By: Cee Purcell on 08-10-2024 Neutrophils/100 WBC (Bld) 78.9 % High 47-70 [facility] Nitrite Test strip Ql (U)Ord ered By: Cee Purcell on 02-04-2025 Nitrite Ql (U) Negative Negative [facility] Nucleated red blood cell per centageOrdered By: Cee Purcell on 08-10-2024 Nucleated RBC/100 WBC (Bld) [Ratio] 0 % 0-5 [facility] Platelet countOrdered By: Joanne Purcell on 08-10-2024 Platelets (Bld) [#/Vol] 208 10*3/uL 150-450 [facility] Protein Test strip Ql (U)Ord ered By: Cee Purcell on 08-10-2024 Protein Ql (U) 15 mg/dl High Negative [facility] RBC Auto (Bld) [#/Vol]Ordere d By: Cee Purcell on 08-10-2024 RBC (Bld) [#/Vol] 5.14 10*6/uL 4.2-5.4 [facility] Serum human chorionic gonado tropin detection for pregnancyOrdered By: Cee Purcell on 08-10-2024 HCG ( test[place]l [address] mIU/mL High <4 [facility] Comment on above: hCG levels with Gest ational AgeGestational Age hCG mIU/mL (IU/L)0.2 - 1 week 5 - 501-2 weeks 50 - 5002-3 weeks 100 - 88734-3 weeks 500 - 872305-4 weeks 1000 - 341136-2 weeks 36156 - 100,0006-8 weeks 25457 - 200,0002-3 months 59204 - 100,000 Squamous epithelial cells de tection in urine sediment by light microscopyOrdered By: Cee Purcell on 08-10-2024 Epithelial cells.squamous LM Ql (Urine sed) 5-10 SEEN /hpf 5-10 [facility] Transvaginal w/Preg USon Transvaginal w/Preg US [facility] Imaging Services [address] [place] [address] Transvaginal w/Preg US MR#: [id number] Acct: [id number] Name: GERTRUDE EMERY Rep #: [id number] : 1995 F 28 From: Rios parker MD PCP: Care Physician,No Primary Status: [facility] ER Study: Transvaginal w/Preg US Date of Exam: 08/10/24 Exam# [id number] Ordering Dr: Cee Purcell DO PROCEDURE: TRANSVAGINAL W/PREG US REASON FOR EXAM: Bleeding during . COMPARISON: None. FINDINGS: Comments: Transvaginal imaging was performed Number of Gestational Sacs: 1 Gestational Sac Shape: Normal it measures 2.2 cm. 7 weeks and 1 day. Number of Fetuses: 1 Heart Rate: 123 (average) Survey of Visible Anatomic Structures: Grossly unremarkable for gestational age. [place]-rump measurement is 4 mm corresponding to 6 [...] IMPRESSION: UNREMARKABLE FIRST TRIMESTER ULTRASOUND. Reading Location: [place] [address] CC: Dr. Cee Purcell DO; No Primary Care Physician Senior Marketing Engineer: Signed Normal [facility] Urinalysis, Completeon 08-10 BACTERIA 2+ /hpf Normal None Seen [facility] Comment on above: Order Comment: CLEAN CATCH Performed By: #### M 100.2200 #### [facility] [address] [place], [place], [id number] EPI,RENAL 0-5 SEEN Normal 0-5 [facility] Comment on above: Order Comment: CLEAN CATCH Performed By: #### M 100.2200 #### [facility] [address] [place], [place], [id number] EPI,SQUAMOUS 5-10 SEEN Normal 5-10 [facility] Comment on above: Order Comment: CLEAN CATCH Performed By: #### M 100.2200 #### [facility] [address] [place], [address] RBC 0-5 SEEN Normal 0-5 [facility] Comment on above: Order Comment: CLEAN CATCH Performed By: #### M 100.2200 #### [facility] [address] [place], [address] WBC 5-10 SEEN Normal 0-5 [facility] Comment on above: Order Comment: CLEAN CATCH Performed By: #### M 100.2200 #### [facility] [address] [place], [address] Mucus Ql (Urine sed) 0 SEEN Normal [facility] Comment on above: Order Comment: CLEAN CATCH Performed By: #### M 100.2200 #### [facility] [address] [place], [address] Urine clarityOrdered By: Soco Purcell on 08-10-2024 Clarity (U) Clear Clear [facility] Urine color determinationOrd ered By: Cee Purcell on 08-10-2024 Color (U) Yellow Yellow [facility] Urine cultureOrdered By: Soco Purcell on 08-10-2024 Bacteria identified Cx Nom (U) Positive Abnormal [facility] Urine glucose detectionOrder ed By: Cee Purcell on 08-10-2024 Glucose Ql (U) Normal mg/dl Normal [facility] Urine leukocyte esterase det ection by dipstickOrdered By: Cee Purcell on 08-10-2024 Leukocyte esterase Test strip Ql (U) 100 /ul High Negative [facility] Urine pHOrdered By: Cee Pearce gur on 08-10-2024 pH (U) 6.5 [pH] 5.0 - 8.0 [facility] Urine sediment bacteria coun t by microscopy (number/high power field)Ordered By: Cee Purcell on 08-10-2024 Bacteria LM.HPF (Urine sed) [#/Area] 2 /[HPF] None Seen [facility] Urine sediment renal epithel ial cell count by microscopy (number/high power field)Ordered By: Cee Purcell on 08-10-2024 Epithelial cells.renal LM.HPF (Urine sed) [#/Area] 0 /[HPF] 0-5 [facility] Urine specific gravity measu rementOrdered By: [facility] Purcell on 08-10-2024 Specific gravity (U) [Rel density] 1.010 1.002-1.030 [facility] Urine urobilinogen measureme ntOrdered By: Cee Purcell on 08-10-2024 Urobilinogen Ql (U) Normal mg/dl Normal [facility] White blood cell (WBC) count Ordered By: [facility] Purcell on 08-10-2024 WBC (Bld) [#/Vol] 12.9 10*3/uL High 4.4-11.0 [facility] White blood cell countOrdere d By: Cee Purcell on 08-10-2024 White blood cell count 5-10 SEEN /hpf 0-5 [facility] hCG Titer Quant., Serumon HCG QUANT. 56489 mIU/mL High 1-3 [facility] Comment on above: Result Comment: hCG levels with Gestational Age Gestational Age hCG mIU/mL (IU/L) 0.2 - 1 week 5 - 50 1-2 weeks 50 - 500 2-3 weeks 100 - 5000 3-4 weeks 500 - 72927 4-5 weeks 1000 - 57528 5-6 weeks 39744 - 100,000 6-8 weeks 27871 - 200,000 2-3 months 74737 - 100,000 Performed By: #### M 100.2200, L7400.0353, L7000.1800 #### [facility] [address] [place], [place], [address] POCT SARS-COV-2/FLU/RSV PCR SYMPTOMATIC manually resultedon 05-26-2024 FLUAV RNA KEVIN+probe Ql (Resp) Not detected Not Detected [facility] Work Phone: FLUBV RNA KEVIN+probe Ql (Resp) Not detected Not Detected [facility] Work Phone: Interpretation and review of laboratory results Abnormal [facility] Work Phone: RSV RNA KEVIN+probe Ql (Resp) Not detected Not Detected [facility] Work Phone: SARS-CoV-2 (COVID-19) RNA KEVIN+probe Ql (Resp) Detected Abnormal Not Detected [facility] Work Phone: [facility] Work Phone: Basophil percentageOrdered B y: Dr. Angulo on 12-17-2022 WBC (Bld) [#/Vol] 14.1 10*3/uL 4.4-11.0 [facility] Blood erythrocytes count (nu mber/volume)Ordered By: Dr. Angulo on 12-17-2022 RBC (Bld) [#/Vol] 5.23 10*6/uL 4.2-5.4 [facility] Blood hemoglobin measurement (mass/volume)Ordered By: Dr. Angulo on 12-17-2022 Hemoglobin (Bld) [Mass/Vol] 15.5 g/dL 12.0-15.0 [facility] Blood platelet mean volumeOr dered By: Dr. Angulo on 12-17-2022 Platelet mean volume (Bld) [Entitic vol] 11.0 fL 6.2-12.0 [facility] Determination of erythrocyte mean corpuscular volume (MCV)Ordered By: Dr. Angulo on 12-17-2022 MCV (RBC) [Entitic vol] 88.0 fL 81-99 [facility] Hematocrit Auto (Bld) [Volum e fraction]Ordered By: Dr. Angulo on 12-17-2022 Hematocrit (Bld) [Volume fraction] 46.0 % 37-47 [facility] Laboratory - Chemistry and C hemistry - challengeOrdered By: Dr. Angulo on 12-17-2022 T4 [Mass/Vol] 7.9 ug/dL 4.8-13.9 [facility] Laboratory - Hematology and Cell countsOrdered By: Dr. Angulo on 12-17-2022 Erythrocyte distribution width (RBC) [Entitic vol] 41.7 fL 35.1-43.9 [facility] Erythrocyte distribution width (RBC) [Ratio] 13.0 % 11.6-14.6 [facility] MCH (RBC) [Entitic mass] 29.6 pg 27.0-32.0 [facility] MCHC Auto (RBC) [Mass/Vol]Or dered By: Dr. Angulo on 12-17-2022 MCHC (RBC) [Mass/Vol] 33.7 g/dL 32-36 [facility] No Panel InformationOrdered By: Dr. Angulo on 12-17-2022 Endomysial IgA Antibody Positive Negative [facility] Thyroid Stimulating Hormone (TSH) 0.65 uIU/mL 0.358-3.74 [facility] Platelets bldOrdered By: Dr. Angulo on 12-17-2022 Platelets (Bld) [#/Vol] 280 10*3/uL 150-450 [facility] Serum IgA measurement (units /volume)Ordered By: Dr. Angulo on 12-17-2022 IgA Qn (S) 88 mg/dL 87-352 [facility] Comment on above: Performed at: [address] Director: Lico Lennon PhD, Phone: [phone] Serum or plasma C reactive p rotein measurement (mass/volume)Ordered By: Dr. Angulo on 12-17-2022 CRP [Mass/Vol] mg/L 0.0-3.0 [facility] Comment on above: C-Reactive Protein ( CRP) provides useful information for thediagnosis, therapy and monitoring of inflammatory processesand associated diseases. For the evaluation of Relative Riskfor Cardiovascular Disease, a High Sensitivity CRP (HSCRP)should be ordered. Serum tissue transglutaminas e IgA antibody assay (units/volume)Ordered By: Dr. Angulo on 12-17-2022 tTG IgA Qn (S) 9 U/mL 0-3 [facility] Comment on above: Negative 0 - 3 Weak Positive 4 - 10 Positive >10 Tissue Transglutaminase (tTG) has been identified as the endomysial antigen. Studies have demonstr- ated that endomysial IgA antibodies have over 99% specificity for gluten sensitive enteropathy. [facility] Screeningon 2021 [facility] 20/20 [facility] Work Phone: Office Visit (Family Medicin e)on 02-12-2022 Follow-up visit Diagnoses/Problems Encounter for preventive [...] History History of Appendectomy laparoscopic History of Rand tooth extraction Family History Family history of [...] No Reported Medications Vitals Vital Signs Recorded: 12Feb2022 03:55PM Heart Rate72 Hqhivydn068 Tvryezbfm06 Height5 ft 7.5 in Mzqxux176 lb 15.73 oz BMI Xlmwpakuhw73.62 kg/m2 BSA Calculated1.88 Tobacco Useb) No PHQ-2 [...] contact, judgment, insight, voice Results/Data [facility] [id number] 03:57PMOsmel Jin NameResultFlagReference Right Eye Jefuahwoggl37/20 Left Eye Pyanezgtxnd69/20 'Scores and Scales' Signatures Electronically signed by : Osmel Jin PA-C; Feb 12 2022 4:07PM EST (Author) Normal Guide Tobacco Screening.on 022 Adult depression screening assessment No [facility] Work Phone: Fall risk assessment a) No falls within the last year [facility] Work Phone: Tobacco use status [facility] b) No [facility] Work Phone: COVID-19, MOLECULARon 2019 INTERNAL CONTROL (ABBOT ID) Pass Normal [facility] SARS-COV-2 (ALBERT ID) Detected Abnormal Not Detected [facility] COVID-19, Molecularon 2019 Internal Control Pass [facility] Interpretation and review of laboratory results Abnormal [facility] SARS-CoV-2 Detected Abnormal Not Detected [facility] Vital Signs Date Time Vital Sign Value Performing Clinician Facility 03-18-2025 15:18-0400 Body height 170.18 cm No Primary Care Physician [facility] 03-18-2025 15:18-0400 Body mass index (BMI) [Ratio] 29.5 kg/m2 No Primary Care Physician [facility] 03-18-2025 15:18-0400 Body weight 85.53 kg No Primary Care Physician [facility] 03-18-2025 15:18-0400 Diastolic blood pressure 77 mm[Hg] No Primary Care Physician [facility] 03-18-2025 15:18-0400 Systolic blood pressure 130 mm[Hg] No Primary Care Physician [facility] 03-09-2025 16:09-0400 Body height 170.18 cm No Primary Care Physician [facility] 03-09-2025 16:07-0400 Body mass index (BMI) [Ratio] 29 kg/m2 No Primary Care Physician [facility] 03-09-2025 16:07-0400 Body weight 84.05 kg No Primary Care Physician [facility] 03-09-2025 16:07-0400 Diastolic blood pressure 75 mm[Hg] No Primary Care Physician [facility] 03-09-2025 16:07-0400 Systolic blood pressure 121 mm[Hg] No Primary Care Physician [facility] 02-24-2025 15:57-0400 Body height 170.18 cm No Primary Care Physician [facility] 02-24-2025 15:57-0400 Body mass index (BMI) [Ratio] 29.1 kg/m2 No Primary Care Physician [facility] 02-24-2025 15:57-0400 Body weight 84.36 kg No Primary Care Physician [facility] 02-24-2025 15:57-0400 Diastolic blood pressure 84 mm[Hg] No Primary Care Physician [facility] 02-24-2025 15:57-0400 Systolic blood pressure 119 mm[Hg] No Primary Care Physician [facility] 02-20-2025 11:51-0400 Heart rate 73 /min No Primary Care Physician [facility] 02-20-2025 11:51-0400 SaO2% (BldA) [Mass fraction] 96 % No Primary Care Physician [facility] 02-20-2025 11:47-0400 Body temperature 98.4 [degF] No Primary Care Physician [facility] 02-20-2025 11:47-0400 Respiratory rate 16 /min No Primary Care Physician [facility] 02-20-2025 11:19-0400 Body height 170.18 cm No Primary Care Physician [facility] 02-20-2025 11:19-0400 Body mass index (BMI) [Ratio] 27.8 kg/m2 No Primary Care Physician [facility] 02-20-2025 11:19-0400 Body weight 80.7 kg No Primary Care Physician [facility] 02-20-2025 10:54-0400 Diastolic blood pressure 75 mm[Hg] No Primary Care Physician [facility] 02-20-2025 10:54-0400 Systolic blood pressure 120 mm[Hg] No Primary Care Physician [facility] 02-11-2025 10:01-0400 Body height 170.18 cm No Primary Care Physician [facility] 02-11-2025 10:01-0400 Body mass index (BMI) [Ratio] 28 kg/m2 No Primary Care Physician [facility] 02-11-2025 10:01-0400 Body weight 81.24 kg No Primary Care Physician [facility] 02-11-2025 10:01-0400 Diastolic blood pressure 82 mm[Hg] No Primary Care Physician [facility] 02-11-2025 10:01-0400 Systolic blood pressure 137 mm[Hg] No Primary Care Physician [facility] 01-28-2025 11:28-0400 Body height 170.18 cm No Primary Care Physician [facility] 01-28-2025 11:24-0400 Body mass index (BMI) [Ratio] 27.7 kg/m2 No Primary Care Physician [facility] 01-28-2025 11:24-0400 Body weight 80.34 kg No Primary Care Physician [facility] 01-28-2025 11:24-0400 Diastolic blood pressure 82 mm[Hg] No Primary Care Physician [facility] 01-28-2025 11:24-0400 Systolic blood pressure 121 mm[Hg] No Primary Care Physician [facility] 01-10-2025 15:23-0400 Body height 170.18 cm No Primary Care Physician [facility] 01-10-2025 15:23-0400 Body mass index (BMI) [Ratio] 27.7 kg/m2 No Primary Care Physician [facility] 01-10-2025 15:23-0400 Body weight 80.28 kg No Primary Care Physician [facility] 01-10-2025 15:23-0400 Diastolic blood pressure 76 mm[Hg] No Primary Care Physician [facility] 01-10-2025 15:23-0400 Systolic blood pressure 123 mm[Hg] No Primary Care Physician [facility] 12-14-2024 15:32-0400 Body height 170.18 cm No Primary Care Physician [facility] 12-14-2024 15:32-0400 Body mass index (BMI) [Ratio] 27.2 kg/m2 No Primary Care Physician [facility] 12-14-2024 15:32-0400 Body weight 78.98 kg No Primary Care Physician [facility] 12-14-2024 15:32-0400 Diastolic blood pressure 73 mm[Hg] No Primary Care Physician [facility] 12-14-2024 15:32-0400 Systolic blood pressure 119 mm[Hg] No Primary Care Physician [facility] 11-18-2024 08:30-0400 Body height 170.[address] Cee Purclel DO Work Phone: 4(405)108-230050 [place] [address] 11-18-2024 08:30-0400 Body mass index (BMI) [Ratio] 26.4 kg/m2 Dr. Cee Purcell DO Work Phone: 4(365)692-231750 [place] [address] 11-18-2024 08:30-0400 Body weight 76.[address] Cee Purcell DO Work Phone: 2(208)403-454150 [place] [address] 11-18-2024 08:30-0400 Diastolic blood pressure 84 mm[Hg] Dr. Cee Purcell DO Work Phone: 4(133)419-981950 [place] [address] 11-18-2024 08:30-0400 Systolic blood pressure 128 mm[Hg] Dr. Cee Purcell DO Work Phone: [facility] 10-22-2024 10:19-0400 Body mass index (BMI) [Ratio] 25 kg/m2 Dr. Cee Purcell DO Work Phone: [facility] 10-22-2024 10:19-0400 Body weight 72.[address] Cee Purcell DO Work Phone: 0(228)511-050550 [place] [address] 10-22-2024 10:19-0400 Diastolic blood pressure 78 mm[Hg] Dr. Cee Purcell DO Work Phone: 3(643)184-671950 [place] [address] 10-22-2024 10:19-0400 Heart rate 105 /min Dr. Cee Purcell DO Work Phone: 5(786)040-941850 [place] [address] 10-22-2024 10:19-0400 Systolic blood pressure 118 mm[Hg] Dr. Cee Purcell DO Work Phone: 7(026)369-789250 [place] [address] 09-22-2024 15:06-0400 Body mass index (BMI) [Ratio] 25.2 kg/m2 Dr. Cee Purcell DO Work Phone: 1(079)230-249150 [place] [address] 09-22-2024 15:06-0400 Body weight 73.[address] Cee Purcell DO Work Phone: 1(566)697-206853 [place] [address] 09-22-2024 15:06-0400 Diastolic blood pressure 80 mm[Hg] Dr. Cee Purcell DO Work Phone: 9(000)889-299350 [place] [address] 09-22-2024 15:06-0400 Systolic blood pressure 122 mm[Hg] Dr. Cee Purcell DO Work Phone: 8(632)157-352650 [place] [address] 08-25-2024 15:45-0500 Body mass index (BMI) [Ratio] 25.4 kg/m2 Dr. Cee Purcell DO Work Phone: 3(739)619-659250 [place] [address] 08-25-2024 15:45-0500 Body weight 73.[address] Cee Purcell DO Work Phone: 5(786)114-962050 [place] [address] 08-25-2024 15:45-0500 Diastolic blood pressure 80 mm[Hg] Dr. Cee Purcell DO Work Phone: 3(912)357-299750 [place] [address] 08-25-2024 15:45-0500 Systolic blood pressure 119 mm[Hg] Dr. Cee Purcell DO Work Phone: 8(462)447-878753 [place] [address] 08-11-2024 14:47-0500 Diastolic blood pressure 63 mm[Hg] Dr. Cee Purcell DO Work Phone: 4(405)623-793950 [place] [address] 08-11-2024 14:47-0500 Heart rate 93 /min Dr. Cee Purcell DO Work Phone: [facility] 08-11-2024 14:47-0500 Respiratory rate 18 /min Dr. Cee Purcell DO Work Phone: [facility] 08-11-2024 14:47-0500 SaO2% (BldA) [Mass fraction] 98 % Dr. Cee Purcell DO Work Phone: 1(478)458-040950 [place] [address] 08-11-2024 14:47-0500 Systolic blood pressure 101 mm[Hg] Dr. Cee Purcell DO Work Phone: 8(933)572-866550 [place] [address] 08-11-2024 09:14-0500 Body mass index (BMI) [Ratio] 25.1 kg/m2 Dr. Cee Purcell DO Work Phone: 1(798)171-044750 [place] [address] 08-11-2024 09:14-0500 Body temperature 98.9 [degF] Dr. Cee Purcell DO Work Phone: 7(578)161-064850 [place] [address] 08-11-2024 09:14-0500 Body weight 72.[address] Cee Purcell DO Work Phone: 6(385)488-788450 [place] [address] 08-10-2024 12:24-0500 Body temperature 97.9 [degF] Dr. Cee Purcell DO Work Phone: 5(774)822-213350 [place] [address] 08-10-2024 12:24-0500 Diastolic blood pressure 68 mm[Hg] Dr. Cee Purcell DO Work Phone: 2(259)513-936150 [place] [address] 08-10-2024 12:24-0500 Heart rate 71 /min Dr. Cee Purcell DO Work Phone: [facility] 08-10-2024 12:24-0500 Respiratory rate 14 /min Dr. Cee Purcell DO Work Phone: [facility] 08-10-2024 12:24-0500 SaO2% (BldA) [Mass fraction] 100 % Dr. Cee Purcell DO Work Phone: [facility] 08-10-2024 12:24-0500 Systolic blood pressure 130 mm[Hg] Dr. Cee Purcell DO Work Phone: [facility] 08-10-2024 08:21-0500 Body mass index (BMI) [Ratio] 25 kg/m2 Dr. Cee Purcell DO Work Phone: [facility] 08-10-2024 08:21-0500 Body weight 72.[address] Cee Purcell DO Work Phone: [facility] 05-26-2024 10:53-0500 Body height 170.2 cm Alfred Anderson DEPUTY ASSESSOR-AUTOMOBILE RENTAL REPRESENTATIVE Work Phone: [facility] 05-26-2024 10:53-0500 Body mass index (BMI) [Ratio] 25.84 kg/m2 Alfred Anderson DEPUTY ASSESSOR-AUTOMOBILE RENTAL REPRESENTATIVE Work Phone: [facility] 05-26-2024 10:53-0500 Body temperature 98.01 [degF] Alfred Anderson DEPUTY ASSESSOR-AUTOMOBILE RENTAL REPRESENTATIVE Work Phone: [facility] 05-26-2024 10:53-0500 Body weight 74.84 kg Alfred Anderson DEPUTY ASSESSOR-AUTOMOBILE RENTAL REPRESENTATIVE Work Phone: [facility] 05-26-2024 10:53-0500 Diastolic blood pressure 89 mm[Hg] Alfred Anderson DEPUTY ASSESSOR-AUTOMOBILE RENTAL REPRESENTATIVE Work Phone: [facility] 05-26-2024 10:53-0500 Heart rate 63 /min Alfred Anderson DEPUTY ASSESSOR-AUTOMOBILE RENTAL REPRESENTATIVE Work Phone: [facility] 05-26-2024 10:53-0500 Respiratory rate 20 /min Alfred Anderson DEPUTY ASSESSOR-AUTOMOBILE RENTAL REPRESENTATIVE Work Phone: [facility] 05-26-2024 10:53-0500 SaO2% (BldA) [Mass fraction] 97 % Alfred Anderson DEPUTY ASSESSOR-AUTOMOBILE RENTAL REPRESENTATIVE Work Phone: [facility] 05-26-2024 10:53-0500 Systolic blood pressure 128 mm[Hg] Alfred Anderson DEPUTY ASSESSOR-AUTOMOBILE RENTAL REPRESENTATIVE Work Phone: [facility] 02-12-2022 15:55-0400 Body height 171.45 cm Osmel Stentz Work Phone: [facility] Work Phone: 02-12-2022 15:55-0400 Body mass index (BMI) [Ratio] 25.62 kg/m2 Osmel Stentz Work Phone: -[facility] Work Phone: 02-12-2022 15:55-0400 Body surface area Derived from formula 1.88 m2 Osmel Stentz Work Phone: [facility] Work Phone: 02-12-2022 15:55-0400 Body weight 75.29 kg Osmel Stentz Work Phone: [facility] Work Phone: 02-12-2022 15:55-0400 Diastolic blood pressure 70 mm[Hg] Osmel Stentz Work Phone: [facility] Work Phone: 02-12-2022 15:55-0400 Heart rate 72 /min Osmel Stentz Work Phone: [facility] Work Phone: 02-12-2022 15:55-0400 Systolic blood pressure 116 mm[Hg] Osmel Stentz Work Phone: [facility] Work Phone: 05-21-2020 19:20-0500 Body Temperature 97.39 [degF] Elaine Dexter [facility] 05-21-2020 19:20-0500 Body weight 77.56 kg Elaine Dexter [facility] 05-21-2020 19:20-0500 BP Diastolic 78 mm[Hg] Elaine Dexter [facility] 05-21-2020 19:20-0500 BP Systolic 128 mm[Hg] Elaine Dexter [facility] 05-21-2020 19:20-0500 Pulse (Heart Rate) 70 /min Elaine Dexter [facility] 05-21-2020 19:20-0500 Pulse Oximetry 97 % Elaine Dexter [facility] 05-21-2020 19:20-0500 Respiratory Rate 16 /min Elaine Dexter [facility] Encounters Encounter Date Encounter Type Care Provider Facility Start: 03-30-2025 ambulatory No Primary Car e Physician Facility:[facility] Start: 03-25-2025 End: 03-25-2025 ambulatory No Primary Care Physician Facility:[facility] Start: 03-18-2025 End: 03-18-[address] Angella Villarreal MD -[facility] Work Phone: Start: 03-18-2025 End: 03-18-2025 ambulatory No Primary Care Physician [facility] Start: 03-09-2025 End: 03-09-[address] Kerry Sosa DO -[facility] Work Phone: Start: 03-09-2025 End: 03-09-2025 ambulatory No Primary Care Physician [facility] Start: 03-09-2025 End: 03-09-2025 ambulatory No Primary Care Physician Facility:[facility] Start: 02-24-2025 End: 02-24-[address] Angella Villarreal MD -[facility] Work Phone: Start: 02-24-2025 End: 02-24-2025 ambulatory No Primary Care Physician [facility] Start: 02-24-2025 ambulatory No Primary Car e Physician Facility:[facility] Start: 02-24-2025 Non-patient / Non-visit Dr. Timothy Villarreal MD -[facility] Start: 02-20-2025 End: 02-20-2025 ambulatory No Primary Care Physician -[facility] Start: 02-20-2025 End: 02-20-[address] Angella Villarreal MD -[facility] Work Phone: Start: 02-11-2025 End: 02-11-2025 Patient encounter procedure Nicole Crews [facility] Work Phone: Start: 02-11-2025 End: 02-11-2025 ambulatory No Primary Care Physician -[facility] Start: 02-08-2025 ambulatory Kerry Sosa Fa cility:[facility] Start: 01-28-2025 End: 01-28-2025 Patient encounter procedure Nicole Crews [facility] -[facility] Work Phone: Start: 01-28-2025 End: 01-28-2025 ambulatory No Primary Care Physician -[facility] Start: 01-10-2025 End: 01-10-2025 Patient encounter procedure Carie ARGUETA -[facility] Work Phone: Start: 01-10-2025 End: 01-10-2025 ambulatory No Primary Care Physician [facility] Start: 01-10-2025 End: 01-10-2025 ambulatory Angella Villarreal Facility:[facility] Start: 12-14-2024 End: 12-14-2024 Patient encounter procedure Nicole Crews [facility] -[facility] Work Phone: Start: 12-14-2024 End: 12-14-2024 ambulatory No Primary Care Physician [facility] Work Phone: Start: 11-18-2024 End: 11-18-2024 Patient encounter procedure Nicole Crews [facility] -[facility] Work Phone: Start: 11-18-2024 End: 11-18-[address] Cee Purcell DO Work Phone: [facility] Work Phone: Start: 11-11-2024 End: 11-11-2024 ambulatory MD NO PRIMARY CARE [facility] Start: 10-22-2024 End: 10-22-2024 Patient encounter procedure Nicole BLACK -[facility] Work Phone: Start: 10-22-2024 End: 10-22-2024 Patient encounter procedure Nicole Crews CNM -[facility] Work Phone: Start: 10-22-2024 End: 10-22-2024 ambulatory No Primary Care Physician Facility:[facility] Start: 10-22-2024 End: 10-22-2024 ambulatory No Primary Care Physician Facility:[facility] Start: 09-22-2024 End: 09-22-[address] Angella Villarreal MD -[facility] Work Phone: Start: 09-22-2024 End: 09-22-2024 ambulatory No Primary Care Physician Facility:[facility] Start: 08-25-2024 End: 08-25-2024 Patient encounter procedure Nicole Crews CNM -[facility] Work Phone: Start: 08-25-2024 End: 08-25-2024 ambulatory No Primary Care Physician Facility:[facility] Start: 08-24-2024 Non-patient / Non-visit Tracy carpenter RN -[facility] Work Phone: Start: 08-24-2024 End: 08-25-2024 ambulatory No Primary Care Physician Facility:[facility] Start: 08-20-2024 Non-patient / Non-visit Tracy carpenter RN -[facility] Work Phone: Start: 08-20-2024 ambulatory No Primary Car e Physician Facility:[facility] Start: 08-11-2024 End: 08-11-2024 Emergency department patient visit Dr. Fatoumata Diaz DO -Emergency Department Work Phone: Start: 08-10-2024 End: 08-10-2024 Emergency department patient visit Dr. Cee Purcell DO -Emergency Department Work Phone: Start: 05-26-2024 End: 05-26-2024 Patient encounter procedure Alfred Anderson DEPUTY ASSESSOR-AUTOMOBILE RENTAL REPRESENTATIVE Work Phone: [facility] Comment on above: COVID (Primary Dx); Acute bronchitis, unspecified organism Start: 05-26-2024 End: 05-26-2024 ambulatory [facility] Start: 08-20-2023 End: 08-20-2023 ambulatory OSMEL JIN [facility] Start: 12-17-2022 End: 12-17-2022 ambulatory [facility] Work Phone: Start: 12-17-2022 End: 12-17-2022 Patient encounter procedure [facility] Start: 02-12-2022 Periodic preventive med est patient 18-39 yrs Osmel Griffin Work Phone: -[facility] Work Phone: Start: 05-21-2020 End: 05-21-2020 Patient encounter procedure PHYSICIAN NO [facility] Start: 05-21-2020 End: 05-21-2020 Office outpatient new 20 minutes Elaine Dexter Work Phone: [facility] Comment on above: Suspected Covid-19 V irus Infection (Primary Dx) Start: 07-23-2018 End: 07-24-2018 Patient encounter procedure Fernandez Daysi Facility:[facility] Procedures Date Procedure Procedure Detail Performing Clinician Start: 03-09-2025 Beta-hemolytic Streptococcus culture No Primary Care Physician Start: 02-20-2025 Urine culture No Primar y Care Physician Start: 02-20-2025 Urnls dip stick/tabl et reagent auto microscopy No Primary Care Physician Start: 01-10-2025 Serologic test for syphilis No [...] guided system. The HPV DNA reflex c sagar were not met with this specimenresult therefore, no HPV testing was performed.Performed at: [address] [id number] Director: Mari Zimmerman MD, Phone: [phone] Start: 08-25-2024 Hepatitis B surface antigen measurement [...] POCT SARS-COV-2/FLU/ RSV PCR SYMPTOMATIC Alfred Anderson DEPUTY ASSESSOR-AUTOMOBILE RENTAL REPRESENTATIVE Work Phone: Start: 05-21-2020 COVID-19, MOLECULAR Elaine Anita Dexter Work Phone: Extraction of wisdom tooth Osmel Jin Work Phone: History of appendectomy History of appendectomy Dr. Cee Purcell DO Work Phone: Laparoscopic appendectomy Keiko Jin Work Phone: Plan of Treatment Date Care Activity Detail Author Start: 2046 Zoster Vaccines (1 of 2) Zoste r Vaccines (1 of 2) [facility] Start: 02-20-2025 Bacteria identified in Urine by Culture Urine Culture [facility] Start: 02-20-2025 End: 02-20-2025 [facility] Start: 02-20-2025 Nonstress test [facility] Start: 02-20-2025 Obstetric monitoring [facility] Start: 02-20-2025 Vital signs measurements [facility] Start: 02-20-2025 Patient discharge [facility] Start: 01-10-2025 CBC W Auto Different ial panel - Blood [facility] Start: 01-10-2025 Measurement of gluco se 2 hours after glucose challenge for glucose tolerance test [facility] Start: 01-10-2025 Serologic test for syphilis [facility] Start: 01-10-2025 [facility] Start: 08-11-2024 End: 08-11-2024 [facility] Start: 08-10-2024 [facility] Start: 03-07-2024 COVID-19 Vaccine ( season) COVID-19 Vaccine ( season) [facility] Start: 03-07-2024 Influenza vaccination Influenza Vacc ine (#1) [facility] Start: 05-22-2020 Influenza vaccinatio n given Sequential Influenza Vaccine (#1) [facility] Comment on above: Postponed from 03/07 (Patient Ill Today) Start: 03-07-2020 DTaP/Tdap/Td Vaccine s (7 - Td or Tdap) DTaP/Tdap/Td Vaccines (7 - Td or Tdap) [facility] Start: 2017 Screening for malign ant neoplasm of cervix [facility] Start: 2014 Hepatitis C antibody , confirmatory test Hepatitis C Screening [facility] Start: 2014 Hepatitis C screening Hepatitis C Sc [facility] Start: 11-25-2011 HIV screening HIV Screening [facility] Start: 2009 Varicella vaccination Varicell a Vaccines (1 of 2 - 13+ 2-dose series) [facility] Start: 11-25-2007 Vaccination for leora n papillomavirus HPV Vaccines (1 - 2-dose series) [facility] Start: 11-25-1999 History and physical examination, annual for health maintenance Wellness Visit [facility] Start: 1996 HIV screening HIV Screening [facility] Start: 1996 Lipid panel Lipid Panel [facility] Start: 1996 Screening for Chlamy eden trachomatis Chlamydia Screening [facility] Start: 1996 Screening for malign ant neoplasm of cervix Pap Smear [facility] Start: 1996 Tetanus vaccination Tetanus: Every 1 0yrs [facility] Start: 1996 Yearly Adult Physical Yearly Adult P [facility] CBC W Auto Different ial panel - Blood [facility] Covid-19/Influenza O rder Algorithm Covid-19/Influenza Order Algorithm Microbiology Routine Suspected Covid-19 Virus Infection Ordered: 05/21/2020 [facility] Comment on above: Ordered: 05/21/2020 Erythrocyte mean corpuscular volume determination [facility] Hematocrit [Volume Fraction] of Blood [facility] Hemoglobin [Mass/vol ume] in Blood [facility] Leukocytes [#/volume ] in Blood [facility] Mean corpuscular hemoglobin concentration determination [facility] Mean corpuscular hemoglobin determination [facility] Measurement of gluco se 2 hours after glucose challenge for glucose tolerance test [facility] Neutrophil count [facility] Neutrophil percent differential count [facility] Patient Education [facility] Work Phone: Patient referral [facility] Work Phone: Platelets [#/volume] in Blood [facility] Red blood cell count [facility] Red cell distributio n width determination [facility] Serologic test for syphilis [facility] Streptococcus agalac tiae [Presence] in Unspecified specimen by Organism specific culture [facility] Urine culture [facility] Immunizations Immunization Date Immunization Notes Care Provider Sylvia gagnon 01-10-2025 tetanus toxoid, redu félix diphtheria toxoid, and acellular pertussis vaccine, adsorbed No Primary Care Physician [facility] 09-01-2020 Pfizer-BioNTech COVI D-19 Vacc 30 MCG/0.3ML Intramuscular Suspension Osmel Stentz Work Phone: [facility] Work Phone: Comment on above: Series: 08-12-2020 Pfizer-BioNTech COVI D-19 Vacc 30 MCG/0.3ML Intramuscular Suspension Osmel Stentz Work Phone: [facility] Work Phone: Comment on above: Series: 03-07-2010 meningococcal polysaccharide (groups A, C, Y and W-135) diphtheria toxoid conjugate vaccine (MCV4P) Osmel Stentz Work Phone: [facility] Work Phone: 03-07-2010 tetanus toxoid, redu félix diphtheria toxoid, and acellular pertussis vaccine, adsorbed Osmel Stentz Work Phone: [facility] Work Phone: 09-28-2001 diphtheria, tetanus toxoids and acellular pertussis vaccine, unspecified formulation Osmel Stentz Work Phone: [facility] Work Phone: 09-28-2001 measles, mumps and rubella virus vaccine Osmel Stentz Work Phone: [facility] Work Phone: 09-28-2001 trivalent poliovirus vaccine, live, oral Osmel Stentz Work Phone: [facility] Work Phone: 11-29-1997 diphtheria, tetanus toxoids and acellular pertussis vaccine, unspecified formulation Osmel Stentz Work Phone: [facility] Work Phone: 11-29-1997 haemophilus influenz ae type b vaccine, conjugate unspecified formulation Osmel Stentz Work Phone: [facility] Work Phone: 11-29-1997 measles, mumps and rubella virus vaccine Osmel Stentz Work Phone: [facility] Work Phone: 05-31-1997 diphtheria, tetanus toxoids and acellular pertussis vaccine, unspecified formulation Osmel Stentz Work Phone: [facility] Work Phone: 05-31-1997 haemophilus influenz ae type b vaccine, conjugate unspecified formulation Osmel Stentz Work Phone: [facility] Work Phone: 05-31-1997 hepatitis B vaccine, pediatric or pediatric/adolescent dosage Osmel Stentz Work Phone: [facility] Work Phone: 05-31-1997 trivalent poliovirus vaccine, live, oral Osmel Stentz Work Phone: [facility] Work Phone: 04-07-1997 diphtheria, tetanus toxoids and acellular pertussis vaccine, unspecified formulation Osmel Stentz Work Phone: [facility] Work Phone: 04-07-1997 haemophilus influenz ae type b vaccine, conjugate unspecified formulation Osmel Stentz Work Phone: [facility] Work Phone: 04-07-1997 trivalent poliovirus vaccine, live, oral Osmel Stentz Work Phone: [facility] Work Phone: 02-24-1997 haemophilus influenz ae type b vaccine, conjugate unspecified formulation Osmel Stentz Work Phone: [facility] Work Phone: 02-24-1997 hepatitis B vaccine, pediatric or pediatric/adolescent dosage Osmel Stentz Work Phone: [facility] Work Phone: 01-25-1997 diphtheria, tetanus toxoids and acellular pertussis vaccine, unspecified formulation Osmel Stentz Work Phone: [facility] Work Phone: 01-25-1997 poliovirus vaccine, inactivated Osmel Stentz Work Phone: [facility] Work Phone: 1996 hepatitis B vaccine, pediatric or pediatric/adolescent dosage Osmel Stentz Work Phone: [facility] Work Phone: Payers Date Payer Category Payer Private Health Insurance [id number] 2024 Self-pay [id number] 2022 Managed Care (Private) [facility] [id number] 2020 Unknown [id number] 2020 Unknown MMO MED [employer] S UPERMED PPO [id number] 2020-Present [id number] 2018 Private Health Insurance 1996 Unknown [id number]. 717 1996 Unknown [id number]. 903 1996 Unknown [id number] [id number]. 1243 1996 Unknown [id number] [id number]. 1243 1996 Unknown [id number] [id number]. 479 Unknown [facility]ICAL [facility] Private Health Insurance [id number] Unknown [id number]. 462 Unknown [id number] [id number]. 462 Unknown [id number] 2.840.1.598954.3.579.2. 462 Unknown [id number] 2.840.1.390482.3.579.2. 462 Unknown [id number] [id number]. 462 Unknown [id number] 2.16840.1.907685.3.579.2. 462 Unknown [id number] 2.840.1.727684.3.579.2. 462 Unknown [id number] 2.16840.1.292157.3.579.2. 462 Unknown [id number] 2.16840.1.087672.3.579.2. 462 Unknown [id number] 2.16840.1.481332.3.579.2. 462 Unknown [id number] 2.16840.1.342277.3.579.2. 462 Unknown [id number] 2.16840.1.847978.3.579.2. 462 Unknown [id number] 2.16.840.1.416211.3.579.2. 462 Unknown [id number] 2.16.840.1.711441.3.579.2. 462 Unknown [id number] 2.16.840.1.307211.3.579.2. 462 Unknown [id number] 2.16.840.1.061081.3.579.2. 462 Unknown [id number] 2.16.840.1.736699.3.579.2. 462 Unknown [id number] 2.16.840.1.441173.3.579.2. 462 Unknown [id number] 2.16.840.1.032578.3.579.2. 462 Unknown [id number] 2.16.840.1.172745.3.579.2. 462 Unknown [id number] 2.16.840.1.866467.3.579.2. 462 Unknown [id number] 2.16.840.1.825792.3.579.2. 462 Unknown [id number] 2.16.840.1.295511.3.579.2. 462 Unknown [id number] 2.16.840.1.783889.3.579.2. 462 Unknown [id number] 2.16.840.1.445471.3.579.2. 462 Unknown [id number] 2.16.840.1.940520.3.579.2. 462 Social History Date Type Detail Facility Start: 05-21-2020 End: 08-20-2024 Tobacco smoking status OHIS Never smoker [facility] Start: 05-21-2020 Tobacco use and exposure Never used [facility] Start: 1995 Sex Assigned At Not on file [facility] Exposure to SARS-CoV-2 (event) Yes [facility] Never a smoker Never a smoker [facility] Work Phone: Start: 1995 Sex Assigned At Female [facility] Start: 08-20-2023 Tobacco smoking status NHIS Tobacco smoking consumption unknown [facility] Work Phone: Gender identity Not on file [facility] Start: 05-16-2024 End: 05-26-2024 Exposure to SARS-CoV-2 (event) Not sure [facility] Clinical Notes 05-26-2024 to 03-18-2025 Note Date & Type Note Facility 03-18-2025 Progress note [facility] 03-18-2025 Progress note Note Date/Time March 18, 2025 3:28pm [facility] [address], [address] [place] [address] OFFICE VISIT Date of Service: 03/18/25 MR#: [id number] Acct: [id number] Name: GERTRUDE EMERY Rep #: [id number] : 1995 Provider: Dr. Fredi Villarreal MD Age/Sex: 29/F [place] [facility] [place]: Signed Intake Vital Signs 02/11/25 10:01 03/09/25 16:09 03/18/25 15:18 Height 5 ft 7 in 5 ft 7 in 5 ft 7 in Weight: 188 lb 9 oz BMI 29.5 BP 130/77 H Intake Visit Reasons: 37wk ob *move 04/01 appt [employer] Required: No Is patient in pain?: No Feel stressed/tense/nervous/anxious/difficulty sleeping: not at all Allergies gluten Adverse Reaction (Intermediate, Verified 03/18/25 15:17) Other Medications ?Medication ?Instructions ?Recorded ?Confirmed ?Type docosahexaenoic acid 200 mg 1 mg PO DAILY 08/20/2406/30 History capsule ( DHA) ondansetron 4 mg disintegrating 4 mg PO Q8H PRN PRN Na usea #30 tabs 08/25/24 03/18/25 Rx tablet Last Menstrual Period: 06/28/24 Zika: Zika virus screening: Negative : No PFSH PFSH Surgical History History of appendectomy Family History Aunt Thyroid disorder Grandmother Thyroid disorder Grandfather Kidney disease on dialysis Social History adopted: No household members: spouse 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al status: employed 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al exposures/hazards: No pets and animals: Yes pets and animals: dog(s) history of recent travel: Yes ( - September 2024) out of state: No out of country: Yes sexually active: Yes Smoking Status: Never smoker second hand exposure: No alcohol intake: never substance use type: other details: Palmetto gummies - Beginning of July diet: gluten free well-balanced diet: daily or most days caffeine: Yes eating out: 1-3 times/week during the past year weight has: remained stable what type of physical activity do you participate in: walking and weight training frequency: 3-4 times per week duration: 15-30 minutes/day lc/baptism: Zoroastrianism seatbelt use: always do you feel safe at home: Yes additional social history: : 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 OB Visit GLENN Calculator Estimated Delivery Date Method Current WG Current Estimate 04/04/25 LMP (Certain) 37w 4d Other Estimates 04/01/25 Ultrasound #1 38w 0d Expected Delivery Route/Plan Labor Preferences- CB/BF classes: encouraged labor support person: Maximilian labor intervention preferences: [] pain management options preferred: epidural if requested cut cord/dad catch: no : yes PP control planned: discussed discussed possible routes of delivery and associated risks: [] special requests: [] Specific Issue/Plans Covid status: [] Flu vaccine: [] Tdap vaccine: given Rhogam:NA LARC form signed: yes movement and labor precautions reviewed. Problem list reviewed and updated with the [...] iron for vague sx of anemia. 01/10/25 -?-?-?-?-?-?-?-?-?-?-?-?- 28w 0d 177 lb (+15 lb) 123/76 Negative -?-?-?-?-?-?-?-?-?-?-?-?- Negative 169 29 -?-?-?-?-?-?-?-?-?-?-?-?- MH-No VB, LOF. G ood FM. 28 wk labs pending. eladio Donahuec. 01/28/25 -?-?-?-?-?-?-?-?-?-?-?-?- 30w 4d 177 lb 2 oz (+15 lb 2 oz) 121/82 Negative -?-?-?-?-?-?-?-?-?-?-?-?- Negative 160 31 -?-?-?-?-?-?-?-?-?-?-?-?- KW- no vb/lof/ct x. good fm. pepcid for heart burn 02/11/25 -?-?-?-?-?-?-?-?-?-?-?-?- 32w 4d 179 lb 2 oz (+17 lb 2 oz) 137/82 Negative -?-?-?-?-?-?-?-?-?-?-?-?- Negative 150 33 -?-?-?-?-?-?-?-?-?-?-?-?- KW- vb/lof/ctx. good fm. windycid is working well. 02/24/25 -?-?-?-?-?-?-?-?-?-?-?-?- 34w 3d 186 lb (+24 lb) 119/84 Negative -?-?-?-?-?-?-?-?-?-?-?-?- Negative 140 35 -?-?-?-?-?-?-?-?-?-?-?-?- SM- no vb lof go od fm no regular ctx 03/09/25 -?-?-?-?-?-?-?-?-?-?-?-?- 36w 2d 185 lb 5 oz (+23 lb 5 oz) 121/75 Negative -?-?-?-?-?-?-?-?-?-?-?-?- Negative 147 37 Cephalic 1 -?-?-?-?-?-?-?-?-?-?-?-?- 50 -3 JV- no lof , vaginal bleeding ,or dec fm. gbs collected. 03/18/25 -?-?-?-?-?-?-?-?-?-?-?-?- 37w 4d 188 lb 9 oz (+26 lb 9 oz) 130/77 Negative -?-?-?-?-?-?-?-?-?-?-?-?- Negative 140 38 Cephalic 1 .5 -?-?-?-?-?-?-?-?-?-?-?-?- 60 -2 SM- no vb lof good fm no regular ctx ACOG First Trimester First Trimester: Discussed Second Trimester Second Trimester: Signs and Symptoms of Labor, Selecting a care provider, Reproductive Life Planning & Contreception, Care Planning, Depression/Anxiety and Intimate Partner Violence; Discussed Tobacco Cessation Third Trimester Third Trimester: Pain Management Plans, Labor support person(s), Immediate Larc, Circumcision preference, Movement Monitoring, Signs and Symptoms of Preeclampsia, Infant Feeding No , Education and Family Medical Leave or Disability Forms Results POC Urinalysis 2 Dip (Clinic) Office Urine Glucose Negative Last Edit by Carie Carpenter on 03/18/25 15:23 Office Urine Protein Negative Last Edit by Carie Carpenter on 03/18/25 15:23 Coding Level of Care Code OB Routine Diagnoses Supervision of high risk in third trimester O09.93 Trimester: third trimester 37 weeks gestation of Z3A.37 Weeks of gestation: 37 weeks Celiac disease K90.0 Assessment and Plan Assessment and Plan (1) Supervision of high-risk : Status: Acute Qualifiers: Trimester: third trimester Qualified Code(s): O09.93 - Supervision of high risk , unspecified, third trimester Comment: PRR, , GLENN 04/05/25, : Maximilian (2) : Status: Acute Qualifiers: Weeks of gestation: 37 weeks Qualified Code(s): Z3A.37 - 37 weeks gestation of Comment: Neg GBS. Discussed genetic/carrier testing - declined. (3) Celiac disease: Status: Acute Orders: Orders POC Urinalysis 2 Dip (Clinic) Today 03/18/25 1528 <Electronically signed by Angella hooper MD> Date _ Angella Villarreal MD [facility] Signature: Date (if applicable) CC: ~ [facility] Work Phone: 1(442) 477-419909-03-2025 Progress [facility] [address], [address] [place] [address] OFFICE VISIT Date of Service: 03/09/25 MR#: [id number] Acct: [id number] Name: GERTRUDE EMERY Rep #: [id number] : 1995 Provider: Dr. Valentina Sosa DO Age/Sex: 29/F [place] [facility] [place]: Signed Intake Vital Signs 01/10/25 15:23 01/28/25 11:28 02/24/25 15:57 03/09/25 16:07 03/09/25 16:09 Height 5 ft 7 in 5 ft 7 in 5 ft 7 in 5 ft 7 in 5 ft 7 in Weight: 185 lb 5 oz BMI 29.0 BP 121/75 H Intake Visit Reasons: 36wk 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 Required: No Is patient in pain?: No Allergies gluten Adverse Reaction (Intermediate, Verified 03/09/25 16:06) Other Medications ?Medication ?Instructions ?Recorded ?Confirmed ?Type docosahexaenoic acid 200 mg 1 mg PO DAILY 08/20/2409/28 History capsule ( DHA) ondansetron 4 mg disintegrating 4 mg PO Q8H PRN PRN Na usea #30 tabs 08/25/24 03/09/25 Rx tablet Last Menstrual Period: 06/28/24 Zika: Zika virus screening: Negative : No PFSH PFSH Surgical History History of appendectomy Family History Aunt Thyroid disorder Grandmother Thyroid disorder Grandfather Kidney disease on dialysis Social History adopted: No household members: spouse 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al status: employed 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al exposures/hazards: No pets and animals: Yes pets and animals: dog(s) history of recent travel: Yes ([place] - September 2024) out of state: No out of country: Yes sexually active: Yes Smoking Status: Never smoker second hand exposure: No alcohol intake: never substance use type: other details: Palmetto gummies - Beginning of July diet: gluten free well-balanced diet: daily or most days caffeine: Yes eating out: 1-3 times/week during the past year weight has: remained stable what type of physical activity do you participate in: walking and weight training frequency: 3-4 times per week duration: 15-30 minutes/day lc/baptism: Zoroastrianism seatbelt use: always do you feel safe at home: Yes additional social history: : 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 OB Visit GLENN Calculator Estimated Delivery Date Method Current WG Current Estimate 04/04/25 LMP (Certain) 36w 2d Other Estimates 04/01/25 Ultrasound #1 36w 5d Expected Delivery Route/Plan Labor Preferences- CB/BF classes: encouraged labor support person: Maximilian labor intervention preferences: [] pain management options preferred: epidural if requested cut cord/dad catch: no : yes PP control planned: discussed discussed possible routes of delivery and associated risks: [] special requests: [] Specific Issue/Plans Covid status: [] Flu vaccine: [] Tdap vaccine: given Rhogam:NA LARC form signed: yes movement and labor precautions reviewed. Problem list reviewed and updated with the most current plan of care details and appropriate ordersplaced. Relevant counseling for the gestational age provided. [...] 4d 160 lb (-2 lb) 118/78 Negative -?-?-?-?-?-?-?-?--?-?-?-?- Negative 150 -?-?-?-?-?-?-?-?-?-?-?-?- KW- having some lower [...] iron for vague sx of anemia. 01/10/25 -?-?--?-?-?-?-?-?-?-?-?-?- 28w 0d 177 lb (+15 lb) 123/76 Negative -?-?-?-?-?-?-?-?-?-?-?-?- Negative 169 29 -?-?-?-?-?-?-?-?-?-?-?-?- MH-No VB, LOF. G ood FM. 28 wk labs pending. Godfrey, eladioc. 01/28/25 -?-?-?-?-?-?-?-?-?-?-?-?- 30w 4d 177 lb 2 oz (+15 lb 2 oz) 121/82 Negative -?-?-?-?-?-?-?-?-?-?-?-?- Negative 160 31 -?-?-?-?-?-?-?-?-?-?-?-?- KW- no vb/lof/ct x. good fm. pepcid for heart burn 02/11/25 -?--?-?-?-?-?-?-?-?-?-?-?- 32w 4d 179 lb 2 oz (+17 lb 2 oz) 137/82 Negative -?-?-?-?-?-?-?-?-?-?-?-?- Negative 150 33 -?-?-?-?-?-?-?-?-?-?--?-?- KW- vb/lof/ctx. good fm. pepcid is working well. 02/24/25 -?-?-?-?-?-?-?-?-?-?-?-?- 34w 3d 186 lb (+24 lb) 119/84 Negative -?-?-?-?-?-?-?-?-?-?-?-?- Negative 140 35 -?-?-?-?-?-?-?-?-?-?-?-?- SM- no vb lof go od fm no regular ctx 03/09/25 -?-?-?-?-?-?-?-?-?-?-?-?- 36w 2d 185 lb 5 oz (+23 lb 5 oz) 121/75 -?-?-?-?-?-?-?-?-?-?-?-?- 147 37 Cephalic 1 -?-?-?-?-?-?-?-?-?-?-?-?- 50 -3 JV- no lof , vaginal bleeding ,or dec fm. gbs collected. ACOG First Trimester First Trimester: Discussed Second Trimester Second Trimester: Signs and Symptoms of Labor, Selecting a care provider, Reproductive Life Planning & Contreception, Care Planning, Depression/Anxiety and Intimate Partner Violence; Discussed Tobacco Cessation Third Trimester Third Trimester: Pain Management Plans, Labor support person(s), Immediate Larc, Circumcision preference, Movement Monitoring, Signs and Symptoms of Preeclampsia, Infant Feeding No , Education and Family Medical Leave or Disability Forms Coding Level of Care Code OB Routine Diagnoses Supervision of high risk in third trimester O09.93 Trimester: third trimester 36 weeks gestation of Z3A.36 Weeks of gestation: 36 weeks Celiac disease K90.0 Assessment and Plan Assessment and Plan (1) Supervision of high-risk : Status: Acute Qualifiers: Trimester: third trimester Qualified Code(s): O09.93 - Supervision of high risk , unspecified, third trimester Comment: PRR, , GLENN 04/05/25, : Maximilian (2) : Status: Acute Qualifiers: Weeks of gestation: 36 weeks Qualified Code(s): Z3A.36 - 36 weeks gestation of Comment: Discussed genetic/carrier testing - declined. (3) Celiac disease: Status: Acute Orders: Orders POC Urinalysis 2 Dip (Clinic) Today Culture, Group B Streptococcus Today O09.93 - Supervision of high risk , unspecified, third trimester 03/09/25 1630 e Diony DO> Date _ [facility] Signature: Date (if applicable) CC: ~ [facility]09-03-2025 Progress note Author Kerry Vora [facility] Note Date/Time March 09, 2025 4:30pm [facility] [address] [place] [address], [address] [place] [address] OFFICE VISIT Date of Service: 03/09/25 MR#: [id number] Acct: [id number] Name: GERTRUDE EMERY Rep #: [id number] : 1995 Provider: Dr. Valentina Sosa, Age/Sex: 29/F [place] [facility] [place]: Signed Intake Vital Signs 01/10/25 15:23 01/28/25 11:28 02/24/25 15:57 03/09/25 16:07 03/09/25 16:09 Height 5 ft 7 in 5 ft 7 in 5 ft 7 in 5 ft 7 in 5 ft 7 in Weight: 185 lb 5 oz BMI 29.0 BP 121/75 H Intake Visit Reasons: 36wk 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 Required: No Is patient in pain?: No Allergies gluten Adverse Reaction (Intermediate, Verified 03/09/25 16:06) Other Medications ?Medication ?Instructions ?Recorded ?Confirmed ?Type docosahexaenoic acid 200 mg 1 mg PO DAILY 08/20/2409/28 History capsule ( DHA) ondansetron 4 mg disintegrating 4 mg PO Q8H PRN PRN Na usea #30 tabs 08/25/24 03/09/25 Rx tablet Last Menstrual Period: 06/28/24 Zika: Zika virus screening: Negative : No PFSH PFSH Surgical History History of appendectomy Family History Aunt Thyroid disorder Grandmother Thyroid disorder Grandfather Kidney disease on dialysis Social History adopted: No household members: spouse 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al status: employed 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al exposures/hazards: No pets and animals: Yes pets and animals: dog(s) history of recent travel: Yes ( - September 2024) out of state: No out of country: Yes sexually active: Yes Smoking Status: Never smoker second hand exposure: No alcohol intake: never substance use type: other details: Palmetto gummies - Beginning of July diet: gluten free well-balanced diet: daily or most days caffeine: Yes eating out: 1-3 times/week during the past year weight has: remained stable what type of physical activity do you participate in: walking and weight training frequency: 3-4 times per week duration: 15-30 minutes/day lc/baptism: Zoroastrianism seatbelt use: always do you feel safe at home: Yes additional social history: : 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 OB Visit GLENN Calculator Estimated Delivery Date Method Current WG Current Estimate 04/04/25 LMP (Certain) 36w 2d Other Estimates 04/01/25 Ultrasound #1 36w 5d Expected Delivery Route/Plan Labor Preferences- CB/BF classes: encouraged labor support person: Maximilian labor intervention preferences: [] pain management options preferred: epidural if requested cut cord/dad catch: no : yes PP control planned: discussed discussed possible routes of delivery and associated risks: [] special requests: [] Specific Issue/Plans Covid status: [] Flu vaccine: [] Tdap vaccine: given Rhogam:NA LARC form signed: yes movement and labor precautions reviewed. Problem list reviewed and updated with the [...] 4d 160 lb (-2 lb) 118/78 Negative -?-?-?-?-?-?-?-?--?-?-?-?- Negative 150 -?-?-?-?-?-?-?-?-?-?-?-?- KW- having some lower [...] iron for vague sx of anemia. 01/10/25 -?-?--?-?-?-?-?-?-?-?-?-?- 28w 0d 177 lb (+15 lb) 123/76 Negative -?-?-?-?-?-?-?-?-?-?-?-?- Negative 169 29 -?-?-?-?-?-?-?-?-?-?-?-?- MH-No VB, LOF. G ood FM. 28 wk labs pending. eladio Donahuec. 01/28/25 -?-?-?-?-?-?-?-?-?-?-?-?- 30w 4d 177 lb 2 oz (+15 lb 2 oz) 121/82 Negative -?-?-?-?-?-?-?-?-?-?-?-?- Negative 160 31 -?-?-?-?-?-?-?-?-?-?-?-?- KW- no vb/lof/ct x. good fm. pepcid for heart burn 02/11/25 -?--?-?-?-?-?-?-?-?-?-?-?- 32w 4d 179 lb 2 oz (+17 lb 2 oz) 137/82 Negative -?-?-?-?-?-?-?-?-?-?-?-?- Negative 150 33 -?-?-?-?-?-?-?-?-?-?--?-?- KW- vb/lof/ctx. good fm. pepcid is working well. 02/24/25 -?-?-?-?-?-?-?-?-?-?-?-?- 34w 3d 186 lb (+24 lb) 119/84 Negative -?-?-?-?-?-?-?-?-?-?-?-?- Negative 140 35 -?-?-?-?-?-?-?-?-?-?-?-?- SM- no vb lof go od fm no regular ctx 03/09/25 -?-?-?-?-?-?-?-?-?-?-?-?- 36w 2d 185 lb 5 oz (+23 lb 5 oz) 121/75 -?-?-?-?-?-?-?-?-?-?-?-?- 147 37 Cephalic 1 -?-?-?-?-?-?-?-?-?-?-?-?- 50 -3 JV- no lof , vaginal bleeding ,or dec fm. gbs collected. ACOG First Trimester First Trimester: Discussed Second Trimester Second Trimester: Signs and Symptoms of Labor, Selecting a care provider, Reproductive Life Planning & Contreception, Care Planning, Depression/Anxiety and Intimate Partner Violence; Discussed Tobacco Cessation Third Trimester Third Trimester: Pain Management Plans, Labor support person(s), Immediate Larc, Circumcision preference, Movement Monitoring, Signs and Symptoms of Preeclampsia, Infant Feeding No , [place] Education and Family Medical Leave or Disability Forms Coding Level of Care Code OB Routine Diagnoses Supervision of high risk in third trimester O09.93 Trimester: third trimester 36 weeks gestation of Z3A.36 Weeks of gestation: 36 weeks Celiac disease K90.0 Assessment and Plan Assessment and Plan (1) Supervision of high-risk : Status: Acute Qualifiers: Trimester: third trimester Qualified Code(s): O09.93 - Supervision of high risk , unspecified, third trimester Comment: PRR, , GLENN 04/05/25, : Maximilian (2) : Status: Acute Qualifiers: Weeks of gestation: 36 weeks Qualified Code(s): Z3A.36 - 36 weeks gestation of Comment: Discussed genetic/carrier testing - declined. (3) Celiac disease: Status: Acute Orders: Orders POC Urinalysis 2 Dip (Clinic) Today Culture, Group B Streptococcus Today O09.93 - Supervision of high risk , unspecified, third trimester 03/09/25 1630 <Electronically signed by Kerry Vand e Velde DO> Date _ Kerry Sujata Vora [facility] Signature: Date (if applicable) CC: ~ [facility] Work Phone: 1(989) 209-337808-21-2025 [facility] [address] [place] [address], [address] [place] [address] OFFICE VISIT Date of Service: 02/24/25 MR#: [id number] Acct: [id number] Name: GERTRUDE EMERY Rep #: [id number] : 1995 Provider: Dr. 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 Is patient in pain?: No Allergies gluten Adverse Reaction (Intermediate, Verified 02/24/25 15:59) Other Medications ?Medication ?Instructions ?Recorded ?Confirmed ?Type docosahexaenoic acid 200 mg 1 mg PO DAILY 08/20/24 History capsule ( DHA) ondansetron 4 mg disintegrating 4 mg PO Q8H PRN PRN Na usea #30 tabs 08/25/24 02/24/25 Rx tablet Last Menstrual Period: 06/28/24 Zika: Zika virus screening: Negative : No PFSH PFSH Surgical History History of appendectomy Family History Aunt Thyroid disorder Grandmother Thyroid disorder Grandfather Kidney disease on dialysis Social History adopted: No household members: spouse 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al status: employed 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al exposures/hazards: No pets and animals: Yes pets and animals: dog(s) history of recent travel: Yes ( - September 2024) out of state: No out of country: Yes sexually active: Yes Smoking Status: Never smoker second hand exposure: No alcohol intake: never substance use type: other details: Palmetto gummies - Beginning of July diet: gluten free well-balanced diet: daily or most days caffeine: Yes eating out: 1-3 times/week during the past year weight has: remained stable what type of physical activity do you participate in: walking and weight training frequency: 3-4 times per week duration: 15-30 minutes/day lc/baptism: Zoroastrianism seatbelt use: always do you feel safe at home: Yes additional social history: : 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 OB Visit GLENN Calculator Estimated Delivery Date Method Current WG Current Estimate 04/04/25 LMP (Certain) 34w 3d Other Estimates 04/01/25 Ultrasound #1 34w 6d Expected Delivery Route/Plan Labor Preferences- CB/BF classes: encouraged labor support person: Maximilian labor intervention preferences: [] pain management options preferred: epidural if requested cut cord/dad catch: no : yes PP control planned: discussed discussed possible routes of delivery and associated risks: [] special requests: [] Specific Issue/Plans Covid status: [] Flu vaccine: [] Tdap vaccine: given Rhogam:NA LARC form signed: yes movement and labor precautions reviewed. Problem list reviewed and updated with the most current plan of care details and appropriate ordersplaced. Relevant counseling for the gestational age provided. [...] iron for vague sx of anemia. 01/10/25 -?-?-?-?-?-?-?-?-?-?-?-?- 28w 0d 177 lb (+15 lb) 123/76 Negative -?-?-?-?-?-?-?-?-?-?-?-?- Negative 169 29 -?-?-?-?-?-?-?-?-?-?-?-?- MH-No VB, LOF. G ood FM. 28 wk labs pending. Rickyap, eladioc. 01/28/25 -?-?-?-?--?-?-?-?-?-?-?-?- 30w 4d 177 lb 2 oz (+15 lb 2 oz) 121/82 Negative -?-?-?-?-?-?-?-?-?-?-?-?- Negative 160 31 -?-?-?-?-?-?-?-?-?-?-?-?- KW- no vb/lof/ct x. good fm. pepcid for heart burn 02/11/25 -?-?-?-?-?-?-?-?-?-?-?-?- 32w 4d 179 lb 2 oz (+17 lb 2 oz) 137/82 Negative -?-?-?-?-?-?-?-?-?-?-?-?- Negative 150 33 -?-?-?-?-?-?-?-?-?-?-?-?- KW- vb/lof/ctx. good fm. valero is working well. 02/24/25 -?-?-?-?-?-?-?-?-?-?-?-?- 34w 3d 186 lb (+24 lb) 119/84 Negative -?-?-?-?-?-?-?-?-?-?-?-?- Negative 140 35 -?-?-?-?-?-?-?-?-?-?-?-?- SM- no vb lof go od fm no regular ctx ACOG First Trimester First Trimester: Discussed Second Trimester Second Trimester: Signs and Symptoms of Labor, Selecting a care provider, Reproductive Life Planning & Contreception, Care Planning, Depression/Anxiety and Intimate Partner Violence; Discussed Tobacco Cessation Third Trimester Third Trimester: Pain Management Plans, Labor support person(s), Immediate Larc, Circumcision preference, Movement Monitoring, Signs and Symptoms of Preeclampsia, Feeding No , Education and Family Medical Leave or Disability Forms Results POC Urinalysis 2 Dip (Clinic) Office Urine Glucose Negative Last Edit by Carie Carpenter on 02/24/25 16:15 Office Urine Protein Negative Last Edit by Carie Carpenter on 02/24/25 16:15 Coding Level of Care Code OB Routine Diagnoses Supervision of high risk in third trimester O09.93 Trimester: third trimester 34 weeks gestation of Z3A.34 Weeks of gestation: 34 weeks Celiac disease K90.0 Assessment and Plan Assessment and Plan (1) Supervision of high-risk : Status: Acute Qualifiers: Trimester: third trimester Qualified Code(s): O09.93 - Supervision of high risk , unspecified, third trimester Comment: PRR, , GLENN 04/05/25, : Maximilian (2) : Status: Acute Qualifiers: Weeks of gestation: 34 weeks Qualified Code(s): Z3A.34 - 34 weeks gestation of Comment: Discussed genetic/carrier testing - declined. (3) Celiac disease: Status: Acute Orders: Orders POC Urinalysis 2 Dip (Clinic) Today 02/24/25 1630 rufus PEDERSEN> Date _ Angella Villarreal MD [facility] Signature: Date (if applicable) CC: ~ [facility]08-21-2025 Progress note Author Angella Villarreal [facility] Note Date/Time February 24, 2025 4: 30pm [facility] [address] [place] [address], [address] [place] [address] OFFICE VISIT Date of Service: 02/24/25 MR#: [id number] Acct: [id number] Name: GERTRUDE EMERY Rep #: [id number] : 1995 Provider: Dr. 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 Is patient in pain?: No Allergies gluten Adverse Reaction (Intermediate, Verified 02/24/25 15:59) Other Medications ?Medication ?Instructions ?Recorded ?Confirmed ?Type docosahexaenoic acid 200 mg 1 mg PO DAILY 08/20/24 History capsule ( DHA) ondansetron 4 mg disintegrating 4 mg PO Q8H PRN PRN Na usea #30 tabs 08/25/24 02/24/25 Rx tablet Last Menstrual Period: 06/28/24 Zika: Zika virus screening: Negative : No PFSH PFSH Surgical History History of appendectomy Family History Aunt Thyroid disorder Grandmother Thyroid disorder Grandfather Kidney disease on dialysis Social History adopted: No household members: spouse 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al status: employed 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al exposures/hazards: No pets and animals: Yes pets and animals: dog(s) history of recent travel: Yes ([place] - September 2024) out of state: No out of country: Yes sexually active: Yes Smoking Status: Never smoker second hand exposure: No alcohol intake: never substance use type: other details: Palmetto gummies - Beginning july diet: gluten free well-balanced diet: daily or most days caffeine: Yes eating out: 1-3 times/week during the past year weight has: remained stable what type of physical activity do you participate in: walking and weight training frequency: 3-4 times per week duration: 15-30 minutes/day lc/baptism: Zoroastrianism seatbelt use: always do you feel safe at home: Yes additional social history: : 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 OB Visit GLENN Calculator Estimated Delivery Date Method Current WG Current Estimate 04/04/25 LMP (Certain) 34w 3d Other Estimates 04/01/25 Ultrasound #1 34w 6d Expected Delivery Route/Plan Labor Preferences- CB/BF classes: encouraged labor support person: Maximilian labor intervention preferences: [] pain management options preferred: epidural if requested cut cord/dad catch: no : yes PP control planned: discussed discussed possible routes of delivery and associated risks: [] special requests: [] Specific Issue/Plans Covid status: [] Flu vaccine: [] Tdap vaccine: given Rhogam:NA LARC form signed: yes movement and labor precautions reviewed. Problem list reviewed and updated with the [...] iron for vague sx of anemia. 01/10/25 -?-?-?-?-?-?-?-?-?-?-?-?- 28w 0d 177 lb (+15 lb) 123/76 Negative -?-?-?-?-?-?-?-?-?-?-?-?- Negative 169 29 -?-?-?-?-?-?-?-?-?-?-?-?- MH-No VB, LOF. G ood FM. 28 wk labs pending. Tdap, larc. 01/28/25 -?-?-?-?--?-?-?-?-?-?-?-?- 30w 4d 177 lb 2 oz (+15 lb 2 oz) 121/82 Negative -?-?-?-?-?-?-?-?-?-?-?-?- Negative 160 31 -?-?-?-?-?-?-?-?-?-?-?-?- KW- no vb/lof/ct x. good fm. pepcid for heart burn 02/11/25 -?-?-?-?-?-?-?-?-?-?-?-?- 32w 4d 179 lb 2 oz (+17 lb 2 oz) 137/82 Negative -?-?-?-?-?-?-?-?-?-?-?-?- Negative 150 33 -?-?-?-?-?-?-?-?-?-?-?-?- KW- vb/lof/ctx. good fm. anjum is working well. 02/24/25 -?-?-?-?-?-?-?-?-?-?-?-?- 34w 3d 186 lb (+24 lb) 119/84 Negative -?-?-?-?-?-?-?-?-?-?-?-?- Negative 140 35 -?-?-?-?-?-?-?-?-?-?-?-?- SM- no vb lof go od fm no regular ctx ACOG First Trimester First Trimester: Discussed Second Trimester Second Trimester: Signs and Symptoms of Labor, Selecting a care provider, Reproductive Life Planning & Contreception, Care Planning, Depression/Anxiety and Intimate Partner Violence; Discussed Tobacco Cessation Third Trimester Third Trimester: Pain Management Plans, Labor support person(s), Immediate Larc, Circumcision preference, Movement Monitoring, Signs and Symptoms of Preeclampsia, Feeding No , [place] Education and Family Medical Leave or Disability Forms Results POC Urinalysis 2 Dip (Clinic) Office Urine Glucose Negative Last Edit by Carie Carpenter on 02/24/25 16:15 Office Urine Protein Negative Last Edit by Carie Carpenter on 02/24/25 16:15 Coding Level of Care Code OB Routine Diagnoses Supervision of high risk in third trimester O09.93 Trimester: third trimester 34 weeks gestation of Z3A.34 Weeks of gestation: 34 weeks Celiac disease K90.0 Assessment and Plan Assessment and Plan (1) Supervision of high-risk : Status: Acute Qualifiers: Trimester: third trimester Qualified Code(s): O09.93 - Supervision of high risk , unspecified, third trimester Comment: PRR, , GLENN 04/05/25, : Maximilian (2) : Status: Acute Qualifiers: Weeks of gestation: 34 weeks Qualified Code(s): Z3A.34 - 34 weeks gestation of Comment: Discussed genetic/carrier testing - declined. (3) Celiac disease: Status: Acute Orders: Orders POC Urinalysis 2 Dip (Clinic) Today 02/24/25 1630 <Electronically signed by Angella hooper MD> Date _ Angella Cash Signature: Date (if applicable) CC: ~ [facility] Work Phone: 1(788) 167-183708-08-2025 Progress [facility] [address] [place] [address], [address] [place] [address] OFFICE VISIT Date of Service: 02/11/25 MR#: [id number] Acct: [id number] Name: GERTRUDE EMERY Rep #: [id number] : 1995 Provider: NATALYA Crews Age/Sex: 29/F [place] [facility] [place]: Signed Intake Vital Signs 01/28/25 11:28 02/11/25 10:01 Height 5 ft 7 in 5 ft 7 in Weight: 179 lb 2 oz BMI 28.0 BP 137/82 H Intake Visit Reasons: 32 wk ob *reschedule Chief Complaint: 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 Is patient in pain?: No [...] spouse 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al status: employed 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al exposures/hazards: No pets and animals: Yes pets and animals: dog(s) history of recent travel: Yes ([place] - September 2024) out of state: No out of country: Yes sexually active: Yes Smoking Status: Never smoker second hand exposure: No alcohol intake: never substance use type: other details: Palmetto gummies - Beginning of July diet: gluten free well-balanced diet: daily or most days caffeine: Yes eating out: 1-3 times/week during the past year weight has: remained stable what type of physical activity do you participate in: walking and weight training frequency: 3-4 times per week duration: 15-30 minutes/day lc/baptism: Zoroastrianism seatbelt use: always do you feel safe at home: Yes additional social history: : 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 [place] appropriate handout given. 02/11/25 1025 s NATALYA> Date _ Nicole Crews CNM Cosigndouglas Signature: Date (if applicable) CC: ~ [facility]05-15-2025 Evaluation note* Diagnosis Onset Date Resolution Status Admit Date Celiac disease acute November 18, 2024 8:26am [...] of high-risk acute February 11, 2025 9:58am [facility] Work Phone: [phone] Evaluation note* Diagnosis Onset Date Resolution Status Admit Date Celiac disease acute November 18, 2024 8:26am [...] of high-risk acute February 11, 2025 9:58am Celiac disease acute February 3:50pm acute February 24, 2 025 3:50pm Supervision of high-risk acute February 24 3:50pm [facility] Work Phone: [phone]) [phone] Evaluation note* Diagnosis Onset Date Resolution Status Admit Date Celiac disease acute November 18, 2024 8:26am [...] of high-risk acute February 11, 2025 9:58am Celiac disease acute February 3:50pm acute February 24, 2 025 3:50pm Supervision of high-risk acute February 24 3:50pm Celiac disease acute March 09, 2025 3:55pm acute March 09, 2025 3:55pm Supervision of high-risk acute March 09, 2 025 3:55pm [facility] Work Phone: 1(616) 126-335505-15-2025 Evaluation note* Diagnosis Onset Date Resolution Status Admit Date Celiac disease acute November 18, 2024 8:26am [...] of high-risk acute February 11, 2025 9:58am Celiac disease acute February 3:50pm acute February 24, 2 025 3:50pm Supervision of high-risk acute February 24 3:50pm Celiac disease acute March 09, 2025 3:55pm acute March 09, 2025 3:55pm Supervision of high-risk acute March 09, 2 025 3:55pm Celiac disease acute March 18, 2025 3:13pm acute March 3:13pm Supervision of high-risk acute March 18, 2025 3:13pm [facility] Work Phone: 1([phone]) 529-160405-15-2025 [facility] [address] [place] [address], [address] [place] [address] OFFICE VISIT Date of Service: 11/18/24 MR#: [id number] Acct: [id number] Name: GERTRUDE EMERY Rep #: [id number] : 1995 Provider: NATALYA Crews Age/Sex: 28/F [place] [facility] [place]: Signed Intake Vital Signs 09/22/24 15:06 10/22/24 10:19 11/18/24 08:30 Height 5 ft 7 in 5 ft 7 in 5 ft 7 in Weight: 168 lb 6 oz BMI 26.4 BP 128/84 H Intake Visit Reasons: 20 wk ob 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 Is patient in pain?: No [...] spouse 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al status: employed 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al exposures/hazards: No pets and animals: Yes pets and animals: dog(s) history of recent travel: Yes ([place] - September 2024) out of state: No out of country: Yes sexually active: Yes Smoking Status: Never smoker second hand exposure: No alcohol intake: never substance use type: other details: Palmetto gummies - Beginning of July diet: gluten free well-balanced diet: daily or most days caffeine: Yes eating out: 1-3 times/week during the past year weight has: remained stable what type of physical activity do you participate in: walking and weight training frequency: 3-4 times per week duration: 15-30 minutes/day lc/baptism: Zoroastrianism seatbelt use: always do you feel safe at home: Yes additional social history: : Maximilian - 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 Relevant counseling for the gestational age provided. [...] CRL cons wit h dates. Declines NIPT. 03/19/25 -?-?-?-?-?-?-?-?-?-?-?-?- 12w 2d 161 lb 8 oz [...] Symptoms of Preeclampsia, Infant Feeding No , [place] Education and Family Medical Leave or Disability [...] information and see below for orders placed atthis visit. [place] appropriate handout given. 11/18/24 0847 s CNM> Date _ Nicole Crews CNM Cosigner Signature: Date (if applicable) CC: ~ [facility]04-18-2025 Evaluation note* Diagnosis Onset Date Resolution Status [...] of high-risk acute January 28, 2025 11:20am [facility] Work Phone: 1([phone]) 927-902004-18-2025 Evaluation note* Diagnosis Onset Date Resolution Status [...] of high-risk acute February 11, 2025 9:58am [facility] Work Phone: 1([phone]) 614-652803-19-2025 Evaluation note* Diagnosis Onset Date Resolution Status [...] high-risk acute January 10, 2025 3 :14pm [facility] Work Phone: 1([phone]) 963-358802-19-2025 Evaluation note* Diagnosis Onset Date Resolution Status Admit Date Celiac disease acute August 072024 3:32pm acute August 25, 2024 3:32pm Supervision of high-risk acute August 25, 025 3:32pm Celiac disease acute September 3:01pm acute September 22 3:01pm Supervision of high-risk acute September 22, 2024 3:01pm Celiac disease acute October 10:18am acute October 22 10:18am Supervision of high-risk acute October 22, 2024 10:18am Celiac disease acute November 18, 2024 8:26am acute November 18, 2024 8:26am Supervision of high-risk acute November 18, 2024 8 :26am [facility] Work Phone: [phone] 536-271802-19-2025 Evaluation note* Diagnosis Onset Date Resolution Status [...] of high-risk acute December 14, 2024 3:30pm [facility] Work Phone: 1([phone]) 189-104911-20-2024 History of Present illness Narrative* Alfred Anderson, SRIDHAR-AUTOMOBILE RENTAL REPRESENTATIVE - 05/26/2024 10:50 AM EST 28 y.o. [...] Review Audit Reviewed by Ewa Carr MA ([place]) on 05/26/24 at 1052 Medication Order Taking? Sig Documenting Provider Last Dose Status fluticasone (Flonase) 50 mcg/actuation nasal spray [id number] Administer 1 spray into each nostril once daily. Shake gently. Before first use, prime pump. After use, clean tip and replace cap. Patient not taking: Reported on 05/26/2024 Alfred Anderson, DEPUTY ASSESSOR-AUTOMOBILE RENTAL REPRESENTATIVE Active Past Medical History: Diagnosis Date Celiac disease ([facility]) Past Surgical History: Procedure Laterality Date OTHER SURGICAL HISTORY 10/02/2020 Appendectomy laparoscopic OTHER SURGICAL HISTORY 10/05/2020 Rand tooth extraction ROS See HPI Physical Exam [...] Gertrude's care are: none Alfred Anderson CNP [facility] [phone] [facility] Work Phone: Evaluation noteNo assessment information available [facility] Work Phone: Evaluation note* Diagnosis COVID- Primary Acute bronchitis, unspecified organism documented in this encounter [facility] Work Phone: History of Present illness Narrative* 26 YOF presents for school physical. 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 [facility] Work Phone: progress note Author Nicole Crews [facility] Note Date/Time November 18, 2024 8:47a m [facility] [address], [address] [place] [address] OFFICE VISIT Date of Service: 11/18/24 MR#: [id number] Acct: [id number] Name: GERTRUDE EMERY Rep #: [id number] : 1995 Provider: NATALYA Crews Age/Sex: 28/F [place] [facility] [place]: Signed Intake Vital Signs 09/22/24 15:06 10/22/24 10:19 11/18/24 08:30 Height 5 ft 7 in 5 ft 7 in 5 ft 7 in Weight: 168 lb 6 oz BMI 26.4 BP 128/84 H Intake Visit Reasons: 20 wk ob 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 Is patient in pain?: No [...] spouse 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al status: employed 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al exposures/hazards: No pets and animals: Yes pets and animals: dog(s) history of recent travel: Yes ( - September 2024) out of state: No out of country: Yes sexually active: Yes Smoking Status: Never smoker second hand exposure: No alcohol intake: never substance use type: other details: Palmetto gummies - Beginning of July diet: gluten free well-balanced diet: daily or most days caffeine: Yes eating out: 1-3 times/week during the past year weight has: remained stable what type of physical activity do you participate in: walking and weight training frequency: 3-4 times per week duration: 15-30 minutes/day lc/baptism: Zoroastrianism seatbelt use: always do you feel safe at home: Yes additional social history: : Maximilian - 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 [place] appropriate handout given. 11/18/24 0847 <Electronically signed by Nicole souza CNM> Date _ Nicole Crews CNM Cosigner Signature: Date (if applicable) CC: ~ [facility] Work Phone: Progress note Author Nicole Crews [facility] Note Date/Time February 11, 2025 10: 25am [facility] [address], [address] [place] [address] OFFICE VISIT Date of Service: 02/11/25 MR#: [id number] Acct: [id number] Name: GERTRUDE EMERY Rep #: [id number] : 1995 Provider: NATALYA Crews Age/Sex: 29/F [place] [facility] [place]: Signed Intake Vital Signs 01/28/25 11:28 02/11/25 10:01 Height 5 ft 7 in 5 ft 7 in Weight: 179 lb 2 oz BMI 28.0 BP 137/82 H Intake Visit Reasons: 32 wk ob *reschedule Chief Complaint: 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 Is patient in pain?: No [...] intake: never substance use type: other details: Palmetto gummies - Beginning of July diet: gluten free well-balanced diet: daily or most days caffeine: Yes eating out: 1-3 times/week during the past year weight has: remained stable what type of physical activity do you participate in: walking and weight training frequency: 3-4 times per week duration: 15-30 minutes/day lc/baptism: Zoroastrianism seatbelt use: always do you feel safe at home: Yes additional social history: : Maximilian - 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 good fm. valero is working well. ACOG First Trimester First Trimester: Discussed Second Trimester Second Trimester: Signs and Symptoms of Labor, Selecting a care provider, Reproductive Life Planning & Contreception, Care Planning, Depression/Anxiety and Intimate Partner Violence; Discussed Tobacco Cessation Third Trimester Third Trimester: Pain Management Plans, Labor support person(s), Immediate Larc, Circumcision preference, Movement Monitoring, Signs and Symptoms of Preeclampsia, Infant Feeding No , [place] Education andFamily Medical Leave or Disability Forms [...] Cosigner Signature: Date (if applicable) CC: ~ [facility] Work Phone: Reason for referral (narrative)No reason for referral information availableJohn [facility] Work Phone: Summary Purpose Family History No [...] FoundDocuments on File Type Date Recorded Patient Stadium Attendant Expl anation Advance Directives and Living Will Advance Directive Response Recorded Date/ Time Living Will No August 10 10:19am Do you have a Healthcare Power of Chairman & Co Founder? No August 10, 2024 10:19am Living Will No August 11 1:14pm Do you have a Healthcare Power of Chairman & Co Founder? No August 11, 2024 1:14pm Instructions * Patient Instructions* Elaine Dexter, JONATHON - 05/21/2020 7:40 PM [facility] COVID-19 Post-swabbing Instructions We will do our best to update you as soon as we receive your test results, but if we had to send your test to be run at the lab, you may see the results on Vimblyhart or receive a call from [facility] [...] results. - If you have an active [facility] account, and your COVID-19 test is negative (not detected), then you will be notified through your [facility] account. You should call the urgent care if you have any further questions. - If your COVID-19 test is positive (detected), you will receive a phone call to discuss your results and answer any questions you might have at that time. Please make sure [facility] has your updated phone number so we can contact you. [facility] will notify the [place] [facility] of any positive results to comply with [...] and warm water and/or alcohol based hand sugar laboratory assistant, scrubbing your hands for at least 20 [...] Other COVID Questions? CDC - https://www.cdc.gov/coronavirus/2019-ncov/index.html - https://www.cdc.gov/coronavirus/2019-ncov/aj-lgr-ldv-sick/quarantine.html [facility] - Website: https://coronavirus.[place].gov/wps/portal/gov/covid-19/home - Hotline: 750-7-HWC-OD (508-239-4904) [facility]: https://blog.Sharecare.ClearEdge3D/series/xswfg-32-grqcpurbxsp-toolkit/ documented in this encounter History of Present Illness * Elaine Dexter CNP - 05/21/2020 7:37 PM EST Patient Name: [facility] Location: [place] [address] Date Of : Date Of Visit: 1995 05/21/2020 MRN# Provider: [id number] Elaine Dexter CNP Chief Complaint Patient presents with URI Patient's parents tested (+) COVID last weekend. PM developed sore [...] URI (Patient's parents tested (+) COVID last weekend. PM developed sore [...] and atraumatic. Nose: Nose normal. Mouth/Throat: Lips: [place]. Mouth: Mucous membranes are moist. Pharynx: Oropharynx [...] facility-administered medications for this visit. Patient Instructions [facility] COVID-19 Post-swabbing Instructions We will do our best to update you as soon as we receive your test results, but if we had to send your test to be run at the lab, you may see the results on MyChart or receive a call from [facility] [...] results. - If you have an active [facility] account, and your COVID-19 test is negative (not detected), then you will be notified through your [facility] account. You should call the urgent care if you have any further questions. - If your COVID-19 test is positive (detected), you will receive a phone call to discuss your results and answer any questions you might have at that time. Please make sure [facility] has your updated phone number so we can contact you. [facility] will notify the [place] [facility] of any positive results to comply with [...] and warm water and/or alcohol based hand sugar laboratory assistant, scrubbing your hands for at least 20 [...] Other COVID Questions? CDC - https://www.cdc.gov/coronavirus/2019-ncov/index.html - https://www.cdc.gov/coronavirus/2019-ncov/wg-bhf-czt-sick/quarantine.html [facility] - Website: https://coronavirus.[place].gov/wps/portal/gov/covid-19/home - Hotline: 775-4-QZK-OD (543-422-8166) [facility]: https://blog.Chogger/series/qjhaj-54-aeeufwzalpy-toolkit/ documented in this encounter Assessments Diagnosis Suspected [...] 2025 9:5 8am Supervision of high-risk Augus 2024 9:58am Chief Complaint Admit Date 20 wk ob November 18, 2024 8:26a m 24 wk ob December 14, 2024 3:30 pm 28 wk ob/glucose January 10, 2025 3:14p m 30 wk ob January 28, 2025 11:2 0am 32 wk ob *reschedule February 11, 2025 9: 58am CRAMPING February 20, 2025 10 :35am Reason for Visit Admit Date Celiac disease November 18, 2024 8:26a m [...] Supervision of high-risk Augus t 2024 9:58am Chief Complaint Admit Date 20 wk ob November 18, 2024 8:26a m 24 wk ob December 14, 2024 3:30 pm 28 wk ob/glucose January 10, 2025 3:14p m 30 wk ob January 28, 2025 11:2 0am 32 wk ob *reschedule February 11, 2025 9: 58am CRAMPING February 20, 2025 10 :35am CRAMPING February 24, 2025 10 :48am 34wk ob February 24, 2025 3: 50pm Reason for Visit Admit Date Celiac disease November 18, 2024 8:26a m [...] Supervision of high-risk Augus t 2024 9:58am Celiac disease February 24, 2025 3: 50pm February 24, 2025 3: 50pm Supervision of high-risk Augus t 2024 3:50pm Chief Complaint Admit Date 20 wk ob November 18, 2024 8:26a m 24 wk ob December 14, 2024 3:30 pm 28 wk ob/glucose January 10, 2025 3:14p m 30 wk ob January 28, 2025 11:2 0am 32 wk ob *reschedule February 11, 2025 9: 58am CRAMPING February 20, 2025 10 :35am CRAMPING February 24, 2025 10 :48am 34wk ob February 24, 2025 3: 50pm 36wk ob March 09, 2025 3:55pm Reason for Visit Admit Date Celiac disease November 18, 2024 8:26a m [...] 2025 9:5 8am Supervision of high-risk Augus 2024 9:58am Celiac disease February 24, 2025 3: 50pm February 24, 2025 3: 50pm Supervision of high-risk Augus t 2024 3:50pm Celiac disease March 09, 2025 3:55pm March 09, 2025 3:55pm Supervision of high-risk Darell quach 2024 3:55pm Chief Complaint Admit Date 20 wk ob November 18, 2024 8:26a m 24 wk ob December 14, 2024 3:30 pm 28 wk ob/glucose January 10, 2025 3:14p m 30 wk ob January 28, 2025 11:2 0am 32 wk ob *reschedule February 11, 2025 9: 58am CRAMPING February 20, 2025 10 :35am CRAMPING February 24, 2025 10 :48am 34wk ob February 24, 2025 3: 50pm 36wk ob March 09, 2025 3:55pm 37wk ob *move 04/01 appt March 18, 2025 3:13pm Reason for Visit Admit Date Celiac disease November 18, 2024 8:26a m [...] Supervision of high-risk Augus t 2024 9:58am Celiac disease February 24, 2025 3: 50pm February 24, 2025 3: 50pm Supervision of high-risk Augus t 2024 3:50pm Celiac disease March 09, 2025 3:55pm March 09, 2025 3:55pm Supervision of high-risk [facility] 2024 3:55pm Celiac disease March 18, 2025 3:13pm March 18, 2025 3:13pm Supervision of high-risk [facility]ll [facility] 2024 3:13pm Additional Source Comments INFORMATION SOURCE (unrecogn ized section and content) DATE CREATED AUTHOR 07/31/2018 [facility] DATE CREATED AUTHOR AUTHOR'S ORGANIZ ATION 05/21/2020 [facility] DATE CREATED AUTHOR AUTHOR'S ORGANIZ ATION 02/13/2022 [employer] DATE CREATED AUTHOR AUTHOR'S ORGANIZ ATION 05/29/2024 [facility] DATE CREATED AUTHOR AUTHOR'S ORGANIZ ATION 11/13/2024 [facility] DATE CREATED AUTHOR AUTHOR'S ORGANIZ ATION 03/26/2025 [facility] Reason for Visit (unrecogniz ed section [...] End: August 25, 2024 Nicole Crews CNM Referring Provider Active [...] Angulo MD Attending Provider, Referring Provider Active Box Stapler Relationship Specialty Start Date End Date Osmel Jin PA-C [address] [facility] [place] [address] PCP - General 02/12/22 Team Status: Inactive [...] End: January 10, 2025 Carie Burns NP, PUBLIC RELATIONS COORDINATOR-C Attending Provider Active Start: January 10, 2025 [...] End: January 10, 2025 Carie Burns NP, PUBLIC RELATIONS COORDINATOR-C Attending Provider Active Start: January 10, 2025 [...] February 11, 2025 End: February 11, 2025 Team Status: Inactive Member Role/Relationship Status [...] End: January 10, 2025 Carie Burns NP, PUBLIC RELATIONS COORDINATOR-C Attending Provider Active Start: January 10, 2025 [...] February 11, 2025 End: February 11, 2025 Team Status: Inactive Member Role/Relationship Status Dates No Primary Care Physician Primary Care Provider Active Start: February 20, 2025 End: February 20, 2025 Dr. Angella Villarreal MD Attending Provider Active Start: February 20, 2025 End: February 20, 2025 Team Status: Active Member Role/Relationship Status Dates No Primary Care Physician Primary Care Provider Active Start: February 24, 2025 Dr. Angella Villarreal MD Attending Provider Active Start: February 24, 2025 Dr. Angella Villarreal MD Other Provider Active Start: February 24, 2025 Team Status: Inactive Member Role/Relationship Status Dates No Primary Care Physician Primary Care Provider Active Start: February 24, 2025 End: February 24, 2025 No Primary Care Physician Referring Provider Active Start: February 24, 2025 End: February 24, 2025 Dr. Angella Villarreal MD Attending Provider Active Start: February 24, 2025 End: February 24, 2025 Team Status: Inactive Member Role/Relationship Status Dates No Primary Care Physician Primary Care Provider Active Start: March 09, 2025 End: March 09, 2025 No Primary Care Physician Referring Provider Active Start: March 09, 2025 End: March 09, 2025 Dr. Kerry Sosa DO Attending Provider Activ e Start: March 09, 2025 End: March 09, 2025 Team Status: Active Member Role/Relationship Status Dates No Primary Care Physician Primary Care Provider Active Start: March 09, 2025 Dr. Kerry Sosa DO Attending Provider Activ e Start: March 09, 2025 Dr. Kerry Sosa DO Referring Provider Activ e Start: March 09, 2025 Team Status: Inactive Member Role/Relationship Status Dates No Primary Care Physician Primary Care Provider Active Start: March 18, 2025 End: March 18, 2025 No Primary Care Physician Referring Provider Active Start: March 18, 2025 End: March 18, 2025 Dr. Angella Villarreal MD Attending Provider Active Start: March 18, 2025 End: March 18, 2025 Goals (unrecognized section and content) Goals [...] BE BASED ON THE PRIMARY CLINICAL RECORDS. [facility] provides no warranty or guarantee of the accuracy or completeness of information in this document.
--- OUTSIDE RECORDS SUMMARY | 2025-03-27 17:05 | XMS RPT_ITS | CCD ---
Author Organization [facility] Care Team Providers Care Real Estate Appraiser Name Role Phone Fernandez Tavarez Attending Unavailable [...] Provider Dr. Fatoumata Diaz DO Emergency Provider [phone] Tracy Carey RN Attending Provider Unavailabl e Care Physician, No Primary Referring Provider Un available Nicole Crews CNM Attending Provider Nicole Crews CNM Referring Provider Dr. Angella Villarreal MD Attending Provider [phone] Care Physician, No Primary Primary Care Provider Unavailable Care Physician, No Primary Primary Care Provider Unavailable Care Physician, No Primary Referring Provider Un available Nicole Crews CNM Attending Provider Nicole Crews CNM Referring Provider [phone] Carie Drummond Attending Provider [phone] Care Physician, No Primary Primary Care Provider Unavailable Care Physician, No Primary Referring Provider Un available Arsalan PEDERSEN, Dr. Perales Attending Provider [phone] Care Physician, No Primary Primary Care Provider Unavailable Care Physician, No Primary Referring Provider Un available Nicole Crews CNM Attending Provider [phone] Arsalan PEDERSEN, Dr. Perales Other Provider [phone] Sujata Vora DO, Dr. Payne Attending Provider [...] No Primary Primary Care Unava ilable Angella Villarrael Consulting Unavailable Angella Villarreal Attending Unavailable Vande [...] Unava ilable Care Physician, No Primary Referring Nicoel Moya Attending Unavailable Care Physician, No Primary [...] extract; Translations: [GLUTEN] Drug Allergy 08-20-2023 Diarrhea [facility] (1 source) Gluten Drug allergy (disorder) 03-25-2025 [facility] Repository Medications Current Medications Medication Drug Class(es) Dates Sig (Normalized) Sig (Original) [id number] 200 actuat albuterol 0.09 mg/actuat metered dose [...] Test Name Value Interpretation Reference Range Facility Otolaryngologist Office Visit Reporton 03-25-2025 Otolaryngologist Office Visit Report [facility] [address] [place] [address], [address] [place] [address] OFFICE VISIT Date of Service: 03/25/25 MR#: [id number] Acct: [id number] Name: GERTRUDE EMERY Rep #: [id number] : 1995 Provider: NATALYA Felix ams Age/Sex: 29/F [place] [facility] [place]: Signed Intake Vital Signs 02/11/25 10:01 03/18/25 15:18 03/25/25 11:39 03/25/25 11:40 Height 5 ft 7 in 5 ft 7 in 5 ft 7 in 5 ft 7 in Weight: 187 lb 2 oz BMI 29.2 BP 125/82 H Intake Visit Reasons: 38 WK OB Presales Senior Specialist Required: No Is patient in pain?: No [...] spouse 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al status: employed 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[employer] 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al exposures/hazards: No pets and animals: Yes pets and animals: dog(s) history of recent travel: Yes ([place] - September 2024) out of state: No out of country: Yes sexually active: Yes Smoking Status: Never smoker second hand exposure: No alcohol intake: never substance use type: other details: [place] gummies - Beginning of July diet: gluten free well-balanced diet: daily or most days caffeine: Yes eating out: 1-3 times/week during the past year weight has: remained stable what type of physical activity do you participate in: walking and weight training frequency: 3-4 times per week duration: 15-30 minutes/day lc/buddhist: Shinto seatbelt use: always do you feel safe at home: Yes additional social history: : 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 Normal [facility] Otolaryngologist Office Visit Reporton 03-18-2025 Otolaryngologist Office Visit Report [facility] [address], [address] [place] [address] OFFICE VISIT Date of Service: 03/18/25 MR#: [id number] Acct: [id number] Name: GERTRUDE EMERY Rep #: [id number] : 1995 Provider: Dr. Angella mosquera MD Age/Sex: 29/F [place] [facility] [place]: Signed Intake Vital Signs 02/11/25 10:01 03/09/25 16:09 03/18/25 15:18 Height 5 ft 7 in 5 ft 7 in 5 ft 7 in Weight: 188 lb 9 oz BMI 29.5 BP 130/77 H Intake Visit Reasons: 37wk ob *move 04/01 appt Presales Senior Specialist Required: No Is patient in pain?: No [...] intake: never substance use type: other details: [place] gummies - Beginning of July diet: gluten free well-balanced diet: daily or most days caffeine: Yes eating out: 1-3 times/week during the past year weight has: remained stable what type of physical activity do you participate in: walking and weight training frequency: 3-4 times per week duration: 15-30 minutes/day lc/buddhist: Shinto seatbelt use: always do you feel safe at home: Yes additional social history: : 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 declin (more content not included)... Normal [facility] Rule out Beta Strep (Grp. B) on 03-11-2025 RAJWINDER Group B Beta Streptococcus is not isolated. Normal [facility] Comment on above: Performed By: #### M 100.4456 #### [facility] Laboratory [facility] [place], [address] Laboratory - Chemistry and C hemistry - challengeOrdered By: Kerry Vora on 03-09-2025 Glucose Ql (U) Negative [facility] Laboratory - UrinalysisOrder ed By: Kerry Vora on 03-09-2025 Protein Ql (U) Negative [facility] Otolaryngologist Office Visit Reporton 03-09-2025 Otolaryngologist Office Visit Report [facility] [address], [address] [place] [address] OFFICE VISIT Date of Service: 03/09/25 MR#: [id number] Acct: [id number] Name: GERTRUDE EMERY Rep #: [id number] : 1995 Provider: Dr. 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al exposures/hazards: No pets and animals: Yes pets and animals: dog(s) history of recent travel: Yes ([place] - September 2024) out of state: No out of country: Yes sexually active: Yes Smoking Status: Never smoker second hand exposure: No alcohol intake: never substance use type: other details: [place] gummies - Beginning of July diet: gluten free well-balanced diet: daily or most days caffeine: Yes eating out: 1-3 times/week during the past year weight has: remained stable what type of physical activity do you participate in: walking and weight training frequency: 3-4 times per week duration: 15-30 minutes/day lc/buddhist: Shinto seatbelt use: always do you feel safe at home: Yes additional 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 Normal [facility] Screening beta-hemolytic Str eptococcus cultureOrdered By: Kerry Vora on 03-09-2025 Beta-hemolytic Streptococcus culture Group B Beta Streptococcus is not isolated. [facility] Laboratory - Chemistry and C hemistry - challengeOrdered By: Angella Villarreal on 02-24-2025 Glucose Ql (U) Negative [facility] Laboratory - UrinalysisOrder ed By: Angella Villarreal on 02-24-2025 Protein Ql (U) Negative [facility] OB Triage Progress Noteon OB Triage Progress Note [facility] Medical Records Department [address] [place] [address] OB Triage Progress Note 02/24/25 1048 MR#: [id number] Acct: [id number] Name: GERTRUDE EMERY Rep #: [id number] : 1995 29 From: Angella Villarreal MD PCP: Care Physician,No Primary Status:DEP CLI Y DOS: Location: [facility]OUT Progress Notes Date of Service: 02/20/25 Progress Note: Patient presents for triage evaluation secondary to contractions FHT: 140 Moderate variability reactive no decelerations category I tracing [place]: irregular Contractions Assessment and plan: 33 weeks threatened labor no cervical change Reactive NST, reassuring maternal and status patient discharged to home to follow-up as scheduled. See problem list details for additional plan information. Laboratory Studies: Laboratory Tests 02/20/25 Range/Units 11:40 Urine Color Yellow (Yellow) Urine Clarity Sl. Cloudy (Clear) Urine pH 7.0 (5.0 - 8.0) Ur Specific [place] 1.010 (1.002-1.030) Urine Protein 15 H (Negative) [...] 0 SEEN ( Charges/Coding Procedures Urinary/Genital 52xxx-59xxx: [id number] non-stress test Interp 02/24/25 1049 Date Angella Villarreal MD Cosigner Signature (if applicable): Date CC: Dr. Angella Villarreal MD; No Primary Care Physician Signed Normal [facility] Otolaryngologist Office Visit Reporton 02-24-2025 Otolaryngologist Office Visit Report [facility]'s [address], [address] [place] [address] OFFICE VISIT Date of Service: 02/24/25 MR#: [id number] Acct: [id number] Name: GERTRUDE EMERY Rep #: [id number] : 1995 Provider: Dr. Angella mosquera MD Age/Sex: 29/F [place] [facility] [place]: Signed Intake Vital Signs 01/10/25 15:23 02/20/25 11:19 02/24/25 15:57 Height 5 ft 7 in 5 ft 7 in 5 ft 7 in Weight: 186 lb BMI 29.1 BP 119/84 H Intake Visit Reasons: 34wk ob Presales Senior Specialist Required: No Is patient in pain?: No [...] intake: never substance use type: other details: [place] gummies - Beginning of July diet: gluten free well-balanced diet: daily or most days caffeine: Yes eating out: 1-3 times/week during the past year weight has: remained stable what type of physical activity do you participate in: walking and weight training frequency: 3-4 times per week duration: 15-30 minutes/day lc/buddhist: Shinto seatbelt use: always do you feel safe at home: Yes additional 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 +fm. (more content not included)... Normal [facility] Urine Cultureon 02-22-2025 URC Below infection leve l. Mixed Gram Positive Organisms [place] Count <1000 MIXC Mixed contaminants. Submit a new specimen if indicated. Normal [facility] Comment on above: Performed By: #### M 100.0958 #### [facility] Laboratory [address] [place] [address]. [place], [address] Bilirubin Test strip Ql (U)O rdered By: Angella Villarreal on 02-20-2025 Bilirubin Ql (U) Negative Negative [facility] Ketones Test strip Ql (U)Ord ered By: Angella Villarreal on 02-20-2025 Ketones Ql (U) Negative Negative [facility] Microscopic analysis of urin e for red blood cells (RBC)Ordered By: Angella Villarreal on 02-20-2025 Microscopic analysis of urine for red blood cells (RBC) 0 SEEN /hpf 0-5 [facility] Mucus LM Ql (Urine sed)Order ed By: Angella Villarreal on 02-20-2025 Mucus Ql (Urine sed) 0 SEEN /hpf [facility] Nitrite Test strip Ql (U)Ord ered By: Angella Quezadasonia on 02-20-2025 Nitrite Ql (U) Negative Negative [facility] Protein Test strip Ql (U)Ord ered By: Angella Quezadasonia on 02-20-2025 Protein Ql (U) 15 mg/dl High Negative [facility] Squamous epithelial cells de tection in urine sediment by light microscopyOrdered By: Angella Villarreal on 02-20-2025 Epithelial cells.squamous LM Ql (Urine sed) 0-5 SEEN /hpf 5-10 [facility] Urinalysis, Completeon 02-20 EPI,SQUAMOUS 0-5 SEEN Normal -10 [facility] Comment on above: Order Comment: CLEAN CATCH Performed By: #### M 100.2200, L7400.0353, L7000.1800 #### [facility] Laboratory [address] [place], [address] WBC 0-5 SEEN Normal 0-5 [facility] Comment on above: Order Comment: CLEAN CATCH Performed By: #### M 100.2200, L7400.0353, L7000.1800 #### [facility] Laboratory [address] [place], [address] BACTERIA 0 SEEN Normal None Seen [facility] Comment on above: Order Comment: CLEAN CATCH Performed By: #### M 100.2200, L7400.0353, L7000.1800 #### [facility] Laboratory [address] [place], [address] Mucus Ql (Urine sed) 0 SEEN Normal [facility] Comment on above: Order Comment: CLEAN CATCH Performed By: #### M 100.2200, L7400.0353, L7000.1800 #### [facility] Laboratory [address] [place], [address] RBC 0 SEEN Normal [address] [place] [address] Comment on above: Order Comment: CLEAN CATCH Performed By: #### M 100.2200, L7400.0353, L7000.1800 #### [facility] Laboratory [address] [place], [address] Urine clarityOrdered By: Alfred Villarreal on 02-20-2025 Clarity (U) Sl. Cloudy Clear [facility] Urine color determinationOrd ered By: Angelal Villarreal on 02-20-2025 Color (U) Yellow Yellow [facility] Urine cultureOrdered By: Alfred Villarreal on 02-20-2025 Bacteria identified Cx Nom (U) Positive Abnormal [facility] Urine glucose detectionOrder ed By: Angella Villarreal on 02-20-2025 Glucose Ql (U) Normal mg/dl Normal [facility] Urine leukocyte esterase det ection by dipstickOrdered By: Angella Villarreal on 02-20-2025 Leukocyte esterase Test strip Ql (U) 25 /ul High Negative [facility] Urine pHOrdered By: Angella aponte on 02-20-2025 pH (U) 7.0 [pH] 5.0 - 8.0 [facility] Urine sediment bacteria coun t by microscopy (number/high power field)Ordered By: Angella Villarreal on 02-20-2025 Bacteria LM.HPF (Urine sed) [#/Area] 0 /[HPF] None Seen [facility] Urine specific gravity measu rementOrdered By: Angella Villarreal on 02-20-2025 Specific gravity (U) [Rel density] 1.010 1.002-1.030 [facility] Urine urobilinogen measureme ntOrdered By: Angella Villarreal on 02-20-2025 Urobilinogen Ql (U) Normal mg/dl Normal [facility] White blood cell countOrdere d By: Angella Villarreal on 02-20-2025 White blood cell count 0-5 SEEN /hpf 0-5 [facility] Laboratory - Chemistry and C hemistry - challengeOrdered By: Nicole Crews on 02-11-2025 Glucose Ql (U) Negative [facility] Laboratory - UrinalysisOrder ed By: Nicole Crews on 02-11-2025 Protein Ql (U) Negative [facility] Otolaryngologist Office Visit Reporton 02-11-2025 Otolaryngologist Office Visit Report [facility] [address], [address] [place] [address] OFFICE VISIT Date of Service: 02/11/25 MR#: [id number] Acct: [id number] Name: GERTRUDE EMERY Rep #: [id number] : 1995 Provider: NATALYA Felix ams Age/Sex: 29/F [place] [facility] [place] Status: Signed Intake Vital Signs 01/28/25 11:28 02/11/25 10:01 Height 5 ft 7 in 5 ft 7 in Weight: 179 lb 2 oz BMI 28.0 BP 137/82 H Intake Visit Reasons: 32 wk ob *reschedule Chief Complaint: 32wk OB Presales Senior Specialist Required: No Is patient in pain?: No [...] spouse 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al status: employed 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al exposures/hazards: No pets and animals: Yes pets and animals: dog(s) history of recent travel: Yes ( - September 2024) out of state: No out of country: Yes sexually active: Yes Smoking Status: Never smoker second hand exposure: No alcohol intake: never substance use type: other details: [place] gummies - Beginning of July diet: gluten free well-balanced diet: daily or most days caffeine: Yes eating out: 1-3 times/week during the past year weight has: remained stable what type of physical activity do you participate in: walking and weight training frequency: 3-4 times per week duration: 15-30 minutes/day lc/buddhist: Shinto seatbelt use: always do you feel safe at home: Yes additional social history: : 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 (more content not included)... Normal [facility] Laboratory - Chemistry and C hemistry - challengeOrdered By: Nicole Crews on 01-28-2025 Glucose Ql (U) Negative [facility] Laboratory - UrinalysisOrder ed By: Nicole Crews on 01-28-2025 Protein Ql (U) Negative [facility] Otolaryngologist Office Visit Reporton 01-28-2025 Otolaryngologist Office Visit Report [facility]'s [address], [address] [place] [address] OFFICE VISIT Date of Service: 01/28/25 MR#: [id number] Acct: [id number] Name: GERTRUDE EMERY Rep #: [id number] : 1995 Provider: NATALYA Felix [facility] Age/Sex: 29/F [place] [facility] [place]: Signed Intake Vital Signs 11/18/24 08:30 01/10/25 15:23 01/28/25 11:24 01/28/25 11:28 Height 5 ft 7 in 5 ft 7 in 5 ft 7 in 5 ft 7 in Weight: 177 lb 177 lb 2 oz BMI 27.7 27.7 BP 123/76 H 121/82 H Intake Visit Reasons: 30 wk ob Chief Complaint: 30 Week OB Presales Senior Specialist Required: No Is patient in pain?: No [...] intake: never substance use type: other details: [place] gummies - Beginning of July diet: gluten free well-balanced diet: daily or most days caffeine: Yes eating out: 1-3 times/week during the past year weight has: remained stable what type of physical activity do you participate in: walking and weight training frequency: 3-4 times per week duration: 15-30 minutes/day lc/buddhist: Shinto seatbelt use: always do you feel safe at home: Yes additional social history: : 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 Normal [facility] Absolute lymphocyte countOrd ered By: Nicole Crews on 01-10-2025 Lymphocytes Auto (Unsp spec) [#/Vol] 2.16 10*3/uL 0.83-4.51 [facility] Absolute neutrophil countOrd ered By: Nicole Crews on 01-10-2025 Neutrophils (Bld) [#/Vol] 11.4 10*3/uL High 2.0-7.7 [facility] Automated lymphocyte count a s percentage of total leukocytesOrdered By: Nicole Crews on 01-10-2025 Lymphocytes/100 WBC Auto (Unsp spec) 14.7 % Low 19-41 [facility] Basophil percentageOrdered B y: Nicole Crews on 01-10-2025 Basophils/100 WBC (Bld) 0.2 % 0-1 [facility] CBC W/Diff, Automatedon - Absolute Lymph 2.16 X10 3/uL Normal 0.83-4.51 [facility] Comment on above: Performed By: #### L 509.5189, L3890.6006, L100.0100, L501.0250 #### [facility] Laboratory [address] [place], [address] Absolute Neut 11.4 X10 3/uL High 2.0-7.7 [facility] Comment on above: Performed By: #### L 509.8002, L3890.6006, L100.0100, L501.0250 #### [facility] Laboratory [address] [place], [address] Basophils/100 WBC (Bld) 0.2 % Normal 0-1 [facility] Comment on above: Performed By: #### L 509.8002, L3890.6006, L100.0100, L501.0250 #### [facility] Laboratory [address] [place], [address] Eosinophils/100 WBC (Bld) 1.4 % Normal 0-5 [facility] Comment on above: Performed By: #### L 509.8002, L3890.6006, L100.0100, L501.0250 #### [facility] Laboratory [address] [place], [address] Erythrocyte distribution width (RBC) [Ratio] 13.6 % Normal 11.6-14.6 [facility] Comment on above: Performed By: #### L 509.8002, L3890.6006, L100.0100, L501.0250 #### [facility] Laboratory [address] [place], [address] Hematocrit (Bld) [Volume fraction] 37.0 % Normal 37-47 [facility] Comment on above: Performed By: #### L 509.8002, L3890.6006, L100.0100, L501.0250 #### [facility] Laboratory [address] [place], [address] Hemoglobin (Bld) [Mass/Vol] 12.8 g/dL Normal 12.0-15.0 [facility] Comment on above: Performed By: #### L 509.8002, L3890.6006, L100.0100, L501.0250 #### [facility] Laboratory [address] [place], [address] IG% 0.600 Normal 0.0-0.9 [facility] Comment on above: Result Comment: IG% - Immature Granulocytes (promyelocytes, myelocytes and metamyelocytes) > 1% indicates that a LEFT SHIFT is Present. Performed By: #### L 509.8002, L3890.6006, L100.0100, L501.0250 #### [facility] Laboratory [address] [place], [address] Lymphocytes/100 WBC (Bld) 14.7 % Low 19-41 [facility] Comment on above: Performed By: #### L 509.8002, L3890.6006, L100.0100, L501.0250 #### [facility] Laboratory [address] [place], [address] MCH (RBC) [Entitic mass] 30.1 pg Normal 27.0-32.0 [facility] Comment on above: Performed By: #### L 509.8002, L3890.6006, L100.0100, L501.0250 #### [facility] Laboratory [address] [place], [address] MCHC (RBC) [Mass/Vol] 34.6 g/dL Normal 32-36 [facility] Comment on above: Performed By: #### L 509.8002, L3890.6006, L100.0100, L501.0250 #### [facility] [facility] [address] [place], [address] MCV (RBC) [Entitic vol] 87.1 fL Normal 81-99 [facility] Comment on above: Performed By: #### L 509.8002, L3890.6006, L100.0100, L501.0250 #### [facility] [address] [place], [address] Monocytes/100 WBC (Bld) 5.1 % Normal 0-10 [facility] Comment on above: Performed By: #### L 509.8002, L3890.6006, L100.0100, L501.0250 #### [facility] [address] [place], [address] Neutrophils/100 WBC (Bld) 78.0 % High 47-70 [facility] Comment on above: Performed By: #### L 509.8002, L3890.6006, L100.0100, L501.0250 #### [facility] [address] [place], [address] Nucleated RBC (Bld) [#/Vol] 0 10*3/uL Normal 0-5 [facility] Comment on above: Performed By: #### L 509.8002, L3890.6006, L100.0100, L501.0250 #### [facility] [address] [place], [address] Platelet mean volume (Bld) [Entitic vol] 11.3 fL Normal 6.2-12.0 [facility] Comment on above: Performed By: #### L 509.8002, L3890.6006, L100.0100, L501.0250 #### [facility] [address] [place], [address] Platelets (Bld) [#/Vol] 210 10*3/uL Normal 150-450 [facility] Comment on above: Performed By: #### L 509.8002, L3890.6006, L100.0100, L501.0250 #### [facility] [address] [place], [address] RBC (Bld) [#/Vol] 4.25 10*6/uL Normal 4.2-5.4 [facility] Comment on above: Performed By: #### L 509.8002, L3890.6006, L100.0100, L501.0250 #### [facility] [address] [place], [address] RDW SD 42.4 fl Normal 35.1-43.9 [facility] Comment on above: Performed By: #### L 509.8002, L3890.6006, L100.0100, L501.0250 #### [facility] [address] [place], [address] WBC (Bld) [#/Vol] 14.7 10*3/uL High 4.4-11.0 [facility] Comment on above: Performed By: #### L 509.8002, L3890.6006, L100.0100, L501.0250 #### [facility] [address] [place], [address] Eosinophil percentageOrdered By: Nicole Crews on 01-10-2025 Eosinophils/100 WBC (Bld) 1.4 % 0-5 [facility] Erythrocyte distribution wid th ratioOrdered By: Nicole Crews on 01-10-2025 Erythrocyte distribution width (RBC) [Ratio] 13.6 % 11.6-14.6 [facility] Erythrocyte distribution wid th standard deviationOrdered By: Nicole Crews on 01-10-2025 Erythrocyte distribution width (RBC) [Ratio] 42.4 fl 35.1-43.9 [facility] Glucose Challenge Gest 1H 50 ragini 01-10-2025 GLU GEST 50g 1H 98 mg/dL Normal 70-140 [facility] Comment on above: Performed By: #### L 509.8002, L3890.6006, L100.0100, L501.0250 #### [facility] [address] [place], [address] Glucose measurement at 2 derrick rs post-dose gestational glucose tolerance testOrdered By: Nicole Crews on 01-10-2025 Glucose [Mass/Vol] 98 mg/dL 70-140 [facility] HIVon 01-10-2025 HIV Non-Reactive Normal Nonreactive [facility] Comment on above: Result Comment: Non- Reactive Reactive Repeatedly reactive samples must be confirmed according to CDC recommended confirmatory algorithms. The subresults for either HIVAG or AHIV can be used as an aid in the selection of the confirmation algorithm for reactive samples. Send out specimens with Reactive results to [facility] for confirmation. Order the HIV antibody detection and differentiation: lc#[id number] Performed By: #### L 509.8002, L3890.6006, L100.0100, L501.0250 #### [facility] [address] [place], [address] Hematocrit Auto (Bld) [Volum e fraction]Ordered By: Nicole Crews on 01-10-2025 Hematocrit (Bld) [Volume fraction] 37.0 % 37-47 [facility] Hemoglobin measurementOrdere d By: Nicole Crews on 01-10-2025 Hemoglobin (Bld) [Mass/Vol] 12.8 g/dL 12.0-15.0 [facility] Immature granulocytes/100 WB C Auto (Bld)Ordered By: Nicole Crews on 01-10-2025 Immature granulocytes/100 WBC (Bld) 0.600 % 0.0-0.9 [facility] Comment on above: IG% - Immature Granu locytes (promyelocytes, myelocytes and metamyelocytes) > 1% indicates that a LEFT SHIFT is Present. Laboratory - Chemistry and C hemistry - challengeOrdered By: Carie Burns on 01-10-2025 Glucose Ql (U) Negative [facility] Laboratory - UrinalysisOrder ed By: Carie Burns on 01-10-2025 Protein Ql (U) Negative [facility] MCV (mean corpuscular volume ) determinationOrdered By: Nicole Crews on 01-10-2025 MCV (RBC) [Entitic vol] 87.1 fL 81-99 [facility] Mean corpuscular hemoglobin (MCH) determinationOrdered By: Nicole Crews on 01-10-2025 MCH (RBC) [Entitic mass] 30.1 pg 27.0-32.0 [facility] Mean corpuscular hemoglobin concentration (MCHC) determinationOrdered By: Nicole Crews on 01-10-2025 MCHC (RBC) [Mass/Vol] 34.6 g/dL 32-36 [facility] Mean platelet volume determi nationOrdered By: Nicole Crews on 01-10-2025 Platelet mean volume (Bld) [Entitic vol] 11.3 fL 6.2-12.0 [facility] Monocyte percentageOrdered B y: Nicole Crews on 01-10-2025 Monocytes/100 WBC (Bld) 5.1 % 0-10 [facility] Neutrophil percentageOrdered By: Nicole Crews on 01-10-2025 Neutrophils/100 WBC (Bld) 78.0 % High 47-70 [facility] No Panel InformationOrdered By: Nicole Crews on 01-10-2025 HIV (1&2) Antibody Non-Reactive Nonreactive [facility] Comment on above: Non-ReactiveReactive Repeatedly reactive samples must be confirmed according to CDC recommended confirmatory algorithms. The subresults for either HIVAG or AHIV can be used as an aid in the selection of the confirmation algorithm for reactive samples.Send out specimens with Reactive results to [facility] for confirmation.Order the HIV antibody detection and differentiation: #[id number] Nucleated red blood cell per centageOrdered By: Nicole Crews on 01-10-2025 Nucleated RBC/100 WBC (Bld) [Ratio] 0 % 0-5 [facility] Otolaryngologist Office Visit Reporton 01-10-2025 Otolaryngologist Office Visit Report [facility] [address], [address] [place] [address] OFFICE VISIT Date of Service: 01/10/25 MR#: [id number] Acct: [id number] Name: GERTRUDE EMERY Rep #: [id number] : 1995 Provider: KENDALL marcano Age/Sex: 29/F Location: [facility] [place] Status: Signed Intake Vital Signs 11/18/24 08:30 12/14/24 15:32 01/10/25 15:23 Height 5 ft 7 in 5 ft 7 in 5 ft 7 in Weight: 168 lb 6 oz 174 lb 2 oz 177 lb BMI 26.4 27.2 27.7 BP 128/84 H 119/73 123/76 H Intake Visit Reasons: 28 wk ob/glucose Chief Complaint: 28 Week OB/Glucose Presales Senior Specialist Required: No Is patient in pain?: No [...] spouse 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al status: employed 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al exposures/hazards: No pets and animals: Yes pets and animals: dog(s) history of recent travel: Yes ([place] - September 2024) out of state: No out of country: Yes sexually active: Yes Smoking Status: Never smoker second hand exposure: No alcohol intake: never substance use type: other details: [place] gummies - Beginning of July diet: gluten free well-balanced diet: daily or most days caffeine: Yes eating out: 1-3 times/week during the past year weight has: remained stable what type of physical activity do you participate in: walking and weight training frequency: 3-4 times per week duration: 15-30 minutes/day lc/buddhist: Shinto seatbelt use: always do you feel safe at home: Yes additional social history: : 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 Normal [facility] Platelet countOrdered By: Connor Crews on 01-10-2025 Platelets (d) [#/Vol] 210 10*3/uL 150-450 [facility] RBC Auto (d) [#/Vol]Ordere d By: Nicole Crews on 01-10-2025 RBC (Bld) [#/Vol] 4.25 10*6/uL 4.2-5.4 [facility] Syphilis Antibodieson 2024 Syphilis Abs Non-Reactive Normal Nonreactive [facility] Comment on above: Performed By: #### L 509.8002, L3890.6006, L100.0100, L501.0250 #### [facility] [address] [place], [address] White blood cell (WBC) count Ordered By: Nicole Crews on 01-10-2025 WBC (Bld) [#/Vol] 14.7 10*3/uL High 4.4-11.0 [facility] Laboratory - Chemistry and C hemistry - challengeOrdered By: Nicole Crews on 12-14-2024 Glucose Ql (U) Negative [facility] Laboratory - UrinalysisOrder ed By: Nicole Crews on 12-14-2024 Protein Ql (U) Negative [facility] Otolaryngologist Office Visit Reporton 12-14-2024 Otolaryngologist Office Visit Report [facility] [address], [address] [place] [address] OFFICE VISIT Date of Service: 12/14/24 MR#: [id number] Acct: [id number] Name: GERTRUDE EMERY Rep #: [id number] : 1995 Provider: NATALYA Felix ams Age/Sex: 29/F Location: [facility] [place] Status: Signed Intake Vital Signs 11/18/24 08:30 12/14/24 15:32 Height 5 ft 7 in 5 ft 7 in Weight: 174 lb 2 oz BMI 27.2 BP 119/73 Intake Visit Reasons: 24 wk ob Presales Senior Specialist Required: No Is patient in pain?: No [...] spouse 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al status: employed 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al exposures/hazards: No pets and animals: Yes pets and animals: dog(s) history of recent travel: Yes ([place] - September 2024) out of state: No out of country: Yes sexually active: Yes Smoking Status: Never smoker second hand exposure: No alcohol intake: never substance use type: other details: [place] gummies - Beginning of July diet: gluten free well-balanced diet: daily or most days caffeine: Yes eating out: 1-3 times/week during the past year weight has: remained stable what type of physical activity do you participate in: walking and weight training frequency: 3-4 times per week duration: 15-30 minutes/day lc/buddhist: Shinto seatbelt use: always do you feel safe at home: Yes additional 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 Normal [facility] Laboratory - Chemistry and C hemistry - challengeOrdered By: Nicole Crews on 11-18-2024 Glucose Ql (U) Negative [facility] Laboratory - UrinalysisOrder ed By: Nicole Crews on 11-18-2024 Protein Ql (U) Negative [facility] Otolaryngologist Office Visit Reporton 11-18-2024 Otolaryngologist Office Visit Report [facility]'s [address], [address] [place] [address] OFFICE VISIT Date of Service: 11/18/24 MR#: [id number] Acct: [id number] Name: GERTURDE EMERY Rep #: [id number] : 1995 Provider: NATALYA Felix ams Age/Sex: 28/F [place] [facility] [place]: Signed Intake Vital Signs 09/22/24 15:06 10/22/24 10:19 11/18/24 08:30 Height 5 ft 7 in 5 ft 7 in 5 ft 7 in Weight: 168 lb 6 oz BMI 26.4 BP 128/84 H Intake Visit Reasons: 20 wk ob Chief Complaint: 20wk ob Presales Senior Specialist Required: No Is patient in pain?: No [...] spouse 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al status: employed 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al exposures/hazards: No pets and animals: Yes pets and animals: dog(s) history of recent travel: Yes ( - September 2024) out of state: No out of country: Yes sexually active: Yes Smoking Status: Never smoker second hand exposure: No alcohol intake: never substance use type: other details: [place] gummies - Beginning of July diet: gluten free well-balanced diet: daily or most days caffeine: Yes eating out: 1-3 times/week during the past year weight has: remained stable what type of physical activity do you participate in: walking and weight training frequency: 3-4 times per week duration: 15-30 minutes/day lc/buddhist: Shinto seatbelt use: always do you feel safe at home: Yes 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 Normal [facility] Urine Cultureon 10-23-2024 URC Culture exhibits no growth. Normal [facility] Comment on above: Performed By: #### M 100.2200, L7400.0353, L7000.1800 #### [facility] [address] [place], [address] Laboratory - Chemistry and C hemistry - challengeOrdered By: Nicole Crews on 10-22-2024 Glucose Ql (U) Negative [facility] Laboratory - UrinalysisOrder ed By: Nicole Crews on 10-22-2024 Protein Ql (U) Negative [facility] Otolaryngologist Office Visit Reporton 10-22-2024 Otolaryngologist Office Visit Report [facility], [address] [place] [address] OFFICE VISIT Date of Service: 10/22/24 MR#: [id number] Acct: [id number] Name: GERTRUDE EMERY Rep #: [id number] : 1995 Provider: NATALYA Felix ams Age/Sex: 28/F [place] [facility] [place] Status: Signed Intake Vital Signs 08/25/24 15:45 09/22/24 15:06 10/22/24 10:19 Height 5 ft 7 in 5 ft 7 in 5 ft 7 in Weight: 160 lb BMI 25.0 BP 118/78 Blood Pressure Location Rt brachial Position Sitting Pulse 105 H Pulse Source Monitor Intake Visit Reasons: 16 wk ob Presales Senior Specialist Required: No Accompanied by: Is patient in [...] intake: never substance use type: other details: [place] gummies - Beginning of July diet: gluten free well-balanced diet: daily or most days caffeine: Yes eating out: 1-3 times/week during the past year weight has: remained stable what type of physical activity do you participate in: walking and weight training frequency: 3-4 times per week duration: 15-30 minutes/day lc/buddhist: Shinto seatbelt use: always do you feel safe at home: Yes additional 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 Normal [facility] Urine cultureOrdered By: Chin Crews on 10-22-2024 Bacteria identified Cx Nom (U) Culture exhibits no growth. [facility] Laboratory - Chemistry and C hemistry - challengeOrdered By: Angella Villarreal on 09-22-2024 Glucose Ql (U) Negative [facility] Laboratory - UrinalysisOrder ed By: Angella Villarreal on 09-22-2024 Protein Ql (U) Negative [facility] Otolaryngologist Office Visit Reporton 09-22-2024 Otolaryngologist Office Visit Report [facility] [address] [place] [address], [address] [place] [address] OFFICE VISIT Date of Service: 09/22/24 MR#: [id number] Acct: [id number] Name: GERTRUDE EMERY Rep #: [id number] : 1995 Provider: Dr. Angella mosquera MD Age/Sex: 28/F [place] [facility] [place] Status: Signed Intake Vital Signs 08/11/24 09:14 08/20/24 10:52 08/25/24 15:45 09/22/24 15:06 Height 5 ft 7 in 5 ft 7 in 5 ft 7 in 5 ft 7 in Weight: 161 lb 8 oz BMI 25.2 BP 122/80 H Intake Visit Reasons: 12wk OB Presales Senior Specialist Required: No Is patient in pain?: No [...] spouse 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al status: employed 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al exposures/hazards: No pets and animals: Yes pets and animals: dog(s) history of recent travel: Yes ( - September 2024) out of state: No out of country: Yes sexually active: Yes Smoking Status: Never smoker second hand exposure: No alcohol intake: never substance use type: other details: [place] gummies - Beginning of July diet: gluten free well-balanced diet: daily or most days caffeine: Yes eating out: 1-3 times/week during the past year weight has: remained stable what type of physical activity do you participate in: walking and weight training frequency: 3-4 times per week duration: 15-30 minutes/day lc/buddhist: Shinto seatbelt use: always do you feel safe at home: Yes additional 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 Normal [facility] PAP I-G w/rfx hrHPV-Aptimaon 08-30-2024 ADEQ Comment Normal . [facility] Comment on above: Order Comment: Brenda vela Comment: [id number] Specimen Comment: No. of containers..01 ThinPrep Vial Result Comment: Sati sfactory for evaluation. Endocervical and/or squamous metaplastic cells (endocervical component) are present. Performed By: #### M 100.2200, L7400.0353, L7000.1800 #### [facility] [address] [place], [place], [id number] COMM . Normal . [facility] Comment on above: Order Comment: Speci men Comment: [id number] Specimen Comment: No. of containers..01 ThinPrep Vial Performed By: #### M 100.2200, L7400.0353, L7000.1800 #### [facility] [address] [place], [address] COMMENT Comment Normal . [facility] Comment on above: Order Comment: Speci men Comment: [id number] Specimen Comment: No. of containers..01 ThinPrep Vial Result Comment: This liquid based ThinPrep(R) pap test was screened with the use of an image guided system. Performed By: #### M 100.2200, L7400.0353, L7000.1800 #### [facility] [address] [place], [place], [id number] DIAG Comment Normal . [facility] Comment on above: Order Comment: Speci men Comment: [id number] Specimen Comment: No. of containers..01 ThinPrep Vial Result Comment: NEGA TIVE FOR INTRAEPITHELIAL LESION OR MALIGNANCY. Performed By: #### M 100.2200, L7400.0353, L7000.1800 #### [facility] [address] [place], [place], [address] HPV RFLX Comment Normal . [facility] Comment on above: Order Comment: Speci men Comment: [id number] Specimen Comment: No. of containers..01 ThinPrep Vial Result Comment: The HPV DNA reflex criteria were not met with this specimen result therefore, no HPV testing was performed. Performed at: - [address] [id number] Pulmonary Function Technician: Mari Zimmerman MD, Phone: [phone] Performed By: #### M 100.2200, L7400.0353, L7000.1800 #### [facility] [address] [place], [place], [id number] PAPSMR Comment Normal . [facility] Comment on above: Order Comment: Speci men Comment: [id number] Specimen Comment: No. of containers..01 ThinPrep Vial [...] By: #### M 100.2200, L7400.0353, L7000.1800 #### [facility] [address] [place], [place], [address] PERFORM Comment Normal . [facility] Comment on above: Order Comment: Speci men Comment: [id number] Specimen Comment: No. of containers..01 ThinPrep Vial Result Comment: Romain Conklin, Fans Clerk (ASCP) Performed By: #### M 100.2200, L7400.0353, L7000.1800 #### [facility] [address] [place], [address] Chlamydia/GC KEVIN aptimaon CHLAMY,NUC ACID Negative Normal Negative [facility] Comment on above: Performed By: #### M 100.2200, L7400.0353, L7000.1800 #### [facility] [address] [place], [address] GC BY NUC ACID Negative Normal Negative [facility] Comment on above: Result Comment: Perf ormed at: =G - [facility] [address] [id number] Pulmonary Function Technician: Mari Zimmerman MD, Phone: [phone] Performed By: #### M 100.2200, L7400.0353, L7000.1800 #### [facility] [address] [place], [address] Urine Cultureon 08-26-2024 URC Culture exhibits no growth. Normal [facility] Comment on above: Performed By: #### M 100.2200, L7400.0353, L7000.1800 #### [facility] [address] [place], [address] Absolute lymphocyte countOrd ered By: Nicole Crews on 08-25-2024 Lymphocytes Auto (Unsp spec) [#/Vol] 2.51 10*3/uL 0.83-4.51 [facility] Absolute neutrophil countOrd ered By: Nicole Crews on 08-25-2024 Neutrophils (Bld) [#/Vol] 10.9 10*3/uL High 2.0-7.7 [facility] Automated lymphocyte count a s percentage of total leukocytesOrdered By: Nicole Crews on 08-25-2024 Lymphocytes/100 WBC Auto (Unsp spec) 17.5 % Low - [facility] Basophil percentageOrdered B y: Nicole rCews on 08-25-2024 Basophils/100 WBC (Bld) 0.2 % 0-1 [facility] CBC W/Diff, Automatedon 08-07 Absolute Lymph 2.51 X10 3/uL Normal 0.83-4.51 [facility] Comment on above: Performed By: #### M 100.2200, L7400.0353, L7000.1800 #### [facility] [address] [place], [address] Absolute Neut 10.9 X10 3/uL High 2.0-7.7 [facility] [facility] Comment on above: Performed By: #### M 100.2200, L7400.0353, L7000.1800 #### [facility] [address] [place], [address] Basophils/100 WBC (Bld) 0.2 % Normal 0-1 [facility] Comment on above: Performed By: #### M 100.2200, L7400.0353, L7000.1800 #### [facility] [address] [place], [address] Eosinophils/100 WBC (Bld) 0.8 % Normal 0-5 [facility] Comment on above: Performed By: #### M 100.2200, L7400.0353, L7000.1800 #### [facility] [address] [place], [address] Erythrocyte distribution width (RBC) [Ratio] 12.4 % Normal 11.6-14.6 [facility] Comment on above: Performed By: #### M 100.2200, L7400.0353, L7000.1800 #### [facility] [address] [place], [address] Hematocrit (Bld) [Volume fraction] 41.8 % Normal 37-47 [facility] Comment on above: Performed By: #### M 100.2200, L7400.0353, L7000.1800 #### [facility] [address] [place], [address] Hemoglobin (Bld) [Mass/Vol] 14.4 g/dL Normal 12.0-15.0 [facility] Comment on above: Performed By: #### M 100.2200, L7400.0353, L7000.1800 #### [facility] [address] [place], [address] IG% 0.600 Normal 0.0-0.9 [facility] Comment on above: Result Comment: IG% - Immature Granulocytes (promyelocytes, myelocytes and metamyelocytes) > 1% indicates that a LEFT SHIFT is Present. Performed By: #### M 100.2200, L7400.0353, L7000.1800 #### [facility] [address] [place], [address] Lymphocytes/100 WBC (Bld) 17.5 % Low 19-41 [facility] Comment on above: Performed By: #### M 100.2200, L7400.0353, L7000.1800 #### [facility] [address] [place], [address] MCH (RBC) [Entitic mass] 29.2 pg Normal 27.0-32.0 [facility] Comment on above: Performed By: #### M 100.2200, L7400.0353, L7000.1800 #### [facility] [address] [place], [address] MCHC (RBC) [Mass/Vol] 34.4 g/dL Normal 32-36 [facility] Comment on above: Performed By: #### M 100.2200, L7400.0353, L7000.1800 #### [facility] [address] [place], [address] MCV (RBC) [Entitic vol] 84.8 fL Normal 81-99 [facility] Comment on above: Performed By: #### M 100.2200, L7400.0353, L7000.1800 #### [facility] [address] [place], [address] Monocytes/100 WBC (Bld) 5.3 % Normal 0-10 [facility] Comment on above: Performed By: #### M 100.2200, L7400.0353, L7000.1800 #### [facility] [address] [place], [address] Neutrophils/100 WBC (Bld) 75.6 % High 47-70 [facility] Comment on above: Performed By: #### M 100.2200, L7400.0353, L7000.1800 #### [facility] [address] [place], [address] Nucleated RBC (Bld) [#/Vol] 0 10*3/uL Normal 0-5 [facility] Comment on above: Performed By: #### M 100.2200, L7400.0353, L7000.1800 #### [facility] [address] [place], [address] Platelet mean volume (Bld) [Entitic vol] 11.0 fL Normal 6.2-12.0 [facility] Comment on above: Performed By: #### M 100.2200, L7400.0353, L7000.1800 #### [facility] [address] [place], [address] Platelets (Bld) [#/Vol] 339 10*3/uL Normal 150-450 [facility] Comment on above: Performed By: #### M 100.2200, L7400.0353, L7000.1800 #### [facility] [address] [place], [address] RBC (Bld) [#/Vol] 4.93 10*6/uL Normal 4.2-5.4 [facility] Comment on above: Performed By: #### M 100.2200, L7400.0353, L7000.1800 #### [facility] [address] [place], [address] RDW SD 37.3 fl Normal 35.1-43.9 [facility] Comment on above: Performed By: #### M 100.2200, L7400.0353, L7000.1800 #### [facility] [address] [place], [address] WBC (Bld) [#/Vol] 14.4 10*3/uL High 4.4-11.0 [facility] Comment on above: Performed By: #### M 100.2200, L7400.0353, L7000.1800 #### [facility] [address] [place], [address] Cervical or vagninal specime n microscopic examination by cytology stain (reported asOrdered By: Nicole Crews on 08-25-2024 Cytology report Cyto stain Doc (Cvx/Vag) Comment . [facility] Comment on above: The Pap smear is [...] rRNA KEVIN+probe Ql (Unsp spec) Negative Negative [facility] Eosinophil percentageOrdered By: Nicole Crews on 08-25-2024 Eosinophils/100 WBC (Bld) 0.8 % 0-5 [facility] Erythrocyte distribution wid th ratioOrdered By: Nicole Crews on 08-25-2024 Erythrocyte distribution width (RBC) [Ratio] 12.4 % 11.6-14.6 [facility] Erythrocyte distribution wid th standard deviationOrdered By: Nicole Crews on 08-25-2024 Erythrocyte distribution width (RBC) [Ratio] 37.3 fl 35.1-43.9 [facility] HIV - WCHon 08-25-2024 HIV Non-Reactive Normal Nonreactive [facility] Comment on above: Order Comment: Speci men Comment: [id number] Specimen Comment: No. of containers..01 ThinPrep Vial Performed By: #### M 100.2200, L7400.0353, L7000.1800 #### [facility] [address] [place], [place], [address] HIV 1 and HIV-2 antibody ass ay with HIV-1 p24 antigen detectionOrdered By: Nicole Crews on 08-25-2024 HIV 1+2 Ab+HIV1 p24 Ag IA Ql Non-Reactive Nonreactive [facility] Hematocrit Auto (Bld) [Volum e fraction]Ordered By: Nicole Crews on 08-25-2024 Hematocrit (Bld) [Volume fraction] 41.8 % 37-47 [facility] Hemoglobin measurementOrdere d By: Nicole Crews on 08-25-2024 Hemoglobin (Bld) [Mass/Vol] 14.4 g/dL 12.0-15.0 [facility] Hepatitis B Surface Antigeno n 08-25-2024 HEP B Surf Ag Non-Reactive Normal Nonreactive [facility] Comment on above: Order Comment: Speci men Comment: [id number] Specimen Comment: No. of containers..01 ThinPrep Vial Performed By: #### M 100.2200, L7400.0353, L7000.1800 #### [facility] [address] [place], [place], [address] Hepatitis C Antibodyon 08-25 Hepatitis C AB Non-Reactive Normal Nonreactive [facility] Comment on above: Order Comment: Speci men Comment: [id number] Specimen Comment: No. of containers..01 ThinPrep Vial Result Comment: Non Reactive: < 0.8 Equivocal: >/= 0.8 to < 1.0 Reactive: >/= 1.0 The CDC requires that a reactive/equivocal HCV antibody result be sent out for confirmation. HCV Quant by PCR testing. Performed By: #### M 100.2200, L7400.0353, L7000.1800 #### [facility] [address] [place], [place], [address] Immature granulocytes/100 WB C Auto (Bld)Ordered By: Nicole Crews on 08-25-2024 Immature granulocytes/100 WBC (Bld) 0.600 % 0.0-0.9 [facility] Comment on above: IG% - Immature Granu locytes (promyelocytes, myelocytes and metamyelocytes) > 1% indicates that a LEFT SHIFT is Present. L509.8000on 08-25-2024 Syphilis Abs Non-Reactive Normal [facility] Comment on above: Order Comment: Spec men Comment: [id number] Specimen Comment: No. of containers..01 ThinPrep Vial Performed By: #### M 100.2200, L7400.0353, L7000.1800 #### [facility] [address] [place], [place], [address] Laboratory - CytologyOrdered By: Nicole Crews on 08-25-2024 Claim Agent Cyto stain Nom (Cvx/Vag) [ID] Comment . [facility] Comment on above: Juan Nogueira otechnologist (ASCP) Laboratory - Miscellaneous t estsOrdered By: Nicole Crews on 08-25-2024 Service comment (Unsp spec) [Interp] . . [facility] MCV (mean corpuscular volume ) determinationOrdered By: Nicole Crews on 08-25-2024 MCV (RBC) [Entitic vol] 84.8 fL 81-99 [facility] Mean corpuscular hemoglobin (MCH) determinationOrdered By: Nicole Crews on 08-25-2024 MCH (RBC) [Entitic mass] 29.2 pg 27.0-32.0 [facility] Mean corpuscular hemoglobin concentration (MCHC) determinationOrdered By: Nicole Crews on 08-25-2024 MCHC (RBC) [Mass/Vol] 34.4 g/dL 32-36 [facility] Mean platelet volume determi nationOrdered By: Nicole Crews on 08-25-2024 Platelet mean volume (Bld) [Entitic vol] 11.0 fL 6.2-12.0 [facility] Monocyte percentageOrdered B y: Nicole Crews on 08-25-2024 Monocytes/100 WBC (Bld) 5.3 % 0-10 [facility] Neisseria gonorrhoeae nuclei c acid detection by amplified probe techniqueOrdered By: Nicole Crews on 08-25-2024 N. gonorrhoeae DNA KEVIN+probe Ql (Unsp spec) Negative Negative [facility] Comment on above: Performed at: =[address] [id number] Director: Mari Zimmerman MD, Phone: [phone] Neutrophil percentageOrdered By: Nicole Crews on 08-25-2024 Neutrophils/100 WBC (Bld) 75.6 % High 47-70 [facility] No Panel InformationOrdered By: Nicole Crews on 08-25-2024 Pap Smear Specimen Adequacy Comment . [facility] Comment on above: Satisfactory for angelita luation. Endocervical and/or squamous metaplasticcells (endocervical component) are present. Nucleated red blood cell per centageOrdered By: Nicole Crews on 08-25-2024 Nucleated RBC/100 WBC (Bld) [Ratio] 0 % 0-5 [facility] Otolaryngologist Office Visit Reporton 02-19-2025 Otolaryngologist Office Visit Report [facility] [address], [address] [place] [address] OFFICE VISIT Date of Service: 08/25/24 MR#: [id number] Acct: [id number] Name: GERTRUDE EMERY Rep #: [id number] : 1995 Provider: NATALYA Felix ams Age/Sex: 28/F [place] [facility] [place]: Signed Intake Vital Signs 08/20/24 10:52 [...] spouse 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al status: employed 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al exposures/hazards: No pets and animals: Yes pets and animals: dog(s) history of recent travel: Yes ( - September 2024) out of state: No out of country: Yes sexually active: Yes Smoking Status: Never smoker second hand exposure: No alcohol intake: never substance use type: other details: [place] gummies - Beginning of July diet: gluten free well-balanced diet: daily or most days caffeine: Yes eating out: 1-3 times/week during the past year weight has: remained stable what type of physical activity do you participate in: walking and weight training frequency: 3-4 times per week duration: 15-30 minutes/day lc/buddhist: Shinto seatbelt use: always do you feel safe at home: Yes 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 Normal [facility] Platelet countOrdered By: Connor Crews on 08-25-2024 Platelets (Bld) [#/Vol] 339 10*3/uL 150-450 [facility] RBC Auto (Bld) [#/Vol]Ordere d By: Nicole Crews on 08-25-2024 RBC (Bld) [#/Vol] 4.93 10*6/uL 4.2-5.4 [facility] Rubella IgGon 08-25-2024 Rubella IgG Reactive Normal Nonreactive [facility] Comment on above: Order Comment: Reaso n for Exam: Result Comment: Anti body Results Interpretation of Immune Status Non Reactive Presumed Non-Immune Equivocal Equivocal Reactive Presumed Immune Performed By: #### M 100.2200, L7400.0353, L7000.1800 #### [facility] [address] [place], [place], [id number] Serum Treponema species anti body detectionOrdered By: Nicole Crews on 08-25-2024 Treponema sp Ab Ql (S) Non-Reactive [facility] Type AND Screenon 08-25-2024 ABO and Rh group Nom (Bld) Blood group A Rh(D) positive Normal [facility] Comment on above: Order Comment: Speci men Comment: [id number] Specimen Comment: No. of containers..01 ThinPrep Vial Performed By: #### M 100.2200, L7400.0353, L7000.1800 #### [facility] [address] [place], [place], [address] Urine cultureOrdered By: Chin Crews on 08-25-2024 Bacteria identified Cx Nom (U) Culture exhibits no growth. [facility] White blood cell (WBC) count Ordered By: Nicole Crews on 08-25-2024 WBC (Bld) [#/Vol] 14.4 10*3/uL High 4.4-11.0 [facility] Urine Cultureon 08-12-2024 URC Below infection leve l. Mixed Gram Positive Organisms Drayton Count <1000 MIXC Mixed contaminants. Submit a new specimen if indicated. Normal [facility] Comment on above: Performed By: #### M 100.2200 #### [facility] [address] [place], [place], [address] Absolute lymphocyte countOrd ered By: Fatoumata Diaz on 08-11-2024 Lymphocytes Auto (Unsp spec) [#/Vol] 0.42 10*3/uL Low 0.83-4.51 [facility] Absolute neutrophil countOrd ered By: Fatoumata Diaz on 08-11-2024 Neutrophils (Bld) [#/Vol] 16.1 10*3/uL High 2.0-7.7 [facility] Albumin to globulin ratioOrd ered By: Fatoumata Diaz on 02-05-2025 Albumin/Globulin [Mass ratio] 1.0 {ratio} Normal 0.9-2.4 [facility] Comment on above: Performed By: #### M 100.2200, L7400.0353, L7000.1800 #### [facility] [address] [place], [address] Automated lymphocyte count a s percentage of total leukocytesOrdered By: Fatoumata Diaz on 08-11-2024 Lymphocytes/100 WBC Auto (Unsp spec) 2.4 % Low 19-41 [facility] Basophil percentageOrdered B y: Fatoumata Diaz on 08-11-2024 Basophils/100 WBC (Bld) 0.2 % 0-1 [facility] Bilirubin Test strip Ql (U)O rdered By: Fatoumata Diaz on 08-11-2024 Bilirubin Ql (U) Negative Negative [facility] Bilirubin, totalOrdered By: Fatoumata Diaz on 08-11-2024 Bilirubin [Mass/Vol] 0.80 mg/dL Normal 0.20-1.00 [facility] Comment on above: For patients on eltr ombopag therapy, use of Dimension [place] TBIL is not recommended. Result Comment: For patients on eltrombopag therapy, use of Dimension [place] TBIL is not recommended. Performed By: #### M 100.2200, L7400.0353, L7000.1800 #### [facility] [address] [place], [address] Blood urea nitrogen (BUN)/cr eatinine ratioOrdered By: Fatoumata Diaz on 08-11-2024 Urea nitrogen/Creatinine [Mass ratio] 16.2 mg/mg 10-20 [facility] CBC W/Diff, Automatedon Absolute Lymph 0.42 X10 3/uL Low 0.83-4.51 [facility] Comment on above: Performed By: #### M 100.2200, L7400.0353, L7000.1800 #### [facility] [address] [place], [address] Absolute Neut 16.1 X10 3/uL High 2.0-7.7 [facility] Comment on above: Performed By: #### M 100.2200, L7400.0353, L7000.1800 #### [facility] [address] [place], [address] Basophils/100 WBC (Bld) 0.2 % Normal 0-1 [facility] Comment on above: Performed By: #### M 100.2200, L7400.0353, L7000.1800 #### [facility] [address] [place], [address] Eosinophils/100 WBC (Bld) 0.2 % Normal 0-5 [facility] Comment on above: Performed By: #### M 100.2200, L7400.0353, L7000.1800 #### [facility] [address] [place], [address] Erythrocyte distribution width (RBC) [Ratio] 12.3 % Normal 11.6-14.6 [facility] Comment on above: Performed By: #### M 100.2200, L7400.0353, L7000.1800 #### [facility] [address] [place], [address] Hematocrit (Bld) [Volume fraction] 46.2 % Normal 37-47 [facility] Comment on above: Performed By: #### M 100.2200, L7400.0353, L7000.1800 #### [facility] [address] [place], [address] Hemoglobin (Bld) [Mass/Vol] 16.4 g/dL High 12.0-15.0 [facility] Comment on above: Performed By: #### M 100.2200, L7400.0353, L7000.1800 #### [facility] [address] [place], [address] IG% 0.300 Normal 0.0-0.9 [facility] Comment on above: Result Comment: IG% - Immature Granulocytes (promyelocytes, myelocytes and metamyelocytes) > 1% indicates that a LEFT SHIFT is Present. Performed By: #### M 100.2200, L7400.0353, L7000.1800 #### [facility] [address] [place], [address] Lymphocytes/100 WBC (Bld) 2.4 % Low 19-41 [facility] Comment on above: Performed By: #### M 100.2200, L7400.0353, L7000.1800 #### [facility] [address] [place], [address] MCH (RBC) [Entitic mass] 29.9 pg Normal 27.0-32.0 [facility] Comment on above: Performed By: #### M 100.2200, L7400.0353, L7000.1800 #### [facility] [address] [place], [address] MCHC (RBC) [Mass/Vol] 35.5 g/dL Normal 32-36 [facility] Comment on above: Performed By: #### M 100.2200, L7400.0353, L7000.1800 #### [facility] [address] [place], [address] MCV (RBC) [Entitic vol] 84.3 fL Normal 81-99 [facility] Comment on above: Performed By: #### M 100.2200, L7400.0353, L7000.1800 #### [facility] [address] [place], [address] Monocytes/100 WBC (Bld) 3.4 % Normal 0-10 [facility] Comment on above: Performed By: #### M 100.2200, L7400.0353, L7000.1800 #### [facility] [address] [place], [address] Neutrophils/100 WBC (Bld) 93.5 % High 47-70 [facility] Comment on above: Performed By: #### M 100.2200, L7400.0353, L7000.1800 #### [facility] [address] [place], [address] Nucleated RBC (Bld) [#/Vol] 0 10*3/uL Normal 0-5 [facility] Comment on above: Performed By: #### M 100.2200, L7400.0353, L7000.1800 #### [facility] [address] [place], [address] Platelet mean volume (Bld) [Entitic vol] 11.1 fL Normal 6.2-12.0 [facility] Comment on above: Performed By: #### M 100.2200, L7400.0353, L7000.1800 #### [facility] [address] [place], [address] Platelets (Bld) [#/Vol] 216 10*3/uL Normal 150-450 [facility] Comment on above: Performed By: #### M 100.2200, L7400.0353, L7000.1800 #### [facility] [address] [place], [address] RBC (Bld) [#/Vol] 5.48 10*6/uL High 4.2-5.4 [facility] Comment on above: Performed By: #### M 100.2200, L7400.0353, L7000.1800 #### [facility] [address] [place], [address] RDW SD 37.2 fl Normal 35.1-43.9 [facility] Comment on above: Performed By: #### M 100.2200, L7400.0353, L7000.1800 #### [facility] [address] [place], [address] WBC (Bld) [#/Vol] 17.2 10*3/uL High 4.4-11.0 [facility] Comment on above: Performed By: #### M 100.2200, L7400.0353, L7000.1800 #### [facility] [address] [place], [address] Carbon dioxide measurementOr dered By: Fatoumata Diaz on 08-11-2024 CO2 [Moles/Vol] 21.0 mmol/L Normal 21.0-32.0 [facility] Comment on above: Performed By: #### M 100.2200, L7400.0353, L7000.1800 #### [facility] [address] [place], [address] Chloride measurementOrdered By: Fatoumata Diaz on 08-11-2024 Chloride [Moles/Vol] 104 mmol/L Normal 98-107 [facility] Comment on above: Performed By: #### M 100.2200, L7400.0353, L7000.1800 #### [facility] [address] [place], [address] Comprehensive Metabolic Prof ilon 08-11-2024 ALK P 72 U/L Normal 45-117 [facility] Comment on above: Performed By: #### M 100.2200, L7400.0353, L7000.1800 #### [facility] [facility] [address] [place], [address] BUN/CRE 16.2 RATIO Normal 10-20 [facility] Comment on above: Performed By: #### M 100.2200, L7400.0353, L7000.1800 #### [facility] [address] [place], [address] CA,Total 9.0 mg/dL Normal 8.5-10.1 [facility] Comment on above: Performed By: #### M 100.2200, L7400.0353, L7000.1800 #### [facility] [address] [place], [address] ECRCL 111.05 ml/min Normal [facility] Comment on above: Performed By: #### M 100.2200, L7400.0353, L7000.1800 #### [facility] [address] [place], [address] EST GFR - AA 120 mL/min Normal >60 [facility] Comment on above: Result Comment: Afri can Panamanian GFR Calc Performed By: #### M 100.2200, L7400.0353, L7000.1800 #### [facility] [address] [place], [address] GAP 9 Normal 5-15 [facility] Comment on above: Performed By: #### M 100.2200, L7400.0353, L7000.1800 #### [facility] [address] [place], [address] T PROT 7.7 g/dL Normal 6.4-8.2 [facility] Comment on above: Performed By: #### M 100.2200, L7400.0353, L7000.1800 #### [facility] [address] [place], [address] Comprehensive Metabolic Prof ilOrdered By: Fatoumata Diaz on 08-11-2024 AST [Catalytic activity/Vol] 12 U/L Low 15-37 [facility] Comment on above: Performed By: #### M 100.2200, L7400.0353, L7000.1800 #### [facility] [address] [place], [address] Emergency Department Summary on 08-11-2024 Emergency Department Summary [facility] Medical Records Department [address] [place] [address] Emergency Department Summary 08/11/24 MR#: [id number] Acct: [id number] Name: GERTRUDE EMERY Rep #: [id number] : 1995 28 From: Fatoumata Diaz DO [...] as her (more content not included)... Normal [facility] Eosinophil percentageOrdered By: Fatoumata Diaz on 08-11-2024 Eosinophils/100 WBC (Bld) 0.2 % 0-5 [facility] Erythrocyte distribution wid th ratioOrdered By: Fatoumata Diaz on 08-11-2024 Erythrocyte distribution width (RBC) [Ratio] 12.3 % 11.6-14.6 [facility] Erythrocyte distribution wid th standard deviationOrdered By: Fatoumata Diaz on 08-11-2024 Erythrocyte distribution width (RBC) [Ratio] 37.2 fl 35.1-43.9 [facility] Gallbladderon 08-11-2024 Gallbladder [facility] Imaging Services [address] [place], [place] [id number] Gallbladder MR#: [id number] Acct: [id number] Name: GERTRUDE EMERY Rep #: [id number] : 1995 F 28 From: Rios parker MD PCP: Care Physician,No Primary Status: DEP ER Study: Gallbladder Date of Exam: 08/11/24 Exam# [id number] Ordering Dr: Fatoumata Diaz DO PROCEDURE: Right [...] ULTRASOUND. Right renal pelvic cyst. Reading Location: [place] [address] CC: Dr. Fatoumata Diaz DO; No Primary Care Physician [place]: Signed Normal [facility] Glomerular filtration rate ( GFR) estimationOrdered By: Fatoumata Diaz on 08-11-2024 GFR/1.73 sq M.predicted among non-blacks MDRD (S/P/Bld) [Vol rate/Area] 99 mL/min/{1.73_m2} Normal >60 [facility] Comment on above: Non- GFR Calc Result Comment: Non- GFR Calc Performed By: #### M 100.2200, L7400.0353, L7000.1800 #### [facility] [address] [place], [address] Glucose measurementOrdered B y: Fatoumata Diaz on 08-11-2024 Glucose [Mass/Vol] 133 mg/dL High 74-106 [facility] Comment on above: Fasting Glucose resu lt greater than or equal to 126 mg/dL suggests DIABETES MELLITUS per A.D.A. criteria. Result Comment: Fast ing Glucose result greater than or equal to 126 mg/dL suggests DIABETES MELLITUS per A.D.A. criteria. Performed By: #### M 100.2200, L7400.0353, L7000.1800 #### [facility] [address] [place], [address] Hematocrit Auto (Bld) [Volum e fraction]Ordered By: Fatoumata Diaz on 08-11-2024 Hematocrit (Bld) [Volume fraction] 46.2 % 37-47 [facility] Hemoglobin measurementOrdere d By: Fatoumata Diaz on 08-11-2024 Hemoglobin (Bld) [Mass/Vol] 16.4 g/dL High 12.0-15.0 [facility] Immature granulocytes/100 WB C Auto (Bld)Ordered By: Fatoumata Diaz on 08-11-2024 Immature granulocytes/100 WBC (Bld) 0.300 % 0.0-0.9 [facility] Comment on above: IG% - Immature Granu locytes (promyelocytes, myelocytes and metamyelocytes) > 1% indicates that a LEFT SHIFT is Present. Influenza virus A and B and SARS-CoV-2 (COVID-19) and Respiratory syncytial virus RNAOrdered By: Fatoumata Diaz on 08-11-2024 SARS-CoV-2 (COVID-19) RNA KEVIN+probe Ql (Unsp spec) [facility] Ketones Test strip Ql (U)Ord ered By: Fatoumata Diaz on 08-11-2024 Ketones Ql (U) 150 mg/dl Abnormal Negative [facility] Comment on above: CRITICAL VALUE *HCRI TICAL VALUE CALLED TO SHEILA THOMPSON (ER)08/11/24 1133 Eddy Deleon.RESULTS READ BACK BY SAME. Lipase measurementOrdered By : Fatoumata Diaz on 08-11-2024 Lipase [Catalytic activity/Vol] 31 U/L Normal 13-75 [facility] Comment on above: Please note:LIPASE r evised [...] By: #### M 100.2200, L7400.0353, L7000.1800 #### [facility] [address] [place], [address] M100.678on 08-11-2024 M100.678 Pending SARS-CoV-2 (COVID 19) Negative INFLUENZA A Negative INFLUENZA B Negative RSV PCR Negative Normal [facility] Comment on above: Performed By: #### M 100.2200, L7400.0353, L7000.1800 #### [facility] [address] [place], [address] MCV (mean corpuscular volume ) determinationOrdered By: Fatoumata Diaz on 08-11-2024 MCV (RBC) [Entitic vol] 84.3 fL 81-99 [facility] Mean corpuscular hemoglobin (MCH) determinationOrdered By: Fatoumata Diaz on 08-11-2024 MCH (RBC) [Entitic mass] 29.9 pg 27.0-32.0 [facility] Mean corpuscular hemoglobin concentration (MCHC) determinationOrdered By: Fatoumata Diaz on 08-11-2024 MCHC (RBC) [Mass/Vol] 35.5 g/dL 32-36 [facility] Mean platelet volume determi nationOrdered By: Fatoumata Diaz on 08-11-2024 Platelet mean volume (Bld) [Entitic vol] 11.1 fL 6.2-12.0 [facility] Microscopic analysis of urin e for red blood cells (RBC)Ordered By: Fatoumata Diaz on 08-11-2024 Microscopic analysis of urine for red blood cells (RBC) 0-5 SEEN /hpf 0-5 [facility] Monocyte percentageOrdered B y: Fatoumata Diaz on 08-11-2024 Monocytes/100 WBC (Bld) 3.4 % 0-10 [facility] Mucus LM Ql (Urine sed)Order ed By: Fatoumata Diaz on 08-11-2024 Mucus Ql (Urine sed) 0 SEEN /hpf [facility] Neutrophil percentageOrdered By: Fatoumata Diaz on 08-11-2024 Neutrophils/100 WBC (Bld) 93.5 % High 47-70 [facility] Nitrite Test strip Ql (U)Ord ered By: Fatoumata Diaz on 08-11-2024 Nitrite Ql (U) Negative Negative [facility] Nucleated red blood cell per centageOrdered By: Fatoumata Diaz on 08-11-2024 Nucleated RBC/100 WBC (Bld) [Ratio] 0 % 0-5 [facility] Platelet countOrdered By: Kolby Diaz on 08-11-2024 Platelets (Bld) [#/Vol] 216 10*3/uL 150-450 [facility] Potassium measurementOrdered By: Fatoumata Diaz on 08-11-2024 Potassium [Moles/Vol] 3.9 mmol/L Normal 3.5-5.1 [facility] Comment on above: Performed By: #### M 100.3270, L7400.0353, L7000.1800 #### [facility] [address] [place], [address] Protein Test strip Ql (U)Ord ered By: Fatoumata Diaz on 08-11-2024 Protein Ql (U) 30 mg/dl High Negative [facility] RBC Auto (Bld) [#/Vol]Ordere d By: Fatoumata Diaz on 08-11-2024 RBC (Bld) [#/Vol] 5.48 10*6/uL High 4.2-5.4 [facility] Serum anion gap measurementO rdered By: Fatoumata Diaz on 08-11-2024 Anion gap [Moles/Vol] 9 mmol/L 5-15 [facility] Serum globulin measurementOr dered By: Fatoumata Diaz on 08-11-2024 Globulin (S) [Mass/Vol] 3.9 g/dL Normal 2.2-4.2 [facility] Comment on above: Performed By: #### M 100.2200, L7400.0353, L7000.1800 #### [facility] [address] [place], [address] Serum human chorionic gonado tropin detection for pregnancyOrdered By: Fatoumata Diaz on 08-11-2024 HCG ( test) Ql [address] mIU/mL High <4 [facility] Comment on above: hCG levels with Gest ational AgeGestational Age hCG mIU/mL (IU/L)0.2 - 1 week 5 - 501-2 weeks 50 - 5002-3 weeks 100 - 83316-9 weeks 500 - 115240-8 weeks 1000 - 656457-5 weeks 27847 - 100,0006-8 weeks 85189 - 200,0002-3 months 750[address] - 100,000 Serum or plasma alanine lynn otransferase (ALT) measurementOrdered By: Fatoumata Diaz on 08-11-2024 ALT [Catalytic activity/Vol] 29 U/L Normal 13-56 [facility] Comment on above: Performed By: #### M 100.2200, L7400.0353, L7000.1800 #### [facility] [address] [place], [place], [address] Serum or plasma albumin clive urement (mass/volume)Ordered By: Fatoumata Diaz on 08-11-2024 Albumin [Mass/Vol] 3.8 g/dL Normal 3.2-5.0 [facility] Comment on above: Performed By: #### M 100.2200, L7400.0353, L7000.1800 #### [facility] [address] [place], [place], [address] Serum or plasma alkaline yenni sphatase measurementOrdered By: Fatoumata Diaz on 08-11-2024 ALP [Catalytic activity/Vol] 72 U/L 45-117 [facility] Serum or plasma calcium clive urement (mass/volume)Ordered By: Fatoumata Diaz on 08-11-2024 Calcium [Mass/Vol] 9.0 mg/dL 8.5-10.1 [facility] Serum or plasma creatinine m easurement (mass/volume)Ordered By: Fatoumata Diaz on 08-11-2024 Creatinine [Mass/Vol] 0.74 mg/dL Normal 0.55-1.02 [facility] Comment on above: The validity of the calculated GFR & GFRAA in patients over 70 years has not been determined. Clinical correlation is essential. Result Comment: The validity of the calculated GFR GFRAA in patients over 70 years has not been determined. Clinical correlation is essential. Performed By: #### M 100.2200, L7400.0353, L7000.1800 #### [facility] [address] [place], [place], [id number] Serum or plasma urea nitroge n measurement (mass/volume)Ordered By: Fatoumata Diaz on 08-11-2024 Urea nitrogen [Mass/Vol] 12 mg/dL Normal 7-18 [facility] Comment on above: Performed By: #### M 100.2200, L7400.0353, L7000.1800 #### [facility] [address] [place], [address] Sodium levelOrdered By: Soniya Diaz on 08-11-2024 Sodium [Moles/Vol] 134 mmol/L Low 136-145 [facility] Comment on above: Performed By: #### M 100.2200, L7400.0353, L7000.1800 #### [facility] [address] [place], [address] Squamous epithelial cells de tection in urine sediment by light microscopyOrdered By: Fatoumata Diaz on 08-11-2024 Epithelial cells.squamous LM Ql (Urine sed) 0-5 SEEN /hpf 5-10 [facility] Total proteinOrdered By: Alexandrea Diaz on 08-11-2024 Protein [Mass/Vol] 7.7 g/dL 6.4-8.2 [facility] Urinalysis, Completeon 08-11 RBC 0-5 SEEN Normal 0-5 [facility] Comment on above: Order Comment: Speci men Comment: [id number] Specimen Comment: No. of containers..01 ThinPrep Vial Performed By: #### M 100.2200, L7400.0353, L7000.1800 #### [facility] [address] [place], [address] WBC 0-5 SEEN Normal 0-5 [facility] Comment on above: Order Comment: Speci men Comment: [id number] Specimen Comment: No. of containers..01 ThinPrep Vial Performed By: #### M 100.2200, L7400.0353, L7000.1800 #### [facility] [address] [place], [address] BACTERIA 1+ /hpf Normal None Seen [facility] Comment on above: Order Comment: Speci men Comment: [id number] Specimen Comment: No. of containers..01 ThinPrep Vial Performed By: #### M 100.2200, L7400.0353, L7000.1800 #### [facility] [address] [place], [address] EPI,SQUAMOUS 0-5 SEEN Normal 5-10 [facility] Comment on above: Order Comment: Speci men Comment: [id number] Specimen Comment: No. of containers..01 ThinPrep Vial Performed By: #### M 100.2200, L7400.0353, L7000.1800 #### [facility] [address] [place], [address] Mucus Ql (Urine sed) 0 SEEN Normal [facility] Comment on above: Order Comment: Speci men Comment: [id number] Specimen Comment: No. of containers..01 ThinPrep Vial Performed By: #### M 100.2200, L7400.0353, L7000.1800 #### [facility] [address] [place], [address] Urine clarityOrdered By: Alexandrea Diaz on 08-11-2024 Clarity (U) Sl. Cloudy Clear [facility] Urine color determinationOrd ered By: Fatoumata Diaz on 08-11-2024 Color (U) Yellow Yellow [facility] Urine glucose detectionOrder ed By: Fatoumata Diaz on 08-11-2024 Glucose Ql (U) Normal mg/dl Normal [facility] Urine leukocyte esterase det ection by dipstickOrdered By: Fatoumata Diaz on 08-11-2024 Leukocyte esterase Test strip Ql (U) 25 /ul High Negative [facility] Urine pHOrdered By: Fatoumata mathews on 08-11-2024 pH (U) 6.5 [pH] 5.0 - 8.0 [facility] Urine sediment bacteria coun t by microscopy (number/high power field)Ordered By: Fatoumata Diaz on 08-11-2024 Bacteria LM.HPF (Urine sed) [#/Area] 1 /[HPF] None Seen [facility] Urine specific gravity measu rementOrdered By: Fatoumata Diaz on 08-11-2024 Specific gravity (U) [Rel density] 1.015 1.002-1.030 [facility] Urine urobilinogen measureme ntOrdered By: Fatoumata Diaz on 08-11-2024 Urobilinogen Ql (U) Normal mg/dl Normal [facility] White blood cell (WBC) count Ordered By: Fatoumata Diaz on 02-05-2025 WBC (Bld) [#/Vol] 17.2 10*3/uL High 4.4-11.0 [facility] White blood cell countOrdere d By: Fatoumata Danechichi on 08-11-2024 White blood cell count 0-5 SEEN /hpf 0-5 [facility] hCG Titer Quant., Serumon HCG QUANT. 75161 mIU/mL High 1-3 [facility] Comment on above: Result Comment: hCG levels with Gestational Age Gestational Age hCG mIU/mL (IU/L) 0.2 - 1 week 5 - 50 1-2 weeks 50 - 500 2-3 weeks 100 - 5000 3-4 weeks 500 - 64803 4-5 weeks 1000 - 29877 5-6 weeks 30703 - 100,000 6-8 weeks 03721 - 200,000 2-3 months 50098 - 100,000 Performed By: #### M 100.2200, L7400.0353, L7000.1800 #### [facility] [address] [place], [place], [id number] Absolute lymphocyte countOrd ered By: Cee Purcell on 08-10-2024 Lymphocytes Auto (Unsp spec) [#/Vol] 1.89 10*3/uL 0.83-4.51 [facility] Absolute neutrophil countOrd ered By: Cee Purcell on 08-10-2024 Neutrophils (Bld) [#/Vol] 10.2 10*3/uL High 2.0-7.7 [facility] Automated lymphocyte count a s percentage of total leukocytesOrdered By: Cee Purcell on 08-10-2024 Lymphocytes/100 WBC Auto (Unsp spec) 14.6 % Low 19-41 [facility] [id number] 08-10-2024 ABO and Rh group Nom (Bld) Blood group A Rh(D) positive Normal [facility] Comment on above: Performed By: #### M 100.2200, L7400.0353, L7000.1800 #### [facility] [address] [place], [place], [address] Basophil percentageOrdered B y: Cee Purcell on 08-10-2024 Basophils/100 WBC (Bld) 0.4 % 0-1 [facility] Bilirubin Test strip Ql (U)O rdered By: Cee Purcell on 08-10-2024 Bilirubin Ql (U) Negative Negative [facility] CBC W/Diff, Automatedon Absolute Lymph 1.89 X10 3/uL Normal 0.83-4.51 [facility] Comment on above: Performed By: #### M 100.2200, L7400.0353, L7000.1800 #### [facility] [address] [place], [address] Absolute Neut 10.2 X10 3/uL High 2.0-7.7 [facility] Comment on above: Performed By: #### M 100.2200, L7400.0353, L7000.1800 #### [facility] [address] [place], [address] Basophils/100 WBC (Bld) 0.4 % Normal 0-1 [facility] Comment on above: Performed By: #### M 100.2200, L7400.0353, L7000.1800 #### [facility] [address] [place], [address] Eosinophils/100 WBC (Bld) 0.7 % Normal 0-5 [facility] Comment on above: Performed By: #### M 100.2200, L7400.0353, L7000.1800 #### [facility] [address] [place], [address] Erythrocyte distribution width (RBC) [Ratio] 12.3 % Normal 11.6-14.6 [facility] Comment on above: Performed By: #### M 100.2200, L7400.0353, L7000.1800 #### [facility] [address] [place], [address] Hematocrit (Bld) [Volume fraction] 43.3 % Normal 37-47 [facility] Comment on above: Performed By: #### M 100.2200, L7400.0353, L7000.1800 #### [facility] [address] [place], [address] Hemoglobin (Bld) [Mass/Vol] 15.5 g/dL High 12.0-15.0 [facility] Comment on above: Performed By: #### M 100.2200, L7400.0353, L7000.1800 #### [facility] [address] [place], [address] IG% 0.300 Normal 0.0-0.9 [facility] Comment on above: Result Comment: IG% - Immature Granulocytes (promyelocytes, myelocytes and metamyelocytes) > 1% indicates that a LEFT SHIFT is Present. Performed By: #### M 100.2200, L7400.0353, L7000.1800 #### [facility] [address] [place], [address] Lymphocytes/100 WBC (Bld) 14.6 % Low 19-41 [facility] Comment on above: Performed By: #### M 100.2200, L7400.0353, L7000.1800 #### [facility] [address] [place], [address] MCH (RBC) [Entitic mass] 30.2 pg Normal 27.0-32.0 [facility] Comment on above: Performed By: #### M 100.2200, L7400.0353, L7000.1800 #### [facility] [address] [place], [address] MCHC (RBC) [Mass/Vol] 35.8 g/dL Normal 32-36 [facility] Comment on above: Performed By: #### M 100.2200, L7400.0353, L7000.1800 #### [facility] [address] [place], [address] MCV (RBC) [Entitic vol] 84.2 fL Normal 81-99 [facility] Comment on above: Performed By: #### M 100.2200, L7400.0353, L7000.1800 #### [facility] [address] [place], [address] Monocytes/100 WBC (Bld) 5.1 % Normal 0-10 [facility] Comment on above: Performed By: #### M 100.2200, L7400.0353, L7000.1800 #### [facility] [address] [place], [address] Neutrophils/100 WBC (Bld) 78.9 % High 47-70 [facility] Comment on above: Performed By: #### M 100.2200, L7400.0353, L7000.1800 #### [facility] [address] [place], [address] Nucleated RBC (Bld) [#/Vol] 0 10*3/uL Normal 0-5 [facility] Comment on above: Performed By: #### M 100.2200, L7400.0353, L7000.1800 #### [facility] [address] [place], [address] Platelet mean volume (Bld) [Entitic vol] 11.3 fL Normal 6.2-12.0 [facility] Comment on above: Performed By: #### M 100.2200, L7400.0353, L7000.1800 #### [facility] [address] [place], [address] Platelets (Bld) [#/Vol] 208 10*3/uL Normal 150-450 [facility] Comment on above: Performed By: #### M 100.2200, L7400.0353, L7000.1800 #### [facility] [address] [place], [address] RBC (Bld) [#/Vol] 5.14 10*6/uL Normal 4.2-5.4 [facility] Comment on above: Performed By: #### M 100.2200, L7400.0353, L7000.1800 #### [facility] [address] [place], [address] RDW SD 37.6 fl Normal 35.1-43.9 [facility] [place] Comment on above: Performed By: #### M 100.2200, L7400.0353, L7000.1800 #### [facility] Laboratory [address] [place], [address] WBC (Bld) [#/Vol] 12.9 10*3/uL High 4.4-11.0 [facility] Comment on above: Performed By: #### M 100.2200, L7400.0353, L7000.1800 #### [facility] Laboratory [address] [place] [place], [address] Emergency Department Summary on 08-10-2024 Emergency Department Summary [facility] Medical Records Department [address] [facility] [place] [address] Emergency Department Summary 08/10/24 MR#: [id number] Acct: [id number] Name: GERTRUDE EMERY Rep #: [id number] : 1995 28 From: Cee Purcell DO [...] at this time. Will discuss case with FURS SALESPERSON on-call for Dr. Quezada (more content not included)... Normal [facility] Eosinophil percentageOrdered By: Cee Purcell on 08-10-2024 Eosinophils/100 WBC (Bld) 0.7 % 0-5 [facility] [place] Erythrocyte distribution wid th ratioOrdered By: [facility] Pur[facility] on 08-10-2024 Erythrocyte distribution width (RBC) [Ratio] 12.3 % 11.6-14.6 [facility] [place] Erythrocyte distribution wid th standard deviationOrdered By: Cee Purcell on 08-10-2024 Erythrocyte distribution width (RBC) [Ratio] 37.6 fl 35.1-43.9 [facility] [place] Hematocrit Auto (Bld) [Volum e fraction]Ordered By: [facility] Purcell on 08-10-2024 Hematocrit (Bld) [Volume fraction] 43.3 % 37-47 [facility] Hemoglobin measurementOrdere d By: Cee Purcell on 08-10-2024 Hemoglobin (Bld) [Mass/Vol] 15.5 g/dL High 12.0-15.0 [facility] [place] Immature granulocytes/100 WB C Auto (Bld)Ordered By: Cee Purcell on 08-10-2024 Immature granulocytes/100 WBC (Bld) 0.300 % 0.0-0.9 [facility] [place] Comment on above: IG% - Immature Granu locytes (promyelocytes, myelocytes and metamyelocytes) > 1% indicates that a LEFT SHIFT is Present. Ketones Test strip Ql (U)Ord ered By: Cee Purcell on 08-10-2024 Ketones Ql (U) 50 mg/dl High Negative [facility] MCV (mean corpuscular volume ) determinationOrdered By: Cee Purcell on 08-10-2024 MCV (RBC) [Entitic vol] 84.2 fL 81-99 [facility] Mean corpuscular hemoglobin (MCH) determinationOrdered By: Cee Purcell on 08-10-2024 MCH (RBC) [Entitic mass] 30.2 pg 27.0-32.0 [facility] Mean corpuscular hemoglobin concentration (MCHC) determinationOrdered By: Cee Purclel on 08-10-2024 MCHC (RBC) [Mass/Vol] 35.8 g/dL 32-36 [facility] Mean platelet volume determi nationOrdered By: Cee Purcell on 08-10-2024 Platelet mean volume (Bld) [Entitic vol] 11.3 fL 6.2-12.0 [facility] Microscopic analysis of urin e for red blood cells (RBC)Ordered By: Cee Purcell on 08-10-2024 Microscopic analysis of urine for red blood cells (RBC) 0-5 SEEN /hpf 0-5 [facility] Monocyte percentageOrdered B y: Cee Purcell on 08-10-2024 Monocytes/100 WBC (Bld) 5.1 % 0-10 [facility] Mucus LM Ql (Urine sed)Order ed By: Cee Purcell on 08-10-2024 Mucus Ql (Urine sed) 0 SEEN /hpf [facility] Neutrophil percentageOrdered By: Cee Purcell on 08-10-2024 Neutrophils/100 WBC (Bld) 78.9 % High 47-70 [facility] Nitrite Test strip Ql (U)Ord ered By: Cee Purcell on 02-04-2025 Nitrite Ql (U) Negative Negative [facility] Nucleated red blood cell per centageOrdered By: Cee Purcell on 08-10-2024 Nucleated RBC/100 WBC (Bld) [Ratio] 0 % 0-5 [facility] Platelet countOrdered By: Joanne Purcell on 08-10-2024 Platelets (Bld) [#/Vol] 208 10*3/uL 150-450 [facility] Protein Test strip Ql (U)Ord ered By: Cee Purcell on 08-10-2024 Protein Ql (U) 15 mg/dl High Negative [facility] RBC Auto (Bld) [#/Vol]Ordere d By: Cee Purcell on 08-10-2024 RBC (Bld) [#/Vol] 5.14 10*6/uL 4.2-5.4 [facility] Serum human chorionic gonado tropin detection for pregnancyOrdered By: Cee Purcell on 08-10-2024 HCG ( test) [place]l [address] mIU/mL High <4 [facility] Comment on above: hCG levels with Gest ational AgeGestational Age hCG mIU/mL (IU/L)0.2 - 1 week 5 - 501-2 weeks 50 - 5002-3 weeks 100 - 95135-3 weeks 500 - 038820-1 weeks 1000 - 009902-1 weeks 73393 - 100,0006-8 weeks 10917 - 200,0002-3 months 65088 - 100,000 Squamous epithelial cells de tection in urine sediment by light microscopyOrdered By: Cee Purcell on 08-10-2024 Epithelial cells.squamous LM Ql (Urine sed) 5-10 SEEN /hpf 5-10 [facility] Transvaginal w/Preg USon Transvaginal w/Preg US [facility] Imaging Services [address] [place] [address] Transvaginal w/Preg US MR#: [id number] Acct: [id number] Name: GERTRUDE EMERY Rep #: [id number] : 1995 F 28 From: Rios parker MD PCP: Care Physician,No Primary Status: [facility] ER Study: Transvaginal w/Preg US Date of Exam: 08/10/24 Exam# [id number] Ordering Dr: Cee Purcell DO PROCEDURE: TRANSVAGINAL W/PREG US REASON FOR EXAM: Bleeding during . COMPARISON: None. FINDINGS: Comments: Transvaginal imaging was performed Number of Gestational Sacs: 1 Gestational Sac Shape: Normal it measures 2.2 cm. 7 weeks and 1 day. Number of Fetuses: 1 Heart Rate: 123 (average) Survey of Visible Anatomic Structures: Grossly unremarkable for gestational age. [place]-rump measurement is 4 mm corresponding to 6 [...] IMPRESSION: UNREMARKABLE FIRST TRIMESTER ULTRASOUND. Reading Location: [place] [address] CC: Dr. Cee Purcell DO; No Primary Care Physician [place]: Signed Normal [facility] Urinalysis, Completeon 08-10 BACTERIA 2+ /hpf Normal None Seen [facility] Comment on above: Order Comment: CLEAN CATCH Performed By: #### M 100.2200 #### [facility] Laboratory [address] [place], [place], [id number] EPI,RENAL 0-5 SEEN Normal 0-5 [facility] Comment on above: Order Comment: CLEAN CATCH Performed By: #### M 100.2200 #### [facility] Laboratory [address] [place], [place], [id number] EPI,SQUAMOUS 5-10 SEEN Normal 5-10 [facility] Comment on above: Order Comment: CLEAN CATCH Performed By: #### M 100.2200 #### [facility] Laboratory [address] [place], [address] RBC 0-5 SEEN Normal 0-5 [facility] Comment on above: Order Comment: CLEAN CATCH Performed By: #### M 100.2200 #### [facility] Laboratory [address] [place], [address] WBC 5-10 SEEN Normal 0-5 [facility] Comment on above: Order Comment: CLEAN CATCH Performed By: #### M 100.2200 #### [facility] Laboratory [address] [place], [address] Mucus Ql (Urine sed) 0 SEEN Normal [facility] Comment on above: Order Comment: CLEAN CATCH Performed By: #### M 100.2200 #### [facility] Laboratory [address] [place], [address] Urine clarityOrdered By: Soco Purcell on 08-10-2024 Clarity (U) Clear Clear [facility] Urine color determinationOrd ered By: Cee Purcell on 08-10-2024 Color (U) Yellow Yellow [facility] Urine cultureOrdered By: Soco Purcell on 08-10-2024 Bacteria identified Cx Nom (U) Positive Abnormal [facility] Urine glucose detectionOrder ed By: Cee Purcell on 08-10-2024 Glucose Ql (U) Normal mg/dl Normal [facility] Urine leukocyte esterase det ection by dipstickOrdered By: Cee Purcell on 08-10-2024 Leukocyte esterase Test strip Ql (U) 100 /ul High Negative [facility] Urine pHOrdered By: Cee Pearce gur on 08-10-2024 pH (U) 6.5 [pH] 5.0 - 8.0 [facility] Urine sediment bacteria coun t by microscopy (number/high power field)Ordered By: Cee Purcell on 08-10-2024 Bacteria LM.HPF (Urine sed) [#/Area] 2 /[HPF] None Seen [facility] Urine sediment renal epithel ial cell count by microscopy (number/high power field)Ordered By: Cee Purcell on 08-10-2024 Epithelial cells.renal LM.HPF (Urine sed) [#/Area] 0 /[HPF] 0-5 [facility] Urine specific gravity measu rementOrdered By: [facility] Pur[facility] on 08-10-2024 Specific gravity (U) [Rel density] 1.010 1.002-1.030 [facility] Urine urobilinogen measureme ntOrdered By: Cee Purcell on 08-10-2024 Urobilinogen Ql (U) Normal mg/dl Normal [facility] White blood cell (WBC) count Ordered By: [facility] Pur[facility] on 08-10-2024 WBC (Bld) [#/Vol] 12.9 10*3/uL High 4.4-11.0 [facility] White blood cell countOrdere d By: Cee Purcell on 08-10-2024 White blood cell count 5-10 SEEN /hpf 0-5 [facility] hCG Titer Quant., Serumon HCG QUANT. 26216 mIU/mL High 1-3 [facility] Comment on above: Result Comment: hCG levels with Gestational Age Gestational Age hCG mIU/mL (IU/L) 0.2 - 1 week 5 - 50 1-2 weeks 50 - 500 2-3 weeks 100 - 5000 3-4 weeks 500 - 82477 4-5 weeks 1000 - 61802 5-6 weeks 77117 - 100,000 6-8 weeks 53359 - 200,000 2-3 months 41386 - 100,000 Performed By: #### M 100.2200, L7400.0353, L7000.1800 #### [facility] [address] [place], [place], [address] POCT SARS-COV-2/FLU/RSV PCR SYMPTOMATIC manually resultedon 05-26-2024 FLUAV RNA KEVIN+probe Ql (Resp) Not detected Not Detected [facility] Work Phone: FLUBV RNA KEVIN+probe Ql (Resp) Not detected Not Detected [facility] Work Phone: Interpretation and review of laboratory results Abnormal [facility] Work Phone: RSV RNA KEVIN+probe Ql (Resp) Not detected Not Detected [facility] Work Phone: SARS-CoV-2 (COVID-19) RNA KEVIN+probe Ql (Resp) Detected Abnormal Not Detected [facility] Work Phone: [facility] Work Phone: Basophil percentageOrdered B y: Dr. Angulo on 12-17-2022 WBC (Bld) [#/Vol] 14.1 10*3/uL 4.4-11.0 [facility] Blood erythrocytes count (nu mber/volume)Ordered By: Dr. Angulo on 12-17-2022 RBC (Bld) [#/Vol] 5.23 10*6/uL 4.2-5.4 [facility] Blood hemoglobin measurement (mass/volume)Ordered By: Dr. Angulo on 12-17-2022 Hemoglobin (Bld) [Mass/Vol] 15.5 g/dL 12.0-15.0 [facility] Blood platelet mean volumeOr dered By: Dr. Angulo on 12-17-2022 Platelet mean volume (Bld) [Entitic vol] 11.0 fL 6.2-12.0 [facility] Determination of erythrocyte mean corpuscular volume (MCV)Ordered By: Dr. Angulo on 12-17-2022 MCV (RBC) [Entitic vol] 88.0 fL 81-99 [facility] Hematocrit Auto (Bld) [Volum e fraction]Ordered By: Dr. Angulo on 12-17-2022 Hematocrit (Bld) [Volume fraction] 46.0 % 37-47 [facility] Laboratory - Chemistry and C hemistry - challengeOrdered By: Dr. Angulo on 12-17-2022 T4 [Mass/Vol] 7.9 ug/dL 4.8-13.9 [facility] Laboratory - Hematology and Cell countsOrdered By: Dr. Angulo on 12-17-2022 Erythrocyte distribution width (RBC) [Entitic vol] 41.7 fL 35.1-43.9 [facility] Erythrocyte distribution width (RBC) [Ratio] 13.0 % 11.6-14.6 [facility] MCH (RBC) [Entitic mass] 29.6 pg 27.0-32.0 [facility] MCHC Auto (RBC) [Mass/Vol]Or dered By: Dr. Angulo on 12-17-2022 MCHC (RBC) [Mass/Vol] 33.7 g/dL 32-36 [facility] No Panel InformationOrdered By: Dr. Angulo on 12-17-2022 Endomysial IgA Antibody Positive Negative [facility] Thyroid Stimulating Hormone (TSH) 0.65 uIU/mL 0.358-3.74 [facility] Platelets bldOrdered By: Dr. Angulo on 12-17-2022 Platelets (Bld) [#/Vol] 280 10*3/uL 150-450 [facility] Serum IgA measurement (units /volume)Ordered By: Dr. Angulo on 12-17-2022 IgA Qn (S) 88 mg/dL 87-352 [facility] Comment on above: Performed at: [address] Director: Lico Lennon PhD, Phone: [phone] Serum or plasma C reactive p rotein measurement (mass/volume)Ordered By: Dr. Angulo on 12-17-2022 CRP [Mass/Vol] mg/L 0.0-3.0 [facility] Comment on above: C-Reactive Protein ( CRP) provides useful information for thediagnosis, therapy and monitoring of inflammatory processesand associated diseases. For the evaluation of Relative Riskfor Cardiovascular Disease, a High Sensitivity CRP (HSCRP)should be ordered. Serum tissue transglutaminas e IgA antibody assay (units/volume)Ordered By: Dr. Angulo on 12-17-2022 tTG IgA Qn (S) 9 U/mL 0-3 [facility] Comment on above: Negative 0 - 3 [...] History History of Appendectomy laparoscopic History of [place] tooth extraction Family History Family history of [...] Vital Signs Recorded: 12Feb2022 03:55PM Heart Rate72 Agpflapu717 Npdxxjiqj46 Height5 ft 7.5 in Stnjjk371 lb 15.73 oz BMI Alwapijnpo79.62 kg/m2 BSA Calculated1.88 Tobacco Useb) No PHQ-2 [...] contact, judgment, insight, voice Results/Data [employer] [facility] [id number] 03:57PMOsmel Jin NameResultFlagReference Right Eye Pmqnyolnqnz25/20 Left Eye Qwbjwwvyctt75/20 'Scores and Scales' Signatures Electronically signed by : Osmel Jin PA-C; Feb 12 2022 4:07PM EST (Author) Normal [employer] Tobacco Screening.on 022 Adult depression screening assessment No [facility] Work Phone: Fall risk assessment a) No falls within the last year [facility] Work Phone: Tobacco use status [facility] b) No [facility] Work Phone: COVID-19, MOLECULARon 2019 INTERNAL CONTROL (ABBOT ID) Pass Normal [facility] SARS-COV-2 (ALBERT ID) Detected Abnormal Not Detected [facility] COVID-19, Molecularon 2019 Internal Control Pass [facility] Interpretation and review of laboratory results Abnormal [facility] SARS-CoV-2 Detected Abnormal Not Detected [facility] Vital Signs Date Time Vital Sign Value Performing Clinician Facility 03-18-2025 15:18-0400 Body height 170.18 cm No Primary Care Physician [facility] 03-18-2025 15:18-0400 Body mass index (BMI) [Ratio] 29.5 kg/m2 No Primary Care Physician [facility] 03-18-2025 15:18-0400 Body weight 85.53 kg No Primary Care Physician [facility] 03-18-2025 15:18-0400 Diastolic blood pressure 77 mm[Hg] No Primary Care Physician [facility] 03-18-2025 15:18-0400 Systolic blood pressure 130 mm[Hg] No Primary Care Physician [facility] 03-09-2025 16:09-0400 Body height 170.18 cm No Primary Care Physician [facility] 03-09-2025 16:07-0400 Body mass index (BMI) [Ratio] 29 kg/m2 No Primary Care Physician [facility] 03-09-2025 16:07-0400 Body weight 84.05 kg No Primary Care Physician [facility] 03-09-2025 16:07-0400 Diastolic blood pressure 75 mm[Hg] No Primary Care Physician [facility] 03-09-2025 16:07-0400 Systolic blood pressure 121 mm[Hg] No Primary Care Physician [facility] 02-24-2025 15:57-0400 Body height 170.18 cm No Primary Care Physician [facility] 02-24-2025 15:57-0400 Body mass index (BMI) [Ratio] 29.1 kg/m2 No Primary Care Physician [facility] 02-24-2025 15:57-0400 Body weight 84.36 kg No Primary Care Physician [facility] 02-24-2025 15:57-0400 Diastolic blood pressure 84 mm[Hg] No Primary Care Physician [facility] 02-24-2025 15:57-0400 Systolic blood pressure 119 mm[Hg] No Primary Care Physician [facility] 02-20-2025 11:51-0400 Heart rate 73 /min No Primary Care Physician [facility] 02-20-2025 11:51-0400 SaO2% (BldA) [Mass fraction] 96 % No Primary Care Physician [facility] 02-20-2025 11:47-0400 Body temperature 98.4 [degF] No Primary Care Physician [facility] 02-20-2025 11:47-0400 Respiratory rate 16 /min No Primary Care Physician [facility] 02-20-2025 11:19-0400 Body height 170.18 cm No Primary Care Physician [facility] 02-20-2025 11:19-0400 Body mass index (BMI) [Ratio] 27.8 kg/m2 No Primary Care Physician [facility] 02-20-2025 11:19-0400 Body weight 80.7 kg No Primary Care Physician [facility] 02-20-2025 10:54-0400 Diastolic blood pressure 75 mm[Hg] No Primary Care Physician [facility] 02-20-2025 10:54-0400 Systolic blood pressure 120 mm[Hg] No Primary Care Physician [facility] 02-11-2025 10:01-0400 Body height 170.18 cm No Primary Care Physician [facility] 02-11-2025 10:01-0400 Body mass index (BMI) [Ratio] 28 kg/m2 No Primary Care Physician [facility] 02-11-2025 10:01-0400 Body weight 81.24 kg No Primary Care Physician [facility] 02-11-2025 10:01-0400 Diastolic blood pressure 82 mm[Hg] No Primary Care Physician [facility] 02-11-2025 10:01-0400 Systolic blood pressure 137 mm[Hg] No Primary Care Physician [facility] 01-28-2025 11:28-0400 Body height 170.18 cm No Primary Care Physician [facility] 01-28-2025 11:24-0400 Body mass index (BMI) [Ratio] 27.7 kg/m2 No Primary Care Physician [facility] 01-28-2025 11:24-0400 Body weight 80.34 kg No Primary Care Physician [facility] 01-28-2025 11:24-0400 Diastolic blood pressure 82 mm[Hg] No Primary Care Physician [facility] 01-28-2025 11:24-0400 Systolic blood pressure 121 mm[Hg] No Primary Care Physician [facility] 01-10-2025 15:23-0400 Body height 170.18 cm No Primary Care Physician [facility] 01-10-2025 15:23-0400 Body mass index (BMI) [Ratio] 27.7 kg/m2 No Primary Care Physician [facility] 01-10-2025 15:23-0400 Body weight 80.28 kg No Primary Care Physician [facility] 01-10-2025 15:23-0400 Diastolic blood pressure 76 mm[Hg] No Primary Care Physician [facility] 01-10-2025 15:23-0400 Systolic blood pressure 123 mm[Hg] No Primary Care Physician [facility] 12-14-2024 15:32-0400 Body height 170.18 cm No Primary Care Physician [facility] 12-14-2024 15:32-0400 Body mass index (BMI) [Ratio] 27.2 kg/m2 No Primary Care Physician [facility] 12-14-2024 15:32-0400 Body weight 78.98 kg No Primary Care Physician [facility] 12-14-2024 15:32-0400 Diastolic blood pressure 73 mm[Hg] No Primary Care Physician [facility] 12-14-2024 15:32-0400 Systolic blood pressure 119 mm[Hg] No Primary Care Physician [facility] 11-18-2024 08:30-0400 Body height 170.[address] Cee Purcell DO Work Phone: [phone] [place] [address] 11-18-2024 08:30-0400 Body mass index (BMI) [Ratio] 26.4 kg/m2 Dr. Cee Purcell DO Work Phone: [phone] [place] [address] 11-18-2024 08:30-0400 Body weight 76.[address] Cee Purcell DO Work Phone: [phone] [place] [address] 11-18-2024 08:30-0400 Diastolic blood pressure 84 mm[Hg] Dr. Cee Purcell DO Work Phone: [phone])446-924518 [place] [address] 11-18-2024 08:30-0400 Systolic blood pressure 128 mm[Hg] Dr. Cee Purcell DO Work Phone: [facility] 10-22-2024 10:19-0400 Body mass index (BMI) [Ratio] 25 kg/m2 Dr. Cee Purcell DO Work Phone: [facility] 10-22-2024 10:19-0400 Body weight 72.[address] Cee Purcell DO Work Phone: [phone] [place] [address] 10-22-2024 10:19-0400 Diastolic blood pressure 78 mm[Hg] Dr. Cee Purcell DO Work Phone: [phone] [place] [address] 10-22-2024 10:19-0400 Heart rate 105 /min Dr. Cee Purcell DO Work Phone: [phone] [place] [address] 10-22-2024 10:19-0400 Systolic blood pressure 118 mm[Hg] Dr. Cee Purcell DO Work Phone: [phone] [place] [address] 09-22-2024 15:06-0400 Body mass index (BMI) [Ratio] 25.2 kg/m2 Dr. Cee Purcell DO Work Phone: [phone] [place] [address] 09-22-2024 15:06-0400 Body weight 73.[address] Cee Purcell DO Work Phone: [phone] [place] [address] 09-22-2024 15:06-0400 Diastolic blood pressure 80 mm[Hg] Dr. Cee Purcell DO Work Phone: [phone] [place] [address] 09-22-2024 15:06-0400 Systolic blood pressure 122 mm[Hg] Dr. Cee Purcell DO Work Phone: [phone] [place] [address] 08-25-2024 15:45-0500 Body mass index (BMI) [Ratio] 25.4 kg/m2 Dr. Cee Purcell DO Work Phone: [phone] [place] [address] 08-25-2024 15:45-0500 Body weight 73.[address] Cee Purcell DO Work Phone: 6(995)306-177318 [place] [address] 08-25-2024 15:45-0500 Diastolic blood pressure 80 mm[Hg] Dr. Cee Purcell DO Work Phone: 5(006)979-950818 [place] [address] 08-25-2024 15:45-0500 Systolic blood pressure 119 mm[Hg] Dr. Cee Purcell DO Work Phone: 0([phone] [place] [address] 08-11-2024 14:47-0500 Diastolic blood pressure 63 mm[Hg] Dr. Cee Purcell DO Work Phone: 5(240)485-382518 [place] [address] 08-11-2024 14:47-0500 Heart rate 93 /min Dr. Cee Purcell DO Work Phone: [facility] 08-11-2024 14:47-0500 Respiratory rate 18 /min Dr. Cee Purcell DO Work Phone: [facility] 08-11-2024 14:47-0500 SaO2% (BldA) [Mass fraction] 98 % Dr. Cee Purcell DO Work Phone: 5(080)835-872718 [place] [address] 08-11-2024 14:47-0500 Systolic blood pressure 101 mm[Hg] Dr. Cee Purcell DO Work Phone: 3(285)231-318718 [place] [address] 08-11-2024 09:14-0500 Body mass index (BMI) [Ratio] 25.1 kg/m2 Dr. Cee Purcell DO Work Phone: 2(030)549-579218 [place] [address] 08-11-2024 09:14-0500 Body temperature 98.9 [degF] Dr. Cee Purcell DO Work Phone: 0(564)[phone] [place] [address] 08-11-2024 09:14-0500 Body weight 72.[address] Cee Purcell DO Work Phone: 4(528)643-643418 [place] [address] 08-10-2024 12:24-0500 Body temperature 97.9 [degF] Dr. Cee Purcell DO Work Phone: 8(479)569-690418 [place] [address] 08-10-2024 12:24-0500 Diastolic blood pressure 68 mm[Hg] Dr. Cee Purcell DO Work Phone: 1(945)689-991418 [place] [address] 08-10-2024 12:24-0500 Heart rate 71 /min Dr. Cee Purcell DO Work Phone: [facility] 08-10-2024 12:24-0500 Respiratory rate 14 /min Dr. Cee Purcell DO Work Phone: [facility] 08-10-2024 12:24-0500 SaO2% (BldA) [Mass fraction] 100 % Dr. Cee Purcell DO Work Phone: [facility] 08-10-2024 12:24-0500 Systolic blood pressure 130 mm[Hg] Dr. Cee Purcell DO Work Phone: [facility] 08-10-2024 08:21-0500 Body mass index (BMI) [Ratio] 25 kg/m2 Dr. Cee Purcell DO Work Phone: [facility] 08-10-2024 08:21-0500 Body weight 72.[address] Cee Purcell DO Work Phone: [facility] 05-26-2024 10:53-0500 Body height 170.2 cm Alfred Anderson CORRIDOR REDEVELOPMENT MANAGER-AIRLINE MANAGER Work Phone: [facility] 05-26-2024 10:53-0500 Body mass index (BMI) [Ratio] 25.84 kg/m2 Alfred Anderson CORRIDOR REDEVELOPMENT MANAGER-AIRLINE MANAGER Work Phone: [facility] 05-26-2024 10:53-0500 Body temperature 98.01 [degF] Alfred Anderson CORRIDOR REDEVELOPMENT MANAGER-AIRLINE MANAGER Work Phone: [facility] 05-26-2024 10:53-0500 Body weight 74.84 kg Alfred Anderson CORRIDOR REDEVELOPMENT MANAGER-AIRLINE MANAGER Work Phone: [facility] 05-26-2024 10:53-0500 Diastolic blood pressure 89 mm[Hg] Alfred Anderson CORRIDOR REDEVELOPMENT MANAGER-AIRLINE MANAGER Work Phone: [facility] 05-26-2024 10:53-0500 Heart rate 63 /min Alfred Anderson CORRIDOR REDEVELOPMENT MANAGER-AIRLINE MANAGER Work Phone: [facility] 05-26-2024 10:53-0500 Respiratory rate 20 /min Alfred Anderson CORRIDOR REDEVELOPMENT MANAGER-AIRLINE MANAGER Work Phone: [facility] 05-26-2024 10:53-0500 SaO2% (BldA) [Mass fraction] 97 % Alfred Anderson CORRIDOR REDEVELOPMENT MANAGER-AIRLINE MANAGER Work Phone: [facility] 05-26-2024 10:53-0500 Systolic blood pressure 128 mm[Hg] Alfred Anderson CORRIDOR REDEVELOPMENT MANAGER-AIRLINE MANAGER Work Phone: [facility] 02-12-2022 15:55-0400 Body height 171.45 cm Osmel Stentz Work Phone: [facility] Work Phone: 02-12-2022 15:55-0400 Body mass index (BMI) [Ratio] 25.62 kg/m2 Osmel Stentz Work Phone: -[facility] Work Phone: 02-12-2022 15:55-0400 Body surface area Derived from formula 1.88 m2 Osmel Stentz Work Phone: [facility] Work Phone: 02-12-2022 15:55-0400 Body weight 75.29 kg Osmel Stentz Work Phone: [facility] Work Phone: 02-12-2022 15:55-0400 Diastolic blood pressure 70 mm[Hg] Osmel Stentz Work Phone: [facility] Work Phone: 02-12-2022 15:55-0400 Heart rate 72 /min Osmel Stentz Work Phone: [facility] Work Phone: 02-12-2022 15:55-0400 Systolic blood pressure 116 mm[Hg] Osmel Stentz Work Phone: [facility] Work Phone: 05-21-2020 19:20-0500 Body Temperature 97.39 [degF] Elaine Dexter [facility] 05-21-2020 19:20-0500 Body weight 77.56 kg Elaine Dexter [facility] 05-21-2020 19:20-0500 BP Diastolic 78 mm[Hg] Elaine Dexter [facility] 05-21-2020 19:20-0500 BP Systolic 128 mm[Hg] Elaine Dexter [facility] 05-21-2020 19:20-0500 Pulse (Heart Rate) 70 /min Elaine Dexter [facility] 05-21-2020 19:20-0500 Pulse Oximetry 97 % Elaine Dexter [facility] 05-21-2020 19:20-0500 Respiratory Rate 16 /min Elaine Dexter [facility] Encounters Encounter Date Encounter Type Care Provider Facility Start: 03-30-2025 ambulatory No Primary Car e Physician Facility:[facility] Start: 03-25-2025 End: 03-25-2025 ambulatory No Primary Care Physician Facility:[facility] Start: 03-18-2025 End: 03-18-[address] Angella Villarreal MD -[facility] Work Phone: Start: 03-18-2025 End: 03-18-2025 ambulatory No Primary Care Physician [facility] Start: 03-09-2025 End: 03-09-[address] Kerry Sosa DO -[facility] Work Phone: Start: 03-09-2025 End: 03-09-2025 ambulatory No Primary Care Physician [facility] Start: 03-09-2025 End: 03-09-2025 ambulatory No Primary Care Physician Facility:[facility] Start: 02-24-2025 End: 02-24-[address] Angella Villarreal MD -[facility] Work Phone: Start: 02-24-2025 End: 02-24-2025 ambulatory No Primary Care Physician [facility] Start: 02-24-2025 ambulatory No Primary Car e Physician Facility:[facility] Start: 02-24-2025 Non-patient / Non-visit Dr. Timothy Villarreal MD -[facility] Start: 02-20-2025 End: 02-20-2025 ambulatory No Primary Care Physician -[facility] Start: 02-20-2025 End: 02-20-[address] Angella Villarreal MD -[facility] Work Phone: Start: 02-11-2025 End: 02-11-2025 Patient encounter procedure Nicole Crews [facility] Work Phone: Start: 02-11-2025 End: 02-11-2025 ambulatory No Primary Care Physician -[facility] Start: 02-08-2025 ambulatory Kerry Sosa Fa cility:[facility] Start: 01-28-2025 End: 01-28-2025 Patient encounter procedure Nicole Crews [facility] -[facility] Work Phone: Start: 01-28-2025 End: 01-28-2025 ambulatory No Primary Care Physician -[facility] Start: 01-10-2025 End: 01-10-2025 Patient encounter procedure Carie ARGUETA -[facility] Work Phone: Start: 01-10-2025 End: 01-10-2025 ambulatory No [facility] Start: 01-10-2025 End: 01-10-2025 ambulatory Angella Villarreal Facility:[facility] Start: 12-14-2024 End: 12-14-2024 Patient encounter procedure Nicole Crews [facility] -[facility] Work Phone: Start: 12-14-2024 End: 12-14-2024 ambulatory No Primary Care Physician [facility] Work Phone: Start: 11-18-2024 End: 11-18-2024 Patient encounter procedure Nicole Crews [facility] -[facility] Work Phone: Start: 11-18-2024 End: 11-18-[address] Cee Purcell DO Work Phone: [facility] Work Phone: Start: 11-11-2024 End: 11-11-2024 ambulatory MD NO PRIMARY CARE [facility] Start: 10-22-2024 End: 10-22-2024 Patient encounter procedure Nicole BLACK -[facility] Work Phone: Start: 10-22-2024 End: 10-22-2024 Patient encounter procedure Nicole Crews CNM -[facility] Work Phone: Start: 10-22-2024 End: 10-22-2024 ambulatory No Primary Care Physician Facility:[facility] Start: 10-22-2024 End: 10-22-2024 ambulatory No Primary Care Physician Facility:[facility] Start: 09-22-2024 End: 09-22-[address] Angella Villarreal MD -[facility] Work Phone: Start: 09-22-2024 End: 09-22-2024 ambulatory No Primary Care Physician Facility:[facility] Start: 08-25-2024 End: 08-25-2024 Patient encounter procedure Nicole Crews CNM -[facility] Work Phone: Start: 08-25-2024 End: 08-25-2024 ambulatory No Primary Care Physician Facility:[facility] Start: 08-24-2024 Non-patient / Non-visit Tracy carpenter RN -[facility] Work Phone: Start: 08-24-2024 End: 08-25-2024 ambulatory No Primary Care Physician Facility:[facility] Start: 08-20-2024 Non-patient / Non-visit Tracy carpenter RN -[facility] Work Phone: Start: 08-20-2024 ambulatory No Primary Car e Physician Facility:[facility] Start: 08-11-2024 End: 08-11-2024 Emergency department patient visit Dr. Fatoumata Diaz DO -Emergency Department Work Phone: Start: 08-10-2024 End: 08-10-2024 Emergency department patient visit Dr. Cee Purcell DO -Emergency Department Work Phone: Start: 05-26-2024 End: 05-26-2024 Patient encounter procedure Alfred Anderson CORRIDOR REDEVELOPMENT MANAGER-AIRLINE MANAGER Work Phone: [facility] Comment on above: COVID (Primary Dx); Acute bronchitis, unspecified organism Start: 05-26-2024 End: 05-26-2024 ambulatory [facility] Start: 08-20-2023 End: 08-20-2023 ambulatory OSMEL JIN [facility] Start: 12-17-2022 End: 12-17-2022 ambulatory [facility] Work Phone: Start: 12-17-2022 End: 12-17-2022 Patient encounter procedure [facility] Start: 02-12-2022 Periodic preventive med est patient 18-39 yrs Osmel Griffin Work Phone: -[facility] Work Phone: Start: 05-21-2020 End: 05-21-2020 Patient encounter procedure PHYSICIAN NO [facility] Start: 05-21-2020 End: 05-21-2020 Office outpatient new 20 minutes Elaine Dexter Work Phone: [facility] Comment on above: Suspected Covid-19 V irus Infection (Primary Dx) Start: 07-23-2018 End: 07-24-2018 Patient encounter procedure Fernandez Daysi Facility:[facility] Procedures Date Procedure Procedure Detail Performing Clinician [...] therefore, no HPV testing was performed.Performed at: [address] [id number] Director: Mari Zimmerman MD, Phone: [phone] Start: 08-25-2024 Hepatitis B surface antigen measurement [...] POCT SARS-COV-2/FLU/ RSV PCR SYMPTOMATIC Alfred Anderson CORRIDOR REDEVELOPMENT MANAGER-AIRLINE MANAGER Work Phone: Start: 05-21-2020 COVID-19, MOLECULAR Elaine Anita Dexter Work Phone: Extraction of wisdom tooth Osmel Jin Work Phone: History of appendectomy History of appendectomy Dr. Cee Purcell DO Work Phone: Laparoscopic appendectomy Keiko Jin Work Phone: Plan of Treatment Date Care Activity Detail Author Start: 2046 Zoster Vaccines (1 of 2) Zoste r Vaccines (1 of 2) [facility] Start: 02-20-2025 Bacteria identified in Urine by Culture Urine Culture [facility] Start: 02-20-2025 End: 02-20-2025 [facility] Start: 02-20-2025 Nonstress test [facility] Start: 02-20-2025 Obstetric monitoring [facility] Start: 02-20-2025 Vital signs measurements [facility] Start: 02-20-2025 Patient discharge [facility] Start: 01-10-2025 CBC W Auto Different ial panel - Blood [facility] Start: 01-10-2025 Measurement of gluco se 2 hours after glucose challenge for glucose tolerance test [facility] Start: 01-10-2025 Serologic test for syphilis [facility] Start: 01-10-2025 [facility] Start: 08-11-2024 End: 08-11-2024 [facility] Start: 08-10-2024 [facility] Start: 03-07-2024 COVID-19 Vaccine ( season) COVID-19 Vaccine ( season) [facility] Start: 03-07-2024 Influenza vaccination Influenza Vacc ine (#1) [facility] Start: 05-22-2020 Influenza vaccinatio n given Sequential Influenza Vaccine (#1) [facility] Comment on above: Postponed from 03/07 (Patient Ill Today) Start: 03-07-2020 DTaP/Tdap/Td Vaccine s (7 - Td or Tdap) DTaP/Tdap/Td Vaccines (7 - Td or Tdap) [facility] Start: 2017 Screening for malign ant neoplasm of cervix [facility] Start: 2014 Hepatitis C antibody , confirmatory test Hepatitis C Screening [facility] Start: 2014 Hepatitis C screening Hepatitis C Sc [facility] Start: 11-25-2011 HIV screening HIV Screening [facility] Start: 2009 Varicella vaccination Varicell a Vaccines (1 of 2 - 13+ 2-dose series) [facility] Start: 11-25-2007 Vaccination for leora n papillomavirus HPV Vaccines (1 - 2-dose series) [facility] Start: 11-25-1999 History and physical examination, annual for health maintenance Wellness Visit [facility] Start: 1996 HIV screening HIV Screening [facility] Start: 1996 Lipid panel Lipid Panel [facility] Start: 1996 Screening for Chlamy eden trachomatis Chlamydia Screening [facility] Start: 1996 Screening for malign ant neoplasm of cervix Pap Smear [facility] Start: 1996 Tetanus vaccination Tetanus: Every 1 0yrs [facility] Start: 1996 Yearly Adult Physical Yearly Adult P [facility] CBC W Auto Different ial panel - Blood [facility] Covid-19/Influenza O rder Algorithm Covid-19/Influenza Order Algorithm Microbiology Routine Suspected Covid-19 Virus Infection Ordered: 05/21/2020 [facility] Comment on above: Ordered: 05/21/2020 Erythrocyte mean corpuscular volume determination [facility] Hematocrit [Volume Fraction] of Blood [facility] Hemoglobin [Mass/vol ume] in Blood [facility] Leukocytes [#/volume ] in Blood [facility] Mean corpuscular hemoglobin concentration determination [facility] Mean corpuscular hemoglobin determination [facility] Measurement of gluco se 2 hours after glucose challenge for glucose tolerance test [facility] Neutrophil count [facility] Neutrophil percent differential count [facility] Patient Education [facility] Work Phone: Patient referral [facility] Work Phone: Platelets [#/volume] in Blood [facility] Red blood cell count [facility] Red cell distributio n width determination [facility] Serologic test for syphilis [facility] Streptococcus agalac tiae [Presence] in Unspecified specimen by Organism specific culture [facility] Urine culture [facility] Immunizations Immunization Date Immunization Notes Care Provider Sylvia gagnon 01-10-2025 tetanus toxoid, redu félix diphtheria toxoid, and acellular pertussis vaccine, adsorbed No Primary Care Physician [facility] 09-01-2020 Pfizer-BioNTech COVI D-19 Vacc 30 MCG/0.3ML Intramuscular Suspension Osmel Stentz Work Phone: [facility] Work Phone: Comment on above: Series: 08-12-2020 Pfizer-BioNTech COVI D-19 Vacc 30 MCG/0.3ML Intramuscular Suspension Osmel Stentz Work Phone: [facility] Work Phone: Comment on above: Series: 03-07-2010 meningococcal polysaccharide (groups A, C, Y and W-135) diphtheria toxoid conjugate vaccine (MCV4P) Osmel Stentz Work Phone: [facility] Work Phone: 03-07-2010 tetanus toxoid, redu félix diphtheria toxoid, and acellular pertussis vaccine, adsorbed Osmel Stentz Work Phone: [facility] Work Phone: 09-28-2001 diphtheria, tetanus toxoids and acellular pertussis vaccine, unspecified formulation Osmel Stentz Work Phone: [facility] Work Phone: 09-28-2001 measles, mumps and rubella virus vaccine Osmel Stentz Work Phone: [facility] Work Phone: 09-28-2001 trivalent poliovirus vaccine, live, oral Osmel Stentz Work Phone: [facility] Work Phone: 11-29-1997 diphtheria, tetanus toxoids and acellular pertussis vaccine, unspecified formulation Osmel Stentz Work Phone: [facility] Work Phone: 11-29-1997 haemophilus influenz ae type b vaccine, conjugate unspecified formulation Osmel Stentz Work Phone: [facility] Work Phone: 11-29-1997 measles, mumps and rubella virus vaccine Osmel Stentz Work Phone: [facility] Work Phone: 05-31-1997 diphtheria, tetanus toxoids and acellular pertussis vaccine, unspecified formulation Osmel Stentz Work Phone: [facility] Work Phone: 05-31-1997 haemophilus influenz ae type b vaccine, conjugate unspecified formulation Osmel Stentz Work Phone: [facility] Work Phone: 05-31-1997 hepatitis B vaccine, pediatric or pediatric/adolescent dosage Osmel Stentz Work Phone: [facility] Work Phone: 05-31-1997 trivalent poliovirus vaccine, live, oral Osmel Stentz Work Phone: [facility] Work Phone: 04-07-1997 diphtheria, tetanus toxoids and acellular pertussis vaccine, unspecified formulation Osmel Stentz Work Phone: [facility] Work Phone: 04-07-1997 haemophilus influenz ae type b vaccine, conjugate unspecified formulation Osmel Stentz Work Phone: [facility] Work Phone: 04-07-1997 trivalent poliovirus vaccine, live, oral Osmel Stentz Work Phone: [facility] Work Phone: 02-24-1997 haemophilus influenz ae type b vaccine, conjugate unspecified formulation Osmel Stentz Work Phone: [facility] Work Phone: 02-24-1997 hepatitis B vaccine, pediatric or pediatric/adolescent dosage Osmel Stentz Work Phone: [facility] Work Phone: 01-25-1997 diphtheria, tetanus toxoids and acellular pertussis vaccine, unspecified formulation Osmel Stentz Work Phone: [facility] Work Phone: 01-25-1997 poliovirus vaccine, inactivated Osmel Stentz Work Phone: [facility] Work Phone: 1996 hepatitis B vaccine, pediatric or pediatric/adolescent dosage Osmel Stentz Work Phone: [facility] Work Phone: Payers Date Payer Category Payer Private Health Insurance [id number] 2024 Self-pay [id number] 2022 Managed Care (Private) [facility] [id number] 2020 Unknown [id number] 2020 Unknown MMO MED [employer] S UPERMED PPO [id number] 2020-Present [id number] 2018 Private Health Insurance 1996 Unknown [id number] 2.16.840.1.994775.3.579.2. 717 1996 Unknown [id number] 2.16.840.1.758757.3.579.2. 903 1996 Unknown [id number] 2.16.840.1.151262.3.579.2. 1243 1996 Unknown [id number] 2..840.1.565439.3.579.2. 1243 1996 Unknown [id number] 2.16.840.1.730095.3.579.2. 479 Unknown [facility] Private Health Insurance [id number] Unknown [id number] 2.840.1.448858.3.579.2. 462 Unknown [id number] 2.840.1.100777.3.579.2. 462 Unknown [id number] 2.840.1.887936.3.579.2. 462 Unknown [id number] 2.840.1.191837.3.579.2. 462 Unknown [id number] 2.16840.1.889914.3.579.2. 462 Unknown [id number] 2.16840.1.294465.3.579.2. 462 Unknown [id number] 2.840.1.426015.3.579.2. 462 Unknown [id number] 2.16840.1.306677.3.579.2. 462 Unknown [id number] 2.16840.1.021537.3.579.2. 462 Unknown [id number] 2.16840.1.494317.3.579.2. 462 Unknown [id number] 2.16840.1.699968.3.579.2. 462 Unknown [id number] 2.16840.1.433304.3.579.2. 462 Unknown [id number] 2.16.840.1.699020.3.579.2. 462 Unknown [id number] 2.16.840.1.172706.3.579.2. 462 Unknown [id number] 2.16.840.1.501464.3.579.2. 462 Unknown [id number] 2.16.840.1.576139.3.579.2. 462 Unknown [id number] 2.16.840.1.324292.3.579.2. 462 Unknown [id number] 2.16.840.1.085571.3.579.2. 462 Unknown [id number] 2.16.840.1.835082.3.579.2. 462 Unknown [id number] 2.16.840.1.647560.3.579.2. 462 Unknown [id number] 2.16.840.1.730688.3.579.2. 462 Unknown [id number] 2.16.840.1.754229.3.579.2. 462 Unknown [id number] 2.16.840.1.153006.3.579.2. 462 Unknown [id number] 2.16.840.1.789384.3.579.2. 462 Unknown [id number] 2.16.840.1.004001.3.579.2. 462 Unknown [id number] 2.16.840.1.071161.3.579.2. 462 Social History Date Type Detail Facility Start: 05-21-2020 End: 08-20-2024 Tobacco smoking status COIS Never smoker [facility] Start: 05-21-2020 Tobacco use and exposure Never used [facility] Start: 1995 Sex Assigned At Not on file [facility] Exposure to SARS-CoV-2 (event) Yes [facility] Never a smoker Never a smoker [facility] Work Phone: Start: 1995 Sex Assigned At Female W [facility] Start: 08-20-2023 Tobacco smoking status NHIS Tobacco smoking consumption unknown [facility] Work Phone: Gender identity Not on file [facility] Start: 05-16-2024 End: 05-26-2024 Exposure to SARS-CoV-2 (event) Not sure [facility] Clinical Notes 05-26-2024 to 03-18-2025 Note Date & Type Note Facility 03-18-2025 Progress note [facility] 03-18-2025 Progress note Note Date/Time March 18, 2025 3:28pm [facility] [address], [address] [place] [address] OFFICE VISIT Date of Service: 03/18/25 MR#: [id number] Acct: [id number] Name: GERTRUDE EMERY Rep #: [id number] : 1995 Provider: Dr. 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[employer] 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al exposures/hazards: No pets and animals: Yes pets and animals: dog(s) history of recent travel: Yes ( - September 2024) out of state: No out of country: Yes sexually active: Yes Smoking Status: Never smoker second hand exposure: No alcohol intake: never substance use type: other details: [place] gummies - Beginning of July diet: gluten free well-balanced diet: daily or most days caffeine: Yes eating out: 1-3 times/week during the past year weight has: remained stable what type of physical activity do you participate in: walking and weight training frequency: 3-4 times per week duration: 15-30 minutes/day lc/buddhist: Shinto seatbelt use: always do you feel safe at home: Yes additional social history: : 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Cortexica History 1 Elective abortions Hx Para 0 [...] MD> Date _ Angella Villarreal MD [facility] Signature: Date (if applicable) CC: ~ [facility] Work Phone: 1(353) 813-511909-03-2025 [facility] [address], [address] [place] [address] OFFICE VISIT Date of Service: 03/09/25 MR#: [id number] Acct: [id number] Name: GERTRUDE EMERY Rep #: [id number] : 1995 Provider: Dr. Valentina Sosa DO Age/Sex: 29/F [place] [facility] [place]: Signed Intake Vital Signs 01/10/25 15:23 01/28/25 11:28 02/24/25 15:57 03/09/25 16:07 03/09/25 16:09 Height 5 ft 7 in 5 ft 7 in 5 ft 7 in 5 ft 7 in 5 ft 7 in Weight: 185 lb 5 oz BMI 29.0 BP 121/75 H Intake Visit Reasons: 36wk ob Presales Senior Specialist Required: No Is patient in pain?: No [...] spouse 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al status: employed 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[employer] 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al exposures/hazards: No pets and animals: Yes pets and animals: dog(s) history of recent travel: Yes ([place] - September 2024) out of state: No out of country: Yes sexually active: Yes Smoking Status: Never smoker second hand exposure: No alcohol intake: never substance use type: other details: [place] gummies - Beginning of July diet: gluten free well-balanced diet: daily or most days caffeine: Yes eating out: 1-3 times/week during the past year weight has: remained stable what type of physical activity do you participate in: walking and weight training frequency: 3-4 times per week duration: 15-30 minutes/day lc/buddhist: Shinto seatbelt use: always do you feel safe at home: Yes additional social history: : Maximilian Todd school managercyber workforce developer and managerC[employer] History 1 Elective abortions Hx Para 0 [...] Diony DO> Date _ Kerry Sosa DO [facility] Signature: Date (if applicable) CC: ~ [facility]09-03-2025 Progress note Author Kerry Vora [facility] Note Date/Time March 09, 2025 4:30pm [facility] [address] [place] [address], [address] [place] [address] OFFICE VISIT Date of Service: 03/09/25 MR#: [id number] Acct: [id number] Name: GERTRUDE EMERY Rep #: [id number] : 1995 Provider: Dr. Valentina Sosa, Age/Sex: 29/F [place] [facility] [place]: Signed Intake Vital Signs 01/10/25 15:23 01/28/25 11:28 02/24/25 15:57 03/09/25 16:07 03/09/25 16:09 Height 5 ft 7 in 5 ft 7 in 5 ft 7 in 5 ft 7 in 5 ft 7 in Weight: 185 lb 5 oz BMI 29.0 BP 121/75 H Intake Visit Reasons: 36wk ob Presales Senior Specialist Required: No Is patient in pain?: No [...] spouse 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al status: employed 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al exposures/hazards: No pets and animals: Yes pets and animals: dog(s) history of recent travel: Yes ( - September 2024) out of state: No out of country: Yes sexually active: Yes Smoking Status: Never smoker second hand exposure: No alcohol intake: never substance use type: other details: [place] gummies - Beginning of July diet: gluten free well-balanced diet: daily or most days caffeine: Yes eating out: 1-3 times/week during the past year weight has: remained stable what type of physical activity do you participate in: walking and weight training frequency: 3-4 times per week duration: 15-30 minutes/day lc/buddhist: Shinto seatbelt use: always do you feel safe at home: Yes additional social history: : 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[employer] History 1 Elective abortions Hx Para 0 [...] Symptoms of Preeclampsia, Infant Feeding No , [place] Education and Family Medical Leave or Disability [...] DO> Date _ Kerry Sujata Vora DO [facility] Signature: Date (if applicable) CC: ~ [facility] Work Phone: 1(195) 258-180908-21-2025 [facility] [address] [place] [address], [address] [place] [address] OFFICE VISIT Date of Service: 02/24/25 MR#: [id number] Acct: [id number] Name: GERTRUDE EMERY Rep #: [id number] : 1995 Provider: Dr. Fredi Villarreal MD Age/Sex: 29/F [place] [facility] [place]: Signed Intake Vital Signs 01/10/25 15:23 02/20/25 11:19 02/24/25 15:57 Height 5 ft 7 in 5 ft 7 in 5 ft 7 in Weight: 186 lb BMI 29.1 BP 119/84 H Intake Visit Reasons: 34wk ob Presales Senior Specialist Required: No Is patient in pain?: No [...] spouse 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al status: employed 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al exposures/hazards: No pets and animals: Yes pets and animals: dog(s) history of recent travel: Yes ( - September 2024) out of state: No out of country: Yes sexually active: Yes Smoking Status: Never smoker second hand exposure: No alcohol intake: never substance use type: other details: [place] gummies - Beginning of July diet: gluten free well-balanced diet: daily or most days caffeine: Yes eating out: 1-3 times/week during the past year weight has: remained stable what type of physical activity do you participate in: walking and weight training frequency: 3-4 times per week duration: 15-30 minutes/day lc/buddhist: Shinto seatbelt use: always do you feel safe at home: Yes additional social history: : 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[employer] History 1 Elective abortions Hx Para 0 [...] PEDERSEN> Date _ Angella Villarreal MD [facility] Signature: Date (if applicable) CC: ~ [facility]08-21-2025 Progress note Author Angella Villarreal [facility] Note Date/Time February 24, 2025 4: 30pm [facility] [address] [place] [address], [address] [place] [address] OFFICE VISIT Date of Service: 02/24/25 MR#: [id number] Acct: [id number] Name: GERTRUDE EMERY Rep #: [id number] : 1995 Provider: Dr. Fredi Villarreal MD Age/Sex: 29/F [place] [facility] [place]: Signed Intake Vital Signs 01/10/25 15:23 02/20/25 11:19 02/24/25 15:57 Height 5 ft 7 in 5 ft 7 in 5 ft 7 in Weight: 186 lb BMI 29.1 BP 119/84 H Intake Visit Reasons: 34wk ob Presales Senior Specialist Required: No Is patient in pain?: No [...] spouse 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al status: employed 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al exposures/hazards: No pets and animals: Yes pets and animals: dog(s) history of recent travel: Yes ([place] - September 2024) out of state: No out of country: Yes sexually active: Yes Smoking Status: Never smoker second hand exposure: No alcohol intake: never substance use type: other details: [place] gummies - Beginning july diet: gluten free well-balanced diet: daily or most days caffeine: Yes eating out: 1-3 times/week during the past year weight has: remained stable what type of physical activity do you participate in: walking and weight training frequency: 3-4 times per week duration: 15-30 minutes/day lc/buddhist: Shinto seatbelt use: always do you feel safe at home: Yes additional social history: : 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[employer] History 1 Elective abortions Hx Para 0 [...] and Symptoms of Preeclampsia, Feeding No , [place] Education and Family Medical Leave or Disability [...] Cash Signature: Date (if applicable) CC: ~ [facility] Work Phone: 1(870) 851-754708-08-2025 [facility] [address] [place] [address], [address] [place] [address] OFFICE VISIT Date of Service: 02/11/25 MR#: [id number] Acct: [id number] Name: GERTRUDE EMERY Rep #: [id number] : 1995 Provider: NATALYA Crews Age/Sex: 29/F [place] [facility] [place]: Signed Intake Vital Signs 01/28/25 11:28 02/11/25 10:01 Height 5 ft 7 in 5 ft 7 in Weight: 179 lb 2 oz BMI 28.0 BP 137/82 H Intake Visit Reasons: 32 wk ob *reschedule Chief Complaint: 32wk OB Presales Senior Specialist Required: No Is patient in pain?: No [...] spouse 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al status: employed 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al exposures/hazards: No pets and animals: Yes pets and animals: dog(s) history of recent travel: Yes ([place] - September 2024) out of state: No out of country: Yes sexually active: Yes Smoking Status: Never smoker second hand exposure: No alcohol intake: never substance use type: other details: [place] gummies - Beginning of July diet: gluten free well-balanced diet: daily or most days caffeine: Yes eating out: 1-3 times/week during the past year weight has: remained stable what type of physical activity do you participate in: walking and weight training frequency: 3-4 times per week duration: 15-30 minutes/day lc/buddhist: Shinto seatbelt use: always do you feel safe at home: Yes additional social history: : 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[employer] History 1 Elective abortions Hx Para 0 Spontaneous abortions Hx # Term Pregnancies Ectopic pregnancies Hx # Pregnancies Multiple births # of living children HPI 32 wk ob *reschedule Details: GERTRDUE EMERY is a 29 year old who [...] Cosigndouglas Signature: Date (if applicable) CC: ~ [facility]05-15-2025 Evaluation note* Diagnosis Onset Date Resolution Status [...] of high-risk acute February 11, 2025 9:58am [facility] Work Phone: [phone] Evaluation note* Diagnosis Onset Date Resolution Status [...] Supervision of high-risk acute February 24 3:50pm [facility] Work Phone: [phone] Evaluation note* Diagnosis Onset Date Resolution Status [...] high-risk acute March 09, 2 025 3:55pm [facility] Work Phone: 1([phone]) 592-133505-15-2025 Evaluation note* Diagnosis Onset Date Resolution Status [...] of high-risk acute March 18, 2025 3:13pm [facility] Work Phone: 1([phone]) 442-780005-15-2025 [facility] [address] [place] [address], [address] [place] [address] OFFICE VISIT Date of Service: 11/18/24 MR#: [id number] Acct: [id number] Name: GERTRUDE EMERY Rep #: [id number] : 1995 Provider: NATALYA Crews Age/Sex: 28/F [place] [facility] [place]: Signed Intake Vital Signs 09/22/24 15:06 10/22/24 10:19 11/18/24 08:30 Height 5 ft 7 in 5 ft 7 in 5 ft 7 in Weight: 168 lb 6 oz BMI 26.4 BP 128/84 H Intake Visit Reasons: 20 wk ob Chief Complaint: 20wk ob Presales Senior Specialist Required: No Is patient in pain?: No [...] spouse 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al status: employed 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al exposures/hazards: No pets and animals: Yes pets and animals: dog(s) history of recent travel: Yes ([place] - September 2024) out of state: No out of country: Yes sexually active: Yes Smoking Status: Never smoker second hand exposure: No alcohol intake: never substance use type: other details: [place] gummies - Beginning of July diet: gluten free well-balanced diet: daily or most days caffeine: Yes eating out: 1-3 times/week during the past year weight has: remained stable what type of physical activity do you participate in: walking and weight training frequency: 3-4 times per week duration: 15-30 minutes/day lc/buddhist: Shinto seatbelt use: always do you feel safe at home: Yes additional social history: : 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[employer] History 1 Elective abortions Hx Para 0 [...] Symptoms of Preeclampsia, Infant Feeding No , [place] Education and Family Medical Leave or Disability [...] Cosigner Signature: Date (if applicable) CC: ~ [facility]04-18-2025 Evaluation note* Diagnosis Onset Date Resolution Status [...] of high-risk acute January 28, 2025 11:20am [facility] Work Phone: 1(351) 715-273204-18-2025 Evaluation note* Diagnosis Onset Date Resolution Status [...] of high-risk acute February 11, 2025 9:58am [facility] Work Phone: 1([phone]) 294-481003-19-2025 Evaluation note* Diagnosis Onset Date Resolution Status [...] high-risk acute January 10, 2025 3 :14pm [facility] [employer] [facility] Work Phone: 1(336) 481-590302-19-2025 Evaluation note* Diagnosis Onset Date Resolution Status [...] high-risk acute November 18, 2024 8 :26am [facility] Work Phone: [phone] 321-381502-19-2025 Evaluation note* Diagnosis Onset Date Resolution Status [...] of high-risk acute December 14, 2024 3:30pm [facility] Work Phone: [phone]) 592-845711-20-2024 History of Present illness Narrative* Alfred Anderson, SRIDHAR-AIRLINE MANAGER - 05/26/2024 10:50 AM EST 28 y.o. [...] Review Audit Reviewed by Ewa Carr MA (Flash Developer) on 05/26/24 at 1052 Medication Order Taking? Sig Documenting Provider Last Dose Status fluticasone (Flonase) 50 mcg/actuation nasal spray [id number] Administer 1 spray into each nostril once daily. Shake gently. Before first use, prime pump. After use, clean tip and replace cap. Patient not taking: Reported on 05/26/2024 Alfred Anderson, CORRIDOR REDEVELOPMENT MANAGER-AIRLINE MANAGER Active Past Medical History: Diagnosis Date Celiac disease ([facility]) Past Surgical History: Procedure Laterality Date OTHER SURGICAL HISTORY 10/02/2020 Appendectomy laparoscopic OTHER SURGICAL HISTORY 10/05/2020 [place] tooth extraction ROS See HPI Physical Exam [...] Gertrude's care are: none Alfred Anderson CNP [facility] [phone] [facility] Phone: Evaluation noteNo assessment information available [facility] Work Phone: Evaluation note* Diagnosis COVID- Primary Acute bronchitis, unspecified organism documented in this encounter [facility] Work Phone: History of Present illness Narrative* 26 YOF presents for school physical. 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 [facility] Work Phone: progress note Author Nicole Crews [facility] Note Date/Time November 18, 2024 8:47a m [facility] [address], [address] [place] [address] OFFICE VISIT Date of Service: 11/18/24 MR#: [id number] Acct: [id number] Name: GERTRUDE EMERY Rep #: [id number] : 1995 Provider: NATALYA Crews Age/Sex: 28/F [place] [facility] [place]: Signed Intake Vital Signs 09/22/24 15:06 10/22/24 10:19 11/18/24 08:30 Height 5 ft 7 in 5 ft 7 in 5 ft 7 in Weight: 168 lb 6 oz BMI 26.4 BP 128/84 H Intake Visit Reasons: 20 wk ob Chief Complaint: 20wk ob Presales Senior Specialist Required: No Is patient in pain?: No [...] spouse 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al status: employed 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al exposures/hazards: No pets and animals: Yes pets and animals: dog(s) history of recent travel: Yes ( - September 2024) out of state: No out of country: Yes sexually active: Yes Smoking Status: Never smoker second hand exposure: No alcohol intake: never substance use type: other details: [place] gummies - Beginning of July diet: gluten free well-balanced diet: daily or most days caffeine: Yes eating out: 1-3 times/week during the past year weight has: remained stable what type of physical activity do you participate in: walking and weight training frequency: 3-4 times per week duration: 15-30 minutes/day lc/buddhist: Shinto seatbelt use: always do you feel safe at home: Yes additional social history: : 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[employer] History 1 Elective abortions Hx Para 0 [...] Acute Comment: PRR, , GLENN 04/05/25, : Maximliian (2) : Status: Acute Qualifiers: Weeks of [...] Cosigner Signature: Date (if applicable) CC: ~ [facility] Work Phone: Progress note Author Nicole Crews [facility] Note Date/Time February 11, 2025 10: 25am [facility] [address], [address] [place] [address] OFFICE VISIT Date of Service: 02/11/25 MR#: [id number] Acct: [id number] Name: GERTRUDE EMERY Rep #: [id number] : 1995 Provider: NATALYA Crews Age/Sex: 29/F [place] [facility] [place]: Signed Intake Vital Signs 01/28/25 11:28 02/11/25 10:01 Height 5 ft 7 in 5 ft 7 in Weight: 179 lb 2 oz BMI 28.0 BP 137/82 H Intake Visit Reasons: 32 wk ob *reschedule Chief Complaint: 32wk OB Presales Senior Specialist Required: No Is patient in pain?: No [...] intake: never substance use type: other details: [place] gummies - Beginning of July diet: gluten free well-balanced diet: daily or most days caffeine: Yes eating out: 1-3 times/week during the past year weight has: remained stable what type of physical activity do you participate in: walking and weight training frequency: 3-4 times per week duration: 15-30 minutes/day lc/buddhist: Shinto seatbelt use: always do you feel safe at home: Yes additional social history: : 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[employer] History 1 Elective abortions Hx Para 0 [...] Symptoms of Preeclampsia, Infant Feeding No , [place] Education andFamily Medical Leave or Disability Forms [...] Cosigner Signature: Date (if applicable) CC: ~ [facility] Work Phone: Reason for referral (narrative)No reason for referral information availableLa [facility]ma [facility] Work Phone: Summary Purpose Family History [...] FoundDocuments on File Type Date Recorded 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 No August 10, 2024 10:19am Living Will No August 11 1:14pm Do you have a Healthcare Power of Head Screen Worker? No August 11, 2024 1:14pm Instructions * Patient Instructions* Elaine Dexter, JONATHON - 05/21/2020 7:40 PM [facility] COVID-19 Post-swabbing Instructions We will do our best to update you as soon as we receive your test results, but if we had to send your test to be run at the lab, you may see the results on OfficialVirtualDJhart or receive a call from [facility] before we are able to contact you. [...] results. - If you have an active [employer] account, and your COVID-19 test is negative (not detected), then you will be notified through your [employer] account. You should call the urgent care if you have any further questions. - If your COVID-19 test is positive (detected), you will receive a phone call to discuss your results and answer any questions you might have at that time. Please make sure [facility] has your updated phone number so we can contact you. [facility] will notify the [place] [facility] of any positive results to comply with [...] and warm water and/or alcohol based hand envelope cutter, scrubbing your hands for at least 20 [...] Other COVID Questions? CDC - https://www.cdc.gov/coronavirus/2019-ncov/index.html - https://www.cdc.gov/coronavirus/2019-ncov/ui-hgg-vue-sick/quarantine.html [facility] - Website: https://coronavirus.[place].gov/wps/portal/gov/covid-19/home - Hotline: 375-6-AGE-OD (515-921-1688) [facility]: https://blog.Danger.Advanced-Tec/series/gmzbj-33-ajaaygotiey-toolkit/ documented in this encounter History of Present Illness * Elaine Dexter CNP - 05/21/2020 7:37 PM EST Patient Name: [facility] Location: [place] [address] Date Of : Date Of Visit: 1995 05/21/2020 MRN# Provider: [id number] Elaine Dexter CNP Chief Complaint Patient presents [...] and atraumatic. Nose: Nose normal. Mouth/Throat: Lips: [place]. Mouth: Mucous membranes are moist. Pharynx: Oropharynx [...] facility-administered medications for this visit. Patient Instructions [facility] COVID-19 Post-swabbing Instructions We will do our best to update you as soon as we receive your test results, but if we had to send your test to be run at the lab, you may see the results on MyChart or receive a call from [facility] before we are able to contact you. [...] results. - If you have an active [employer] account, and your COVID-19 test is negative (not detected), then you will be notified through your [employer] account. You should call the urgent care if you have any further questions. - If your COVID-19 test is positive (detected), you will receive a phone call to discuss your results and answer any questions you might have at that time. Please make sure [facility] has your updated phone number so we can contact you. [facility] will notify the [place] Department of [facility] of any positive results to comply with [...] and warm water and/or alcohol based hand envelope cutter, scrubbing your hands for at least 20 [...] Other COVID Questions? CDC - https://www.cdc.gov/coronavirus/2019-ncov/index.html - https://www.cdc.gov/coronavirus/2019-ncov/xi-rez-pgn-sick/quarantine.html [facility] - Website: https://coronavirus.[place].gov/wps/portal/gov/covid-19/home - Hotline: 688-5-CRB-OD (580-071-2559) [facility]: https://blog.Zoodles/series/xhzdo-49-bqedlklqrpn-toolkit/ documented in this encounter Assessments Diagnosis Suspected [...] 09, 2025 3:55pm Supervision of high-risk [facility] 2024 3:55pm Celiac disease March 18, 2025 3:13pm March 18, 2025 3:13pm Supervision of high-risk [facility] 2024 3:13pm Additional Source Comments INFORMATION SOURCE (unrecogn ized section and content) DATE CREATED AUTHOR 07/31/2018 [facility] DATE CREATED AUTHOR AUTHOR'S ORGANIZ ATION 05/21/2020 [facility] DATE CREATED AUTHOR AUTHOR'S ORGANIZ ATION 02/13/2022 [facility] DATE CREATED AUTHOR AUTHOR'S ORGANIZ ATION 05/29/2024 [facility] DATE CREATED AUTHOR AUTHOR'S ORGANIZ ATION 11/13/2024 [facility] DATE CREATED AUTHOR AUTHOR'S ORGANIZ ATION 03/26/2025 [facility] Reason for Visit (unrecogniz ed section and [...] Angulo MD Attending Provider, Referring Provider Active Real Estate Appraiser Relationship Specialty Start Date End Date Osmel Jin PA-C [address] [facility], [place] [address] PCP - General 02/12/22 Team Status: Inactive [...] End: January 10, 2025 Carie Burns NP, HEATING AND COOLING TECHNICIAN-C Attending Provider Active Start: January 10, 2025 [...] End: January 10, 2025 Carie Burns NP, HEATING AND COOLING TECHNICIAN-C Attending Provider Active Start: January 10, 2025 [...] End: January 10, 2025 Carie Burns NP, HEATING AND COOLING TECHNICIAN-C Attending Provider Active Start: January 10, 2025 [...] BE BASED ON THE PRIMARY CLINICAL RECORDS. [place] [facility] provides no warranty or guarantee of the accuracy or completeness of information in this document.
[2025-03-27 17:32] LABS: ROM Internal Control Test YES-OK TO RESULT pt. (Internal QC)
[2025-03-27 17:33] LABS: ROM Patient Test POSITIVE (Negative); Record Kit Lot#, ROM+ K3358
--- OUTSIDE RECORDS SUMMARY | 2025-03-27 17:48 | XMS RPT_ITS | CCD ---
Author Organization [facility] Care Team Providers Care Edging Supervisor Name Role Phone Fernandez Tavarez Attending Unavailable [...] Provider Dr. Fatoumata Diaz DO Emergency Provider Tracy Carey RN Attending Provider Unavailabl e Care Physician, No Primary Referring Provider Un available Nicole Crews CNM Attending Provider [phone] Nicole Crews CNM Referring Provider [phone] Dr. Angella Villarreal MD Attending Provider [phone] Care Physician, No Primary Primary Care Provider Unavailable Care Physician, No Primary Primary Care Provider Unavailable Care Physician, No Primary Referring Provider Un available Nicole Crews CNM Attending Provider Nicole Crews CNM Referring Provider Carie Drummond Attending Provider [phone] Care Physician, No Primary Primary Care Provider Unavailable Care Physician, No Primary Referring Provider Un available Arsalan PEDERSEN, Dr. Perales Attending Provider [phone] Care Physician, No Primary Primary Care Provider Unavailable Care Physician, No Primary Referring Provider Un available Nicole Crews CNM Attending Provider [phone] Arsalan PEDERSEN, Dr. Perales Other Provider [phone] Sujata Vora DO, Dr. Payne Attending Provider [...] Care Unava ilable Nicole Crews Referring Unavailable Niocle Crews Attending Unavailable Angella Villarreal Attending Unavailable [...] No Primary Primary Care Unava ilable Nicole Cresw Attending Unavailable Care Physician, No Primary Primary [...] extract; Translations: [GLUTEN] Drug Allergy 08-20-2023 Diarrhea [facility] (1 source) Gluten Drug allergy (disorder) 03-25-2025 [facility] Repository Medications Current Medications Medication Drug Class(es) Dates Sig (Normalized) Sig (Original) [id number] 200 actuat albuterol 0.09 mg/actuat metered dose [...] Test Name Value Interpretation Reference Range Facility Cattle Sorter Office Visit Reporton 03-25-2025 Cattle S[facility] Office Visit Report [facility] Care [address] [place] [address], [address] [place] [address] OFFICE VISIT Date of Service: 03/25/25 MR#: [id number] Acct: [id number] Name: GERTRUDE EMERY Rep #: [id number] : 1995 Provider: NATALYA Felix ams Age/Sex: 29/F Location: [facility] Status: Signed Intake Vital Signs 02/11/25 10:01 03/18/25 15:18 03/25/25 11:39 03/25/25 11:40 Height 5 ft 7 in 5 ft 7 in 5 ft 7 in 5 ft 7 in Weight: 187 lb 2 oz BMI 29.2 BP 125/82 H Intake Visit Reasons: 38 WK OB Procurement Services Manager Required: No Is patient in pain?: No [...] spouse 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al status: employed 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al exposures/hazards: No pets and animals: Yes pets and animals: dog(s) history of recent travel: Yes ([place] - September 2024) out of state: No out of country: Yes sexually active: Yes Smoking Status: Never smoker second hand exposure: No alcohol intake: never substance use type: other details: [place] gummies - Beginning of July diet: gluten free well-balanced diet: daily or most days caffeine: Yes eating out: 1-3 times/week during the past year weight has: remained stable what type of physical activity do you participate in: walking and weight training frequency: 3-4 times per week duration: 15-30 minutes/day lc/voodoo: Church seatbelt use: always do you feel safe at home: Yes additional social history: : 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 Normal [facility] Cattle Sorter Office Visit Reporton 03-18-2025 Cattle Sorter Office Visit Report [facility] [address], [address] [place] [address] OFFICE VISIT Date of Service: 03/18/25 MR#: [id number] Acct: [id number] Name: GERTRUDE EMERY Rep #: [id number] : 1995 Provider: Dr. Angella mosquera MD Age/Sex: 29/F Location: [facility] Status: Signed Intake Vital Signs 02/11/25 10:01 03/09/25 16:09 03/18/25 15:18 Height 5 ft 7 in 5 ft 7 in 5 ft 7 in Weight: 188 lb 9 oz BMI 29.5 BP 130/77 H Intake Visit Reasons: 37wk ob *move 04/01 appt Procurement Services Manager Required: No Is patient in pain?: No [...] intake: never substance use type: other details: [place] gummies - Beginning of July diet: gluten free well-balanced diet: daily or most days caffeine: Yes eating out: 1-3 times/week during the past year weight has: remained stable what type of physical activity do you participate in: walking and weight training frequency: 3-4 times per week duration: 15-30 minutes/day lc/voodoo: Church seatbelt use: always do you feel safe at home: Yes additional social history: : 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 declin (more content not included)... Normal [facility] Rule out Beta Strep (Grp. B) on 03-11-2025 RAJWINDER Group B Beta Streptococcus is not isolated. Normal [facility] Comment on above: Performed By: #### M 100.1462 #### [facility] Laboratory [facility] [place], [address] Laboratory - Chemistry and C hemistry - challengeOrdered By: Kerry Vora on 03-09-2025 Glucose Ql (U) Negative [facility] Laboratory - UrinalysisOrder ed By: Kerry Vora on 03-09-2025 Protein Ql (U) Negative [facility] Cattle Sorter Office Visit Reporton 03-09-2025 Cattle Sorter Office Visit Report [facility] [address], [address] [place] [address] OFFICE VISIT Date of Service: 03/09/25 MR#: [id number] Acct: [id number] Name: GERTRUDE EMERY Rep #: [id number] : 1995 Provider: Dr. Kerry Arias, Age/Sex: 29/F Location: [facility] Status: Signed Intake Vital Signs 01/10/25 15:23 01/28/25 11:28 02/24/25 15:57 03/09/25 16:07 03/09/25 16:09 Height 5 ft 7 in 5 ft 7 in 5 ft 7 in 5 ft 7 in 5 ft 7 in Weight: 185 lb 5 oz BMI 29.0 BP 121/75 H Intake Visit Reasons: 36wk ob Procurement Services Manager Required: No Is patient in pain?: No [...] spouse 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al status: employed 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al exposures/hazards: No pets and animals: Yes pets and animals: dog(s) history of recent travel: Yes ([place] - September 2024) out of state: No out of country: Yes sexually active: Yes Smoking Status: Never smoker second hand exposure: No alcohol intake: never substance use type: other details: [place] gummies - Beginning of July diet: gluten free well-balanced diet: daily or most days caffeine: Yes eating out: 1-3 times/week during the past year weight has: remained stable what type of physical activity do you participate in: walking and weight training frequency: 3-4 times per week duration: 15-30 minutes/day lc/voodoo: Church seatbelt use: always do you feel safe at home: Yes additional social history: : 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 Normal [facility] Screening beta-hemolytic Str eptococcus cultureOrdered By: Kerry Vora on 03-09-2025 Beta-hemolytic Streptococcus culture Group B Beta Streptococcus is not isolated. [facility] Laboratory - Chemistry and C hemistry - challengeOrdered By: Angella Villarreal on 02-24-2025 Glucose Ql (U) Negative [facility] Laboratory - UrinalysisOrder ed By: Angella Villarreal on 02-24-2025 Protein Ql (U) Negative [facility] OB Triage Progress Noteon OB Triage Progress Note [facility] Medical Records Department [address] [place] [address] OB Triage Progress Note 02/24/25 1048 MR#: [id number] Acct: [id number] Name: GERTRUDE EMERY Rep #: [id number] : 1995 29 From: Angella Villarreal MD PCP: Care Physician,No Primary Status:DEP CLI Y DOS: Location: [facility]OUT Progress Notes Date of Service: 02/20/25 Progress Note: Patient presents for triage evaluation secondary to contractions FHT: 140 Moderate variability reactive no decelerations category I tracing [place]: irregular Contractions Assessment and plan: 33 weeks threatened labor no cervical change Reactive NST, reassuring maternal and status patient discharged to home to follow-up as scheduled. See problem list details for additional plan information. Laboratory Studies: Laboratory Tests 02/20/25 Range/Units 11:40 Urine Color Yellow (Yellow) Urine Clarity Sl. Cloudy (Clear) Urine pH 7.0 (5.0 - 8.0) Ur Specific [place] 1.010 (1.002-1.030) Urine Protein 15 H (Negative) [...] 0 SEEN ( Charges/Coding Procedures Urinary/Genital 52xxx-59xxx: [id number] non-stress test Interp 02/24/25 1049 Date Angella Villarreal MD Cosigner Signature (if applicable): Date CC: Dr. Angella Villarreal MD; No Primary Care Physician Signed Normal [facility] Cattle Sorter Office Visit Reporton 02-24-2025 Cattle Sorter Office Visit Report [facility]'s [address], [address] [place] [address] OFFICE VISIT Date of Service: 02/24/25 MR#: [id number] Acct: [id number] Name: GERTRUDE EMERY Rep #: [id number] : 1995 Provider: Dr. Angella mosquera MD Age/Sex: 29/F Location: [facility] Status: Signed Intake Vital Signs 01/10/25 15:23 02/20/25 11:19 02/24/25 15:57 Height 5 ft 7 in 5 ft 7 in 5 ft 7 in Weight: 186 lb BMI 29.1 BP 119/84 H Intake Visit Reasons: 34wk ob Procurement Services Manager Required: No Is patient in pain?: No [...] intake: never substance use type: other details: [place] gummies - Beginning of July diet: gluten free well-balanced diet: daily or most days caffeine: Yes eating out: 1-3 times/week during the past year weight has: remained stable what type of physical activity do you participate in: walking and weight training frequency: 3-4 times per week duration: 15-30 minutes/day lc/voodoo: Church seatbelt use: always do you feel safe at home: Yes additional social history: : 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 +fm. (more content not included)... Normal [facility] Urine Cultureon 02-22-2025 URC Below infection leve l. Mixed Gram Positive Organisms Success Count <1000 MIXC Mixed contaminants. Submit a new specimen if indicated. Normal [facility] Comment on above: Performed By: #### M 100.6052 #### [facility] Laboratory [address] [place] [address]. [place], [address] Bilirubin Test strip Ql (U)O rdered By: Angella Villarreal on 02-20-2025 Bilirubin Ql (U) Negative Negative [facility] Ketones Test strip Ql (U)Ord ered By: Angella Villarreal on 02-20-2025 Ketones Ql (U) Negative Negative [facility] Microscopic analysis of urin e for red blood cells (RBC)Ordered By: Angella Villarreal on 02-20-2025 Microscopic analysis of urine for red blood cells (RBC) 0 SEEN /hpf 0-5 [facility] Mucus LM Ql (Urine sed)Order ed By: Angella Villarreal on 02-20-2025 Mucus Ql (Urine sed) 0 SEEN /hpf [facility] Nitrite Test strip Ql (U)Ord ered By: Angella Quezadasonia on 02-20-2025 Nitrite Ql (U) Negative Negative [facility] Protein Test strip Ql (U)Ord ered By: Angella Quezadasonia on 02-20-2025 Protein Ql (U) 15 mg/dl High Negative [facility] Squamous epithelial cells de tection in urine sediment by light microscopyOrdered By: Angella Villarreal on 02-20-2025 Epithelial cells.squamous LM Ql (Urine sed) 0-5 SEEN /hpf 5-10 [facility] Urinalysis, Completeon 02-20 EPI,SQUAMOUS 0-5 SEEN Normal -10 [facility] Comment on above: Order Comment: CLEAN CATCH Performed By: #### M 100.2200, L7400.0353, L7000.1800 #### [facility] Laboratory [address] [place], [address] WBC 0-5 SEEN Normal 0-5 [facility] Comment on above: Order Comment: CLEAN CATCH Performed By: #### M 100.2200, L7400.0353, L7000.1800 #### [facility] Laboratory [address] [place], [address] BACTERIA 0 SEEN Normal None Seen [facility] Comment on above: Order Comment: CLEAN CATCH Performed By: #### M 100.2200, L7400.0353, L7000.1800 #### [facility] Laboratory [address] [place], [address] Mucus Ql (Urine sed) 0 SEEN Normal [facility] Comment on above: Order Comment: CLEAN CATCH Performed By: #### M 100.2200, L7400.0353, L7000.1800 #### [facility] Laboratory [address] [place], [address] RBC 0 SEEN Normal [address] [place] [address] Comment on above: Order Comment: CLEAN CATCH Performed By: #### M 100.2200, L7400.0353, L7000.1800 #### [facility] Laboratory [address] [place], [address] Urine clarityOrdered By: Alfred Villarreal on 02-20-2025 Clarity (U) Sl. Cloudy Clear [facility] Urine color determinationOrd ered By: Angella Villarreal on 02-20-2025 Color (U) Yellow Yellow [facility] Urine cultureOrdered By: Alfred Villarreal on 02-20-2025 Bacteria identified Cx Nom (U) Positive Abnormal [facility] Urine glucose detectionOrder ed By: Angella Villarreal on 02-20-2025 Glucose Ql (U) Normal mg/dl Normal [facility] Urine leukocyte esterase det ection by dipstickOrdered By: Angella Villarreal on 02-20-2025 Leukocyte esterase Test strip Ql (U) 25 /ul High Negative [facility] Urine pHOrdered By: Angella aponte on 02-20-2025 pH (U) 7.0 [pH] 5.0 - 8.0 [facility] Urine sediment bacteria coun t by microscopy (number/high power field)Ordered By: Angella Villarreal on 02-20-2025 Bacteria LM.HPF (Urine sed) [#/Area] 0 /[HPF] None Seen [facility] Urine specific gravity measu rementOrdered By: Angella Villarreal on 02-20-2025 Specific gravity (U) [Rel density] 1.010 1.002-1.030 [facility] Urine urobilinogen measureme ntOrdered By: Angella Villarreal on 02-20-2025 Urobilinogen Ql (U) Normal mg/dl Normal [facility] White blood cell countOrdere d By: Angella Villarreal on 02-20-2025 White blood cell count 0-5 SEEN /hpf 0-5 [facility] Laboratory - Chemistry and C hemistry - challengeOrdered By: Nicole Crews on 02-11-2025 Glucose Ql (U) Negative [facility] Laboratory - UrinalysisOrder ed By: Nicole Crews on 02-11-2025 Protein Ql (U) Negative [facility] Cattle Sorter Office Visit Reporton 02-11-2025 Cattle Sorter Office Visit Report [facility] [address], [address] [place] [address] OFFICE VISIT Date of Service: 02/11/25 MR#: [id number] Acct: [id number] Name: GERTRUDE EMERY Rep #: [id number] : 1995 Provider: NATALYA Felix ams Age/Sex: 29/F Location: [facility] Status: Signed Intake Vital Signs 01/28/25 11:28 02/11/25 10:01 Height 5 ft 7 in 5 ft 7 in Weight: 179 lb 2 oz BMI 28.0 BP 137/82 H Intake Visit Reasons: 32 wk ob *reschedule Chief Complaint: 32wk OB Procurement Services Manager Required: No Is patient in pain?: No [...] spouse 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al status: employed 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al exposures/hazards: No pets and animals: Yes pets and animals: dog(s) history of recent travel: Yes ( - September 2024) out of state: No out of country: Yes sexually active: Yes Smoking Status: Never smoker second hand exposure: No alcohol intake: never substance use type: other details: [place] gummies - Beginning of July diet: gluten free well-balanced diet: daily or most days caffeine: Yes eating out: 1-3 times/week during the past year weight has: remained stable what type of physical activity do you participate in: walking and weight training frequency: 3-4 times per week duration: 15-30 minutes/day lc/voodoo: Church seatbelt use: always do you feel safe at home: Yes additional social history: : 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 (more content not included)... Normal [facility] Laboratory - Chemistry and C hemistry - challengeOrdered By: Nicole Crews on 01-28-2025 Glucose Ql (U) Negative [facility] Laboratory - UrinalysisOrder ed By: Nicole Crews on 01-28-2025 Protein Ql (U) Negative [facility] Cattle Sorter Office Visit Reporton 01-28-2025 Cattle Sorter Office Visit Report [facility]'s [address], [address] [place] [address] OFFICE VISIT Date of Service: 01/28/25 MR#: [id number] Acct: [id number] Name: GERTRUDE EMERY Rep #: [id number] : 1995 Provider: NATALYA Fleix [facility] Age/Sex: 29/F Location: [facility] Status: Signed Intake Vital Signs 11/18/24 08:30 01/10/25 15:23 01/28/25 11:24 01/28/25 11:28 Height 5 ft 7 in 5 ft 7 in 5 ft 7 in 5 ft 7 in Weight: 177 lb 177 lb 2 oz BMI 27.7 27.7 BP 123/76 H 121/82 H Intake Visit Reasons: 30 wk ob Chief Complaint: 30 Week OB Procurement Services Manager Required: No Is patient in pain?: No [...] intake: never substance use type: other details: [place] gummies - Beginning of July diet: gluten free well-balanced diet: daily or most days caffeine: Yes eating out: 1-3 times/week during the past year weight has: remained stable what type of physical activity do you participate in: walking and weight training frequency: 3-4 times per week duration: 15-30 minutes/day lc/voodoo: Church seatbelt use: always do you feel safe at home: Yes additional social history: : 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 Normal [facility] Absolute lymphocyte countOrd ered By: Nicole Crews on 01-10-2025 Lymphocytes Auto (Unsp spec) [#/Vol] 2.16 10*3/uL 0.83-4.51 [facility] Absolute neutrophil countOrd ered By: Nicole Crews on 01-10-2025 Neutrophils (Bld) [#/Vol] 11.4 10*3/uL High 2.0-7.7 [facility] Automated lymphocyte count a s percentage of total leukocytesOrdered By: Nicole Crews on 01-10-2025 Lymphocytes/100 WBC Auto (Unsp spec) 14.7 % Low 19-41 [facility] Basophil percentageOrdered B y: Nicole Crews on 01-10-2025 Basophils/100 WBC (Bld) 0.2 % 0-1 [facility] CBC W/Diff, Automatedon - Absolute Lymph 2.16 X10 3/uL Normal 0.83-4.51 [facility] Comment on above: Performed By: #### L 509.3436, L3890.6006, L100.0100, L501.0250 #### [facility] Laboratory [address] [place], [address] Absolute Neut 11.4 X10 3/uL High 2.0-7.7 [facility] Comment on above: Performed By: #### L 509.8002, L3890.6006, L100.0100, L501.0250 #### [facility] Laboratory [address] [place], [address] Basophils/100 WBC (Bld) 0.2 % Normal 0-1 [facility] Comment on above: Performed By: #### L 509.8002, L3890.6006, L100.0100, L501.0250 #### [facility] Laboratory [address] [place], [address] Eosinophils/100 WBC (Bld) 1.4 % Normal 0-5 [facility] Comment on above: Performed By: #### L 509.8002, L3890.6006, L100.0100, L501.0250 #### [facility] Laboratory [address] [place], [address] Erythrocyte distribution width (RBC) [Ratio] 13.6 % Normal 11.6-14.6 [facility] Comment on above: Performed By: #### L 509.8002, L3890.6006, L100.0100, L501.0250 #### [facility] [address] [place], [address] Hematocrit (Bld) [Volume fraction] 37.0 % Normal 37-47 [facility] Comment on above: Performed By: #### L 509.8002, L3890.6006, L100.0100, L501.0250 #### [facility] Laboratory [address] [place], [address] Hemoglobin (Bld) [Mass/Vol] 12.8 g/dL Normal 12.0-15.0 [facility] Comment on above: Performed By: #### L 509.8002, L3890.6006, L100.0100, L501.0250 #### [facility] [address] [place], [address] IG% 0.600 Normal 0.0-0.9 [facility] Comment on above: Result Comment: IG% - Immature Granulocytes (promyelocytes, myelocytes and metamyelocytes) > 1% indicates that a LEFT SHIFT is Present. Performed By: #### L 509.8002, L3890.6006, L100.0100, L501.0250 #### [facility] [address] [place], [address] Lymphocytes/100 WBC (Bld) 14.7 % Low 19-41 [facility] Comment on above: Performed By: #### L 509.8002, L3890.6006, L100.0100, L501.0250 #### [facility] [address] [place], [address] MCH (RBC) [Entitic mass] 30.1 pg Normal 27.0-32.0 [facility] Comment on above: Performed By: #### L 509.8002, L3890.6006, L100.0100, L501.0250 #### [facility] [address] [place], [address] MCHC (RBC) [Mass/Vol] 34.6 g/dL Normal 32-36 [facility] Comment on above: Performed By: #### L 509.8002, L3890.6006, L100.0100, L501.0250 #### [facility] [address] [place], [address] MCV (RBC) [Entitic vol] 87.1 fL Normal 81-99 [facility] Comment on above: Performed By: #### L 509.8002, L3890.6006, L100.0100, L501.0250 #### [facility] [address] [place], [address] Monocytes/100 WBC (Bld) 5.1 % Normal 0-10 [facility] Comment on above: Performed By: #### L 509.8002, L3890.6006, L100.0100, L501.0250 #### [facility] [address] [place], [address] Neutrophils/100 WBC (Bld) 78.0 % High 47-70 [facility] Comment on above: Performed By: #### L 509.8002, L3890.6006, L100.0100, L501.0250 #### [facility] [address] [place], [address] Nucleated RBC (Bld) [#/Vol] 0 10*3/uL Normal 0-5 [facility] Comment on above: Performed By: #### L 509.8002, L3890.6006, L100.0100, L501.0250 #### [facility] [address] [place], [address] Platelet mean volume (Bld) [Entitic vol] 11.3 fL Normal 6.2-12.0 [facility] Comment on above: Performed By: #### L 509.8002, L3890.6006, L100.0100, L501.0250 #### [facility] [address] [place], [address] Platelets (Bld) [#/Vol] 210 10*3/uL Normal 150-450 [facility] Comment on above: Performed By: #### L 509.8002, L3890.6006, L100.0100, L501.0250 #### [facility] [address] [place], [address] RBC (Bld) [#/Vol] 4.25 10*6/uL Normal 4.2-5.4 [facility] Comment on above: Performed By: #### L 509.8002, L3890.6006, L100.0100, L501.0250 #### [facility] [address] [place], [address] RDW SD 42.4 fl Normal 35.1-43.9 [facility] Comment on above: Performed By: #### L 509.8002, L3890.6006, L100.0100, L501.0250 #### [facility] [address] [place], [address] WBC (Bld) [#/Vol] 14.7 10*3/uL High 4.4-11.0 [facility] Comment on above: Performed By: #### L 509.8002, L3890.6006, L100.0100, L501.0250 #### [facility] [address] [place], [address] Eosinophil percentageOrdered By: Nicole Crews on 01-10-2025 Eosinophils/100 WBC (Bld) 1.4 % 0-5 [facility] Erythrocyte distribution wid th ratioOrdered By: Nicole Crews on 01-10-2025 Erythrocyte distribution width (RBC) [Ratio] 13.6 % 11.6-14.6 [facility] Erythrocyte distribution wid th standard deviationOrdered By: Nicole Crews on 01-10-2025 Erythrocyte distribution width (RBC) [Ratio] 42.4 fl 35.1-43.9 [facility] Glucose Challenge Gest 1H 50 ragini 01-10-2025 GLU GEST 50g 1H 98 mg/dL Normal 70-140 [facility] Comment on above: Performed By: #### L 509.8002, L3890.6006, L100.0100, L501.0250 #### [facility] [address] [place], [address] Glucose measurement at 2 derrick rs post-dose gestational glucose tolerance testOrdered By: Nicole Crews on 01-10-2025 Glucose [Mass/Vol] 98 mg/dL 70-140 [facility] HIVon 01-10-2025 HIV Non-Reactive Normal Nonreactive [facility] Comment on above: Result Comment: Non- Reactive Reactive Repeatedly reactive samples must be confirmed according to CDC recommended confirmatory algorithms. The subresults for either HIVAG or AHIV can be used as an aid in the selection of the confirmation algorithm for reactive samples. Send out specimens with Reactive results to [facility] for confirmation. Order the HIV antibody detection and differentiation: lc#[id number] Performed By: #### L 509.8002, L3890.6006, L100.0100, L501.0250 #### [facility] [address] [place], [address] Hematocrit Auto (Bld) [Volum e fraction]Ordered By: Nicole Crews on 01-10-2025 Hematocrit (Bld) [Volume fraction] 37.0 % 37-47 [facility] Hemoglobin measurementOrdere d By: Nicole Crews on 01-10-2025 Hemoglobin (Bld) [Mass/Vol] 12.8 g/dL 12.0-15.0 [facility] Immature granulocytes/100 WB C Auto (Bld)Ordered By: Nicole Crews on 01-10-2025 Immature granulocytes/100 WBC (Bld) 0.600 % 0.0-0.9 [facility] Comment on above: IG% - Immature Granu locytes (promyelocytes, myelocytes and metamyelocytes) > 1% indicates that a LEFT SHIFT is Present. Laboratory - Chemistry and C hemistry - challengeOrdered By: Carie Burns on 01-10-2025 Glucose Ql (U) Negative [facility] - UrinalysisOrder ed By: Carie Burns on 01-10-2025 Protein Ql (U) Negative [facility] MCV (mean corpuscular volume ) determinationOrdered By: Nicole Crews on 01-10-2025 MCV (RBC) [Entitic vol] 87.1 fL 81-99 [facility] Mean corpuscular hemoglobin (MCH) determinationOrdered By: Nicole Crews on 01-10-2025 MCH (RBC) [Entitic mass] 30.1 pg 27.0-32.0 [facility] Mean corpuscular hemoglobin concentration (MCHC) determinationOrdered By: Nicole Crews on 01-10-2025 MCHC (RBC) [Mass/Vol] 34.6 g/dL 32-36 [facility] Mean platelet volume determi nationOrdered By: Nicole Crews on 01-10-2025 Platelet mean volume (Bld) [Entitic vol] 11.3 fL 6.2-12.0 [facility] Monocyte percentageOrdered B y: Nicole Crews on 01-10-2025 Monocytes/100 WBC (Bld) 5.1 % 0-10 [facility] Neutrophil percentageOrdered By: Nicole Crews on 01-10-2025 Neutrophils/100 WBC (Bld) 78.0 % High 47-70 [facility] No Panel InformationOrdered By: Nicole Crews on 01-10-2025 HIV (1&2) Antibody Non-Reactive Nonreactive [facility] Comment on above: Non-ReactiveReactive Repeatedly reactive samples must be confirmed according to CDC recommended confirmatory algorithms. The subresults for either HIVAG or AHIV can be used as an aid in the selection of the confirmation algorithm for reactive samples.Send out specimens with Reactive results to [facility] for confirmation.Order the HIV antibody detection and differentiation: #[id number] Nucleated red blood cell per centageOrdered By: Nicole Crews on 01-10-2025 Nucleated RBC/100 WBC (Bld) [Ratio] 0 % 0-5 [facility] Cattle Sorter Office Visit Reporton 01-10-2025 Cattle Sorter Office Visit Report [facility] [address], [address] [place] [address] OFFICE VISIT Date of Service: 01/10/25 MR#: [id number] Acct: [id number] Name: GERTRUDE EMERY Rep #: [id number] : 1995 Provider: KENDALL marcano Age/Sex: 29/F Location: [facility] Status: Signed Intake Vital Signs 11/18/24 08:30 12/14/24 15:32 01/10/25 15:23 Height 5 ft 7 in 5 ft 7 in 5 ft 7 in Weight: 168 lb 6 oz 174 lb 2 oz 177 lb BMI 26.4 27.2 27.7 BP 128/84 H 119/73 123/76 H Intake Visit Reasons: 28 wk ob/glucose Chief Complaint: 28 Week OB/Glucose Procurement Services Manager Required: No Is patient in pain?: No [...] spouse 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al status: employed 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al exposures/hazards: No pets and animals: Yes pets and animals: dog(s) history of recent travel: Yes ([place] - September 2024) out of state: No out of country: Yes sexually active: Yes Smoking Status: Never smoker second hand exposure: No alcohol intake: never substance use type: other details: [place] gummies - Beginning of July diet: gluten free well-balanced diet: daily or most days caffeine: Yes eating out: 1-3 times/week during the past year weight has: remained stable what type of physical activity do you participate in: walking and weight training frequency: 3-4 times per week duration: 15-30 minutes/day lc/voodoo: Church seatbelt use: always do you feel safe at home: Yes additional social history: : 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 Normal [facility] Platelet countOrdered By: Connor Crews on 01-10-2025 Platelets (d) [#/Vol] 210 10*3/uL 150-450 [facility] RBC Auto (d) [#/Vol]Ordere d By: Nicole Crews on 01-10-2025 RBC (Bld) [#/Vol] 4.25 10*6/uL 4.2-5.4 [facility] Syphilis Antibodieson 2024 Syphilis Abs Non-Reactive Normal Nonreactive [facility] Comment on above: Performed By: #### L 509.8002, L3890.6006, L100.0100, L501.0250 #### [facility] [address] [place], [address] White blood cell (WBC) count Ordered By: Nicole Crews on 01-10-2025 WBC (Bld) [#/Vol] 14.7 10*3/uL High 4.4-11.0 [facility] Laboratory - Chemistry and C hemistry - challengeOrdered By: Nicole Crews on 12-14-2024 Glucose Ql (U) Negative [facility] - UrinalysisOrder ed By: Nicole Crews on 12-14-2024 Protein Ql (U) Negative [facility] Cattle Sorter Office Visit Reporton 12-14-2024 Cattle Sorter Office Visit Report [facility] [address], [address] [place] [address] OFFICE VISIT Date of Service: 12/14/24 MR#: [id number] Acct: [id number] Name: GERTRUDE EMERY Rep #: [id number] : 1995 Provider: NATALYA Felix ams Age/Sex: 29/F Location: [facility] Status: Signed Intake Vital Signs 11/18/24 08:30 12/14/24 15:32 Height 5 ft 7 in 5 ft 7 in Weight: 174 lb 2 oz BMI 27.2 BP 119/73 Intake Visit Reasons: 24 wk ob Procurement Services Manager Required: No Is patient in pain?: No [...] spouse 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al status: employed 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al exposures/hazards: No pets and animals: Yes pets and animals: dog(s) history of recent travel: Yes ([place] - September 2024) out of state: No out of country: Yes sexually active: Yes Smoking Status: Never smoker second hand exposure: No alcohol intake: never substance use type: other details: [place] g[employer] - Beginning of July diet: gluten free well-balanced diet: daily or most days caffeine: Yes eating out: 1-3 times/week during the past year weight has: remained stable what type of physical activity do you participate in: walking and weight training frequency: 3-4 times per week duration: 15-30 minutes/day lc/voodoo: Church seatbelt use: always do you feel safe at home: Yes additional social history: : 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 Paper Maitre D History 1 Elective abortions Hx Para 0 [...] 11/18/24 -???-???-???-???-???- (more content not included)... Normal [facility] - Chemistry and C hemistry - challengeOrdered By: Nicole Crews on 11-18-2024 Glucose Ql (U) Negative [facility] - UrinalysisOrder ed By: Nicole Crews on 11-18-2024 Protein Ql (U) Negative [facility] Cattle Sorter Office Visit Reporton 11-18-2024 Cattle Sorter Office Visit Report [facility] [address], [address] [place] [address] OFFICE VISIT Date of Service: 11/18/24 MR#: [id number] Acct: [id number] Name: GERTRUDE EMERY Rep #: [id number] : 1995 Provider: NATALYA Felix ams Age/Sex: 28/F Location: [facility] Status: Signed Intake Vital Signs 09/22/24 15:06 10/22/24 10:19 11/18/24 08:30 Height 5 ft 7 in 5 ft 7 in 5 ft 7 in Weight: 168 lb 6 oz BMI 26.4 BP 128/84 H Intake Visit Reasons: 20 wk ob Chief Complaint: 20wk ob Procurement Services Manager Required: No Is patient in pain?: No [...] spouse 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al status: employed 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al exposures/hazards: No pets and animals: Yes pets and animals: dog(s) history of recent travel: Yes ( - September 2024) out of state: No out of country: Yes sexually active: Yes Smoking Status: Never smoker second hand exposure: No alcohol intake: never substance use type: other details: [place] [employer] - Beginning of July diet: gluten free well-balanced diet: daily or most days caffeine: Yes eating out: 1-3 times/week during the past year weight has: remained stable what type of physical activity do you participate in: walking and weight training frequency: 3-4 times per week duration: 15-30 minutes/day lc/voodoo: Church seatbelt use: always do you feel safe at home: Yes additional social history: : 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 Paper Maitre D History 1 Elective abortions Hx Para 0 [...] 6 o (more content not included)... Normal [facility] Urine Cultureon 10-23-2024 URC Culture exhibits no growth. Normal [facility] Comment on above: Performed By: #### M 100.2200, L7400.0353, L7000.1800 #### [facility] [address] [place], [address] Laboratory - Chemistry and C hemistry - challengeOrdered By: Nicole Crews on 10-22-2024 Glucose Ql (U) Negative [facility] - UrinalysisOrder ed By: Nicole Crews on 10-22-2024 Protein Ql (U) Negative [facility] Cattle Sorter Office Visit Reporton 10-22-2024 Cattle Sorter Office Visit Report [facility], [address] [place] [address] OFFICE VISIT Date of Service: 10/22/24 MR#: [id number] Acct: [id number] Name: GERTRUDE EMERY Rep #: [id number] : 1995 Provider: NATALYA Felix ams Age/Sex: 28/F Location: [facility] Status: Signed Intake Vital Signs 08/25/24 15:45 09/22/24 15:06 10/22/24 10:19 Height 5 ft 7 in 5 ft 7 in 5 ft 7 in Weight: 160 lb BMI 25.0 BP 118/78 Blood Pressure Location Rt brachial Position Sitting Pulse 105 H Pulse Source Monitor Intake Visit Reasons: 16 wk ob Procurement Services Manager Required: No Accompanied by: Is patient in [...] intake: never substance use type: other details: [place] g[employer] - Beginning of July diet: gluten free well-balanced diet: daily or most days caffeine: Yes eating out: 1-3 times/week during the past year weight has: remained stable what type of physical activity do you participate in: walking and weight training frequency: 3-4 times per week duration: 15-30 minutes/day lc/voodoo: Church seatbelt use: always do you feel safe at home: Yes additional social history: : 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 Paper Maitre D History 1 Elective abortions Hx Para 0 [...] ???-???-???-???-???-???- Ne (more content not included)... Normal [facility] Urine cultureOrdered By: Chin Crews on 10-22-2024 Bacteria identified Cx Nom (U) Culture exhibits no growth. [facility] - Chemistry and C hemistry - challengeOrdered By: Angella Villarreal on 09-22-2024 Glucose Ql (U) Negative [facility] - UrinalysisOrder ed By: Angella Villarreal on 09-22-2024 Protein Ql (U) Negative [facility] Cattle Sorter Office Visit Reporton 09-22-2024 Cattle Sorter Office Visit Report [facility] [address] [place] [address], [address] [place] [address] OFFICE VISIT Date of Service: 09/22/24 MR#: [id number] Acct: [id number] Name: GERTRUDE EMERY Rep #: [id number] : 1995 Provider: Dr. Angella mosquera MD Age/Sex: 28/F Location: [facility] Status: Signed Intake Vital Signs 08/11/24 09:14 08/20/24 10:52 08/25/24 15:45 09/22/24 15:06 Height 5 ft 7 in 5 ft 7 in 5 ft 7 in 5 ft 7 in Weight: 161 lb 8 oz BMI 25.2 BP 122/80 H Intake Visit Reasons: 12wk OB Procurement Services Manager Required: No Is patient in pain?: No [...] spouse 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al status: employed 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al exposures/hazards: No pets and animals: Yes pets and animals: dog(s) history of recent travel: Yes ( - September 2024) out of state: No out of country: Yes sexually active: Yes Smoking Status: Never smoker second hand exposure: No alcohol intake: never substance use type: other details: [place] g[employer]ies - Beginning of July diet: gluten free well-balanced diet: daily or most days caffeine: Yes eating out: 1-3 times/week during the past year weight has: remained stable what type of physical activity do you participate in: walking and weight training frequency: 3-4 times per week duration: 15-30 minutes/day lc/voodoo: Church seatbelt use: always do you feel safe at home: Yes additional social history: : 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 Paper Maitre D History 1 Elective abortions Hx Para 0 [...] Labor support (more content not included)... Normal [facility] PAP I-G w/rfx hrHPV-Aptimaon 08-30-2024 ADEQ Comment Normal . [facility] Comment on above: Order Comment: Brenda vela Comment: [id number] Specimen Comment: No. of containers..01 ThinPrep Vial Result Comment: Sati sfactory for evaluation. Endocervical and/or squamous metaplastic cells (endocervical component) are present. Performed By: #### M 100.2200, L7400.0353, L7000.1800 #### [facility] [address] [place], [place], [id number] COMM . Normal . [facility] Comment on above: Order Comment: Speci men Comment: [id number] Specimen Comment: No. of containers..01 ThinPrep Vial Performed By: #### M 100.2200, L7400.0353, L7000.1800 #### [facility] [address] [place], [address] COMMENT Comment Normal . [facility] Comment on above: Order Comment: Speci men Comment: [id number] Specimen Comment: No. of containers..01 ThinPrep Vial Result Comment: This liquid based ThinPrep(R) pap test was screened with the use of an image guided system. Performed By: #### M 100.2200, L7400.0353, L7000.1800 #### [facility] [address] [place], [place], [id number] DIAG Comment Normal . [facility] Comment on above: Order Comment: Speci men Comment: [id number] Specimen Comment: No. of containers..01 ThinPrep Vial Result Comment: NEGA TIVE FOR INTRAEPITHELIAL LESION OR MALIGNANCY. Performed By: #### M 100.2200, L7400.0353, L7000.1800 #### [facility] [address] [place], [place], [id number] HPV RFLX Comment Normal . [facility] Comment on above: Order Comment: Speci men Comment: [id number] Specimen Comment: No. of containers..01 ThinPrep Vial Result Comment: The HPV DNA reflex criteria were not met with this specimen result therefore, no HPV testing was performed. Performed at: - [address] [id number] Decating Machine Operator: Mari Zimmerman MD, Phone: [phone] Performed By: #### M 100.2200, L7400.0353, L7000.1800 #### [facility] [address] [place], [place], [address] PAPSMR Comment Normal . [facility] Comment on above: Order Comment: Speci men Comment: [id number] Specimen Comment: No. of containers..01 ThinPrep Vial [...] By: #### M 100.2200, L7400.0353, L7000.1800 #### [facility] [address] [place], [place], [address] PERFORM Comment Normal . [facility] Comment on above: Order Comment: Speci men Comment: [id number] Specimen Comment: No. of containers..01 ThinPrep Vial Result Comment: Romain Conklin, Nurse Ortho (ASCP) Performed By: #### M 100.2200, L7400.0353, L7000.1800 #### [facility] [address] [place], [address] Chlamydia/GC KEVIN aptimaon CHLAMY,NUC ACID Negative Normal Negative [facility] Comment on above: Performed By: #### M 100.2200, L7400.0353, L7000.1800 #### [facility] [address] [place], [address] GC BY NUC ACID Negative Normal Negative [facility] Comment on above: Result Comment: Perf ormed at: =G - [facility] [address] [id number] Decating Machine Operator: Mari Zimmerman MD, Phone: [phone] Performed By: #### M 100.2200, L7400.0353, L7000.1800 #### [facility] [address] [place], [address] Urine Cultureon 08-26-2024 URC Culture exhibits no growth. Normal [facility] Comment on above: Performed By: #### M 100.2200, L7400.0353, L7000.1800 #### [facility] [address] [place], [address] Absolute lymphocyte countOrd ered By: Nicole Crews on 08-25-2024 Lymphocytes Auto (Unsp spec) [#/Vol] 2.51 10*3/uL 0.83-4.51 [facility] Absolute neutrophil countOrd ered By: Nicole Crews on 08-25-2024 Neutrophils (Bld) [#/Vol] 10.9 10*3/uL High 2.0-7.7 [facility] Automated lymphocyte count a s percentage of total leukocytesOrdered By: Nicole Crews on 08-25-2024 Lymphocytes/100 WBC Auto (Unsp spec) 17.5 % Low - [facility] Basophil percentageOrdered B y: Nicole Crews on 08-25-2024 Basophils/100 WBC (Bld) 0.2 % 0-1 [facility] CBC W/Diff, Automatedon 08-07 Absolute Lymph 2.51 X10 3/uL Normal 0.83-4.51 [facility] Comment on above: Performed By: #### M 100.2200, L7400.0353, L7000.1800 #### [facility] [address] [place], [address] Absolute Neut 10.9 X10 3/uL High 2.0-7.7 [facility] Comment on above: Performed By: #### M 100.2200, L7400.0353, L7000.1800 #### [facility] [address] [place], [address] Basophils/100 WBC (Bld) 0.2 % Normal 0-1 [facility] Comment on above: Performed By: #### M 100.2200, L7400.0353, L7000.1800 #### [facility] [address] [place], [address] Eosinophils/100 WBC (Bld) 0.8 % Normal 0-5 [facility] Comment on above: Performed By: #### M 100.2200, L7400.0353, L7000.1800 #### [facility] [address] [place], [address] Erythrocyte distribution width (RBC) [Ratio] 12.4 % Normal 11.6-14.6 [facility] Comment on above: Performed By: #### M 100.2200, L7400.0353, L7000.1800 #### [facility] [address] [place], [address] Hematocrit (Bld) [Volume fraction] 41.8 % Normal 37-47 [facility] Comment on above: Performed By: #### M 100.2200, L7400.0353, L7000.1800 #### [facility] [address] [place], [address] Hemoglobin (Bld) [Mass/Vol] 14.4 g/dL Normal 12.0-15.0 [facility] Comment on above: Performed By: #### M 100.2200, L7400.0353, L7000.1800 #### [facility] [address] [place], [address] IG% 0.600 Normal 0.0-0.9 [facility] Comment on above: Result Comment: IG% - Immature Granulocytes (promyelocytes, myelocytes and metamyelocytes) > 1% indicates that a LEFT SHIFT is Present. Performed By: #### M 100.2200, L7400.0353, L7000.1800 #### [facility] [address] [place], [address] Lymphocytes/100 WBC (Bld) 17.5 % Low 19-41 [facility] Comment on above: Performed By: #### M 100.2200, L7400.0353, L7000.1800 #### [facility] [address] [place], [address] MCH (RBC) [Entitic mass] 29.2 pg Normal 27.0-32.0 [facility] Comment on above: Performed By: #### M 100.2200, L7400.0353, L7000.1800 #### [facility] [address] [place], [address] MCHC (RBC) [Mass/Vol] 34.4 g/dL Normal 32-36 [facility] Comment on above: Performed By: #### M 100.2200, L7400.0353, L7000.1800 #### [facility] [address] [place], [address] MCV (RBC) [Entitic vol] 84.8 fL Normal 81-99 [facility] Comment on above: Performed By: #### M 100.2200, L7400.0353, L7000.1800 #### [facility] [address] [place], [address] Monocytes/100 WBC (Bld) 5.3 % Normal 0-10 [facility] Comment on above: Performed By: #### M 100.2200, L7400.0353, L7000.1800 #### [facility] [address] [place], [address] Neutrophils/100 WBC (Bld) 75.6 % High 47-70 [facility] Comment on above: Performed By: #### M 100.2200, L7400.0353, L7000.1800 #### [facility] [address] [place], [address] Nucleated RBC (Bld) [#/Vol] 0 10*3/uL Normal 0-5 [facility] Comment on above: Performed By: #### M 100.2200, L7400.0353, L7000.1800 #### [facility] [address] [place], [address] Platelet mean volume (Bld) [Entitic vol] 11.0 fL Normal 6.2-12.0 [facility] Comment on above: Performed By: #### M 100.2200, L7400.0353, L7000.1800 #### [facility] [address] [place], [address] Platelets (Bld) [#/Vol] 339 10*3/uL Normal 150-450 [facility] Comment on above: Performed By: #### M 100.2200, L7400.0353, L7000.1800 #### [facility] [address] [place], [address] RBC (Bld) [#/Vol] 4.93 10*6/uL Normal 4.2-5.4 [facility] Comment on above: Performed By: #### M 100.2200, L7400.0353, L7000.1800 #### [facility] Laboratory [address] [place], [address] RDW SD 37.3 fl Normal 35.1-43.9 [facility] Comment on above: Performed By: #### M 100.2200, L7400.0353, L7000.1800 #### [facility] Laboratory [address] [place], [address] WBC (Bld) [#/Vol] 14.4 10*3/uL High 4.4-11.0 [facility] Comment on above: Performed By: #### M 100.2200, L7400.0353, L7000.1800 #### [facility] Laboratory [address] [place], [address] Cervical or vagninal specime n microscopic examination by cytology stain (reported asOrdered By: Nicole Crews on 08-25-2024 Cytology report Cyto stain Doc (Cvx/Vag) Comment . [facility] Comment on above: The Pap smear is [...] rRNA KEVIN+probe Ql (Unsp spec) Negative Negative [facility] Eosinophil percentageOrdered By: Nicole Crews on 08-25-2024 Eosinophils/100 WBC (Bld) 0.8 % 0-5 [facility] Erythrocyte distribution wid th ratioOrdered By: Nicole Crews on 08-25-2024 Erythrocyte distribution width (RBC) [Ratio] 12.4 % 11.6-14.6 [facility] Erythrocyte distribution wid th standard deviationOrdered By: Nicole Crews on 08-25-2024 Erythrocyte distribution width (RBC) [Ratio] 37.3 fl 35.1-43.9 [facility] HIV - WCHon 08-25-2024 HIV Non-Reactive Normal Nonreactive [facility] Comment on above: Order Comment: Speci men Comment: [id number] Specimen Comment: No. of containers..01 ThinPrep Vial Performed By: #### M 100.2200, L7400.0353, L7000.1800 #### [facility] Laboratory [address] [place], [place], [id number] HIV 1 and HIV-2 antibody ass ay with HIV-1 p24 antigen detectionOrdered By: Nicole Crews on 08-25-2024 HIV 1+2 Ab+HIV1 p24 Ag IA Ql Non-Reactive Nonreactive [facility] Hematocrit Auto (Bld) [Volum e fraction]Ordered By: Nicole Crews on 08-25-2024 Hematocrit (Bld) [Volume fraction] 41.8 % 37-47 [facility] Hemoglobin measurementOrdere d By: Nicole Crews on 08-25-2024 Hemoglobin (Bld) [Mass/Vol] 14.4 g/dL 12.0-15.0 [facility] Hepatitis B Surface Antigeno n 08-25-2024 HEP B Surf Ag Non-Reactive Normal Nonreactive [facility] Comment on above: Order Comment: Speci men Comment: [id number] Specimen Comment: No. of containers..01 ThinPrep Vial Performed By: #### M 100.2200, L7400.0353, L7000.1800 #### [facility] Laboratory [address] [place], [place], [address] Hepatitis C Antibodyon 08-25 Hepatitis C AB Non-Reactive Normal Nonreactive [facility] Comment on above: Order Comment: Speci men Comment: [id number] Specimen Comment: No. of containers..01 ThinPrep Vial Result Comment: Non Reactive: < 0.8 Equivocal: >/= 0.8 to < 1.0 Reactive: >/= 1.0 The CDC requires that a reactive/equivocal HCV antibody result be sent out for confirmation. HCV Quant by PCR testing. Performed By: #### M 100.2200, L7400.0353, L7000.1800 #### [facility] Laboratory [address] [place], [place], [address] Immature granulocytes/100 WB C Auto (Bld)Ordered By: Nicole Crews on 08-25-2024 Immature granulocytes/100 WBC (Bld) 0.600 % 0.0-0.9 [facility] Comment on above: IG% - Immature Granu locytes (promyelocytes, myelocytes and metamyelocytes) > 1% indicates that a LEFT SHIFT is Present. L509.8000on 08-25-2024 Syphilis Abs Non-Reactive Normal [facility] Comment on above: Order Comment: Spec men Comment: [id number] Specimen Comment: No. of containers..01 ThinPrep Vial Performed By: #### M 100.2200, L7400.0353, L7000.1800 #### [facility] Laboratory [address] [place], [place], [address] Laboratory - CytologyOrdered By: Nicole Crews on 08-25-2024 Boiler Tube Reamer Cyto stain Nom (Cvx/Vag) [ID] Comment . [facility] Comment on above: Juan Nogueira otechnologist (ASCP) Laboratory - Miscellaneous t estsOrdered By: Nicole Crews on 08-25-2024 Service comment (Unsp spec) [Interp] . . [facility] MCV (mean corpuscular volume ) determinationOrdered By: Nicole Crews on 08-25-2024 MCV (RBC) [Entitic vol] 84.8 fL 81-99 [facility] Mean corpuscular hemoglobin (MCH) determinationOrdered By: Nicole Crews on 08-25-2024 MCH (RBC) [Entitic mass] 29.2 pg 27.0-32.0 [facility] Mean corpuscular hemoglobin concentration (MCHC) determinationOrdered By: Nicole Crews on 08-25-2024 MCHC (RBC) [Mass/Vol] 34.4 g/dL 32-36 [facility] Mean platelet volume determi nationOrdered By: Nicole Crews on 08-25-2024 Platelet mean volume (Bld) [Entitic vol] 11.0 fL 6.2-12.0 [facility] Monocyte percentageOrdered B y: Nicole Crews on 08-25-2024 Monocytes/100 WBC (Bld) 5.3 % 0-10 [facility] Neisseria gonorrhoeae nuclei c acid detection by amplified probe techniqueOrdered By: Nicole Crews on 08-25-2024 N. gonorrhoeae DNA KEVIN+probe Ql (Unsp spec) Negative Negative [facility] Comment on above: Performed at: =[address] [id number] Director: Mari Zimmerman MD, Phone: [phone] Neutrophil percentageOrdered By: Nicole Crews on 08-25-2024 Neutrophils/100 WBC (Bld) 75.6 % High 47-70 [facility] No Panel InformationOrdered By: Nicole Crews on 08-25-2024 Pap Smear Specimen Adequacy Comment . [facility] Comment on above: Satisfactory for angelita luation. Endocervical and/or squamous metaplasticcells (endocervical component) are present. Nucleated red blood cell per centageOrdered By: Nicole Crews on 08-25-2024 Nucleated RBC/100 WBC (Bld) [Ratio] 0 % 0-5 [facility] Cattle Sorter Office Visit Reporton 02-19-2025 Cattle Sorter Office Visit Report [facility] [address], [address] [place] [address] OFFICE VISIT Date of Service: 08/25/24 MR#: [id number] Acct: [id number] Name: GERTRUDE EMERY Rep #: [id number] : 1995 Provider: NATALYA Felix ams Age/Sex: 28/F Location: [facility] Status: Signed Intake Vital Signs 08/20/24 [...] spouse 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al status: employed 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al exposures/hazards: No pets and animals: Yes pets and animals: dog(s) history of recent travel: Yes ( - September 2024) out of state: No out of country: Yes sexually active: Yes Smoking Status: Never smoker second hand exposure: No alcohol intake: never substance use type: other details: [place] gummies - Beginning of July diet: gluten free well-balanced diet: daily or most days caffeine: Yes eating out: 1-3 times/week during the past year weight has: remained stable what type of physical activity do you participate in: walking and weight training frequency: 3-4 times per week duration: 15-30 minutes/day lc/voodoo: [employer] seatbelt use: always do you feel safe at home: Yes additional social history: : 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 Normal [facility] Platelet countOrdered By: Connor Crews on 08-25-2024 Platelets (Bld) [#/Vol] 339 10*3/uL 150-450 [facility] RBC Auto (Bld) [#/Vol]Ordere d By: Nicole Crews on 08-25-2024 RBC (Bld) [#/Vol] 4.93 10*6/uL 4.2-5.4 [facility] Rubella IgGon 08-25-2024 Rubella IgG Reactive Normal Nonreactive [facility] Comment on above: Order Comment: Reaso n for Exam: Result Comment: Anti body Results Interpretation of Immune Status Non Reactive Presumed Non-Immune Equivocal Equivocal Reactive Presumed Immune Performed By: #### M 100.2200, L7400.0353, L7000.1800 #### [facility] Laboratory [address] [place], [place], [address] Serum Treponema species anti body detectionOrdered By: Nicole Crews on 08-25-2024 Treponema sp Ab Ql (S) Non-Reactive [facility] Type AND Screenon 08-25-2024 ABO and Rh group Nom (Bld) Blood group A Rh(D) positive Normal [facility] Comment on above: Order Comment: Speci men Comment: [id number] Specimen Comment: No. of containers..01 ThinPrep Vial Performed By: #### M 100.2200, L7400.0353, L7000.1800 #### [facility] Laboratory [address] [place], [place], [address] Urine cultureOrdered By: Chin Crews on 08-25-2024 Bacteria identified Cx Nom (U) Culture exhibits no growth. [facility] White blood cell (WBC) count Ordered By: Nicole Crews on 08-25-2024 WBC (Bld) [#/Vol] 14.4 10*3/uL High 4.4-11.0 [facility] Urine Cultureon 08-12-2024 URC Below infection leve l. Mixed Gram Positive Organisms Success Count <1000 MIXC Mixed contaminants. Submit a new specimen if indicated. Normal [facility] Comment on above: Performed By: #### M 100.2200 #### [facility] Laboratory [address] [place], [place], [id number] Absolute lymphocyte countOrd ered By: Fatoumata Diaz on 08-11-2024 Lymphocytes Auto (Unsp spec) [#/Vol] 0.42 10*3/uL Low 0.83-4.51 [facility] Absolute neutrophil countOrd ered By: Fatoumata Diaz on 08-11-2024 Neutrophils (Bld) [#/Vol] 16.1 10*3/uL High 2.0-7.7 [facility] Albumin to globulin ratioOrd ered By: Fatoumata Diaz on 02-05-2025 Albumin/Globulin [Mass ratio] 1.0 {ratio} Normal 0.9-2.4 [facility] Comment on above: Performed By: #### M 100.2200, L7400.0353, L7000.1800 #### [facility] Laboratory [address] [place], [address] Automated lymphocyte count a s percentage of total leukocytesOrdered By: Fatoumata Diaz on 08-11-2024 Lymphocytes/100 WBC Auto (Unsp spec) 2.4 % Low 19-41 [facility] Basophil percentageOrdered B y: Fatoumata Diaz on 08-11-2024 Basophils/100 WBC (Bld) 0.2 % 0-1 [facility] Bilirubin Test strip Ql (U)O rdered By: Fatoumata Diaz on 08-11-2024 Bilirubin Ql (U) Negative Negative [facility] Bilirubin, totalOrdered By: Fatoumata Diaz on 08-11-2024 Bilirubin [Mass/Vol] 0.80 mg/dL Normal 0.20-1.00 [facility] Comment on above: For patients on eltr ombopag therapy, use of Dimension [place] TBIL is not recommended. Result Comment: For patients on eltrombopag therapy, use of Dimension [place] TBIL is not recommended. Performed By: #### M 100.2200, L7400.0353, L7000.1800 #### [facility] Laboratory [address] [place], [address] Blood urea nitrogen (BUN)/cr eatinine ratioOrdered By: Fatoumata Diaz on 08-11-2024 Urea nitrogen/Creatinine [Mass ratio] 16.2 mg/mg 10-20 [facility] CBC W/Diff, Automatedon Absolute Lymph 0.42 X10 3/uL Low 0.83-4.51 [facility] Comment on above: Performed By: #### M 100.2200, L7400.0353, L7000.1800 #### [facility] Laboratory [address] [place], [address] Absolute Neut 16.1 X10 3/uL High 2.0-7.7 [facility] Comment on above: Performed By: #### M 100.2200, L7400.0353, L7000.1800 #### [facility] Laboratory [address] [place], [address] Basophils/100 WBC (Bld) 0.2 % Normal 0-1 [facility] Comment on above: Performed By: #### M 100.2200, L7400.0353, L7000.1800 #### [facility] Laboratory [address] [place], [address] Eosinophils/100 WBC (Bld) 0.2 % Normal 0-5 [facility] Comment on above: Performed By: #### M 100.2200, L7400.0353, L7000.1800 #### [facility] Laboratory [address] [place], [address] Erythrocyte distribution width (RBC) [Ratio] 12.3 % Normal 11.6-14.6 [facility] Comment on above: Performed By: #### M 100.2200, L7400.0353, L7000.1800 #### [facility] Laboratory [address] [place], [address] Hematocrit (Bld) [Volume fraction] 46.2 % Normal 37-47 [facility] Comment on above: Performed By: #### M 100.2200, L7400.0353, L7000.1800 #### [facility] Laboratory [address] [place], [address] Hemoglobin (Bld) [Mass/Vol] 16.4 g/dL High 12.0-15.0 [facility] Comment on above: Performed By: #### M 100.2200, L7400.0353, L7000.1800 #### [facility] Laboratory [address] [place], [address] IG% 0.300 Normal 0.0-0.9 [facility] Comment on above: Result Comment: IG% - Immature Granulocytes (promyelocytes, myelocytes and metamyelocytes) > 1% indicates that a LEFT SHIFT is Present. Performed By: #### M 100.2200, L7400.0353, L7000.1800 #### [facility] Laboratory [address] [place], [address] Lymphocytes/100 WBC (Bld) 2.4 % Low 19-41 [facility] Comment on above: Performed By: #### M 100.2200, L7400.0353, L7000.1800 #### [facility] Laboratory [address] [place], [address] MCH (RBC) [Entitic mass] 29.9 pg Normal 27.0-32.0 [facility] Comment on above: Performed By: #### M 100.2200, L7400.0353, L7000.1800 #### [facility] Laboratory [address] [place], [address] MCHC (RBC) [Mass/Vol] 35.5 g/dL Normal 32-36 [facility] Comment on above: Performed By: #### M 100.2200, L7400.0353, L7000.1800 #### [facility] Laboratory [address] [place], [address] MCV (RBC) [Entitic vol] 84.3 fL Normal 81-99 [facility] Comment on above: Performed By: #### M 100.2200, L7400.0353, L7000.1800 #### [facility] Laboratory [address] [place], [address] Monocytes/100 WBC (Bld) 3.4 % Normal 0-10 [facility] Comment on above: Performed By: #### M 100.2200, L7400.0353, L7000.1800 #### [facility] Laboratory [address] [place], [address] Neutrophils/100 WBC (Bld) 93.5 % High 47-70 [facility] Comment on above: Performed By: #### M 100.2200, L7400.0353, L7000.1800 #### [facility] Laboratory [address] [place], [address] Nucleated RBC (Bld) [#/Vol] 0 10*3/uL Normal 0-5 [facility] Comment on above: Performed By: #### M 100.2200, L7400.0353, L7000.1800 #### [facility] Laboratory [address] [place], [address] Platelet mean volume (Bld) [Entitic vol] 11.1 fL Normal 6.2-12.0 [facility] Comment on above: Performed By: #### M 100.2200, L7400.0353, L7000.1800 #### [facility] Laboratory [address] [place], [address] Platelets (Bld) [#/Vol] 216 10*3/uL Normal 150-450 [facility] Comment on above: Performed By: #### M 100.2200, L7400.0353, L7000.1800 #### [facility] Laboratory [address] [place], [address] RBC (Bld) [#/Vol] 5.48 10*6/uL High 4.2-5.4 [facility] Comment on above: Performed By: #### M 100.2200, L7400.0353, L7000.1800 #### [facility] Laboratory [address] [place], [address] RDW SD 37.2 fl Normal 35.1-43.9 [facility] Comment on above: Performed By: #### M 100.2200, L7400.0353, L7000.1800 #### [facility] Laboratory [address] [place], [address] WBC (Bld) [#/Vol] 17.2 10*3/uL High 4.4-11.0 [facility] Comment on above: Performed By: #### M 100.2200, L7400.0353, L7000.1800 #### [facility] Laboratory [address] [place], [address] Carbon dioxide measurementOr dered By: Fatoumata Diaz on 08-11-2024 CO2 [Moles/Vol] 21.0 mmol/L Normal 21.0-32.0 [facility] Comment on above: Performed By: #### M 100.2200, L7400.0353, L7000.1800 #### [facility] Laboratory [address] [place], [address] Chloride measurementOrdered By: Fatoumata Diaz on 08-11-2024 Chloride [Moles/Vol] 104 mmol/L Normal 98-107 [facility] Comment on above: Performed By: #### M 100.2200, L7400.0353, L7000.1800 #### [facility] Laboratory [address] [place], [address] Comprehensive Metabolic Prof ilon 08-11-2024 ALK P 72 U/L Normal 45-117 [facility] Comment on above: Performed By: #### M 100.2200, L7400.0353, L7000.1800 #### [facility] Laboratory [address] [place], [address] BUN/CRE 16.2 RATIO Normal 10-20 [facility] Comment on above: Performed By: #### M 100.2200, L7400.0353, L7000.1800 #### [facility] Laboratory [address] [place], [address] CA,Total 9.0 mg/dL Normal 8.5-10.1 [facility] Comment on above: Performed By: #### M 100.2200, L7400.0353, L7000.1800 #### [facility] Laboratory [address] [place], [address] ECRCL 111.05 ml/min Normal [facility] Comment on above: Performed By: #### M 100.2200, L7400.0353, L7000.1800 #### [facility] Laboratory [address] [place], [address] EST GFR - AA 120 mL/min Normal >60 [facility] Comment on above: Result Comment: Afri can Japanese GFR Calc Performed By: #### M 100.2200, L7400.0353, L7000.1800 #### [facility] Laboratory [address] [place], [address] GAP 9 Normal 5-15 [facility] Comment on above: Performed By: #### M 100.2200, L7400.0353, L7000.1800 #### [facility] Laboratory [address] [place], [address] T PROT 7.7 g/dL Normal 6.4-8.2 [facility] Comment on above: Performed By: #### M 100.2200, L7400.0353, L7000.1800 #### [facility] Laboratory [address] [place], [address] Comprehensive Metabolic Prof ilOrdered By: Fatoumata Diaz on 08-11-2024 AST [Catalytic activity/Vol] 12 U/L Low 15-37 [facility] Comment on above: Performed By: #### M 100.2200, L7400.0353, L7000.1800 #### [facility] Laboratory [address] [place], [address] Emergency Department Summary on 08-11-[address] [facility] Medical Records Department [address] [place] [address] Emergency Department Summary 08/11/24 MR#: [id number] Acct: [id number] Name: GERTRUDE EMERY Rep #: [id number] : 1995 28 From: Fatoumata Diaz DO [...] as her (more content not included)... Normal [facility] Eosinophil percentageOrdered By: Fatoumata Diaz on 08-11-2024 Eosinophils/100 WBC (Bld) 0.2 % 0-5 [facility] Erythrocyte distribution wid th ratioOrdered By: Fatoumata Diaz on 08-11-2024 Erythrocyte distribution width (RBC) [Ratio] 12.3 % 11.6-14.6 [facility] Erythrocyte distribution wid th standard deviationOrdered By: Fatoumata Diaz on 08-11-2024 Erythrocyte distribution width (RBC) [Ratio] 37.2 fl 35.1-43.9 [facility] Gallbladderon 08-11-2024 Gallbladder [facility] Imaging Services [address] [place], [place] [id number] Gallbladder MR#: [id number] Acct: [id number] Name: GERTRUDE EMERY Rep #: [id number] : 1995 F 28 From: Rios parker MD PCP: Care Physician,No Primary Status: DEP ER Study: Gallbladder Date of Exam: 08/11/24 Exam# [id number] Ordering Dr: Fatoumata Diaz DO PROCEDURE: Right [...] ULTRASOUND. Right renal pelvic cyst. Reading Location: [place] [address] CC: Dr. Fatoumata Diaz DO; No Primary Care Physician Hvac Lead: Signed Normal [facility] Glomerular filtration rate ( GFR) estimationOrdered By: Fatoumata Diaz on 08-11-2024 GFR/1.73 sq M.predicted among non-blacks MDRD (S/P/Bld) [Vol rate/Area] 99 mL/min/{1.73_m2} Normal >60 [facility] Comment on above: Non- GFR Calc Result Comment: Non- GFR Calc Performed By: #### M 100.2200, L7400.0353, L7000.1800 #### [facility] Laboratory [address] [place], [address] Glucose measurementOrdered B y: Fatoumata Diaz on 08-11-2024 Glucose [Mass/Vol] 133 mg/dL High 74-106 [facility] Comment on above: Fasting Glucose resu lt greater than or equal to 126 mg/dL suggests DIABETES MELLITUS per A.D.A. criteria. Result Comment: Fast ing Glucose result greater than or equal to 126 mg/dL suggests DIABETES MELLITUS per A.D.A. criteria. Performed By: #### M 100.2200, L7400.0353, L7000.1800 #### [facility] Laboratory [address] [place], [address] Hematocrit Auto (Bld) [Volum e fraction]Ordered By: Fatoumata Diaz on 08-11-2024 Hematocrit (Bld) [Volume fraction] 46.2 % 37-47 [facility] Hemoglobin measurementOrdere d By: Fatoumata Diaz on 08-11-2024 Hemoglobin (Bld) [Mass/Vol] 16.4 g/dL High 12.0-15.0 [facility] Immature granulocytes/100 WB C Auto (Bld)Ordered By: Fatoumata Diaz on 08-11-2024 Immature granulocytes/100 WBC (Bld) 0.300 % 0.0-0.9 [facility] Comment on above: IG% - Immature Granu locytes (promyelocytes, myelocytes and metamyelocytes) > 1% indicates that a LEFT SHIFT is Present. Influenza virus A and B and SARS-CoV-2 (COVID-19) and Respiratory syncytial virus RNAOrdered By: Fatoumata Diaz on 08-11-2024 SARS-CoV-2 (COVID-19) RNA KEVIN+probe Ql (Unsp spec) [facility] Ketones Test strip Ql (U)Ord ered By: Fatoumata Diaz on 08-11-2024 Ketones Ql (U) 150 mg/dl Abnormal Negative [facility] Comment on above: CRITICAL VALUE *HCRI TICAL VALUE CALLED TO SHEILA THOMPSON (ER)08/11/24 1133 Eddy Deleon.RESULTS READ BACK BY SAME. Lipase measurementOrdered By : Fatoumata Diaz on 08-11-2024 Lipase [Catalytic activity/Vol] 31 U/L Normal 13-75 [facility] Comment on above: Please note:LIPASE r evised [...] By: #### M 100.2200, L7400.0353, L7000.1800 #### [facility] Laboratory [address] [place], [address] M100.678on 08-11-2024 M100.678 Pending SARS-CoV-2 (COVID 19) Negative INFLUENZA A Negative INFLUENZA B Negative RSV PCR Negative Normal [facility] Comment on above: Performed By: #### M 100.2200, L7400.0353, L7000.1800 #### [facility] Laboratory [address] [place], [address] MCV (mean corpuscular volume ) determinationOrdered By: Fatoumata Diaz on 08-11-2024 MCV (RBC) [Entitic vol] 84.3 fL 81-99 [facility] Mean corpuscular hemoglobin (MCH) determinationOrdered By: Fatoumata Diaz on 08-11-2024 MCH (RBC) [Entitic mass] 29.9 pg 27.0-32.0 [facility] Mean corpuscular hemoglobin concentration (MCHC) determinationOrdered By: Fatoumata Diaz on 08-11-2024 MCHC (RBC) [Mass/Vol] 35.5 g/dL 32-36 [facility] Mean platelet volume determi nationOrdered By: Fatoumata Diaz on 08-11-2024 Platelet mean volume (Bld) [Entitic vol] 11.1 fL 6.2-12.0 [facility] Microscopic analysis of urin e for red blood cells (RBC)Ordered By: Fatoumata Diaz on 08-11-2024 Microscopic analysis of urine for red blood cells (RBC) 0-5 SEEN /hpf 0-5 [facility] Monocyte percentageOrdered B y: Fatoumata Diaz on 08-11-2024 Monocytes/100 WBC (Bld) 3.4 % 0-10 [facility] Mucus LM Ql (Urine sed)Order ed By: Fatoumata Diaz on 08-11-2024 Mucus Ql (Urine sed) 0 SEEN /hpf [facility] Neutrophil percentageOrdered By: Fatoumata Diaz on 08-11-2024 Neutrophils/100 WBC (Bld) 93.5 % High 47-70 [facility] Nitrite Test strip Ql (U)Ord ered By: Fatoumata Diaz on 08-11-2024 Nitrite Ql (U) Negative Negative [facility] Nucleated red blood cell per centageOrdered By: Fatoumata Diaz on 08-11-2024 Nucleated RBC/100 WBC (Bld) [Ratio] 0 % 0-5 [facility] Platelet countOrdered By: Kolby Diaz on 08-11-2024 Platelets (Bld) [#/Vol] 216 10*3/uL 150-450 [facility] Potassium measurementOrdered By: Fatoumata Diaz on 08-11-2024 Potassium [Moles/Vol] 3.9 mmol/L Normal 3.5-5.1 [facility] Comment on above: Performed By: #### M 100.0660, L7400.0353, L7000.1800 #### [facility] [address] [place], [address] Protein Test strip Ql (U)Ord ered By: Fatoumata Diaz on 08-11-2024 Protein Ql (U) 30 mg/dl High Negative [facility] RBC Auto (Bld) [#/Vol]Ordere d By: Fatoumata Diaz on 08-11-2024 RBC (Bld) [#/Vol] 5.48 10*6/uL High 4.2-5.4 [facility] Serum anion gap measurementO rdered By: Fatoumata Diaz on 08-11-2024 Anion gap [Moles/Vol] 9 mmol/L 5-15 [facility] Serum globulin measurementOr dered By: Fatoumata Diaz on 08-11-2024 Globulin (S) [Mass/Vol] 3.9 g/dL Normal 2.2-4.2 [facility] Comment on above: Performed By: #### M 100.2200, L7400.0353, L7000.1800 #### [facility] [address] [place], [address] Serum human chorionic gonado tropin detection for pregnancyOrdered By: Fatoumata Diaz on 08-11-2024 HCG ( test[place]l [address] mIU/mL High <4 [facility] Comment on above: hCG levels with Gest ational AgeGestational Age hCG mIU/mL (IU/L)0.2 - 1 week 5 - 501-2 weeks 50 - 5002-3 weeks 100 - 58688-6 weeks 500 - 173665-9 weeks 1000 - 428715-9 weeks 67253 - 100,0006-8 weeks 01736 - 200,0002-3 months 55439 - 100,000 Serum or plasma alanine lynn otransferase (ALT) measurementOrdered By: Fatoumata Diaz on 08-11-2024 ALT [Catalytic activity/Vol] 29 U/L Normal 13-56 [facility] Comment on above: Performed By: #### M 100.2200, L7400.0353, L7000.1800 #### [facility] [address] [place], [place], [id number] Serum or plasma albumin clive urement (mass/volume)Ordered By: Fatoumata Diaz on 08-11-2024 Albumin [Mass/Vol] 3.8 g/dL Normal 3.2-5.0 [facility] Comment on above: Performed By: #### M 100.2200, L7400.0353, L7000.1800 #### [facility] [address] [place], [place], [id number] Serum or plasma alkaline yenni sphatase measurementOrdered By: Fatoumata Diaz on 08-11-2024 ALP [Catalytic activity/Vol] 72 U/L 45-117 [facility] Serum or plasma calcium clive urement (mass/volume)Ordered By: Fatoumata Diaz on 08-11-2024 Calcium [Mass/Vol] 9.0 mg/dL 8.5-10.1 [facility] Serum or plasma creatinine m easurement (mass/volume)Ordered By: Fatoumata Diaz on 08-11-2024 Creatinine [Mass/Vol] 0.74 mg/dL Normal 0.55-1.02 [facility] Comment on above: The validity of the calculated GFR & GFRAA in patients over 70 years has not been determined. Clinical correlation is essential. Result Comment: The validity of the calculated GFR GFRAA in patients over 70 years has not been determined. Clinical correlation is essential. Performed By: #### M 100.2200, L7400.0353, L7000.1800 #### [facility] [address] [place], [place], [phone] ([address] Serum or plasma urea nitroge n measurement (mass/volume)Ordered By: Fatoumata Diaz on 08-11-2024 Urea nitrogen [Mass/Vol] 12 mg/dL Normal 7-18 [facility] Comment on above: Performed By: #### M 100.2200, L7400.0353, L7000.1800 #### [facility] [address] [place], [address] Sodium levelOrdered By: Soniya Diaz on 08-11-2024 Sodium [Moles/Vol] 134 mmol/L Low 136-145 [facility] Comment on above: Performed By: #### M 100.2200, L7400.0353, L7000.1800 #### [facility] [address] [place], [address] Squamous epithelial cells de tection in urine sediment by light microscopyOrdered By: Fatoumata Diaz on 08-11-2024 Epithelial cells.squamous LM Ql (Urine sed) 0-5 SEEN /hpf 5-10 [facility] Total proteinOrdered By: Alexandrea Diaz on 08-11-2024 Protein [Mass/Vol] 7.7 g/dL 6.4-8.2 [facility] Urinalysis, Completeon 08-11 RBC 0-5 SEEN Normal 0-5 [facility] Comment on above: Order Comment: Speci men Comment: [id number] Specimen Comment: No. of containers..01 ThinPrep Vial Performed By: #### M 100.2200, L7400.0353, L7000.1800 #### [facility] [address] [place], [address] WBC 0-5 SEEN Normal 0-5 [facility] Comment on above: Order Comment: Speci men Comment: [id number] Specimen Comment: No. of containers..01 ThinPrep Vial Performed By: #### M 100.2200, L7400.0353, L7000.1800 #### [facility] [address] [place], [address] BACTERIA 1+ /hpf Normal None Seen [facility] Comment on above: Order Comment: Speci men Comment: [id number] Specimen Comment: No. of containers..01 ThinPrep Vial Performed By: #### M 100.2200, L7400.0353, L7000.1800 #### [facility] [address] [place], [address] EPI,SQUAMOUS 0-5 SEEN Normal 5-10 [facility] Comment on above: Order Comment: Speci men Comment: [id number] Specimen Comment: No. of containers..01 ThinPrep Vial Performed By: #### M 100.2200, L7400.0353, L7000.1800 #### [facility] [address] [place], [address] Mucus Ql (Urine sed) 0 SEEN Normal [facility] Comment on above: Order Comment: Speci men Comment: [id number] Specimen Comment: No. of containers..01 ThinPrep Vial Performed By: #### M 100.2200, L7400.0353, L7000.1800 #### [facility] [address] [place], [address] Urine clarityOrdered By: Alexandrea Diaz on 08-11-2024 Clarity (U) Sl. Cloudy Clear [facility] Urine color determinationOrd ered By: Fatoumata Diaz on 08-11-2024 Color (U) Yellow Yellow [facility] Urine glucose detectionOrder ed By: Fatoumata Diaz on 08-11-2024 Glucose Ql (U) Normal mg/dl Normal [facility] Urine leukocyte esterase det ection by dipstickOrdered By: Fatoumata Diaz on 08-11-2024 Leukocyte esterase Test strip Ql (U) 25 /ul High Negative [facility] Urine pHOrdered By: Fatoumata mathews on 08-11-2024 pH (U) 6.5 [pH] 5.0 - 8.0 [facility] Urine sediment bacteria coun t by microscopy (number/high power field)Ordered By: Fatoumata Diaz on 08-11-2024 Bacteria LM.HPF (Urine sed) [#/Area] 1 /[HPF] None Seen [facility] Urine specific gravity measu rementOrdered By: Fatoumata Diaz on 08-11-2024 Specific gravity (U) [Rel density] 1.015 1.002-1.030 [facility] Urine urobilinogen measureme ntOrdered By: Fatoumata Diaz on 08-11-2024 Urobilinogen Ql (U) Normal mg/dl Normal [facility] White blood cell (WBC) count Ordered By: Fatoumata Diaz on 02-05-2025 WBC (Bld) [#/Vol] 17.2 10*3/uL High 4.4-11.0 [facility] White blood cell countOrdere d By: Fatoumata Danechichi on 08-11-2024 White blood cell count 0-5 SEEN /hpf 0-5 [facility] hCG Titer Quant., Serumon HCG QUANT. 45866 mIU/mL High 1-3 [facility] Comment on above: Result Comment: hCG levels with Gestational Age Gestational Age hCG mIU/mL (IU/L) 0.2 - 1 week 5 - 50 1-2 weeks 50 - 500 2-3 weeks 100 - 5000 3-4 weeks 500 - 22832 4-5 weeks 1000 - 57831 5-6 weeks 52794 - 100,000 6-8 weeks 27040 - 200,000 2-3 months 94462 - 100,000 Performed By: #### M 100.2200, L7400.0353, L7000.1800 #### [facility] [address] [place], [place], [id number] Absolute lymphocyte countOrd ered By: Cee Purcell on 08-10-2024 Lymphocytes Auto (Unsp spec) [#/Vol] 1.89 10*3/uL 0.83-4.51 [facility] Absolute neutrophil countOrd ered By: Cee Purcell on 08-10-2024 Neutrophils (Bld) [#/Vol] 10.2 10*3/uL High 2.0-7.7 [facility] Automated lymphocyte count a s percentage of total leukocytesOrdered By: Cee Purcell on 08-10-2024 Lymphocytes/100 WBC Auto (Unsp spec) 14.6 % Low 19-41 [facility] [id number] 08-10-2024 ABO and Rh group Nom (Bld) Blood group A Rh(D) positive Normal [facility] Comment on above: Performed By: #### M 100.2200, L7400.0353, L7000.1800 #### [facility] [address] [place], [place], [id number] Basophil percentageOrdered B y: Cee Purcell on 08-10-2024 Basophils/100 WBC (Bld) 0.4 % 0-1 [facility] Bilirubin Test strip Ql (U)O rdered By: Cee Purcell on 08-10-2024 Bilirubin Ql (U) Negative Negative [facility] CBC W/Diff, Automatedon Absolute Lymph 1.89 X10 3/uL Normal 0.83-4.51 [facility] Comment on above: Performed By: #### M 100.2200, L7400.0353, L7000.1800 #### [facility] [address] [place], [address] Absolute Neut 10.2 X10 3/uL High 2.0-7.7 [facility] Comment on above: Performed By: #### M 100.2200, L7400.0353, L7000.1800 #### [facility] [address] [place], [address] Basophils/100 WBC (Bld) 0.4 % Normal 0-1 [facility] Comment on above: Performed By: #### M 100.2200, L7400.0353, L7000.1800 #### [facility] [address] [place], [address] Eosinophils/100 WBC (Bld) 0.7 % Normal 0-5 [facility] Comment on above: Performed By: #### M 100.2200, L7400.0353, L7000.1800 #### [facility] [address] [place], [address] Erythrocyte distribution width (RBC) [Ratio] 12.3 % Normal 11.6-14.6 [facility] Comment on above: Performed By: #### M 100.2200, L7400.0353, L7000.1800 #### [facility] [address] [place], [address] Hematocrit (Bld) [Volume fraction] 43.3 % Normal 37-47 [facility] Comment on above: Performed By: #### M 100.2200, L7400.0353, L7000.1800 #### [facility] [address] [place], [address] Hemoglobin (Bld) [Mass/Vol] 15.5 g/dL High 12.0-15.0 [facility] Comment on above: Performed By: #### M 100.2200, L7400.0353, L7000.1800 #### [facility] [address] [place], [address] IG% 0.300 Normal 0.0-0.9 [facility] Comment on above: Result Comment: IG% - Immature Granulocytes (promyelocytes, myelocytes and metamyelocytes) > 1% indicates that a LEFT SHIFT is Present. Performed By: #### M 100.2200, L7400.0353, L7000.1800 #### [facility] [address] [place], [address] Lymphocytes/100 WBC (Bld) 14.6 % Low 19-41 [facility] Comment on above: Performed By: #### M 100.2200, L7400.0353, L7000.1800 #### [facility] [address] [place], [address] MCH (RBC) [Entitic mass] 30.2 pg Normal 27.0-32.0 [facility] Comment on above: Performed By: #### M 100.2200, L7400.0353, L7000.1800 #### [facility] [address] [place], [address] MCHC (RBC) [Mass/Vol] 35.8 g/dL Normal 32-36 [facility] Comment on above: Performed By: #### M 100.2200, L7400.0353, L7000.1800 #### [facility] [address] [place], [address] MCV (RBC) [Entitic vol] 84.2 fL Normal 81-99 [facility] Comment on above: Performed By: #### M 100.2200, L7400.0353, L7000.1800 #### [facility] [address] [place], [address] Monocytes/100 WBC (Bld) 5.1 % Normal 0-10 [facility] Comment on above: Performed By: #### M 100.2200, L7400.0353, L7000.1800 #### [facility] [address] [place], [address] Neutrophils/100 WBC (Bld) 78.9 % High 47-70 [facility] Comment on above: Performed By: #### M 100.2200, L7400.0353, L7000.1800 #### [facility] [address] [place], [address] Nucleated RBC (Bld) [#/Vol] 0 10*3/uL Normal 0-5 [facility] Comment on above: Performed By: #### M 100.2200, L7400.0353, L7000.1800 #### [facility] [address] [place], [address] Platelet mean volume (Bld) [Entitic vol] 11.3 fL Normal 6.2-12.0 [facility] Comment on above: Performed By: #### M 100.2200, L7400.0353, L7000.1800 #### [facility] [address] [place], [address] Platelets (Bld) [#/Vol] 208 10*3/uL Normal 150-450 [facility] Comment on above: Performed By: #### M 100.2200, L7400.0353, L7000.1800 #### [facility] [address] [place], [address] RBC (Bld) [#/Vol] 5.14 10*6/uL Normal 4.2-5.4 [facility] Comment on above: Performed By: #### M 100.2200, L7400.0353, L7000.1800 #### [facility] [address] [place], [address] RDW SD 37.6 fl Normal 35.1-43.9 [facility] Comment on above: Performed By: #### M 100.2200, L7400.0353, L7000.1800 #### [facility] [address] [place], [address] WBC (Bld) [#/Vol] 12.9 10*3/uL High 4.4-11.0 [facility] Comment on above: Performed By: #### M 100.2200, L7400.0353, L7000.1800 #### [facility] [address], [address] Emergency Department Summary on 08-10-2024 Emergency Department Summary [facility] Medical Records Department [address] [facility] [place] [address] Emergency Department Summary 08/10/24 MR#: [id number] Acct: [id number] Name: GERTRUDE EMERY Rep #: [id number] : 1995 28 From: Cee Purcell DO [...] at this time. Will discuss case with [employer] on-call for Dr. Quezada (more content not included)... Normal [facility] Eosinophil percentageOrdered By: Cee Purcell on 08-10-2024 Eosinophils/100 WBC (Bld) 0.7 % 0-5 [facility] Erythrocyte distribution wid th ratioOrdered By: [facility] on 08-10-2024 Erythrocyte distribution width (RBC) [Ratio] 12.3 % 11.6-14.6 [facility] Erythrocyte distribution wid th standard deviationOrdered By: Cee Purcell on 08-10-2024 Erythrocyte distribution width (RBC) [Ratio] 37.6 fl 35.1-43.9 [facility] Hematocrit Auto (Bld) [Volum e fraction]Ordered By: [facility] Pur[facility] on 08-10-2024 Hematocrit (Bld) [Volume fraction] 43.3 % 37-47 [facility] Hemoglobin measurementOrdere d By: Cee Purcell on 08-10-2024 Hemoglobin (Bld) [Mass/Vol] 15.5 g/dL High 12.0-15.0 [facility] Immature granulocytes/100 WB C Auto (Bld)Ordered By: Cee Purcell on 08-10-2024 Immature granulocytes/100 WBC (Bld) 0.300 % 0.0-0.9 [facility] Comment on above: IG% - Immature Granu locytes (promyelocytes, myelocytes and metamyelocytes) > 1% indicates that a LEFT SHIFT is Present. Ketones Test strip Ql (U)Ord ered By: Cee Purcell on 08-10-2024 Ketones Ql (U) 50 mg/dl High Negative [facility] MCV (mean corpuscular volume ) determinationOrdered By: Cee Purcell on 08-10-2024 MCV (RBC) [Entitic vol] 84.2 fL 81-99 [facility] Mean corpuscular hemoglobin (MCH) determinationOrdered By: Cee Purcell on 08-10-2024 MCH (RBC) [Entitic mass] 30.2 pg 27.0-32.0 [facility] Mean corpuscular hemoglobin concentration (MCHC) determinationOrdered By: Cee Purcell on 08-10-2024 MCHC (RBC) [Mass/Vol] 35.8 g/dL 32-36 [facility] Mean platelet volume determi nationOrdered By: Cee Purcell on 08-10-2024 Platelet mean volume (Bld) [Entitic vol] 11.3 fL 6.2-12.0 [facility] Microscopic analysis of urin e for red blood cells (RBC)Ordered By: Cee Purcell on 08-10-2024 Microscopic analysis of urine for red blood cells (RBC) 0-5 SEEN /hpf 0-5 [facility] Monocyte percentageOrdered B y: Cee Purcell on 08-10-2024 Monocytes/100 WBC (Bld) 5.1 % 0-10 [facility] Mucus LM Ql (Urine sed)Order ed By: Cee Purcell on 08-10-2024 Mucus Ql (Urine sed) 0 SEEN /hpf [facility] Neutrophil percentageOrdered By: Cee Purcell on 08-10-2024 Neutrophils/100 WBC (Bld) 78.9 % High 47-70 [facility] Nitrite Test strip Ql (U)Ord ered By: Cee Purcell on 02-04-2025 Nitrite Ql (U) Negative Negative [facility] Nucleated red blood cell per centageOrdered By: Cee Purcell on 08-10-2024 Nucleated RBC/100 WBC (Bld) [Ratio] 0 % 0-5 [facility] Platelet countOrdered By: Joanne Purcell on 08-10-2024 Platelets (Bld) [#/Vol] 208 10*3/uL 150-450 [facility] Protein Test strip Ql (U)Ord ered By: Cee Purcell on 08-10-2024 Protein Ql (U) 15 mg/dl High Negative [facility] RBC Auto (Bld) [#/Vol]Ordere d By: Cee Purcell on 08-10-2024 RBC (Bld) [#/Vol] 5.14 10*6/uL 4.2-5.4 [facility] Serum human chorionic gonado tropin detection for pregnancyOrdered By: Cee Purcell on 08-10-2024 HCG ( test) Ql [address] mIU/mL High <4 [facility] Comment on above: hCG levels with Gest ational AgeGestational Age hCG mIU/mL (IU/L)0.2 - 1 week 5 - 501-2 weeks 50 - 5002-3 weeks 100 - 18348-2 weeks 500 - 846971-4 weeks 1000 - 281979-7 weeks 84662 - 100,0006-8 weeks 17669 - 200,0002-3 months 10047 - 100,000 Squamous epithelial cells de tection in urine sediment by light microscopyOrdered By: Cee Purcell on 08-10-2024 Epithelial cells.squamous LM Ql (Urine sed) 5-10 SEEN /hpf 5-10 [facility] Transvaginal w/Preg USon Transvaginal w/Preg US [facility] Imaging Services [address] [place] [address] Transvaginal w/Preg US MR#: [id number] Acct: [id number] Name: GERTRUDE EMERY Rep #: [id number] : 1995 F 28 From: Rios parker MD PCP: Care Physician,No Primary Status: [facility] ER Study: Transvaginal w/Preg US Date of Exam: 08/10/24 Exam# [id number] Ordering Dr: Cee Purcell DO PROCEDURE: TRANSVAGINAL W/PREG US REASON FOR EXAM: Bleeding during . COMPARISON: None. FINDINGS: Comments: Transvaginal imaging was performed Number of Gestational Sacs: 1 Gestational Sac Shape: Normal it measures 2.2 cm. 7 weeks and 1 day. Number of Fetuses: 1 Heart Rate: 123 (average) Survey of Visible Anatomic Structures: Grossly unremarkable for gestational age. [place]-rump measurement is 4 mm corresponding to 6 [...] IMPRESSION: UNREMARKABLE FIRST TRIMESTER ULTRASOUND. Reading Location: [place] [address] CC: Dr. Cee Purcell DO; No Primary Care Physician Hvac Lead: Signed Normal [facility] Urinalysis, Completeon 08-10 BACTERIA 2+ /hpf Normal None Seen [facility] Comment on above: Order Comment: CLEAN CATCH Performed By: #### M 100.2200 #### [facility] [address] [place], [place], [id number] EPI,RENAL 0-5 SEEN Normal 0-5 [facility] Comment on above: Order Comment: CLEAN CATCH Performed By: #### M 100.2200 #### [facility] [address] [place], [place], [id number] EPI,SQUAMOUS 5-10 SEEN Normal 5-10 [facility] Comment on above: Order Comment: CLEAN CATCH Performed By: #### M 100.2200 #### [facility] [address] [place], [address] RBC 0-5 SEEN Normal 0-5 [facility] Comment on above: Order Comment: CLEAN CATCH Performed By: #### M 100.2200 #### [facility] [address] [place], [address] WBC 5-10 SEEN Normal 0-5 [facility] Comment on above: Order Comment: CLEAN CATCH Performed By: #### M 100.2200 #### [facility] [address] [place], [address] Mucus Ql (Urine sed) 0 SEEN Normal [facility] Comment on above: Order Comment: CLEAN CATCH Performed By: #### M 100.2200 #### [facility] [address] [place], [address] Urine clarityOrdered By: Soco Purcell on 08-10-2024 Clarity (U) Clear Clear [facility] Urine color determinationOrd ered By: Cee Purcell on 08-10-2024 Color (U) Yellow Yellow [facility] Urine cultureOrdered By: Sooc Purcell on 08-10-2024 Bacteria identified Cx Nom (U) Positive Abnormal [facility] Urine glucose detectionOrder ed By: Cee Purcell on 08-10-2024 Glucose Ql (U) Normal mg/dl Normal [facility] Urine leukocyte esterase det ection by dipstickOrdered By: Cee Purcell on 08-10-2024 Leukocyte esterase Test strip Ql (U) 100 /ul High Negative [facility] Urine pHOrdered By: Cee Pearce gur on 08-10-2024 pH (U) 6.5 [pH] 5.0 - 8.0 [facility] Urine sediment bacteria coun t by microscopy (number/high power field)Ordered By: Cee Purcell on 08-10-2024 Bacteria LM.HPF (Urine sed) [#/Area] 2 /[HPF] None Seen [facility] Urine sediment renal epithel ial cell count by microscopy (number/high power field)Ordered By: Cee Purcell on 08-10-2024 Epithelial cells.renal LM.HPF (Urine sed) [#/Area] 0 /[HPF] 0-5 [facility] Urine specific gravity measu rementOrdered By: [facility] on 08-10-2024 Specific gravity (U) [Rel density] 1.010 1.002-1.030 [facility] Urine urobilinogen measureme ntOrdered By: Cee Purcell on 08-10-2024 Urobilinogen Ql (U) Normal mg/dl Normal [facility] White blood cell (WBC) count Ordered By: [facility] Pur[facility] on 08-10-2024 WBC (Bld) [#/Vol] 12.9 10*3/uL High 4.4-11.0 [facility] White blood cell countOrdere d By: Cee Purcell on 08-10-2024 White blood cell count 5-10 SEEN /hpf 0-5 [facility] hCG Titer Quant., Serumon HCG QUANT. 16971 mIU/mL High 1-3 [facility] Comment on above: Result Comment: hCG levels with Gestational Age Gestational Age hCG mIU/mL (IU/L) 0.2 - 1 week 5 - 50 1-2 weeks 50 - 500 2-3 weeks 100 - 5000 3-4 weeks 500 - 15739 4-5 weeks 1000 - 70648 5-6 weeks 12814 - 100,000 6-8 weeks 66170 - 200,000 2-3 months 41333 - 100,000 Performed By: #### M 100.2200, L7400.0353, L7000.1800 #### [facility] [address] [place], [place], [address] POCT SARS-COV-2/FLU/RSV PCR SYMPTOMATIC manually resultedon 05-26-2024 FLUAV RNA KEVIN+probe Ql (Resp) Not detected Not Detected [facility] Work Phone: FLUBV RNA KEVIN+probe Ql (Resp) Not detected Not Detected [facility] Work Phone: Interpretation and review of laboratory results Abnormal [facility] Work Phone: RSV RNA KEVIN+probe Ql (Resp) Not detected Not Detected [facility] Work Phone: SARS-CoV-2 (COVID-19) RNA KEVIN+probe Ql (Resp) Detected Abnormal Not Detected [facility] Work Phone: [facility] Work Phone: Basophil percentageOrdered B y: Dr. Angulo on 12-17-2022 WBC (Bld) [#/Vol] 14.1 10*3/uL 4.4-11.0 [facility] Blood erythrocytes count (nu mber/volume)Ordered By: Dr. Angulo on 12-17-2022 RBC (Bld) [#/Vol] 5.23 10*6/uL 4.2-5.4 [facility] Blood hemoglobin measurement (mass/volume)Ordered By: Dr. Angulo on 12-17-2022 Hemoglobin (Bld) [Mass/Vol] 15.5 g/dL 12.0-15.0 [facility] Blood platelet mean volumeOr dered By: Dr. Angulo on 12-17-2022 Platelet mean volume (Bld) [Entitic vol] 11.0 fL 6.2-12.0 [facility] Determination of erythrocyte mean corpuscular volume (MCV)Ordered By: Dr. Angulo on 12-17-2022 MCV (RBC) [Entitic vol] 88.0 fL 81-99 [facility] Hematocrit Auto (Bld) [Volum e fraction]Ordered By: Dr. Angulo on 12-17-2022 Hematocrit (Bld) [Volume fraction] 46.0 % 37-47 [facility] Laboratory - Chemistry and C hemistry - challengeOrdered By: Dr. Angulo on 12-17-2022 T4 [Mass/Vol] 7.9 ug/dL 4.8-13.9 [facility] Laboratory - Hematology and Cell countsOrdered By: Dr. Angulo on 12-17-2022 Erythrocyte distribution width (RBC) [Entitic vol] 41.7 fL 35.1-43.9 [facility] Erythrocyte distribution width (RBC) [Ratio] 13.0 % 11.6-14.6 [facility] MCH (RBC) [Entitic mass] 29.6 pg 27.0-32.0 [facility] MCHC Auto (RBC) [Mass/Vol]Or dered By: Dr. Angulo on 12-17-2022 MCHC (RBC) [Mass/Vol] 33.7 g/dL 32-36 [facility] No Panel InformationOrdered By: Dr. Angulo on 12-17-2022 Endomysial IgA Antibody Positive Negative [facility] Thyroid Stimulating Hormone (TSH) 0.65 uIU/mL 0.358-3.74 [facility] Platelets bldOrdered By: Dr. Angulo on 12-17-2022 Platelets (Bld) [#/Vol] 280 10*3/uL 150-450 [facility] Serum IgA measurement (units /volume)Ordered By: Dr. Angulo on 12-17-2022 IgA Qn (S) 88 mg/dL 87-352 [facility] Comment on above: Performed at: [address] Director: Lico Lennon PhD, Phone: [phone] Serum or plasma C reactive p rotein measurement (mass/volume)Ordered By: Dr. Angulo on 12-17-2022 CRP [Mass/Vol] mg/L 0.0-3.0 [facility] Comment on above: C-Reactive Protein ( CRP) provides useful information for thediagnosis, therapy and monitoring of inflammatory processesand associated diseases. For the evaluation of Relative Riskfor Cardiovascular Disease, a High Sensitivity CRP (HSCRP)should be ordered. Serum tissue transglutaminas e IgA antibody assay (units/volume)Ordered By: Dr. Angulo on 12-17-2022 tTG IgA Qn (S) 9 U/mL 0-3 [facility] Comment on above: Negative 0 - 3 [...] History History of Appendectomy laparoscopic History of [place] tooth extraction Family History Family history of [...] Vital Signs Recorded: 12Feb2022 03:55PM Heart Rate72 [id number] Rrxumqozl62 Height5 ft 7.5 in Uhhgxz526 lb 15.73 oz BMI Qpwrwhiesl20.62 kg/m2 BSA Calculated1.88 Tobacco Useb) No PHQ-2 [...] contact, judgment, insight, voice Results/Data [employer] [id number] 03:57PMOsmel Jin NameResultFlagReference Right Eye Txgzpkfmive14/20 Left Eye Csiiuvbsepc17/20 'Scores and Scales' Signatures Electronically signed by : Osmel Jin PA-C; Feb 12 2022 4:07PM EST (Author) Normal [employer] Tobacco Screening.on 022 Adult depression screening assessment No [facility] Work Phone: Fall risk assessment a) No falls within the last year [facility] Work Phone: Tobacco use status [facility] b) No [facility] Work Phone: COVID-19, MOLECULARon 2019 INTERNAL CONTROL (ABBOT ID) Pass Normal [facility] SARS-COV-2 (ALBERT ID) Detected Abnormal Not Detected [facility] COVID-19, Molecularon 2019 Internal Control Pass [facility] Interpretation and review of laboratory results Abnormal [facility] SARS-CoV-2 Detected Abnormal Not Detected [facility] Vital Signs Date Time Vital Sign Value Performing Clinician Facility 03-18-2025 15:18-0400 Body height 170.18 cm No Primary Care Physician [facility] 03-18-2025 15:18-0400 Body mass index (BMI) [Ratio] 29.5 kg/m2 No Primary Care Physician [facility] 03-18-2025 15:18-0400 Body weight 85.53 kg No Primary Care Physician [facility] 03-18-2025 15:18-0400 Diastolic blood pressure 77 mm[Hg] No Primary Care Physician [facility] 03-18-2025 15:18-0400 Systolic blood pressure 130 mm[Hg] No Primary Care Physician [facility] 03-09-2025 16:09-0400 Body height 170.18 cm No Primary Care Physician [facility] 03-09-2025 16:07-0400 Body mass index (BMI) [Ratio] 29 kg/m2 No Primary Care Physician [facility] 03-09-2025 16:07-0400 Body weight 84.05 kg No Primary Care Physician [facility] 03-09-2025 16:07-0400 Diastolic blood pressure 75 mm[Hg] No Primary Care Physician [facility] 03-09-2025 16:07-0400 Systolic blood pressure 121 mm[Hg] No Primary Care Physician [facility] 02-24-2025 15:57-0400 Body height 170.18 cm No Primary Care Physician [facility] 02-24-2025 15:57-0400 Body mass index (BMI) [Ratio] 29.1 kg/m2 No Primary Care Physician [facility] 02-24-2025 15:57-0400 Body weight 84.36 kg No Primary Care Physician [facility] 02-24-2025 15:57-0400 Diastolic blood pressure 84 mm[Hg] No Primary Care Physician [facility] 02-24-2025 15:57-0400 Systolic blood pressure 119 mm[Hg] No Primary Care Physician [facility] 02-20-2025 11:51-0400 Heart rate 73 /min No Primary Care Physician [facility] 02-20-2025 11:51-0400 SaO2% (BldA) [Mass fraction] 96 % No Primary Care Physician [facility] 02-20-2025 11:47-0400 Body temperature 98.4 [degF] No Primary Care Physician [facility] 02-20-2025 11:47-0400 Respiratory rate 16 /min No Primary Care Physician [facility] 02-20-2025 11:19-0400 Body height 170.18 cm No Primary Care Physician [facility] 02-20-2025 11:19-0400 Body mass index (BMI) [Ratio] 27.8 kg/m2 No Primary Care Physician [facility] 02-20-2025 11:19-0400 Body weight 80.7 kg No Primary Care Physician [facility] 02-20-2025 10:54-0400 Diastolic blood pressure 75 mm[Hg] No Primary Care Physician [facility] 02-20-2025 10:54-0400 Systolic blood pressure 120 mm[Hg] No Primary Care Physician [facility] 02-11-2025 10:01-0400 Body height 170.18 cm No Primary Care Physician [facility] 02-11-2025 10:01-0400 Body mass index (BMI) [Ratio] 28 kg/m2 No Primary Care Physician [facility] 02-11-2025 10:01-0400 Body weight 81.24 kg No Primary Care Physician [facility] 02-11-2025 10:01-0400 Diastolic blood pressure 82 mm[Hg] No Primary Care Physician [facility] 02-11-2025 10:01-0400 Systolic blood pressure 137 mm[Hg] No Primary Care Physician [facility] 01-28-2025 11:28-0400 Body height 170.18 cm No Primary Care Physician [facility] 01-28-2025 11:24-0400 Body mass index (BMI) [Ratio] 27.7 kg/m2 No Primary Care Physician [facility] 01-28-2025 11:24-0400 Body weight 80.34 kg No Primary Care Physician [facility] 01-28-2025 11:24-0400 Diastolic blood pressure 82 mm[Hg] No Primary Care Physician [facility] 01-28-2025 11:24-0400 Systolic blood pressure 121 mm[Hg] No Primary Care Physician [facility] 01-10-2025 15:23-0400 Body height 170.18 cm No Primary Care Physician [facility] 01-10-2025 15:23-0400 Body mass index (BMI) [Ratio] 27.7 kg/m2 No Primary Care Physician [facility] 01-10-2025 15:23-0400 Body weight 80.28 kg No Primary Care Physician [facility] 01-10-2025 15:23-0400 Diastolic blood pressure 76 mm[Hg] No Primary Care Physician [facility] 01-10-2025 15:23-0400 Systolic blood pressure 123 mm[Hg] No Primary Care Physician [facility] 12-14-2024 15:32-0400 Body height 170.18 cm No Primary Care Physician [facility] 12-14-2024 15:32-0400 Body mass index (BMI) [Ratio] 27.2 kg/m2 No Primary Care Physician [facility] 12-14-2024 15:32-0400 Body weight 78.98 kg No Primary Care Physician [facility] 12-14-2024 15:32-0400 Diastolic blood pressure 73 mm[Hg] No Primary Care Physician [facility] 12-14-2024 15:32-0400 Systolic blood pressure 119 mm[Hg] No Primary Care Physician [facility] 11-18-2024 08:30-0400 Body height 170.[address] Cee Purcell DO Work Phone: 6(825)889-077157 [place] [address] 11-18-2024 08:30-0400 Body mass index (BMI) [Ratio] 26.4 kg/m2 Dr. Cee Purcell DO Work Phone: 7(358)593-517657 [place] [address] 11-18-2024 08:30-0400 Body weight 76.[address] Cee Purcell DO Work Phone: 2(404)754-507757 [place] [address] 11-18-2024 08:30-0400 Diastolic blood pressure 84 mm[Hg] Dr. Cee Purcell DO Work Phone: 2(637)660-055657 [place] [address] 11-18-2024 08:30-0400 Systolic blood pressure 128 mm[Hg] Dr. Cee Purcell DO Work Phone: [facility] 10-22-2024 10:19-0400 Body mass index (BMI) [Ratio] 25 kg/m2 Dr. Cee Purcell DO Work Phone: [facility] 10-22-2024 10:19-0400 Body weight 72.[address] Cee Purcell DO Work Phone: 1(785)164-393657 [place] [address] 10-22-2024 10:19-0400 Diastolic blood pressure 78 mm[Hg] Dr. Cee Purcell DO Work Phone: 1(830)217-364557 [place] [address] 10-22-2024 10:19-0400 Heart rate 105 /min Dr. Cee Purcell DO Work Phone: 5(117)116-136957 [place] [address] 10-22-2024 10:19-0400 Systolic blood pressure 118 mm[Hg] Dr. Cee Purcell DO Work Phone: 3(045)758-148657 [place] [address] 09-22-2024 15:06-0400 Body mass index (BMI) [Ratio] 25.2 kg/m2 Dr. Cee Purcell DO Work Phone: 4(907)170-527757 [place] [address] 09-22-2024 15:06-0400 Body weight 73.[address] Cee Purcell DO Work Phone: 7(715)860-793721 [place] [address] 09-22-2024 15:06-0400 Diastolic blood pressure 80 mm[Hg] Dr. Cee Purcell DO Work Phone: 5(691)507-570157 [place] [address] 09-22-2024 15:06-0400 Systolic blood pressure 122 mm[Hg] Dr. Cee Purcell DO Work Phone: 8(610)267-808657 [place] [address] 08-25-2024 15:45-0500 Body mass index (BMI) [Ratio] 25.4 kg/m2 Dr. Cee Purcell DO Work Phone: 2(248)765-531057 [place] [address] 08-25-2024 15:45-0500 Body weight 73.[address] Cee Purcell DO Work Phone: 1(825)948-071957 [place] [address] 08-25-2024 15:45-0500 Diastolic blood pressure 80 mm[Hg] Dr. Cee Purcell DO Work Phone: 6(546)800-983457 [place] [address] 08-25-2024 15:45-0500 Systolic blood pressure 119 mm[Hg] Dr. Cee Purcell DO Work Phone: 1(360)847-989421 [place] [address] 08-11-2024 14:47-0500 Diastolic blood pressure 63 mm[Hg] Dr. Cee Purcell DO Work Phone: 3(539)410-504657 [place] [address] 08-11-2024 14:47-0500 Heart rate 93 /min Dr. Cee Purcell DO Work Phone: [facility] 08-11-2024 14:47-0500 Respiratory rate 18 /min Dr. Cee Purcell DO Work Phone: [facility] 08-11-2024 14:47-0500 SaO2% (BldA) [Mass fraction] 98 % Dr. Cee Purcell DO Work Phone: 8(054)389-384757 [place] [address] 08-11-2024 14:47-0500 Systolic blood pressure 101 mm[Hg] Dr. Cee Purcell DO Work Phone: 3(939)325-484557 [place] [address] 08-11-2024 09:14-0500 Body mass index (BMI) [Ratio] 25.1 kg/m2 Dr. Cee Purcell DO Work Phone: 5(017)227-178857 [place] [address] 08-11-2024 09:14-0500 Body temperature 98.9 [degF] Dr. Cee Purcell DO Work Phone: 0(288)800-869557 [place] [address] 08-11-2024 09:14-0500 Body weight 72.[address] Cee Purcell DO Work Phone: 2(096)103-143157 [place] [address] 08-10-2024 12:24-0500 Body temperature 97.9 [degF] Dr. Cee Purcell DO Work Phone: 6(837)987-771257 [place] [address] 08-10-2024 12:24-0500 Diastolic blood pressure 68 mm[Hg] Dr. Cee Purcell DO Work Phone: 0(092)193-880857 [place] [address] 08-10-2024 12:24-0500 Heart rate 71 /min Dr. Cee Purcell DO Work Phone: [facility] 08-10-2024 12:24-0500 Respiratory rate 14 /min Dr. Cee Purcell DO Work Phone: [facility] 08-10-2024 12:24-0500 SaO2% (BldA) [Mass fraction] 100 % Dr. Cee Purcell DO Work Phone: [facility] 08-10-2024 12:24-0500 Systolic blood pressure 130 mm[Hg] Dr. Cee Purcell DO Work Phone: [facility] 08-10-2024 08:21-0500 Body mass index (BMI) [Ratio] 25 kg/m2 Dr. Cee Purcell DO Work Phone: [facility] 08-10-2024 08:21-0500 Body weight 72.[address] Cee Purcell DO Work Phone: [facility] 05-26-2024 10:53-0500 Body height 170.2 cm Alfred Anderson CERTIFIED [employer] Work Phone: [facility] 05-26-2024 10:53-0500 Body mass index (BMI) [Ratio] 25.84 kg/m2 Alfred Anderson C[employer]IED [employer] Work Phone: [facility] 05-26-2024 10:53-0500 Body temperature 98.01 [degF] Alfred Anderson C[employer]IFIED [employer] Work Phone: [facility] 05-26-2024 10:53-0500 Body weight 74.84 kg Alfred Anderson C[employer]IED [employer] Work Phone: [facility] 05-26-2024 10:53-0500 Diastolic blood pressure 89 mm[Hg] Alfred Anderson CERTIFIED [employer] Work Phone: [facility] 05-26-2024 10:53-0500 Heart rate 63 /min Alfred Anderson C[employer]IED [employer] Work Phone: [facility] 05-26-2024 10:53-0500 Respiratory rate 20 /min Alfred Anderson C[employer]IED [employer] Work Phone: [facility] 05-26-2024 10:53-0500 SaO2% (BldA) [Mass fraction] 97 % Alfred Anderson CERTIFIED [employer] Work Phone: [facility] 05-26-2024 10:53-0500 Systolic blood pressure 128 mm[Hg] Alfred Anderson C[employer]IED [employer] Work Phone: [facility] 02-12-2022 15:55-0400 Body height 171.45 cm Osmel Stentz Work Phone: [facility] Work Phone: 02-12-2022 15:55-0400 Body mass index (BMI) [Ratio] 25.62 kg/m2 Osmel Stentz Work Phone: -[facility] Work Phone: 02-12-2022 15:55-0400 Body surface area Derived from formula 1.88 m2 Osmel Stentz Work Phone: [facility] Work Phone: 02-12-2022 15:55-0400 Body weight 75.29 kg Osmel Stentz Work Phone: [facility] Work Phone: 02-12-2022 15:55-0400 Diastolic blood pressure 70 mm[Hg] Osmel Stentz Work Phone: [facility] Work Phone: 02-12-2022 15:55-0400 Heart rate 72 /min Osmel Stentz Work Phone: [facility] Work Phone: 02-12-2022 15:55-0400 Systolic blood pressure 116 mm[Hg] Osmel Stentz Work Phone: [facility] Work Phone: 05-21-2020 19:20-0500 Body Temperature 97.39 [degF] Elaine Dexetr [facility] 05-21-2020 19:20-0500 Body weight 77.56 kg Elaine Dexter [facility] 05-21-2020 19:20-0500 BP Diastolic 78 mm[Hg] Elaine Dexter [facility] 05-21-2020 19:20-0500 BP Systolic 128 mm[Hg] Elaine Dexter [facility] 05-21-2020 19:20-0500 Pulse (Heart Rate) 70 /min Elaine Dexter [facility] 05-21-2020 19:20-0500 Pulse Oximetry 97 % Elaine Dexter [facility] 05-21-2020 19:20-0500 Respiratory Rate 16 /min Elaine Dexter [facility] Encounters Encounter Date Encounter Type Care Provider Facility Start: 03-30-2025 ambulatory No Primary Car e Physician Facility:[facility] Start: 03-25-2025 End: 03-25-2025 ambulatory No Primary Care Physician Facility:[facility] Start: 03-18-2025 End: 03-18-[address] Angella Villarreal MD -[facility] Work Phone: Start: 03-18-2025 End: 03-18-2025 ambulatory No Primary Care Physician [facility] Start: 03-09-2025 End: 03-09-[address] Kerry Sosa DO -[facility] Work Phone: Start: 03-09-2025 End: 03-09-2025 ambulatory No Primary Care Physician [facility] Start: 03-09-2025 End: 03-09-2025 ambulatory No Primary Care Physician Facility:[facility] Start: 02-24-2025 End: 02-24-[address] Angella Villarreal MD -[facility] Work Phone: Start: 02-24-2025 End: 02-24-2025 ambulatory No Primary Care Physician [facility] Start: 02-24-2025 ambulatory No Primary Car e Physician Facility:[facility] Start: 02-24-2025 Non-patient / Non-visit Dr. Timothy Villarreal MD -[facility] Start: 02-20-2025 End: 02-20-2025 ambulatory No Primary Care Physician -[facility] Start: 02-20-2025 End: 02-20-[address] Angella Villarreal MD -[facility] Work Phone: Start: 02-11-2025 End: 02-11-2025 Patient encounter procedure Nicole Crews [facility] Work Phone: Start: 02-11-2025 End: 02-11-2025 ambulatory No Primary Care Physician -[facility] Start: 02-08-2025 ambulatory Kerry Sosa Fa cility:[facility] Start: 01-28-2025 End: 01-28-2025 Patient encounter procedure Nicole Crews [facility] -[facility] Work Phone: Start: 01-28-2025 End: 01-28-2025 ambulatory No Primary Care Physician -[facility] Start: 01-10-2025 End: 01-10-2025 Patient encounter procedure Carie ARGUETA -[facility] Work Phone: Start: 01-10-2025 End: 01-10-2025 ambulatory No Primary Care Physician [facility] Start: 01-10-2025 End: 01-10-2025 ambulatory Angella Villarreal Facility:[facility] Start: 12-14-2024 End: 12-14-2024 Patient encounter procedure Nicole Crews [facility] -[facility] Work Phone: Start: 12-14-2024 End: 12-14-2024 ambulatory No Primary Care Physician [facility] Work Phone: Start: 11-18-2024 End: 11-18-2024 Patient encounter procedure Nicole Crews [facility] -[facility] Work Phone: Start: 11-18-2024 End: 11-18-[address] Cee Purcell DO Work Phone: [facility] Work Phone: Start: 11-11-2024 End: 11-11-2024 ambulatory MD NO PRIMARY CARE [facility] Start: 10-22-2024 End: 10-22-2024 Patient encounter procedure Nicole BLACK -[facility] Work Phone: Start: 10-22-2024 End: 10-22-2024 Patient encounter procedure Nicole Crews CNM -[facility] Work Phone: Start: 10-22-2024 End: 10-22-2024 ambulatory No Primary Care Physician Facility:[facility] Start: 10-22-2024 End: 10-22-2024 ambulatory No Primary Care Physician Facility:[facility] Start: 09-22-2024 End: 09-22-[address] Angella Villarreal MD -[facility] Work Phone: Start: 09-22-2024 End: 09-22-2024 ambulatory No Primary Care Physician Facility:[facility] Start: 08-25-2024 End: 08-25-2024 Patient encounter procedure Nicole Crews CNM -[facility] Work Phone: Start: 08-25-2024 End: 08-25-2024 ambulatory No Primary Care Physician Facility:[facility] Start: 08-24-2024 Non-patient / Non-visit Tracy carpenter RN -[facility] Work Phone: Start: 08-24-2024 End: 08-25-2024 ambulatory No Primary Care Physician Facility:[facility] Start: 08-20-2024 Non-patient / Non-visit Tracy carpenter RN -[facility] Work Phone: Start: 08-20-2024 ambulatory No Primary Car e Physician Facility:[facility] Start: 08-11-2024 End: 08-11-2024 Emergency department patient visit Dr. Fatoumata Diaz DO -Emergency Department Work Phone: Start: 08-10-2024 End: 08-10-2024 Emergency department patient visit Dr. Cee Purcell DO -Emergency Department Work Phone: Start: 05-26-2024 End: 05-26-2024 Patient encounter procedure Alfred Anderosn CERTIFIED [employer] Work Phone: [facility] Comment on above: COVID (Primary Dx); Acute bronchitis, unspecified organism Start: 05-26-2024 End: 05-26-2024 ambulatory [facility] Start: 08-20-2023 End: 08-20-2023 ambulatory OSMEL JIN [facility] Start: 12-17-2022 End: 12-17-2022 ambulatory [facility] Work Phone: Start: 12-17-2022 End: 12-17-2022 Patient encounter procedure [facility] Start: 02-12-2022 Periodic preventive med est patient 18-39 yrs Osmel Griffin Work Phone: -[facility] Work Phone: Start: 05-21-2020 End: 05-21-2020 Patient encounter procedure PHYSICIAN NO [facility] Start: 05-21-2020 End: 05-21-2020 Office outpatient new 20 minutes Elaine Dexter Work Phone: [facility] Comment on above: Suspected Covid-19 V irus Infection (Primary Dx) Start: 07-23-2018 End: 07-24-2018 Patient encounter procedure Fernandez Daysi Facility:[facility] Procedures Date Procedure Procedure Detail [...] therefore, no HPV testing was performed.Performed at: [address] [id number] Director: Mari Zimmerman MD, Phone: [phone] Start: 08-25-2024 Hepatitis B surface antigen measurement [...] SARS-COV-2/FLU/ RSV PCR SYMPTOMATIC Alfred Anderson CERTIFIED [employer] Work Phone: Start: 05-21-2020 COVID-19, MOLECULAR Elaine Anita Dexter Work Phone: Extraction of wisdom tooth Osmel Jin Work Phone: History of appendectomy History of appendectomy Dr. Cee Purcell DO Work Phone: Laparoscopic appendectomy Keiko Jin Work Phone: Plan of Treatment Date Care Activity Detail Author Start: 2046 Zoster Vaccines (1 of 2) Zoste r Vaccines (1 of 2) [facility] Start: 02-20-2025 Bacteria identified in Urine by Culture Urine Culture [facility] Start: 02-20-2025 End: 02-20-2025 [facility] Start: 02-20-2025 Nonstress test [facility] Start: 02-20-2025 Obstetric monitoring [facility] Start: 02-20-2025 Vital signs measurements [facility] Start: 02-20-2025 Patient discharge [facility] Start: 01-10-2025 CBC W Auto Different ial panel - Blood [facility] Start: 01-10-2025 Measurement of gluco se 2 hours after glucose challenge for glucose tolerance test [facility] Start: 01-10-2025 Serologic test for syphilis [facility] Start: 01-10-2025 [facility] Start: 08-11-2024 End: 08-11-2024 [facility] Start: 08-10-2024 [facility] Start: 03-07-2024 COVID-19 Vaccine ( season) COVID-19 Vaccine ( season) [facility] Start: 03-07-2024 Influenza vaccination Influenza Vacc ine (#1) [facility] Start: 05-22-2020 Influenza vaccinatio n given Sequential Influenza Vaccine (#1) [facility] Comment on above: Postponed from 03/07 (Patient Ill Today) Start: 03-07-2020 DTaP/Tdap/Td Vaccine s (7 - Td or Tdap) DTaP/Tdap/Td Vaccines (7 - Td or Tdap) [facility] Start: 2017 Screening for malign ant neoplasm of cervix [facility] Start: 2014 Hepatitis C antibody , confirmatory test Hepatitis C Screening [facility] Start: 2014 Hepatitis C screening Hepatitis C Sc [facility] Start: 11-25-2011 HIV screening HIV Screening [facility] Start: 2009 Varicella vaccination Varicell a Vaccines (1 of 2 - 13+ 2-dose series) [facility] Start: 11-25-2007 Vaccination for leora n papillomavirus HPV Vaccines (1 - 2-dose series) [facility] Start: 11-25-1999 History and physical examination, annual for health maintenance Wellness Visit [facility] Start: 1996 HIV screening HIV Screening [facility] Start: 1996 Lipid panel Lipid Panel [facility] Start: 1996 Screening for Chlamy eden trachomatis Chlamydia Screening [facility] Start: 1996 Screening for malign ant neoplasm of cervix Pap Smear [facility] Start: 1996 Tetanus vaccination Tetanus: Every 1 0yrs [facility] Start: 1996 Yearly Adult Physical Yearly Adult P [facility] CBC W Auto Different ial panel - Blood [facility] Covid-19/Influenza O rder Algorithm Covid-19/Influenza Order Algorithm Microbiology Routine Suspected Covid-19 Virus Infection Ordered: 05/21/2020 [facility] Comment on above: Ordered: 05/21/2020 Erythrocyte mean corpuscular volume determination [facility] Hematocrit [Volume Fraction] of Blood [facility] Hemoglobin [Mass/vol ume] in Blood [facility] Leukocytes [#/volume ] in Blood [facility] Mean corpuscular hemoglobin concentration determination [facility] Mean corpuscular hemoglobin determination [facility] Measurement of gluco se 2 hours after glucose challenge for glucose tolerance test [facility] Neutrophil count [facility] Neutrophil percent differential count [facility] Patient Education [facility] Work Phone: Patient referral [facility] Work Phone: Platelets [#/volume] in Blood [facility] Red blood cell count [facility] Red cell distributio n width determination [facility] Serologic test for syphilis [facility] Streptococcus agalac tiae [Presence] in Unspecified specimen by Organism specific culture [facility] Urine culture [facility] Immunizations Immunization Date Immunization Notes Care Provider Sylvia gagnon 01-10-2025 tetanus toxoid, redu félix diphtheria toxoid, and acellular pertussis vaccine, adsorbed No Primary Care Physician [facility] 09-01-2020 Pfizer-BioNTech COVI D-19 Vacc 30 MCG/0.3ML Intramuscular Suspension Osmel Stentz Work Phone: [facility] Work Phone: Comment on above: Series: 08-12-2020 Pfizer-BioNTech COVI D-19 Vacc 30 MCG/0.3ML Intramuscular Suspension Osmel Stentz Work Phone: [facility] Work Phone: Comment on above: Series: 03-07-2010 meningococcal polysaccharide (groups A, C, Y and W-135) diphtheria toxoid conjugate vaccine (MCV4P) Osmel Stentz Work Phone: [facility] Work Phone: 03-07-2010 tetanus toxoid, redu félix diphtheria toxoid, and acellular pertussis vaccine, adsorbed Osmel Stentz Work Phone: [facility] Work Phone: 09-28-2001 diphtheria, tetanus toxoids and acellular pertussis vaccine, unspecified formulation Osmel Stentz Work Phone: [facility] Work Phone: 09-28-2001 measles, mumps and rubella virus vaccine Osmel Stentz Work Phone: [facility] Work Phone: 09-28-2001 trivalent poliovirus vaccine, live, oral Osmel Stentz Work Phone: [facility] Work Phone: 11-29-1997 diphtheria, tetanus toxoids and acellular pertussis vaccine, unspecified formulation Osmel Stentz Work Phone: [facility] Work Phone: 11-29-1997 haemophilus influenz ae type b vaccine, conjugate unspecified formulation Osmel Stentz Work Phone: [facility] Work Phone: 11-29-1997 measles, mumps and rubella virus vaccine Osmel Stentz Work Phone: [facility] Work Phone: 05-31-1997 diphtheria, tetanus toxoids and acellular pertussis vaccine, unspecified formulation Osmel Stentz Work Phone: [facility] Work Phone: 05-31-1997 haemophilus influenz ae type b vaccine, conjugate unspecified formulation Osmel Stentz Work Phone: [facility] Work Phone: 05-31-1997 hepatitis B vaccine, pediatric or pediatric/adolescent dosage Osmel Stentz Work Phone: [facility] Work Phone: 05-31-1997 trivalent poliovirus vaccine, live, oral Osmel Stentz Work Phone: [facility] Work Phone: 04-07-1997 diphtheria, tetanus toxoids and acellular pertussis vaccine, unspecified formulation Osmel Stentz Work Phone: [facility] Work Phone: 04-07-1997 haemophilus influenz ae type b vaccine, conjugate unspecified formulation Osmel Stentz Work Phone: [facility] Work Phone: 04-07-1997 trivalent poliovirus vaccine, live, oral Osmel Stentz Work Phone: [facility] Work Phone: 02-24-1997 haemophilus influenz ae type b vaccine, conjugate unspecified formulation Osmel Stentz Work Phone: [facility] Work Phone: 02-24-1997 hepatitis B vaccine, pediatric or pediatric/adolescent dosage Osmel Stentz Work Phone: [facility] Work Phone: 01-25-1997 diphtheria, tetanus toxoids and acellular pertussis vaccine, unspecified formulation Osmel Stentz Work Phone: [facility] Work Phone: 01-25-1997 poliovirus vaccine, inactivated Osmel Stentz Work Phone: [facility] Work Phone: 1996 hepatitis B vaccine, pediatric or pediatric/adolescent dosage Osmel Stentz Work Phone: [facility] Work Phone: Payers Date Payer Category Payer Private Health Insurance [id number] 2024 Self-pay [id number] 2022 Managed Care (Private) [facility] MED [id number] 2020 Unknown [id number] 2020 Unknown MMO MED MUTUAL S UPERMED PPO [id number] 2020-Present [id number] 2018 Private Health Insurance 1996 Unknown [id number] 2.16.840.1.927486.3.579.2. 717 1996 Unknown [id number] 2.16.840.1.195016.3.579.2. 903 1996 Unknown [id number] 2.16.840.1.006912.3.579.2. 1243 1996 Unknown [id number] 2..840.1.137066.3.579.2. 1243 1996 Unknown [id number] 2.16.840.1.077699.3.579.2. 479 Unknown [facility] Private Health Insurance [id number] Unknown [id number] 2.840.1.366720.3.579.2. 462 Unknown [id number] 2.840.1.368600.3.579.2. 462 Unknown [id number] 2.840.1.697478.3.579.2. 462 Unknown [id number] 2.840.1.937107.3.579.2. 462 Unknown [id number] 2.16840.1.041312.3.579.2. 462 Unknown [id number] 2.16840.1.735829.3.579.2. 462 Unknown [id number] 2.840.1.999546.3.579.2. 462 Unknown [id number] 2.16840.1.079518.3.579.2. 462 Unknown [id number] 2.16840.1.158674.3.579.2. 462 Unknown [id number] 2.16840.1.785052.3.579.2. 462 Unknown [id number] 2.16840.1.249558.3.579.2. 462 Unknown [id number] 2.16840.1.745051.3.579.2. 462 Unknown [id number] 2.16.840.1.815619.3.579.2. 462 Unknown [id number] 2.16.840.1.926922.3.579.2. 462 Unknown [id number] 2.16.840.1.217947.3.579.2. 462 Unknown [id number] 2.16.840.1.370144.3.579.2. 462 Unknown [id number] 2.16.840.1.388550.3.579.2. 462 Unknown [id number] 2.16.840.1.770049.3.579.2. 462 Unknown [id number] 2.16.840.1.204347.3.579.2. 462 Unknown [id number] 2.16.840.1.000500.3.579.2. 462 Unknown [id number] 2.16.840.1.770402.3.579.2. 462 Unknown [id number] 2.16.840.1.000291.3.579.2. 462 Unknown [id number] 2.16.840.1.545072.3.579.2. 462 Unknown [id number] 2.16.840.1.794768.3.579.2. 462 Unknown [id number] 2.16.840.1.994235.3.579.2. 462 Unknown [id number] 2.16.840.1.139100.3.579.2. 462 Social History Date Type Detail Facility Start: 05-21-2020 End: 08-20-2024 Tobacco smoking status KYIS Never smoker [facility] Start: 05-21-2020 Tobacco use and exposure Never used [facility] Start: 1996 Sex Assigned At Not [facility] file [facility] Exposure to SARS-CoV-2 (event) Yes [facility] Never a smoker Never a smoker [facility] Work Phone: Start: 1995 Sex Assigned At Female [facility] Start: 08-20-2023 Tobacco smoking status NHIS Tobacco smoking consumption unknown [facility] Work Phone: Gender identity Not on file [facility] Start: 05-16-2024 End: 05-26-2024 Exposure to SARS-CoV-2 (event) Not sure [facility] Clinical Notes 05-26-2024 to 03-18-2025 Note Date & Type Note Facility 03-18-2025 Progress note [facility] 03-18-2025 Progress note Note Date/Time March 18, 2025 3:28pm [facility] [address], [address] [place] [address] OFFICE VISIT Date of Service: 03/18/25 MR#: [id number] Acct: [id number] Name: GERTRUDE EMERY Rep #: [id number] : 1995 Provider: Dr. 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 Required: No Is patient in pain?: No [...] spouse 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al status: employed 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al exposures/hazards: No pets and animals: Yes pets and animals: dog(s) history of recent travel: Yes ( - September 2024) out of state: No out of country: Yes sexually active: Yes Smoking Status: Never smoker second hand exposure: No alcohol intake: never substance use type: other details: [place] [employer] - Beginning of July diet: gluten free well-balanced diet: daily or most days caffeine: Yes eating out: 1-3 times/week during the past year weight has: remained stable what type of physical activity do you participate in: walking and weight training frequency: 3-4 times per week duration: 15-30 minutes/day lc/voodoo: Church seatbelt use: always do you feel safe at home: Yes additional social history: : 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 Valentina Sosa DO Age/Sex: 29/F Location: [facility] Status: Signed Intake Vital Signs 01/10/25 15:23 01/28/25 11:28 02/24/25 15:57 03/09/25 16:07 03/09/25 16:09 Height 5 ft 7 in 5 ft 7 in 5 ft 7 in 5 ft 7 in 5 ft 7 in Weight: 185 lb 5 oz BMI 29.0 BP 121/75 H Intake Visit Reasons: 36wk ob Procurement Services Manager Required: No Is patient in pain?: No [...] spouse 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al status: employed 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al exposures/hazards: No pets and animals: Yes pets and animals: dog(s) history of recent travel: Yes ([place] - September 2024) out of state: No out of country: Yes sexually active: Yes Smoking Status: Never smoker second hand exposure: No alcohol intake: never substance use type: other details: [place] [employer] - Beginning of July diet: gluten free well-balanced diet: daily or most days caffeine: Yes eating out: 1-3 times/week during the past year weight has: remained stable what type of physical activity do you participate in: walking and weight training frequency: 3-4 times per week duration: 15-30 minutes/day lc/voodoo: Church seatbelt use: always do you feel safe at home: Yes additional social history: : Maximilian Todd [employer] manager[employer] manager[employer] History 1 Elective abortions Hx Para 0 [...] Diony DO> Date _ Kerry [facility]osa DO [facility] Signature: Date (if applicable) CC: ~ [facility]09-03-2025 Progress note Author Kerry Vora [facility] Note Date/Time March 09, 2025 4:30pm [facility] [address] [place] [address], [address] [place] [address] OFFICE VISIT Date of Service: 03/09/25 MR#: [id number] Acct: [id number] Name: GERTRUDE EMERY Rep #: [id number] : 1995 Provider: Dr. Valentina Sosa, Age/Sex: 29/F Location: [facility] Status: Signed Intake Vital Signs 01/10/25 15:23 01/28/25 11:28 02/24/25 15:57 03/09/25 16:07 03/09/25 16:09 Height 5 ft 7 in 5 ft 7 in 5 ft 7 in 5 ft 7 in 5 ft 7 in Weight: 185 lb 5 oz BMI 29.0 BP 121/75 H Intake Visit Reasons: 36wk ob Procurement Services Manager Required: No Is patient in pain?: No [...] spouse 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al status: employed 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al exposures/hazards: No pets and animals: Yes pets and animals: dog(s) history of recent travel: Yes ( - September 2024) out of state: No out of country: Yes sexually active: Yes Smoking Status: Never smoker second hand exposure: No alcohol intake: never substance use type: other details: [place] [employer] - Beginning of July diet: gluten free well-balanced diet: daily or most days caffeine: Yes eating out: 1-3 times/week during the past year weight has: remained stable what type of physical activity do you participate in: walking and weight training frequency: 3-4 times per week duration: 15-30 minutes/day lc/voodoo: Church seatbelt use: always do you feel safe at home: Yes 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 Fredi Villarreal MD Age/Sex: 29/F Location: [facility] Status: Signed Intake Vital Signs 01/10/25 15:23 02/20/25 11:19 02/24/25 15:57 Height 5 ft 7 in 5 ft 7 in 5 ft 7 in Weight: 186 lb BMI 29.1 BP 119/84 H Intake Visit Reasons: 34wk ob Procurement Services Manager Required: No Is patient in pain?: No [...] spouse 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al status: employed 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al exposures/hazards: No pets and animals: Yes pets and animals: dog(s) history of recent travel: Yes ( - September 2024) out of state: No out of country: Yes sexually active: Yes Smoking Status: Never smoker second hand exposure: No alcohol intake: never substance use type: other details: [place] [employer] - Beginning of July diet: gluten free well-balanced diet: daily or most days caffeine: Yes eating out: 1-3 times/week during the past year weight has: remained stable what type of physical activity do you participate in: walking and weight training frequency: 3-4 times per week duration: 15-30 minutes/day lc/voodoo: Church seatbelt use: always do you feel safe at home: Yes additional social history: : 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 Fredi Villarreal MD Age/Sex: 29/F Location: [facility] Status: Signed Intake Vital Signs 01/10/25 15:23 02/20/25 11:19 02/24/25 15:57 Height 5 ft 7 in 5 ft 7 in 5 ft 7 in Weight: 186 lb BMI 29.1 BP 119/84 H Intake Visit Reasons: 34wk ob Procurement Services Manager Required: No Is patient in pain?: No [...] spouse 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al status: employed 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al exposures/hazards: No pets and animals: Yes pets and animals: dog(s) history of recent travel: Yes ([place] - September 2024) out of state: No out of country: Yes sexually active: Yes Smoking Status: Never smoker second hand exposure: No alcohol intake: never substance use type: other details: [place] [employer] - Beginning july diet: gluten free well-balanced diet: daily or most days caffeine: Yes eating out: 1-3 times/week during the past year weight has: remained stable what type of physical activity do you participate in: walking and weight training frequency: 3-4 times per week duration: 15-30 minutes/day lc/voodoo: Church seatbelt use: always do you feel safe at home: Yes additional social history: : 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[employer] History 1 Elective abortions Hx Para 0 [...] and Symptoms of Preeclampsia, Feeding No , [place] Education and Family Medical Leave or Disability [...] Cash Signature: Date (if applicable) CC: ~ [facility] Work Phone: 1([phone]) 113-789708-08-2025 [facility] [address] [place] [address], [address] [place] [address] OFFICE VISIT Date of Service: 02/11/25 MR#: [id number] Acct: [id number] Name: GERTRUDE EMERY Rep #: [id number] : 1995 Provider: NATALYA Crews Age/Sex: 29/F Location: [facility] Status: Signed Intake Vital Signs 01/28/25 11:28 02/11/25 10:01 Height 5 ft 7 in 5 ft 7 in Weight: 179 lb 2 oz BMI 28.0 BP 137/82 H Intake Visit Reasons: 32 wk ob *reschedule Chief Complaint: 32wk OB Procurement Services Manager Required: No Is patient in pain?: No [...] spouse 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al status: employed 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al exposures/hazards: No pets and animals: Yes pets and animals: dog(s) history of recent travel: Yes ([place] - September 2024) out of state: No out of country: Yes sexually active: Yes Smoking Status: Never smoker second hand exposure: No alcohol intake: never substance use type: other details: [place] [employer] - Beginning of July diet: gluten free well-balanced diet: daily or most days caffeine: Yes eating out: 1-3 times/week during the past year weight has: remained stable what type of physical activity do you participate in: walking and weight training frequency: 3-4 times per week duration: 15-30 minutes/day lc/voodoo: Church seatbelt use: always do you feel safe at home: Yes additional social history: : 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 OB Visit GELNN Calculator Estimated Delivery Date Method Current WG [...] Cosigndouglas Signature: Date (if applicable) CC: ~ [facility]05-15-2025 Evaluation note* Diagnosis Onset Date Resolution Status [...] of high-risk acute February 11, 2025 9:58am [facility] Work Phone: [phone] Evaluation note* Diagnosis Onset Date Resolution Status [...] Supervision of high-risk acute February 24 3:50pm [facility] Work Phone: [phone] Evaluation note* Diagnosis Onset Date Resolution Status [...] high-risk acute March 09, 2 025 3:55pm [facility] Work Phone: 1([phone]) 313-127705-15-2025 Evaluation note* Diagnosis Onset Date Resolution Status [...] of high-risk acute March 18, 2025 3:13pm [facility] Work Phone: 1([phone]) 440-958305-15-2025 [facility] [address] [place] [address], [address] [place] [address] OFFICE VISIT Date of Service: 11/18/24 MR#: [id number] Acct: [id number] Name: GERTRUDE EMERY Rep #: [id number] : 1995 Provider: NATALYA Crews Age/Sex: 28/F Location: [facility] Status: Signed Intake Vital Signs 09/22/24 15:06 10/22/24 10:19 11/18/24 08:30 Height 5 ft 7 in 5 ft 7 in 5 ft 7 in Weight: 168 lb 6 oz BMI 26.4 BP 128/84 H Intake Visit Reasons: 20 wk ob Chief Complaint: 20wk ob Procurement Services Manager Required: No Is patient in pain?: No [...] spouse 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al status: employed 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al exposures/hazards: No pets and animals: Yes pets and animals: dog(s) history of recent travel: Yes ([place] - September 2024) out of state: No out of country: Yes sexually active: Yes Smoking Status: Never smoker second hand exposure: No alcohol intake: never substance use type: other details: [place] [employer] - Beginning of July diet: gluten free well-balanced diet: daily or most days caffeine: Yes eating out: 1-3 times/week during the past year weight has: remained stable what type of physical activity do you participate in: walking and weight training frequency: 3-4 times per week duration: 15-30 minutes/day lc/voodoo: Church seatbelt use: always do you feel safe at home: Yes additional social history: : 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[employer] History 1 Elective abortions Hx Para 0 [...] Symptoms of Preeclampsia, Infant Feeding No , [place] Education and Family Medical Leave or Disability [...] Cosigner Signature: Date (if applicable) CC: ~ [facility]04-18-2025 Evaluation note* Diagnosis Onset Date Resolution Status [...] of high-risk acute January 28, 2025 11:20am [facility] Work Phone: 1([phone]) 303-123104-18-2025 Evaluation note* Diagnosis Onset Date Resolution Status [...] of high-risk acute February 11, 2025 9:58am [facility] Work Phone: 1([phone]) 636-284503-19-2025 Evaluation note* Diagnosis Onset Date Resolution Status [...] high-risk acute January 10, 2025 3 :14pm [facility] Work Phone: 1([phone]) 336-426502-19-2025 Evaluation note* Diagnosis Onset Date Resolution Status [...] high-risk acute November 18, 2024 8 :26am [facility] Work Phone: 1([phone]) 469-339002-19-2025 Evaluation note* Diagnosis Onset Date Resolution Status [...] of high-risk acute December 14, 2024 3:30pm [facility] Work Phone: [phone]) 694-966511-20-2024 History of Present illness Narrative* Alfred Anderson, SRIDHAR-LABORER HIGH DENSITY PRESS - 05/26/2024 10:50 AM EST 28 y.o. [...] Review Audit Reviewed by Ewa Carr MA (Cruise Director) on 05/26/24 at 1052 Medication Order Taking? Sig Documenting Provider Last Dose Status fluticasone (Flonase) 50 mcg/actuation nasal spray [id number] Administer 1 spray into each nostril once daily. Shake gently. Before first use, prime pump. After use, clean tip and replace cap. Patient not taking: Reported on 05/26/2024 Alfred Anderson, CERTIFIED SHORTHAND REPORTER-LABORER HIGH DENSITY PRESS Active Past Medical History: Diagnosis Date Celiac disease ([facility]) Past Surgical History: Procedure Laterality Date OTHER SURGICAL HISTORY 10/02/2020 Appendectomy laparoscopic OTHER SURGICAL HISTORY 10/05/2020 [place] tooth extraction ROS See HPI Physical Exam [...] Gertrude's care are: none Alfred Anderson CNP [facility] [phone] [facility] Phone: Evaluation noteNo assessment information available [facility] Work Phone: Evaluation note* Diagnosis COVID- Primary Acute bronchitis, unspecified organism documented in this encounter [facility] Work Phone: History of Present illness Narrative* 26 YOF presents for school physical. 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 [facility] Work Phone: progress note Author Nicole Crews [facility] Note Date/Time November 18, 2024 8:47a m [facility] [address], [address] [place] [address] OFFICE VISIT Date of Service: 11/18/24 MR#: [id number] Acct: [id number] Name: GERTRUDE EMERY Rep #: [id number] : 1995 Provider: NATALYA Crews Age/Sex: 28/F Location: [facility] Status: Signed Intake Vital Signs 09/22/24 15:06 10/22/24 10:19 11/18/24 08:30 Height 5 ft 7 in 5 ft 7 in 5 ft 7 in Weight: 168 lb 6 oz BMI 26.4 BP 128/84 H Intake Visit Reasons: 20 wk ob Chief Complaint: 20wk ob Procurement Services Manager Required: No Is patient in pain?: No [...] spouse 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al status: employed 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al exposures/hazards: No pets and animals: Yes pets and animals: dog(s) history of recent travel: Yes ( - September 2024) out of state: No out of country: Yes sexually active: Yes Smoking Status: Never smoker second hand exposure: No alcohol intake: never substance use type: other details: [place] gummies - Beginning of July diet: gluten free well-balanced diet: daily or most days caffeine: Yes eating out: 1-3 times/week during the past year weight has: remained stable what type of physical activity do you participate in: walking and weight training frequency: 3-4 times per week duration: 15-30 minutes/day lc/voodoo: Church seatbelt use: always do you feel safe at home: Yes additional social history: : 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TagTagCity History 1 Elective abortions Hx Para 0 [...] Cosigner Signature: Date (if applicable) CC: ~ [facility] Work Phone: Progress note Author Nicole Crews [facility] Note Date/Time February 11, 2025 10: 25am [facility] [address], [address] [place] [address] OFFICE VISIT Date of Service: 02/11/25 MR#: [id number] Acct: [id number] Name: GERTRUDE EMERY Rep #: [id number] : 1995 Provider: NATALYA Crews Age/Sex: 29/F Location: [facility] Status: Signed Intake Vital Signs 01/28/25 11:28 02/11/25 10:01 Height 5 ft 7 in 5 ft 7 in Weight: 179 lb 2 oz BMI 28.0 BP 137/82 H Intake Visit Reasons: 32 wk ob *reschedule Chief Complaint: 32wk OB Procurement Services Manager Required: No Is patient in pain?: No [...] intake: never substance use type: other details: [place] gummies - Beginning of July diet: gluten free well-balanced diet: daily or most days caffeine: Yes eating out: 1-3 times/week during the past year weight has: remained stable what type of physical activity do you participate in: walking and weight training frequency: 3-4 times per week duration: 15-30 minutes/day lc/voodoo: Church seatbelt use: always do you feel safe at home: Yes additional social history: : 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TagTagCity History 1 Elective abortions Hx Para 0 [...] Symptoms of Preeclampsia, Infant Feeding No , [place] Education andFamily Medical Leave or Disability Forms [...] Cosigner Signature: Date (if applicable) CC: ~ [facility] Work Phone: Reason for referral (narrative)No reason for referral information [facility] Work Phone: Summary Purpose Family History No [...] FoundDocuments on File Type Date Recorded Patient Purchasing Supervisor Expl anation Advance Directives and Living Will Advance Directive Response Recorded Date/ Time Living Will No August 10 10:19am Do you have a Healthcare Power of Supervisor Asbestos Removal? No August 10, 2024 10:19am Living Will No August 11 1:14pm Do you have a Healthcare Power of Supervisor Asbestos Removal? No August 11, 2024 1:14pm Instructions * Patient Instructions* Elaine Dexter, JONATHON - 05/21/2020 7:40 PM [facility] COVID-19 Post-swabbing Instructions We will do our best to update you as soon as we receive your test results, but if we had to send your test to be run at the lab, you may see the results on Klypperhart or receive a call from [facility] before we are able to contact you. [...] results. - If you have an active RuffaloC[employer] account, and your COVID-19 test is negative (not detected), then you will be notified through your RuffaloCODY account. You should call the urgent care if you have any further questions. - If your COVID-19 test is positive (detected), you will receive a phone call to discuss your results and answer any questions you might have at that time. Please make sure [facility] has your updated phone number so we can contact you. [facility] will notify the [place] Department of [facility] of any positive results to comply with [...] and warm water and/or alcohol based hand molding sander, scrubbing your hands for at least 20 [...] Other COVID Questions? CDC - https://www.cdc.gov/coronavirus/2019-ncov/index.html - https://www.cdc.gov/coronavirus/2019-ncov/if-xck-ybp-sick/quarantine.html [facility] - Website: https://coronavirus.[place].gov/wps/portal/gov/covid-19/home - Hotline: 350-1-EQX-OD (551-882-7364) [facility]: https://blog.Schedulicity.[employer]Faith [employer]/series/sersw-26-lniamcmodmt-toolkit/ documented in this encounter History of Present Illness * Elaine Dexter CNP - 05/21/2020 7:37 PM EST Patient Name: [facility] Location: [place] [address] Date Of : Date Of Visit: 1995 05/21/2020 MRN# Provider: [id number] Elaine Dexter CNP Chief Complaint Patient presents [...] and atraumatic. Nose: Nose normal. Mouth/Throat: Lips: [place]. Mouth: Mucous membranes are moist. Pharynx: Oropharynx [...] facility-administered medications for this visit. Patient Instructions [facility] COVID-19 Post-swabbing Instructions We will do our best to update you as soon as we receive your test results, but if we had to send your test to be run at the lab, you may see the results on MyChart or receive a call from [facility] before we are able to contact you. [...] results. - If you have an active [employer]uff[employer] account, and your COVID-19 test is negative (not detected), then you will be notified through your RuffaloCODY account. You should call the urgent care if you have any further questions. - If your COVID-19 test is positive (detected), you will receive a phone call to discuss your results and answer any questions you might have at that time. Please make sure [facility] has your updated phone number so we can contact you. [facility] will notify the [place] Department of [facility] of any positive results to comply with [...] and warm water and/or alcohol based hand molding sander, scrubbing your hands for at least 20 [...] Other COVID Questions? CDC - https://www.cdc.gov/coronavirus/2019-ncov/index.html - https://www.cdc.gov/coronavirus/2019-ncov/vt-vdw-pxa-sick/quarantine.html [facility] - Website: https://coronavirus.[place].gov/wps/portal/gov/covid-19/home - Hotline: 417-4-WXT-OD (693-767-8704) [facility]: https://blog.Fanfou.com/series/fbxuh-52-dmycuasgsqp-toolkit/ documented in this encounter Assessments Diagnosis Suspected [...] 09, 2025 3:55pm Supervision of high-risk Levone [facility] 2024 3:55pm Celiac disease March 18, 2025 3:13pm March 18, 2025 3:13pm Supervision of high-risk Darell [facility] 2024 3:13pm Additional Source Comments INFORMATION SOURCE (unrecogn ized section and content) DATE CREATED AUTHOR 07/31/2018 [facility] DATE CREATED AUTHOR AUTHOR'S ORGANIZ ATION 05/21/2020 [facility] DATE CREATED AUTHOR AUTHOR'S ORGANIZ ATION 02/13/2022 [facility] DATE CREATED AUTHOR AUTHOR'S ORGANIZ ATION 05/29/2024 [facility] DATE CREATED AUTHOR AUTHOR'S ORGANIZ ATION 11/13/2024 [facility] DATE CREATED AUTHOR AUTHOR'S ORGANIZ ATION 03/26/2025 [facility] Reason for Visit (unrecogniz ed section [...] Angulo MD Attending Provider, Referring Provider Active Edging Supervisor Relationship Specialty Start Date End Date Osmel Jin PA-C [address] [facility] [place], [place] [address] PCP - General 02/12/22 Team Status: Inactive [...] End: January 10, 2025 Carie Burns NP, PLANT OPERATIONS MANAGER-C Attending Provider Active Start: January 10, 2025 [...] End: January 10, 2025 Carie Burns NP, PLANT OPERATIONS MANAGER-C Attending Provider Active Start: January 10, 2025 [...] End: January 10, 2025 Carie Burns NP, PLANT OPERATIONS MANAGER-C Attending Provider Active Start: January 10, 2025 [...] BE BASED ON THE PRIMARY CLINICAL RECORDS. [facility] [employer] [facility]. provides no warranty or guarantee of the accuracy or completeness of information in this document.
[2025-03-27 18:05] LABS: Hematocrit 36.9 % (37-47); Hemoglobin 12.9 g/dL (12.0-15.0); Immature Granulocytes Count 0.060 X10^3/uL (0.0-0.0); Mean Corp Hgb Conc 35.0 g/dL (32-36); Mean Corpuscular Volume 84.8 fL (81-99); Mean Platelet Vol. 11.4 fl (6.2-12.0); NRBC Flagged by Analyzer 0 % (0-5); Platelet Count 193 K/mm3 (150-450); RBC Distribution Width CV 13.5 % (11.6-14.6); RBC Distribution Width SD 41.4 fl (35.1-43.9); Red Blood Count 4.35 M/mm3 (4.2-5.4); White Blood Count 14.3 K/mm3 (4.4-11.0)
--- NOTE | 2025-03-27 18:13 | HP.PCM.OB_ITS ---
HPI - General General Date of Admission: 03/27/25 Date of Service: 03/27/25 HPI Narrative GERTRUDE EMERY, is a 29 F at 38.6 weeks who presents to unit for vaginal discharge that started at 9am this morning. ROM positive. admission orders given Maternal Data Information GLENN Calculator Estimated Delivery Date Method Current WG Current Estimate 04/04/25 LMP (Certain) 38w 6d Other Estimates 04/01/25 Ultrasound #1 39w 2d Final GLENN: 04/04/25 Final GLENN Source: US >20 weeks Gestational age: 38.6 PFSH PFSH Medical History (Updated 03/27/25 @ 18:16 by Nicole Crews CNM) Autoimmune disease Home Medications ?Medication ?Instructions ?Recorded ?Last Taken ?Type docosahexaenoic acid 200 mg 1 mg PO DAILY 08/20/24 History capsule ( DHA) ondansetron 4 mg disintegrating 4 mg PO Q8H PRN PRN Na usea #30 tabs 08/25/24 02/19/25 14:00 Rx tablet 4 mg amoxicillin 875 mg tablet 875 mg PO BID 7 days #14 tab s 03/25/25 03/27/25 Rx Allergy/AdvReac Type Severity Reaction Status Date / Time gluten AdvReac Intermediate Other Verified 03/25/25 11:40 Family History Aunt Thyroid disorder Grandmother Thyroid disorder Grandfather Kidney disease on dialysis Surgical History History of appendectomy Social History adopted: No household members: spouse 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al status: employed 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al exposures/hazards: No pets and animals: Yes pets and animals: dog(s) history of recent travel: Yes ( - September 2024) out of state: No out of cou ntry: Yes sexually active: Yes Smoking Status: Never smoker second hand exposure: No alcohol intake: never substance use type: other details: [place] gummies - Beginning of July diet: gluten free well-balanced diet: daily or most days caffeine: Yes eating out: 1-3 times/week during the past year weight has: remained stable what type of physical activity do you participate in: walking and weight traini ng frequency: 3-4 times per week duration: 15-30 minutes/day lc/confucianist: Anabaptism seatbelt use: always do you feel safe at home: Yes additional social history: : 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 History 1 Elective abortions Hx Para 0 Spontaneous abortions Hx # Term Pregnancies Ectopic pregnancies Hx # Pregnancies Multiple births # of living children Visit Details Expected Delivery Route/Plan Labor Preferences- CB/BF classes: encouraged labor support person: Maximilian labor intervention preferences: [] pain management options preferred: epidural if requested cut cord/dad catch: no : yes PP control planned: discussed discussed possible routes of delivery and associated risks: [] special requests: [] Plans Covid status: [] Flu vaccine: [] Tdap vaccine: given Rhogam:NA LARC form signed: yes movement and labor precautions reviewed. Problem list reviewed and updated with the most current plan of care details and appropriate orders placed. Relevant counseling for the gestational age provided. Continue routine care and follow up unless otherwise noted in visit notes/problem list details OB Flowsheet Initial Weight: 162 lb Date -?-?-?-?-?-?-?-?-?-?-?-?- EGA Weight BP Urine Prot -?-?-?-?-?-?-?-?-?-?-?-?- Glucose FHR FuHt Pres Dilation -?-?-?-?-?-?-?-?-?-?-?-?- Effaced St Visit Note 08/25/24 -?-?-?-?-?-?-?-?-?-?-?-?- 8w 2d 162 lb 8 oz (+8 oz) 119/80 -?-?-?-?-?-?-?-?-?-?-?-?- 180 -?-?-?-?-?-?-?-?-?-?-?-?- KW- CRL cons wit h dates. Declines NIPT. 09/22/24 -?-?-?-?-?-?-?-?-?-?-?-?- 12w 2d 161 lb 8 oz (-8 oz) 122/80 Negative -?-?-?-?-?-?-?-?-?-?-?-?- Negative 170 -?-?-?-?-?-?-?-?-?-?-?-?- SM- no vb crampi ng 10/22/24 -?-?-?-?-?-?-?-?-?-?-?-?- 16w 4d 160 lb (-2 lb) 118/78 Negative -?-?-?-?-?-?-?-?-?-?-?-?- Negative 150 -?-?-?-?-?-?-?-?-?-?-?-?- KW- having some lower abd pressure and frequency with urination. +fm. US scheduled. declines AFP. KW- having some lower abd pr essure and frequency with urination. will obtain clean catch. +fm. US scheduled. declines AFP. 11/18/24 -?-?-?-?-?-?-?-?-?-?-?-?- 20w 3d 168 lb 6 oz (+6 lb 6 oz) 128/84 Negative -?-?-?-?-?-?-?-?-?-?-?-?- Negative 160 20 -?-?-?-?-?-?-?-?-?-?-?-?- KW- no vb/lof/ct x. good fm. US normal. BFC discussed. 12/14/24 -?-?-?-?-?-?-?-?-?-?-?-?- 24w 1d 174 lb 2 oz (+12 lb 2 oz) 119/73 Negative -?-?-?--?-?-?-?-?-?-?-?-?- Negative 150 25 -?-?-?-?-?-?-?-?-?-?-?-?- KW- no vb/lof/ct x. good fm. glucose information given. will start iron for vague sx of anemia. 01/10/25 -?-?-?-?-?-?-?-?-?-?-?-?- 28w 0d 177 lb (+15 lb) 123/76 Negative -?-?-?-?-?-?-?-?-?-?-?-?- Negative 169 29 -?-?-?-?-?-?-?-?-?-?-?-?- MH-No VB, LOF. G ood FM. 28 wk labs pending. Tdap, larc. 01/28/25 -?-?-?-?-?-?-?-?-?-?-?-?- 30w 4d 177 lb 2 oz (+15 lb 2 oz) 121/82 Negative -?-?-?-?-?-?-?-?-?-?-?-?- Negative 160 31 -?-?-?-?-?-?-?-?-?-?-?-?- KW- no vb/lof/ct x. good fm. pepcid for heart burn 02/11/25 -?-?-?-?-?-?-?-?-?-?-?-?- 32w 4d 179 lb 2 oz (+17 lb 2 oz) 137/82 Negative -?-?-?-?-?-?-?-?-?-?-?-?- Negative 150 33 -?-?-?-?-?-?-?-?-?-?-?-?- KW- vb/lof/ctx. good fm. pepcid is working well. 02/24/25 -?-?-?-?-?-?-?-?-?-?-?-?- 34w 3d 186 lb (+24 lb) 119/84 Negative -?-?-?-?-?-?-?-?-?-?-?-?- Negative 140 35 -?-?-?-?-?-?-?-?-?-?-?-?- SM- no vb lof go od fm no regular ctx 03/09/25 -?-?-?-?-?-?-?-?-?-?-?-?- 36w 2d 185 lb 5 oz (+23 lb 5 oz) 121/75 Negative -?-?-?-?-?-?-?-?-?-?-?-?- Negative 147 37 Cephalic 1 -?-?-?-?-?-?-?-?-?-?-?-?- 50 -3 JV- no lof , vaginal bleeding ,or dec fm. gbs collected. 03/18/25 -?-?-?-?-?-?-?-?-?-?-?-?- 37w 4d 188 lb 9 oz (+26 lb 9 oz) 130/77 Negative -?-?-?-?-?-?-?-?-?-?-?-?- Negative 140 38 Cephalic 1 .5 -?-?-?-?-?-?-?-?-?-?-?-?- 60 -2 SM- no vb lof good fm no regular ctx 03/25/25 -?-?-?-?-?-?-?-?-?-?-?-?- 38w 4d 187 lb 2 oz (+25 lb 2 oz) 125/82 Negative -?-?-?-?-?-?-?-?-?-?-?-?- Negative 145 39 Cephalic 3 -?-?-?-?-?-?-?-?-?-?-?-?- 80 -1 KW- no vb/ lof/ctx. good fm. UTI sx and +10 dip. NST FHR Rate Baby A Baseline: 130 Variability:: Moderate Accelerations:: 15 x 15 Decelerations:: None NST Reactive:: Yes FHR Category:: Category I Uterine Activity:: irregular ROS Constitutional Constitutional: Denies change in weight, fatigue, fever(s), headache(s), poor appetite or weakness Eyes Eyes: Denies blurry vision, change in vision, floaters, seeing flashes or spots in vision ENT HEENT: Denies dizziness, headache(s), loss taste/smell or sore throat Cardiovascular Cardiovascular: Denies chest pain, dizziness, dyspnea, irregular heart rhythm, lightheadedness, palpitations or rapid heart rate Respiratory/Chest Respiratory/Chest: Denies change in mental status, chest tightness, cough, dyspnea or breast pain Gastrointestinal Gastrointestinal: Denies anorexia, chewing difficulty, constipation, diarrhea or weight changes Genitourinary Genitourinary: Denies difficulty urinating, dysuria, flank pain, genital pain, urinary frequency or urinary urgency Musculoskeletal Musculoskeletal: Denies back pain, difficulty walking, extremity pain, joint pain, muscle cramps or muscle weakness Integumentary Integumentary: Denies lesions or unusual bruising Neurologic Neurologic: Denies abnormal movements, abnormal speech, dizziness, numbness, seizure-like activity, syncope or weakness Psychiatric Psychiatric: Denies behavioral changes, change in appetite, confusion, depression, homicidal ideation, suicidal ideation or suicidal thoughts Endocrine Endocrinology: Denies excessive sweating, polydipsia or polyuria Hematologic/Lymphatic Hematologic/Lymphatic: Denies anemia Allergic/Immunologic Allergic/Immunologic: Denies itchy eyes, lip swelling, throat swelling, tongue swelling or wheezing Vital Signs Vital Signs Vital Signs: Weight Weight: 186 lb 9.6 oz Body Mass Index (BMI) 29.2 Physical Exam Const alert, oriented x3 and no apparent distress General Appearance: cooperative Orientation / Consciousness: awake HEENT normocephalic Neck full ROM Lymph Lymphatic: no lymphadenopathy noted Chest inspection of chest normal Resp normal respiratory effort and normal air movement Effort and Inspection: able to speak in complete sentences and symmetric chest movement GI soft to palpation and non-tender Inspection: gravid Palpation: soft; Negative for tender external exam normal Manual OB Exam: dilated 3, effaced 80 and station -1 Back/Spine normal to inspection Extremity normal to inspection and full ROM Skin no rashes or lesions noted Psych mental status grossly normal Appearance: grossly normal Speech: normal speech Labs Labs Labs: Blood Type A POSITIVE Antibody Screen NEGATIVE Hct, (37-47) 36.9 % L Hgb, (12.0-15.0) 12.9 g/dL Obstetrics Ultrasound Syphilis Total Ab, (Nonreactive) Nonreactive Rubella IgG Antibody, (Nonreactive) Reactive Hep Bs Antigen, (Nonreactive) Non-Reactive Hepatitis C Antibody, (Nonreactive) Non-Reactive Chlamydia DNA (KEVIN), (Negative) Negative N.gonorrhoeae DNA (KEVIN), (Negative) Negative HIV 1&2 Antibody, (Nonreactive) Nonreactive Glucose 1 Hr 50 gm, (70-140) 98 mg/dL Assessment & Plan (1) SROM (spontaneous rupture of membranes): PLAN: Patient presents IAL, plan expectant management for , pitocin/AROM PRN if needed. Pain management: plans epidural. GBS neg. Management of any complications: none I have reviewed the [facility] and made any clinically relevant updates. Dr Leblanc aware of assessment, plan and admission. agrees with above (2) Supervision of high-risk : QUALIFIERS: Trimester: third trimester Qualified Code(s): O09.93 - Supervision of high risk , unspecified, third trimester COMMENT: PRR, , GLENN 04/05/25, : Maximilian (3) : QUALIFIERS: Weeks of gestation: 38 weeks Qualified Code(s): Z3A.38 - 38 weeks gestation of COMMENT: Neg GBS. Discussed genetic/carrier testing - declined. (4) Celiac disease: Charges/Coding Multi Select Codes Urinary/Genital Urinary/Genital CPT Codes: No Charge
--- NOTE | 2025-03-27 18:17 | PCM.PN.BLA ---
Progress Note Coping well with contractions current tracing: FHT: 125 Moderate variability reactive no decelerations category I tracing [place]: rare Contractions Membranes: fore bag ruptured for clear fluid SVE:380/-1 A/P: Continue with position changes Titrate pitocin per protocol Epidural per anesthesia GBS neg Anticipate Dr Neely aware of above assessment and agrees with plan of care Assessment & Plan Assessment/Plan (1) SROM (spontaneous rupture of membranes): (2) Supervision of high-risk : QUALIFIERS: Trimester: third trimester Qualified Code(s): O09.93 - Supervision of high risk , unspecified, third trimester (3) : QUALIFIERS: Weeks of gestation: 38 weeks Qualified Code(s): Z3A.38 - 38 weeks gestation of (4) Celiac disease: Multi Select Codes Urinary/Genital Urinary/Genital CPT Codes: No Charge
[2025-03-27] MEDS: Lactated Ringers 1,000 ML 50 ML IV (18:39)
[2025-03-27] MEDS: Oxytocin 15 Units/NS 250ml 15 UNITS/250 ML IV.SOLN 2 UNITS IV (18:39)
[2025-03-27 18:42] LABS: Syphilis Antibodies Nonreactive (Nonreactive)
[2025-03-27] MEDS: Lactated Ringers 1,000 ML 999 ML IV (19:23)
[2025-03-27] MEDS: fentaNYL-bupivacaine (epidural) 100 ML BAG EPIDURAL (20:20)
[2025-03-27] MEDS: AMOXICILLIN 875 MG TABLET PO (22:06)
[2025-03-27] MEDS: Lactated Ringers 1,000 ML 200 ML IV (22:20)
--- NOTE | 2025-03-27 23:11 | PN_ITS ---
Progress Note comfortable with epidural current tracing: FHT: 135 Moderate variability reactive no decelerations category I tracing [place]: 2-3 minute Contractions Membranes:remains clear SVE:10/100/0 A/P: Continue with position changes Titrate pitocin per protocol Epidural per anesthesia GBS neg Anticipate Dr Neely aware of above assessment and agrees with plan of care Assessment & Plan Assessment/Plan (1) SROM (spontaneous rupture of membranes): (2) Supervision of high-risk : QUALIFIERS: Trimester: third trimester Qualified Code(s): O09.93 - Supervision of high risk , unspecified, third trimester (3) : QUALIFIERS: Weeks of gestation: 38 weeks Qualified Code(s): Z3A.38 - 38 weeks gestation of (4) Celiac disease: Multi Select Codes Urinary/Genital Urinary/Genital CPT Codes: No Charge
[2025-03-28] MEDS: fentaNYL-bupivacaine (epidural) 100 ML BAG EPIDURAL (00:50)
--- NOTE | 2025-03-28 02:15 | OB.VAGDELI_ITS ---
Assessment & Plan (1) Vaginal delivery: COMMENT: KW SROM mady Whalen (2) SROM (spontaneous rupture of membranes): (3) Supervision of high-risk : QUALIFIERS: Trimester: third trimester Qualified Code(s): O09.93 - Supervision of high risk , unspecified, third trimester COMMENT: SHIVANI , GLENN 04/05/25, : Maximilian (4) : QUALIFIERS: Weeks of gestation: 38 weeks Qualified Code(s): Z3A.38 - 38 weeks gestation of COMMENT: Neg GBS. Discussed genetic/carrier testing - declined. (5) Celiac disease: Maternal Data Information GLENN Calculator Estimated Delivery Date Method Current WG Current Estimate 04/04/25 LMP (Certain) 39w 0d Other Estimates 04/01/25 Ultrasound #1 39w 3d Final GLENN: 03/28/25 Final LGENN Source: US >20 weeks Gestational age: 39.0 Vaginal Delivery Maternal Presentation Maternal Presentation: Spontaneous Rupture of Membranes Maternal Presentation: Presented to unit for active labor with SROM Vaginal Delivery Information Procedure Performed: Spontaneous Vaginal Delivery Surgeon/Practitioner: Nicole Crews Date of Procedure: 03/28/25 Pre-Procedure Diagnosis: see problem list Post-Procedure Diagnosis: same Type of anesthesia: Epidural Estimated Blood Loss: 500 Time of Delivery: 01:38 Findings Description of procedure: Progressed well to 10cm dilated and made steady progress with effective maternal pushing. Delivered the head in GINA presentation. The head was delivered atraumatically and no nuchal cord was identified. The anterior and posterior shoulders delivered without complication followed by the rest of the infant and the infant was placed on the maternal abdomen. Delayed cord clamping was employed for approximately 3 minutes. Cord was clamped and cut and gentle traction was applied to the cord and the placenta delivered spontaneously. Immediately following, it was noted to be intact with a 3 vessel cord. Uterine bleeding stable. The perineum and vagina were inspected and noted to have a second degree laceration which was repaired with 3-0 Vicryl in the usual fashion. EBL was 500cc. Patient and infant tolerated delivery well. Apgars 9/9. Dr Pina notified of vaginal delivery and orders reviewed. Physician agrees with current plan of care. Presentation: Vertex Amniotic Membrane Rupture Type: Spontaneous Amniotic Fluid Description: Clear Placental Delivery Description: Spontaneous Placenta Disposition: [facility] Specimen collected: No Cord Vessel Description: 3 Vessels Cord Entanglement: None Cord Gases: ABG and VBG A Gender: Male (1 minute): 9 (5 minute): 9 Delayed Cord Clamping: Yes [employer] Curator senior financial reporting accountant: No Post Vaginal Deli Medications given after delivery: IV Pitocin Episiotomy Description: None Laceration: 2nd degree Complication Complications: No Multi Select Codes Urinary/Genital Urinary/Genital CPT Codes: 15094 Vaginal Delivery [facility]
--- NOTE | 2025-03-28 02:17 | DCINST_ITS ---
Discharge Instructions DC O2, CPAP, BIPAP needs Home O2 Discharge instructions: No Dressing / Incision Discharge Activity: Return to Normal Activity May resume sexual activity in: 6-8 weeks Dressing / Incision Call your doctor if you observe: Fever of 101 or Higher, Coldness, Increased Pain, Numbness or Tingling, Change in Color, Inability to urinate, Inability to have a bowel movement, Using more than 1 pad per hour, Shortness of breath, Dizziness, Fainting spells, Swelling in the ankles, Chest pain, Increased palpitations (irregular heartbeat), Calf discomfort and Uncontrolled pain Follow Up Care Please Follow Up With: Nicole Crews CNM When: Please call the office to schedule your follow up appointment in 6 weeks. If you had high blood pressure please call to schedule an appointment in 2 weeks. Test Results: Test results from this visit will be discussed in further detail at your follow- up appointment, if applicable. Discharge Plan Admission Admit Date/Time: 03/27/25 17:36 Attending Provider: Nicole Crews Primary Care Provider: Care Physician,Laney Primary Discharge Orders/Prescriptions Prescriptions: No Action ondansetron 4 mg tablet,disintegrating 4 mg PO Q8H PRN PRN (Reason: Nausea) Qty: 30 4RF DHA 200 mg capsule 1 mg PO DAILY amoxicillin 875 mg tablet 875 mg PO BID 7 Days Qty: 14 0RF Referrals / Follow Up: Care Physician,Laney Primary [Primary Care Provider, Medical]
[2025-03-28] MEDS: Oxytocin 15 Units/NS 250ml 15 UNITS/250 ML IV.SOLN 83 UNITS IV (02:18)
[2025-03-28] MEDS: 0.9% Saline Lock 10 ML Syringe IV (02:40)
[2025-03-28 08:14] VITALS: BP 119/80; PULSE 87; RESP 16; TEMP 36.3; O2SAT 100
[2025-03-28] MEDS: AMOXICILLIN 500 MG CAPSULE PO ×3 (08:29→22:42)
[2025-03-28] MEDS: GLYCERIN/WITCH HAZEL (TUCKS) MED..PAD 1 EACH TOPICAL (09:59)
[2025-03-28] MEDS: SELF ADMINISTRATION OF MEDS 1 EACH NOTE ×2 (09:59→22:42)
[2025-03-28 12:19] VITALS: BP 121/80; PULSE 93; RESP 16; TEMP 36.1; O2SAT 98
[2025-03-28 16:50] VITALS: BP 121/77; PULSE 80; RESP 16; TEMP 36.5
[2025-03-28 20:23] VITALS: BP 118/77; PULSE 85; RESP 16; TEMP 36.2; O2SAT 98
[2025-03-29] VITALS: BP 132/76; PULSE 79; RESP 16; TEMP 36.9; O2SAT 99
[2025-03-29 05:01] VITALS: BP 115/76; PULSE 84; RESP 16; TEMP 36.6; O2SAT 98
[2025-03-29] MEDS: AMOXICILLIN 500 MG CAPSULE PO ×2 (06:54→14:30)
--- NOTE | 2025-03-29 08:04 | PN.OBGYN_ITS ---
Subjective Subjective Patient doing well without complaints. Tolerating PO. Ambulating and voiding without difficulty. Feeding well. Denies chest pain, shortness of breath, calf pain/swelling, fevers, chills, lightheadedness. Objective Data Objective Data Vital Signs: Vital Signs Temp Pulse Resp BP Pulse Ox O2 Del Method 98 F 84 16 115/76 98 Room Air 03/29/25 05:01 03/29/25 05:01 03/29/25 05:01 03/29/25 05:01 03/29/25 05:01 03/29/25 05:01 Oxygen Delivery Method Room Air Weight: 186 lb 9.6 oz Body Mass Index (BMI) 29.2 Intake & Output: Intake and Output for Last 24 Hours 03/27/25 03/28/25 03/29/25 23:59 23:59 23:59 Intake Total 1875.12 / 1875.12 1428.13 / 1428.13 Output Total 700 / 700 2100 / 2100 Balance 1175.12 / 1175.12 -671.87 / -671.87 Lab / Micro Data 03/27/25 17:50 ROS Constitutional Constitutional: Reports systems reviewed and no addt'l complaints, except as documented; Denies anorexia or headache(s) Cardiovascular Cardiovascular: Reports systems reviewed and no addt'l complaints, except as documented; Denies dizziness, dyspnea, nausea or tachypnea Respiratory/Chest Respiratory/Chest: Reports systems reviewed and no addt'l complaints, except as documented; Denies cough, dyspnea, shortness of breath at rest or tachypnea Gastrointestinal Gastrointestinal: Reports systems reviewed and no addt'l complaints, except as documented; Denies abdominal pain, constipation or nausea Genitourinary Genitourinary: Reports systems reviewed and no addt'l complaints, except as documented; Denies burning urination, difficulty urinating, dysuria, urinary frequency or urinary incontinence Musculoskeletal Musculoskeletal: Reports systems reviewed and no addt'l complaints, except as documented Integumentary Integumentary: Reports systems reviewed and no addt'l complaints, except as documented Neurologic Neurologic: Reports systems reviewed and no addt'l complaints, except as documented; Denies abnormal speech, dizziness or headache(s) Psychiatric Psychiatric: Reports systems reviewed and no addt'l complaints, except as documented Endocrine Endocrinology: Reports systems reviewed and no addt'l complaints, except as documented Hematologic/Lymphatic Hematologic/Lymphatic: Reports systems reviewed and no addt'l complaints, except as documented Physical Exam Const alert, oriented x3 and no apparent distress Neck full ROM Resp normal respiratory effort, normal air movement and no retractions Effort and Inspection: able to speak in complete sentences and symmetric chest movement GI soft to palpation Bladder / Kidney Exam: bladder normal to palpation Uterus Palpation: uterus fundus firm Extremity normal to inspection and full ROM Psych mental status grossly normal, thought process normal and cooperative Assessment & Plan (1) Vaginal delivery: COMMENT: KW SROM boy Koby PLAN: s/p PPD # 2 1. routine post delivery care 2. breast feeding- support given 3. rh positive 4. rubella immune 5. Discharge home (2) SROM (spontaneous rupture of membranes): (3) Supervision of high-risk : QUALIFIERS: Trimester: third trimester Qualified Code(s): O09.93 - Supervision of high risk , unspecified, third trimester COMMENT: PRR, , GLENN 04/05/25, : Maximilian (4) : QUALIFIERS: Weeks of gestation: 38 weeks Qualified Code(s): Z 3A.38 - 38 weeks gestation of COMMENT: Neg GBS. Discussed genetic/carrier testing - declined. (5) Celiac disease: Charges/Coding Multi Select Codes Urinary/Genital Urinary/Genital CPT Codes: No Charge
[2025-03-29 08:45] VITALS: BP 137/72; PULSE 70; RESP 16; TEMP 36.3; O2SAT 100
[2025-03-29] MEDS: SELF ADMINISTRATION OF MEDS 1 EACH NOTE (11:24)
--- NOTE | 2025-03-29 13:37 | CASEMGMT ---
Social Work Assessment Labor and Delivery Unit Patient Address:[address] [place] [address] [place] [address] Phone number:[phone] Date of Referral: 03/27/25 Time of Referral:? [id number] Referred By: Nicole Crews Date of Intervention: ??03/29/25 Time of Intervention:? 1020 Reason for Referral:? father of patient- recovering alcoholic Sw completed chart review and acknowledges social work consult. Sw presented to bedside and introduced self to mother of baby (MOB- Azalea) and father of baby (FOB- Maximilian). Sw explained reason for sw involvement and completed psychosocial assessment. History obtained from: medical records, MOB and FOB Household composition: Currently residing in the family home is MOB and FOB. Parents deny any problems or concerns with housing, stating that it is safe and secure. Patient's parent/guardian status:? ?MOB and FOB state that they went to the same high school and had the same friend group. They have been together for 7 years and for one. baby is first baby for both parents. No concerns reported of domestic violence or intimate partner violence. Medical History: ?AARON is 29 year old female who is 1, para 0- now 1 following labor and delivery of . AARON received routine care during with [place]. AARON presented to hospital and delivered baby via vaginal delivery on 03/28/25 at 38 weeks gestation. Baby boy, named Koby Bhatti, was born weighing 9lb 1oz and had apgars of 9 and 9 at one and five minutes of life, respectfully. AARON is breast feeding and states that it is going well. Baby will be seen by Dr. Johnson for pediatrics. Educational Status:? Both parents obtained their Bachelor's degrees. No problems with reading, learning or comprehension. Financial Status: Bot parents are gainfully employed outside of the home. FOB works for [employer] and MOB works for [employer] as a health education teacher. Supplies: All necessary baby supplies obtained, including: car seat, safe sleep space, clothes, diapers and wipes. ?? Childcare/Caregiver(s):? MOB and FOB will be the primary caregivers to baby, when both parents are working they have childcare arrangements with grandparents and friends. Transportation:?? Both parents have their drivers license and reliable means of transportation, no barriers Programs/Agencies Involved: ??Parents are over income for community resources that provide financial assistance Children Services/Legal Issues:??No history of children services involvement, no issues or concerns warranting referral to be made at this time. ? Behavioral Health Issues: ??Mental Health History:?Both parents deny mental health history, including anxiety and depression.?? Substance Use History: No substance use prior to and during . ?? Family History:?MOB states that her father has history of alcoholism, however he has and is not going to be an active caregiver to baby. Sw discussed importance of utilizing healthy and safe coping mechanisms opposed to seeking comfort from drugs or alcohol. ? Drug Screens: ??No drug screens observed from chart review. Family/Social Stressors:? Parents deny any issues, concerns or stressors at this time. Support Systems: AARON states that ROSI, her mom and her sisters are her biggest supports at this time, along with their friend group. Depression/Shaken Baby/Safe Sleeping:? Sw educated parents on signs and symptoms of baby blues and depression and anxiety. MOB and FOB expressed understanding. MOB states that her sisters have talked to her openly about their experiences. MOB states that she feels comfortable talking to FOB and her family about her emotions and if she feels as though she is struggling. FOB states that if MOB were experiencing symptoms he would be able to recognize that and would know how to help and support her. Sw educated parents on shaken baby prevention and ABCs of safe sleep. Parents express understanding. ASSESSMENT:? MOB and baby admitted following labor and delivery of . AARON's father had history of alcoholism, but has and is not identified as a caregiver to . While discussing family history of substance use, sw and parents discussed the importance of utilizing healthy and safe coping mechanisms. MOB and FOB state that they both enjoy reading, and are looking forward to going home with baby and getting used to being a family of three and enjoying down time recovering and caring for him while reading together. MOB and FOB both presented with calm and relaxing presence while meeting with sw. MOB laying in bed holding baby and caring for him lovingly. MOB states to having a almeida and connection with baby. FOB observed to be attentive to MOB and nurturing regarding her needs following delivery. Parents were extremely talkative with sw and engaging respectfully. Parents have obtained all necessary baby supplies and have a lot of natural supports in place. PLAN:? No other services requested or indicated. MOB and baby to be discharged when medically ready. Parents were provided literature regarding: signs and symptoms of baby blues and mood and anxiety disorders, Help Me Grow, shaken baby prevention, ABCs of safe sleep and a list of [facility] resources that are available for them should any needs present themselves. Ledy Aldrich, GRADUATION COACH, [employer]
[2025-03-29 14:31] VITALS: BP 115/76; PULSE 84; RESP 16; TEMP 36.2
== END 2025-03-29 16:55 | disposition home or self-care (01) | DRG 807 ==
LOC: WPOUT 17:45 → WP 17:45
PROVIDERS: Admitting Provider Advanced Practice Midwife; Referring Provider Advanced Practice Midwife; Visit Provider Advanced Practice Midwife
DX: O70.1 Second degree perineal laceration during delivery (principal); Z37.0 Single live birth; Z3A.38 38 weeks gestation of pregnancy
CPT/HCPCS: 59025; 59050; 84112; 85025; 86780; 86850; 86900; 86901; 99221; A4216; G0378; J2405